=== PATIENT | male | born 1955 | race Caucasian/White ===

== ENCOUNTER 2019-01-13 09:22 | Inpatient (IN) | payer OTHER ==
[2019-01-13] MEDS ORDERED: NS 0.9% 1000 ML** 1,000 ML IV ONE (09:30)
--- OUTSIDE RECORDS SUMMARY | 2019-01-13 09:32 | XMS REPORT | Continuity of Care Document ---
:1955 External Reference #:[id number] Author Name Armida Bro Care Team Providers Name Role Phone Dejan Chaidez III, MD Primary Care Physician Unavailable Payers Date Identification Numbers Payment Provider Subscriber Policy Number: [id number] Saurabh Gregory PayID: [id number] [address] [place] [address] Effective: 2013 Policy Number: [id number] Saurabh Gregory Expires: 2014 Group Name: [id number] [address] PayID: [id number] [place] [address] Problems Active Problems Provider Date Ex-smoker Shelly Casey M.D. Onset: 12/01/2012 Substance abuse counseling Shelly Casey M.D. Onset: 12/01/2012 FH: Cardiovascular disease Shelly Casey M.D. Onset: 12/01/2012 Social History Type Date Description Comments Sex Unknown Marital Status Single Lives With Alone Occupation computer networking instructor adjunct, [place], [place] Tobacco Use Start: Unknown Current Cigarette Smoker 1 1/2 Packs Daily Cigarette Use Pack Years - 15 Smoking Status Reviewed: 01/11/19 Current Cigarette Smoker 1 1/2 Packs Daily ETOH Use consumes 7 beers per week ETOH Use prior excessive use, 10 yr ago 15/ wk Tobacco Use Start: Unknown Patient is a current smoker, smokes every day Exercise Type/Frequency Exercises regularly Exercise Type/Frequency walk Allergies, Adverse Reactions, Alerts Description No Known Drug Allergies Medications Active Medications SIG Qnty Indications Ordering Provider Date No Active Medications Unknown 08/09/2016 History Medications Omeprazole 1 by mouth every 90caps 530.81 Shelly Casey, 06/09/2014 - 40mg day M.D. 08/09/[address] No Active Unknown 04/07/2014 - Medications 06/09/2014 No Active Unknown 12/01/2012 - Medications 12/01/2012 Chantix starter pack as 1tabs V15.82 Shelly Casey, 12/01/2012 - 0.5mg Tablets directed M.D. 04/07/2013 Immunizations CPT Code Status Date Vaccine Lot # [id number] Given 08/09/2016 Zoster (Zostavax) [id number] Given 08/09/2016 Zoster (Zostavax) [id number] 13743 Given 08/09/2016 Influ Virus Vaccine, Quadrivalent, Split Virus, [place] [id number] [address] Given 08/09/2016 Pneumococcal Conjugate Vaccine 13 Valent For [id number] Intramuscular Use 12769 Given 04/07/2014 Influenza Virus Vaccine, Quadrivalent, Split, [id number] Preservative Free Vital Signs Date Vital Result Comment 01/11/2019 2:12pm Height 64 inches 5'4" Weight 135.00 lb Heart Rate 105 /min BP Systolic Sitting 125 mmHg BP Diastolic Sitting 76 mmHg Body Temperature 98.1 F O2 % BldC Oximetry 99 % BMI (Body Mass Index) 23.2 kg/m2 08/09/2016 8:29am Height 64 inches 5'4" Weight 135.00 lb Heart Rate 78 /min BP Systolic Sitting 124 mmHg BP Diastolic Sitting 76 mmHg Respiratory Rate 15 /min O2 % BldC Oximetry 98 % BMI (Body Mass Index) 23.2 kg/m2 06/09/2014 10:34am Weight 127.00 lb Heart Rate 92 /min BP Systolic Sitting 128 mmHg BP Diastolic Sitting 82 mmHg 04/07/2014 10:23am Height 64 inches 5'4" Weight 125.75 lb Heart Rate 62 /min BP Systolic Sitting 130 mmHg BP Diastolic Sitting 88 mmHg Body Temperature 96.9 F BMI (Body Mass Index) 21.6 kg/m2 01/01/2013 9:27am Weight 127.25 lb Heart Rate 75 /min BP Systolic Sitting 124 mmHg BP Diastolic Sitting 80 mmHg O2 % BldC Oximetry 98 % 12/01/2012 8:52am Height 64 inches 5'4" Weight 126.00 lb Heart Rate 78 /min BP Systolic Sitting 130 mmHg BP Diastolic Sitting 91 mmHg BMI (Body Mass Index) 21.6 kg/m2 Results Test Date Facility Test Result H/L Range Note Laboratory test 04/12/2014 [facility] Glucose 82 mg/dL N 70- 100 1, [address] [place] [address] [phone] Lipid Profile 04/12/2014 [facility] Triglycerides 206 mg/dL N 3 (Trig/Chol/HDL) [address] [place] [address] [phone] Cholesterol 181 mg/dL N 4 HDL Cholesterol 50.0 mg/dL N 5 LDL Cholesterol 90 mg/dL N 6 Inr/Protime 12/04/2012 [facility] Inr 0.83 Low 0.87-0.[address] [place] [address] [phone] Laboratory test 12/04/2012 [facility] Activated 36.1 22.18- 37.[address] [place] [address] Thrombo Time [phone] CBC Auto Diff 12/04/2012 [facility] White Blood 6.7 4.8-10.[address] Count 10^3/[place] [address] [phone] Red Blood Count 4.54 10^6/uL 4.0-5.4 Hemoglobin 13.9 g/dL Low 14.0-18.0 Hematocrit 43 % 42-52 Mean Corpuscular Volume 94 fL 80-94 Mean Corpuscular Hemoglobin 31 pg 27-31 Mean Corpuscular HGB Conc 33 g/dL 31-36 Red Cell Distribution Width 17 % High 10.5-15 Platelet Count 248 10^3/uL 150-450 Mean Platelet Volume 9 um3 7.4-10.4 Abs Neutrophils 3.2 10^3/uL 1.5-7.7 Abs Lymphocytes 2.6 10^3/uL 1.0-4.8 Abs Monocytes 0.6 10^3/uL 0-0.8 Abs Eosinophils 0.2 10^3/uL 0-0.6 Abs Basophils 0 10^3/uL 0-0.2 Abs Nucleated RBC 0.01 10^3/uL Granulocyte % 48.1 % 38-83 Lymphocyte % 38.7 % 25-47 Monocyte % 9.1 % High 1-9 Eosinophil % 3.6 % 0-6 Basophil % 0.5 % 0-2 Nucleated Red Blood Cells % 0.1 Liver Function Panel 12/04/2012 [facility] Alt 15 U/L 14-[address] [place] [address] [phone] Ast 16 U/L 12-42 Alkaline Phosphatase 51 U/L 30-110 Direct Bilirubin 0 mg/dL Low 0.1-0.5 Total Bilirubin 0.4 mg/dL 0.4-1.5 Albumin 3.9 g/dL 3.6-5.4 1 FASTING 12 HOUR 2 FASTING 12 HOUR 3 Desirable <150 Borderline high 150-199 High 200-499 Very High >500 4 Desirable <200 Borderline high 200-239 High >239 5 Low <40 Desirable: 40-60 High: >60 6 Desirable <100 Near Optimal 100-129 Borderline high 130-159 High 160-189 Very High >189 Procedures Date Code Description Status 09/03/2016 77201 ECHO Stress Test Incl Perf Contiuous ekg Monitoring W/Phys Completed Superv Encounters Type Date Location Provider Dx Diagnosis Office Visit 08/09/2016 Elio [facility] Familia Ernandez, Z13.220 Encounter for 8:40a Internal M.Elaine screening for Medicine-[facility] lipoid disorders d Z23 Encounter for immunization R07.89 Other chest pain Z72.0 Tobacco use Z00.00 Encntr for general adult medical exam w/o abnormal findings R32 Unspecified urinary incontinence Office Visit 06/09/2014 10:20a [facility] Elif Casey, 300.09 Anxiety States Medicine - Mark Streeter Other 530.81 Esophageal Reflux 786.50 Pain Chest Unspec Office Visit 04/07/2014 10:20a [facility] Elif Casey, V70.0 Examination Medicine - Mark Streeter General Medical Routine AT Health Care Facility V65.42 Counseling On Substance Use & Abuse V15.82 History Personal Tobacco Use V74.5 Screening Examination Venereal Disease V76.51 Special Screening For Malignant Neoplasms Colon V04.81 Need For Prophylactic Vaccination & Inoculation/Influenza Office Visit 01/01/2013 9:40a [facility] Elif Casey, V65.42 Counseling On Medicine - Mark Streeter Substance Use & Abuse V15.82 History Personal Tobacco Use Office Visit 12/01/2012 9:00a [facility] Elif Casey, V15.82 History Personal Medicine - Mark Streeter Tobacco Use V65.42 Counseling On Substance Use & Abuse V72.81 Examination Preoperative Cardiovascular V17.49 Family HX Of Other Cardiovascular Diseases Plan of Treatment 01/11/2019 - Dejan Chaidez M.D.L29.9 Pruritus, unspecifiedComments:3+ month hx generalized pruritis sx with no focal skin rashes/lesions. (+) generalized dry, scalingskin all over, hima hands; ? cause of itching. Advised only gentle skin soap use and liberal use of a water based skin moisturizer multiple times odzmrP89.29 Other chronic painComments:Diffuse, daily, brief sharp pain sx over arms, legs. Etiology unclear. Multiple other ongoing c/o and additional lab lsnmjbmA22.83 Other fatigueComments:Chronic fatigue/dyspnea on exertion; no sx at rest. No chest pains/pressure and lungs clear on exam, O2 sat 99%. Labs including BNP imxiisbD35.9 Unspecified abdominal painComments:Chronic, episodic lower abd pains in addition to other pains as above. (+) chronic post large meal nausea noted hours later with some vomiting. No other postprandial sx, bowel changes, past GI dz. No colon kmuctR46.32 Mood disorder due to known physiological condition with majoComments:Mood score abnormal due to ongoing medical sx per pt; no other psych hx and pt denies any mood issues pfzpdizlvL55.44 Nocturnal enuresisNew Labs:Urinalysis Profile, Ordered: Comments:Chronic decreased stream and newer nocturnal enuresis. Check UA and PSA. No other voiding sxR60.0 Localized edemaComments:2 week c/o lower leg swelling. (+) 1-2+ pitting edema bilat to upper calf areas bilat. No varicosities, calf tenderness/masses. No other CHF sx, but (+) exertional dyspnea. No heart murmur noted. Check labs as above.
--- NOTE | 2019-01-13 10:02 | ED ---
Lower Extremity - HPI Summary HPI Summary: The patient is a 63 y/o M presenting to [facility] with a chief complaint of gradual onset BLE edema and pruritic skin starting months ago. He reports that over the past few months he has developed an intense pruritic sensation all over his body accompanied by dry, flaky skin, as well as BLE edema extending from the hip to foot and bilateral hands, fatigue, chills, and incontinence of urine at night. For his skin complaint, he states he has tried lotion to relieve the symptoms, but then he began to have swelling, so he halted the lotion use. He has more recently developed the fatigue, chills, and incontinence, so he has seen his PCP Dr. Chaidez two days ago, who suggested he come to the ED for further workup with cardiac and renal concerns subsequent to abnormal blood work results. He denies any dietary changes. Currently, his pain is rated 8/10 in severity. He is able to bear weight on both legs. No past medical Hx. Surgical hx of left shoulder dislocation and right ear cholesteatoma. Current every day cigarette smoker, occasional EtOH, no substance use. - History of Current Complaint Chief Complaint: EDWeakness Stated Complaint: LOW BACK PAIN PER PT Time Seen by Provider: 01/13/19 09:30 Hx Obtained From: Patient Mechanism Of Injury: Unknown Onset of Pain: Days Onset/Duration: Still Present Severity Initially: Mild Severity Currently: Severe Pain Intensity: 8 Pain Scale Used: 0-10 Numeric Timing: Lasting Days Location: Other - edema in the BLE from hip to foot and also bilateral hands Character Of Pain: Aching Aggravating Factor(s): Other - used lotion for dry skin that may have caused edema Alleviating Factor(s): Nothing Able to Bear Weight: Yes - Allergies/Home Medications Allergies/Adverse Reactions: Allergies Allergy/AdvReac Type Severity Reaction Status Date / Time No Known Allergies Allergy Verified 01/13/19 09:28 Home Medications: Home Medications NK [No Home Medications Reported] 01/13/19 [History Confirmed 01/13/19] PMH/Surg Hx/FS Hx/Imm Hx Endocrine/Hematology History: Denies: Hx Diabetes Cardiovascular History: Denies: Hx Hypercholesterolemia, Hx Hypertension History: Denies: Hx Renal Disease - Surgical History Surgery Procedure, Year, and Place: left shoulder dislocation with pin placement , right ear cholesteatoma removal Infectious Disease History: No Infectious Disease History: Denies: Traveled Outside the [place] in Last 30 Days - Family History Known Family History: Positive: Hypertension Negative: Diabetes - Social History Alcohol Use: Occasionally Hx Substance Use: No Hx Tobacco Use: Yes Smoking Status (MU): Current Every Day Smoker Type: Cigarettes Review of Systems Positive: Chills, Fatigue Negative: Other - NEGATIVE: change in diet Positive: incontinence - of urine Positive: Edema - in BLE extending from hip down including feet, bilateral hands Positive: Other - pruritic sensation all over body with dry, flaky skin All Other Systems Reviewed And Are Negative: Yes Physical Exam - Summary Physical Exam Summary: VITAL SIGNS: Reviewed. GENERAL: Patient is a well-developed and nourished male who is lying comfortable in the stretcher. Patient is not in any acute respiratory distress. HEAD AND FACE: No signs of trauma. No ecchymosis, hematomas or skull depressions. No sinus tenderness. EYES: PERRLA, EOMI x 2. Pale conjunctiva. No injected conjunctiva, no nystagmus. EARS: Hearing grossly intact. Ear canals and tympanic membranes are within normal limits. MOUTH: Oropharynx within normal limits. NECK: Supple, trachea is midline, no adenopathy, no JVD, no carotid bruit, no c- spine tenderness, neck with full ROM. CHEST: Symmetric, no tenderness at palpation. LUNGS: Decreased breath sounds. No wheezing or crackles. CVS: Regular rate and rhythm, S1 and S2 present, no murmurs or gallops appreciated. ABDOMEN: Soft, non-tender. No signs of distention. No rebound, no guarding, and no masses palpated. Bowel sounds are normal. EXTREMITIES: 2+ BLE edema from the hip down. FROM in all major joints, no cyanosis or clubbing. NEURO: Alert and oriented x 3. No acute neurological deficits. Speech is normal and follows commands. SKIN: Dry, pale, and warm. RECTAL EXAM: No gross blood or melena present. Triage Information Reviewed: Yes Vital Signs On Initial Exam: Initial Vitals Temp Pulse Resp BP Pulse Ox 98.1 F 100 16 162/79 97 01/13/19 09:25 01/13/19 09:25 01/13/19 09:25 01/13/19 09:25 01/13/19 09:25 Vital Signs Reviewed: Yes Diagnostics - Vital Signs Vital Signs Temp Pulse Resp BP Pulse Ox 01/13/19 09:25 98.1 F 100 16 162/79 97 - Laboratory Result Diagrams: 01/14/19 04:08 01/14/19 04:08 Lab Statement: Any lab studies that have been ordered have been reviewed, and results considered in the medical decision making process. - Radiology CXR Radiology Interpretation Completed By: Radiologist Summary of Radiographic Findings: No acute cardiopulmonary disease. ED physician has reviewed this radiology report. - EKG 0943 Cardiac Rate: Tachycardia - 103 BPM EKG Rhythm: Sinus Tachycardia Summary of EKG Findings: No ST elevations. Re-Evaluation - Re-Evaluation First Eval Re-Evaluation Time: 09:40 Comment: I discussed results and admission with the patient. Lower Extremity Course/Dx - Course Assessment/Plan: The patient is a 63 y/o M presenting to [facility] with a chief complaint of gradual onset BLE edema and pruritic skin starting months ago. He reports that over the past few months he has developed an intense pruritic sensation all over his body accompanied by dry, flaky skin, as well as BLE edema extending from the hip to foot and bilateral hands, fatigue, chills, and incontinence of urine at night. For his skin complaint, he states he has tried lotion to relieve the symptoms, but then he began to have swelling, so he halted the lotion use. He has more recently developed the fatigue, chills, and incontinence, so he has seen his PCP Dr. Chaidez two days ago, who suggested he come to the ED for further workup with cardiac and renal concerns subsequent to abnormal blood work results. He denies any dietary changes. Currently, his pain is rated 8/10 in severity. He is able to bear weight on both legs. No past medical Hx. Surgical hx of left shoulder dislocation and right ear cholesteatoma. Current every day cigarette smoker, occasional EtOH, no substance use. In the ED course, the patient was placed on a cardiac catheterization technician, IV access was obtained, and IV fluids were started. Blood work without any significant abnormality except for RBCs of 1.93, hemoglobin of 5.8, hematocrit of 18, potassium of 5.3, carbon dioxide of 12, anion gap of 20, BUN of 128, creatinine of 11.9, glucose of 114, calcium of 7.4, magnesium of 1.6 for which the patient was given magnesium IV, CRP of 68.7, and BNP of 237. EKG shows a normal sinus rhythm without ST elevations. Chest x-ray impression: No acute cardiopulmonary disease. In the ED course the patient was given medication IV, we did a bladder scan, which showed that the patient has over 600 cc of retention of urine; therefore, after the renal bladder scan, we will place a Cadet catheter. I discussed the case with Dr. Pearson from nephrology who will consult for this patient. I discussed my physical exam and test results with Dr. Bui from the hospitalist services, and she agrees to admit patient to her services. US Abd/Bladder ordered by Dr. Bui, and she will follow up with the results. Patient is hemodynamically stable alert and oriented x 3. - Diagnoses Provider Diagnoses: Acute renal failure, Urinary retention, Symptomatic anemia, Hypomagnesemia - Physician Notifications Discussed Care Of Patient With: Shankar Pearson - nephrology Time Discussed With Above Provider: 10:30 Instructed by Provider To: Other - I spoke with Dr. Pearson concerning the patient's case. He suggested admission, and he will see the patient. At 1035, I spoke with Dr. Bui, hospitalist, and she accepts the patient for admission. - Critical Care Time Critical Care Time: 75-104 min Discharge - Sign-Out/Discharge Documenting (check all that apply): Patient Departure - Patient will be admitted to [facility] for further care by Dr. Bui. Patient Received Moderate/Deep Sedation with Procedure: No - Discharge Plan Condition: Stable Disposition: ADMITTED TO [facility] - Billing Disposition and Condition Condition: STABLE Disposition: Admitted to [facility] - Attestation Statements Document Initiated by Liz: Yes Documenting Scribe: Yeimi Núñez Provider For Whom Liz is Documenting (Include Credential): Dr. Dejan Byers MD Scribe Attestation: IYeimi, scribed for Dr. Dejan Byers MD on 01/14/19 at 0736. Scribe Documentation Reviewed: Yes Provider Attestation: The documentation as recorded by the Yeimi rock accurately reflects the service I personally performed and the decisions made by me, Dr. Dejan Byers MD Status of Scribe Document: Viewed
[2019-01-13 10:03] LABS: ABS Eosinophils 1.3 10^3/ul (0-0.6); ABS Lymphocytes 1.2 10^3/ul (1.0-4.8); ABS Monocytes 0.8 10^3/ul (0-0.8); ABS Neutrophils 6.9 10^3/ul (1.5-7.7); Eosinophil % 12.7 %; Hematocrit 18 % (42-52); Hemoglobin 5.8 g/dL (14.0-18.0); Lymphocyte % 12.1 %; Mean Corpuscular HGB Conc 33 g/dL (31-36); Mean Corpuscular Hemoglobin 30 pg (27-31); Mean Corpuscular Volume 92 fL (80-94); Mean Platelet Volume 8.2 fL (7.4-10.4); Platelet Count 394 10^3/uL (150-450); Red Blood Count 1.93 10^6 /uL (4.18-5.48); Red Cell Distribution Width 15 % (10-15); White Blood Count 10.3 10^3/uL (3.5-10.8)
[2019-01-13 10:14] LABS: Troponin I 0.03 ng/mL (<0.04)
[2019-01-13 10:16] LABS: ALT 11 U/L (7-52); AST 11 U/L (13-39); Albumin 3.7 g/dL (3.2-5.2); Albumin/Globulin Ratio 1.3 (1-3); Alkaline Phosphatase 55 U/L (34-104); BUN/Creatinine Ratio 10.8 (8-20); Blood Urea Nitrogen 128 mg/dL (6-24); C Reactive Protein 68.77 mg/L (<8.01); Calcium 7.4 mg/dL (8.6-10.3); Chloride 109 mmol/L (101-111); EGFR African American 5.3 (>60); EGFR Non-African American 4.3 (>60); Globulin 2.8 g/dL (2-4); Glucose 114 mg/dL (70-100); Magnesium 1.6 mg/dL (1.9-2.7); Sodium 141 mmol/L (135-145); Total Protein 6.5 g/dL (6.4-8.9)
[2019-01-13 10:19] LABS: Anion Gap 20 mmol/L (2-11); CO2 Carbon Dioxide 12 mmol/L (22-32); Potassium 5.3 mmol/L (3.5-5.0)
[2019-01-13] MEDS ORDERED: Magnesium Sulfate 1 GM IV* 1 GM/100 ML BAG IV ONE (10:47)
[2019-01-13 11:02] LABS: TSH (Thyroid Stimulating Horm) 3.84 mcIU/mL (0.34-5.60)
[2019-01-13] MEDS ORDERED: Nicotine PATCH 21 MG/24 HR* PATCH TRANSDERM ONE (12:53)
[2019-01-13] MEDS ORDERED: Furosemide IV* 10 MG/ML VIAL (40 MG) IV ONE (12:54)
[2019-01-13] MEDS ORDERED: Iron Sucrose* 200 MG in NS 0.9% 100 ML* 100 ML IVPB ONE (13:10)
--- NOTE | 2019-01-13 13:19 | CONS ---
CC: Dr. Chaidez * NEPHROLOGY CONSULTATION REPORT: DATE OF CONSULT: 01/13/19 HISTORY OF PRESENT ILLNESS: Mr. Gregory is a 63-year-old gentleman who said that his symptoms started like hitting him with a freight train about 2-1/2 years ago. He began to have a significant decrease in his urinary stream and noted that he was becoming incontinent of urine during the evenings. He did have some urinary hesitancy. He did not have double voiding. He did not have any gross hematuria. He has been noticing that he is cold all the time. He notices that he has had significant pruritus, and over the past 2 weeks, he has developed some significant bilateral lower extremity edema. He has noticed easy fatigability, some anorexia, and dyspnea on exertion. PAST MEDICAL HISTORY: His previous medical history is fairly unremarkable. PAST SURGICAL HISTORY: He has a history of left shoulder surgery and history of a cholesteatoma removal from his right ear. MEDICATIONS: He does not have any routine medications. ALLERGIES: He has no medical allergies. FAMILY HISTORY: Unremarkable. SOCIAL HISTORY: He smokes a pack and a half of cigarettes per day. He uses about 3 drinks per day. REVIEW OF SYSTEMS: No visual disturbances. No headaches. He has been having a significant sleep disorder. No swallowing difficulties. No chest pain. He has had nausea, particularly in the mornings. He has had no change in his bowel habits. He has had no easy bruisability. There have been no neurologic deficits. PHYSICAL EXAM: General: He is a well-developed, well-nourished white gentleman. Vital Signs: He is afebrile, his blood pressure is 162/79 with a pulse of 104, respirations are 29. HEENT: He is normocephalic without evidence of trauma. He is anicteric. His extraocular muscles are intact. His mucous membranes are a little dry. There is no jugular venous distention. Chest: Is clear. Heart: Revealed a regular rhythm. I did not hear any murmurs. Abdomen: Soft and nontender. I think his bladder is up to just about 5 cm below the umbilicus. He is not very tender over his bladder. Lower Extremities: Reveal 2+ edema to his ankles and his feet. There are some trophic changes. He has markedly dry skin, which flakes off. He has Lukasz nails. Neurologic: He is alert and oriented. He moves all 4 extremities. DIAGNOSTIC STUDIES/LAB DATA: A review of his laboratory values reveals a white count of 10.3, hemoglobin of 5.8, hematocrit of 18, platelet count of 394. A pH of 7.26, pCO2 of 23, pO2 of 118. Sodium 141, potassium 5.3, chloride 109, total CO2 of 12, BUN of 128, creatinine of 11.9, glucose of 114. His calcium is 7.4, magnesium 1.6, albumin of 3.7. Urinalysis done on 01/11/19 reveals a specific gravity of 1.008, 1+ blood, 3+ leukocyte esterase, 3+ wbc's, 2+ rbc's, 1+ bacteria. He had an ultrasound of the bladder, which revealed 600 cc of urine in his bladder. His chest x-ray was unremarkable. IMPRESSION: 1. Renal failure. 2. Probable bladder outlet obstruction as the cause of his renal failure. 3. Type 4 renal tubular acidosis. 4. Severe anemia. DISCUSSION: It is likely that he has prostatic disease causing the bladder outlet obstruction. Hopefully, that is benign prostatic hypertrophy and not prostate cancer or bladder cancer. He will need to have catheter drainage. Obviously, we should be observing for postobstructive diuresis and fluid and electrolyte disorders. I would buffer his acidosis. Since he is taking oral food and fluids, I would go ahead and buffer him with Bicitra probably 30 cc t.i.d. at the present time. At some point, that may be able to be reduced. His magnesium of 1.6 I do not think needs to be addressed at the present time. He is tolerating his level of anemia, but I would not require much more in the way of symptoms to go ahead and transfuse him. An erythropoietin level and other parameters of the anemia evaluation should be obtained prior to any transfusion. [id number]/[facility] #: [id number] [facility] HOSPITALAnna
[2019-01-13 13:41] LABS: % Iron Saturation 20 % (15-55); Iron 54 ug/dL (50-212); Total Iron Binding Capacity 276 mcg/dL (250-450); Transferrin 197 mg/dL (203-362)
[2019-01-13] MEDS ORDERED: Sodium Citrate/Citric Acid* 15 ML UDC PO SCH (14:00)
[2019-01-13 14:02] LABS: Ferritin 14.1 ng/mL (24-336)
[2019-01-13] MEDS: Sodium Citrate/Citric Acid* 15 ML UDC PO SCH ×2 (14:56→21:13)
[2019-01-13] MEDS ORDERED: NS 0.9% 1000 ML** 1,000 ML IV SCH ×2 (15:00→17:15)
[2019-01-13 15:35] LABS: Urine Appearance Turbid; Urine Bacteria 1+ (Absent); Urine Bilirubin Negative (Negative); Urine Blood 2+ (Negative); Urine Color Amber; Urine Glucose 1+(50 mg/dL) (Negative); Urine Ketones Trace (Negative); Urine Nitrite Negative (Negative); Urine Protein 3+(>=500 mg/dL) (Negative); Urine Red Blood Cell 3+(>10/hpf) (Absent); Urine Specific Gravity 1.013 (1.010-1.030); Urine Urobilinogen Negative (Negative); Urine White Blood Cell 3+(>20/hpf) (Absent)
[2019-01-13 16:22] LABS: Hematocrit 36 % (42-52); Hemoglobin 11.1 g/dL (14.0-18.0)
[2019-01-13] MEDS: NS 0.9% 1000 ML** 1,000 ML IV SCH ×3 (17:10→23:00)
--- NOTE | 2019-01-13 17:30 | HP ---
ATTENDING ADDENDUM NOW INCLUDED ON THIS REPORT CC: Dejan Chaidez MD * HISTORY AND PHYSICAL: DATE OF ADMISSION: 01/13/19 PRIMARY CARE PROVIDER: Dejan Chaidez MD. ATTENDING PHYSICIAN: Dr. Heidi Key * (dictated by MARTHA Jones ). CHIEF COMPLAINT: "Intense itching." HISTORY OF PRESENT ILLNESS: Mr. Gregory is a 63-year-old male with no past medical history who presented to the ER with complaints of intense itching, flaking of skin, and swelling of the lower extremities and upper extremities for the last approximately 90 days. The patient states that itching and flaking has occurred for approximately 90 days, swelling in lower extremities started approximately 2 weeks ago with the right hand and which has subsided, now he has swelling in both lower extremities. He was noted to have a very elevated BUN and creatinine of 128 and 11.9 respectively in the ER. The patient denies any use of nephrotoxic medications including no recent use of antibiotics or NSAIDs. Last imaging scan with contrast was over 5 years ago. He states that he has had increased frequency with urinary retention for the last approximately 1 year. He states that this subsided. He currently wears Depends at night due to leaking. He now admits to urinating approximately 3 times a day with decreased flow and decreased urinary output. He denies pain with urination. He denies hematuria. He does not know how long this has been going on for. He denies abdominal pain, pain in the bladder region or flank pain. He does note a pressure sensation in the suprapubic area. He denies chest pain. He admits to shortness of breath, easy fatigability and diarrhea for the last approximately 2 weeks, 2 to 3 bouts per day. He complains of nausea with vomiting 1 to 2 times per day after eating or at night. He states he gets indigestion that leads to emesis. He denies past medical history of hypertension, hyperlipidemia. He denies fever, cough, or recent prostate exam. His primary care provider is Dr. Dejan Chaidez who he first saw on Friday. This was his first appointment with him. Prior to that it had been approximately 2 years since his last primary care provider visit. In the ER, the patient received a full workup which included blood work revealing RBC 1.93, H and H 5.8/18 respectively. PH 7.26, CO2 23, O2 118, HCO3 13.4, base excess negative 14.8, potassium 5.3, CO2 12, anion gap 20, BUN 128, creatinine 11.9, calcium 7.4, magnesium 1.6, CRP 68.77. His stool was negative for occult blood. Chest x-ray was negative. EKG revealed sinus tachycardia. The patient received 1 g magnesium IV in the ER. He also received 2 units of packed red blood cells. Ultrasound of the kidney and bladder revealed bilateral severe hydronephrosis. The hospitalist team was asked to evaluate the patient for admission. PAST MEDICAL HISTORY: None. PAST SURGICAL HISTORY: Left shoulder dislocation with pinning, right ear cholesteatoma removal. HOME MEDICATIONS: None. DRUG ALLERGIES: None. FAMILY HISTORY: Mother with cervical cancer, CHF, TIA, dementia. Father was healthy. Grandparents were healthy. The patient denies family history of diabetes mellitus. SOCIAL HISTORY: The patient is a current smoker. He states he smokes greater than 1 pack per day for the last approximately 30 years. He drinks 1 to 2 alcoholic beverages per week. He does not use any other drugs. He is a retired computer systems information director. He lives alone. In the event that he is unable to make his own medical decisions, he has appointed his sister, Karina Gregory to be his surrogate decision maker. REVIEW OF SYSTEMS: A 10-point review of systems was performed and all the pertinent positives and negatives are in the HPI. All other systems are negative. PHYSICAL EXAMINATION GENERAL: Mr. Gregory is a well-developed, well-nourished, normal weight white male who appears acutely ill. He is pale. He is cooperative and appropriate and in no acute distress. He is able to speak in full sentences. VITAL SIGNS: Temperature 98.1 temporal, heart rate 88, respiratory rate 15, oxygen saturation 99% on room air, blood pressure 134/84. HEENT: Normocephalic, atraumatic. PERRL. EOMI. Pale conjunctivae. Oral mucosa moist. There are no lesions. Poor dentition. RESPIRATORY: Symmetrical chest expansion without use of accessory muscles. Lungs are clear to auscultation bilaterally. There are no crackles. No wheezes or rhonchi. The patient has a anterior chest wall deformity appearing as pectus excavatum. CARDIOVASCULAR: Regular rate and rhythm with S1, S2 present without murmurs, rubs, clicks, gallops. There is no JVD. ABDOMEN: Flat. Bowel sounds noted in all quadrants. The abdomen is soft and nontender to palpation. There is some suprapubic tenderness. The bladder is palpable. EXTREMITIES: Skin is warm, dry, flaking throughout. There is no clubbing or cyanosis. There is trace edema to the right upper extremity. 2+ pitting edema to bilateral lower extremities. NEUROLOGIC: The patient is awake. He is alert and oriented x3. Cranial nerves are grossly intact. He is able to move all of his extremities. MUSCULOSKELETAL: Full range of motion without pain or deformities. SKIN: Dry, flaking throughout. DIAGNOSTIC STUDIES/LAB DATA: See above laboratory data. Chest x-ray, impression: No acute cardiopulmonary disease. EKG: Sinus tachycardia. Abdomen/bladder ultrasound, impression: Severe bilateral hydronephrosis. ASSESSMENT AND PLAN: Mr. Gregory is a 63-year-old male with no significant past medical history who has been lost a follow up for approximately 2 years, who presents to the ER today with pruritus and bilateral lower extremity edema. He was found to have acute renal failure likely due to postrenal obstruction and anemia requiring 2 units of packed red blood cells. He will be admitted inpatient for: 1. Acute renal failure: The patient came in with pruritus and bilateral lower extremity edema as well as shortness of breath, easy fatigability. He was found to have an elevated BUN and creatinine as well as bilateral hydronephrosis. In the ER, a urinary catheter was placed with an output of 1000 cc of fluid. The patient will be admitted. He will continue to self diurese with catheter in place. Dr. Pearson and Dr. Flores have both been consulted. They recommend q.2 hour urinary output volume measurement and replacement of two-thirds of the output over the next 2 hours. The patient will be placed on daily I's and O's. We will repeat electrolytes including phosphorous and magnesium in 8 hours after initial study. The patient will likely need cystoscopy and other studies as well as outpatient followup with Urology. Again, the patient will continue to have fluids replacement for his losses. He will be started on normal saline. Once potassium has normalized, we will switch to lactated Ringer's to avoid hypokalemia. 2. Anemia: The patient has decreased H and H. Fecal occult blood was negative. He has received 2 units of packed red blood cells in the ER. Anemia workup has been ordered. Erythropoietin has been ordered. 3. Tobacco abuse: The patient is a current tobacco user. He has been offered a nicotine patch which he has agreed to. This has been ordered. 4. DVT prophylaxis: According to the DVT risk assessment, the patient scores 2 placing him at moderate risk. We will hold off on chemoprophylaxis at the moment due to severe anemia. 7. Code status: Full code. TIME SPENT: Approximately 60 minutes was spent on this admission, greater than half of that time was spent [id number] with the patient and his girlfriend obtaining history, performing physical and reviewing the plan of care. The case has been reviewed with my attending, Dr. Key, who is in agreement with the plan of care. MARTHA JONES ADDENDUM: The case was reviewed to discuss with Edda Avina, physician retail sales assistant. Mr. Gregory is a 63-year-old male with no past medical history, but who has had limited contact with the healthcare system, who presents to the ED with complaints of itching and swelling of the lower extremities for 3 months. He was seen by his primary care provider and had a workup as outpatient that showed significant anemia with a hemoglobin of 5.9 and creatinine of 12.3. Dr. Chaidez had actually contacted me on 01/12/19 to have the patient admitted, but he did not show up. He presented to the emergency room today. In the emergency room the patient had an ultrasound that revealed bilateral severe hydronephrosis and he had a Cadet catheter placed with drainage of 200 mL of urine. Nephrology and Urology have been consulted. The patient has developed mild hematuria in the setting of decompression of his bladder and we will continue to monitor. We will also replete his urinary output with a two-thirds of the volume of normal saline. I am in agreement with the current management. HEIDI Key MD [id number] #: [id number]/CPS #: [id number] UNRULY
--- NOTE | 2019-01-13 20:08 | HP ---
CC: Dr. Dejan Chaidez. HISTORY AND PHYSICAL: ADDENDUM: The case was reviewed to discuss with Edda Avina, physician assistant federal public defender. Mr. Gregory is a 63-year-old male with no past medical history, but who has had limited contact with the healthcare system, who presents to the ED with complaints of itching and swelling of the lower extremities for 3 months. He was seen by his primary care provider and had a workup as outpatient that showed significant anemia with a hemoglobin of 5.9 and creatinine of 12.3. Dr. Chaidez had actually contacted me on 01/12/19 to have the patient admitted, but he did not show up. He presented to the emergency room today. In the emergency room the patient had an ultrasound that revealed bilateral severe hydronephrosis and he had a Cadet catheter placed with drainage of 200 mL of urine. Nephrology and Urology have been consulted. The patient has developed mild hematuria in the setting of decompression of his bladder and we will continue to monitor. We will also replete his urinary output with a two-thirds of the volume of normal saline. I am in agreement with the current management. [id number]/CPS #: [id number] MTDD
[2019-01-13 20:40] LABS: BUN/Creatinine Ratio 11.6 (8-20); Calcium 6.9 mg/dL (8.6-10.3); EGFR African American 5.7 (>60); EGFR Non-African American 4.7 (>60); Magnesium 1.8 mg/dL (1.9-2.7); Phosphorus 7.1 mg/dL (2.5-5.0); Potassium 4.7 mmol/L (3.5-5.0)
[2019-01-13 22:05] LABS: Hematocrit 20 % (42-52); Hemoglobin 6.9 g/dL (14.0-18.0)
[2019-01-14] MEDS: NS 0.9% 1000 ML** 1,000 ML IV SCH ×3 (01:00→05:00)
[2019-01-14 04:20] LABS: ABS Eosinophils 0.9 10^3/ul (0-0.6); ABS Lymphocytes 0.8 10^3/ul (1.0-4.8); ABS Monocytes 0.6 10^3/ul (0-0.8); ABS Neutrophils 4.9 10^3/ul (1.5-7.7); Eosinophil % 12.9 %; Hematocrit 21 % (42-52); Hemoglobin 7.1 g/dL (14.0-18.0); Lymphocyte % 11.4 %; Mean Corpuscular HGB Conc 33 g/dL (31-36); Mean Corpuscular Hemoglobin 31 pg (27-31); Mean Corpuscular Volume 92 fL (80-94); Mean Platelet Volume 7.4 fL (7.4-10.4); Platelet Count 315 10^3/uL (150-450); Red Cell Distribution Width 15 % (10-15); White Blood Count 7.3 10^3/uL (3.5-10.8)
[2019-01-14 04:35] LABS: Albumin 2.9 g/dL (3.2-5.2); Albumin/Globulin Ratio 1.3 (1-3); BUN/Creatinine Ratio 10.4 (8-20); Calcium 6.6 mg/dL (8.6-10.3); EGFR African American 5.2 (>60); EGFR Non-African American 4.3 (>60); Globulin 2.2 g/dL (2-4); Magnesium 1.7 mg/dL (1.9-2.7); Phosphorus 6.8 mg/dL (2.5-5.0); Potassium 4.4 mmol/L (3.5-5.0); Total Bilirubin 0.3 mg/dL (0.2-1.0); Total Protein 5.1 g/dL (6.4-8.9)
[2019-01-14] MEDS: Lactated Ringers 1000 ML Bag* 1,000 ML IV ONE ×6 (07:45→21:21)
[2019-01-14] MEDS: Nicotine PATCH 21 MG/24 HR* PATCH TRANSDERM SCH (08:59)
[2019-01-14] MEDS ORDERED: Furosemide IV* 10 MG/ML VIAL (40 MG) IV SCH (09:00)
[2019-01-14] MEDS: Sodium Citrate/Citric Acid* 15 ML UDC PO SCH ×3 (09:22→20:44)
--- NOTE | 2019-01-14 10:16 | ECHO ---
*[facility]* [place] [address] Fax #: [phone] Transthoracic Echocardiogram Patient: Byron Gregory : 1955 Study Date: 01/14/2019 Age: 63 Gender: M HR: 95 bpm Height: 64 in /162.6 cm BSA: 1.63 m^2 Weight: 129.7 lb /59 kg BMI: 22.3 kg/m^2 *Civil Defense Director: * Ellen Wray RDCS RN *Referring Physician: * Edda AvinaReading Physician: * Ganga Browne MD Indications: Edema History: Risk factors: Current tobacco use. Hypertension. Conclusions Summary: 1. Left ventricle: The cavity size is normal. Wall thickness is normal. Systolic function is normal. The estimated ejection fraction is 55-60%. Wall motion is normal; there are no regional wall motion abnormalities. 2. Normal cardiac chamber sizes. 3. Functionally benign heart valves. 4. There is no prior echocardiogram available to compare with at this time. Study data: Transthoracic echocardiogram. Procedure: Transthoracic echocardiography was performed. Image quality was fair. The study was technically limited due to Smoking history. Complete 2D, spectral Doppler, and color flow Doppler. Location: Bedside. Patient status: Inpatient. Patient room number: 410-02. Rhythm: Normal sinus rhythm. Findings Left ventricle: The cavity size is normal. Wall thickness is normal. Systolic function is normal. The estimated ejection fraction is 55-60%. Wall motion is normal; there are no regional wall motion abnormalities. There is no consistent Doppler evidence of clinically significant diastolic dysfunction. Right ventricle: The cavity size is normal. Systolic function is normal. Left atrium: The atrium is normal in size. Right atrium: The atrium is normal in size. Mitral valve: The leaflets are mildly thickened. There is trivial regurgitation. Aortic valve: Not well visualized. The leaflets are mildly thickened. There is no evidence of stenosis. There is no regurgitation. Tricuspid valve: The valve is structurally normal. There is trace regurgitation. Pulmonic valve: Not well visualized. There is no evidence of stenosis. There is no significant regurgitation. Aorta: Aortic root: The aortic root is not dilated. Ascending aorta: The ascending aorta is not dilated. Aortic arch: The aortic arch is not dilated. Pericardium: There is no pericardial effusion. Pulmonary arteries: Not well visualized. Systolic pressure can not be accurately estimated. Systemic veins: Inferior vena cava: The vessel is normal in size. The respirophasic diameter changes are in the normal range (>= 50%). Measurements Left ventricle Value Ref Right atrium continued Value Ref JEROD, LAX 4.6 cm 4.2 - 5.8 SI dim, ES, A4C 4.7 cm 3.4 - 5.3 ESD, LAX 3.3 cm 2.5 - 4.0 Estimated RAP 3 mm Hg --------- FS, LAX 27 % 25 - 43 PW, ED, LAX 1.0 cm 0.6 - 1.0 Aortic valve Value Ref PW, ED 1.0 cm 0.6 - 1.0 Alma diam, ED 1.8 cm --------- IVS/PW, ED 0.81 Peak v, S 1.75 m/sec --------- PW/ID, ED 0.21 VTI, S 30.3 cm --------- E', lat alma, TDI (L) 9.2 cm/sec >=10.0 Mean grad, S 7.0 mm Hg -- ------- E/e', lat alma, 9 Peak grad, S 12.0 mm Hg ----- ---- TDI LVOT/AV, VTI ratio 0.75 --------- E', med alma, TDI 8.4 cm/sec >=7.0 E/e', med alma, 10 Mitral valve Value Ref TDI Peak E 0.86 m/sec --------- E', avg, TDI 8.8 cm/sec Peak A 1.04 m/sec ----- ---- E/e', avg, TDI 10 <=14 Decel time 278 ms -- ------- Peak grad, D 3.0 mm Hg --------- LVOT Value Ref Peak E/A ratio 0.8 --------- Peak fito, S 1.39 m/sec VTI, S 22.6 cm Pulmonic valve Value Ref Peak grad, S 8 mm Hg Peak v, S 0.63 m/sec --------- Mean grad, S 4 mm Hg Peak grad, S 2.0 mm Hg --------- Ventricular septum Value Ref Aortic root Value Ref IVS, ED 0.8 cm 0.6 - 1.0 Root diam 2.6 cm <3.9 Right ventricle Value Ref Ascending aorta Value Ref JEROD, LAX 2.7 cm AAo AP diam, S 2.7 cm --------- JEROD minor ax, 2.5 cm 1.9 - 3.5 A4C mid Aortic arch Value Ref Arch diam 2.3 cm --------- Left atrium Value Ref AP dim, ES 3.30 cm 3.00 - Decending aorta Value Ref 4.00 Cr peak fito 0.95 m/sec --------- ML dim, A4C 4.3 cm SI dim, A4C 4.2 cm Inferior vena cava Value Ref Vol/bsa, ES, 1-p 26 ml/m^2 12 - 37 Diam 0.8 cm --------- A4C Vol/bsa, ES, A/L 20 ml/m^2 16 - 34 Right atrium Value Ref ML dim, ES, A4C 3.1 cm 2.6 - 4.4 Legend: (L) and (H) ofe values outside specified reference range. Prepared and electronically signed by Ganga Browne MD 01/14/2019 10:16
[2019-01-14] MEDS ORDERED: Lactated Ringers 1000 ML Bag* 1,000 ML IV ONE ×2 (11:00→13:00)
[2019-01-14 11:20] LABS: Hematocrit 21 % (42-52); Hemoglobin 6.9 g/dL (14.0-18.0)
[2019-01-14 11:37] LABS: Albumin 2.7 g/dL (3.2-5.2); Albumin/Globulin Ratio 1.2 (1-3); BUN/Creatinine Ratio 11.8 (8-20); Calcium 6.7 mg/dL (8.6-10.3); EGFR African American 6.1 (>60); Globulin 2.2 g/dL (2-4); Magnesium 1.6 mg/dL (1.9-2.7); Phosphorus 6.6 mg/dL (2.5-5.0); Potassium 4.6 mmol/L (3.5-5.0); Total Bilirubin 0.3 mg/dL (0.2-1.0); Total Protein 4.9 g/dL (6.4-8.9)
[2019-01-14 17:05] LABS: Hematocrit 23 % (42-52); Hemoglobin 7.8 g/dL (14.0-18.0)
--- NOTE | 2019-01-14 18:49 | PN ---
Subjective Date of Service: 01/14/19 Interval History: Received call from RN that patient did not receive 2 units of PRBC last evening as the 2nd unit was cancelled due to H&H of . Patient assessed at bedside. Reports itching has mildly improved. When asked about status of other symptoms that brought him to the emergency room he reports it is "too early to tell" in regards to changes in fatigue, sob, nausea , vomiting. Denies abd pain. Reports mild pressure in suprapubic region on palpation. Denies fever and chills. Objective Active Medications: Citric Acid/Sodium Citrate (Bicitra*) 30 ml PO TID [facility] Last Admin: 01/14/19 12:54 Dose: 30 ml Lactated Ringer's (Lactated Ringers 1000 Ml Bag*) 1,000 mls @ 92 mls/hr IV ONCE ONE Stop: 01/15/19 03:52 Last Admin: 01/14/19 17:15 Dose: 92 mls/hr Nicotine (Nicotine Patch 21 Mg/24 Hr*) 1 patch TRANSDERM DAILY@0800 [facility] Last Admin: 01/14/19 08:59 Dose: 1 patch Pharmacy Profile Note (Nicotine Patch Removal Note*) 1 note PATCH OFF 2100 [facility] Oxygen Devices in Use Now: None Appearance: Comfortable, NAD Eyes: No Scleral Icterus Ears/Nose/Mouth/Throat: Clear Oropharnyx, Mucous Membranes Moist Neck: NL Appearance and Movements; NL JVP Respiratory: Symmetrical Chest Expansion and Respiratory Effort, Clear to Auscultation Cardiovascular: NL Sounds; No Murmurs; No JVD, RRR, - - Bilateral LE pitting edema Abdominal: - - BS+. Soft. Nondistended. Reports mild tenderness in suprapubic region on palpation, but remainder nontender Lymphatic: No Cervical Adenopathy Extremities: No Clubbing, Cyanosis Skin: No Rash or Ulcers Neurological: Alert and Oriented x 3 Nutrition: Taking PO's Result Diagrams: 01/14/19 16:51 01/14/19 11:08 Additional Lab and Data: Laboratory Results - last 24 hr 01/13/19 01/13/19 01/13/19 09:00 09:53 20:15 WBC RBC Hgb Hct MCV MCH MCHC RDW Plt Count MPV Neut % (Auto) Lymph % (Auto) Dale % (Auto) Eos % (Auto) Baso % (Auto) Absolute Neuts (auto) Absolute Lymphs (auto) Absolute Monos (auto) Absolute Eos (auto) Absolute Basos (auto) Absolute Nucleated RBC Nucleated RBC % Sodium 139 Potassium 4.7 Chloride 109 Carbon Dioxide 14 L* Anion Gap 16 H BUN 128 H Creatinine 11.06 H Est GFR ( Amer) 5.7 Est GFR (Non-Af Amer) 4.7 BUN/Creatinine Ratio 11.6 Glucose 153 H Calcium 6.9 L Phosphorus 7.1 H Magnesium 1.8 L Erythropoietin 18.8 H Total Bilirubin AST ALT Alkaline Phosphatase Total Protein Albumin Globulin Albumin/Globulin Ratio Blood Type A Positive Antibody Screen Negative Crossmatch See Detail 01/13/19 01/14/19 01/14/19 21:59 04:08 04:08 WBC 7.3 RBC 2.30 L Hgb 6.9 L 7.1 L Hct 20 L 21 L MCV 92 MCH 31 MCHC 33 RDW 15 Plt Count 315 MPV 7.4 Neut % (Auto) 67.3 Lymph % (Auto) 11.4 Dale % (Auto) 8.0 Eos % (Auto) 12.9 Baso % (Auto) 0.4 Absolute Neuts (auto) 4.9 Absolute Lymphs (auto) 0.8 L Absolute Monos (auto) 0.6 Absolute Eos (auto) 0.9 H Absolute Basos (auto) 0.0 Absolute Nucleated RBC 0.0 Nucleated RBC % 0.0 Sodium 140 Potassium 4.4 Chloride 111 Carbon Dioxide 12 L* Anion Gap 17 H BUN 125 H Creatinine 12.02 H Est GFR ( Amer) 5.2 Est GFR (Non-Af Amer) 4.3 BUN/Creatinine Ratio 10.4 Glucose 93 Calcium 6.6 L Phosphorus 6.8 H Magnesium 1.7 L Erythropoietin Total Bilirubin 0.30 AST 8 L ALT 8 Alkaline Phosphatase 42 Total Protein 5.1 L Albumin 2.9 L Globulin 2.2 Albumin/Globulin Ratio 1.3 Blood Type Antibody Screen Crossmatch 01/14/19 01/14/19 01/14/19 11:08 11:08 16:51 WBC RBC Hgb 6.9 L 7.8 L Hct 21 L 23 L MCV MCH MCHC RDW Plt Count MPV Neut % (Auto) Lymph % (Auto) Dale % (Auto) Eos % (Auto) Baso % (Auto) Absolute Neuts (auto) Absolute Lymphs (auto) Absolute Monos (auto) Absolute Eos (auto) Absolute Basos (auto) Absolute Nucleated RBC Nucleated RBC % Sodium 139 Potassium 4.6 Chloride 111 Carbon Dioxide 14 L* Anion Gap 14 H BUN 124 H Creatinine 10.52 H Est GFR ( Amer) 6.1 Est GFR (Non-Af Amer) 5.0 BUN/Creatinine Ratio 11.8 Glucose 144 H Calcium 6.7 L Phosphorus 6.6 H Magnesium 1.6 L Erythropoietin Total Bilirubin 0.30 AST 8 L ALT 8 Alkaline Phosphatase 46 Total Protein 4.9 L Albumin 2.7 L Globulin 2.2 Albumin/Globulin Ratio 1.2 Blood Type Antibody Screen Crossmatch Microbiology and Other Data: Microbiology 01/13/19 09:48 Stool Stool Occult Blood (ROXANA) - Final Assess/Plan/Problems-Billing Assessment: 63 yr old male with no pmh who presented to ED with intense itching - Patient Problems (1) Acute renal failure Comment: - Severe hydronephorsis bilaterally - Cr 11.90 on admission. Improving as today 10.52 - Q2 hr output measurement and replacement of 2/3 over 2 hrs. Replacement changed from NS to LR. - Cont lentz given findings of retention of 1000 mls in ED. - Urology consulted by admitting provider. Patient will need outpatient follow up with Urology - Dr Weinberg consulting and recommends the followin dihydroxyvitamin d level, Calcitriol 0.25 mcg PO daily, Erythropoietin 5000 three times a week, Venofer 200 mg IV daily for 5 days (2) Anemia Comment: - Received 1 unit PRBC last evening and 1 unit today. - Cont to monitor H&H - Stool negative (3) Electrolyte abnormality Comment: - K wnl - Mag slightly low, but discussed replacement with Dr Weinberg who advises against at this time (4) DVT prophylaxis Comment: - SCDs only given anemia Status and Disposition: Inpatient. Discharge home when medically stable. Attending: Shayy Harris
[2019-01-14] MEDS ORDERED: EPOETIN ALFA-EPBX * 3,000 UNIT/ML VIAL SUBCUT ONE (20:00)
[2019-01-14] MEDS ORDERED: EPOETIN ALFA-EPBX * 2,000 UNIT/ML VIAL SUBCUT ONE (20:00)
[2019-01-14] MEDS: Nicotine Patch Removal NOTE PATCH OFF SCH (20:41)
--- NOTE | 2019-01-14 22:55 | PN ---
PROGRESS NOTE: DATE OF SERVICE: 01/14/2019 SUBJECTIVE: Mr. Gregory is feeling much better today. He has had significant diuresis after placing his catheter. There was a reasonably large postvoid residual bladder volume when the catheter was placed. He has been in negative fluid balance since admission. He is breathing well. He has no orthopnea. No anorexia. No nausea or vomiting. No neuromuscular irritability. Yesterday, he was in -1285 cc of fluid balance exclusive of insensible losses. His blood pressure is 141/81 with a pulse of 96, respirations are 16. There is no jugular venous distention. His chest is clear. The heart revealed regular rhythm without murmurs. There is a 1 to 2+ edema, which seems a little better today than yesterday. His laboratory values reveal a white count of 7.3, hemoglobin of 7.8, total CO2 of 14, sodium of 138, potassium of 4.6, chloride of 111, BUN 124, creatinine of 10.52. IMPRESSION: Obstructive uropathy with acute renal failure. The fact that his creatinine is falling at this point is highly encouraging. He continues to have a significant metabolic acidosis and I would increase his rate of buffering at the present time. His erythropoietin level is high range normal, which is inappropriate for his level of anemia and I would start him on erythropoietin replacement. He is iron deficient and I would start him on some intravenous iron replacement. I have discussed his case with Colette Altman NP. [id number]/[facility] #: [id number] [place]UL[place]
[2019-01-15 04:31] LABS: ABS Eosinophils 0.8 10^3/ul (0-0.6); ABS Monocytes 0.8 10^3/ul (0-0.8); ABS Neutrophils 6.3 10^3/ul (1.5-7.7); Eosinophil % 8.8 %; Hematocrit 26 % (42-52); Hemoglobin 8.9 g/dL (14.0-18.0); Lymphocyte % 11.3 %; Mean Corpuscular HGB Conc 34 g/dL (31-36); Mean Corpuscular Hemoglobin 31 pg (27-31); Mean Corpuscular Volume 91 fL (80-94); Mean Platelet Volume 7.8 fL (7.4-10.4); Nucleated Red Blood Cells % 0.1; Platelet Count 321 10^3/uL (150-450); Red Blood Count 2.86 10^6 /uL (4.18-5.48); Red Cell Distribution Width 14 % (10-15); White Blood Count 8.9 10^3/uL (3.5-10.8)
[2019-01-15 04:45] LABS: Albumin 2.8 g/dL (3.2-5.2); Albumin/Globulin Ratio 1.3 (1-3); BUN/Creatinine Ratio 11.2 (8-20); Calcium 6.7 mg/dL (8.6-10.3); EGFR African American 5.7 (>60); EGFR Non-African American 4.7 (>60); Globulin 2.1 g/dL (2-4); Magnesium 1.5 mg/dL (1.9-2.7); Phosphorus 6.2 mg/dL (2.5-5.0); Potassium 4.3 mmol/L (3.5-5.0); Total Bilirubin 0.3 mg/dL (0.2-1.0); Total Protein 4.9 g/dL (6.4-8.9)
[2019-01-15] MEDS: Lactated Ringers 1000 ML Bag* 1,000 ML IV SCH ×7 (07:00→19:00)
[2019-01-15] MEDS: Iron Sucrose* 200 MG in NS 0.9% 100 ML* 100 ML IVPB SCH (09:07)
[2019-01-15] MEDS: Calcitriol CAP* 0.25 MCG PO SCH (09:08)
[2019-01-15] MEDS: Sodium Citrate/Citric Acid* 15 ML UDC PO SCH ×3 (09:09→23:15)
[2019-01-15] MEDS: Nicotine PATCH 21 MG/24 HR* PATCH TRANSDERM SCH (09:10)
--- NOTE | 2019-01-15 09:40 | CONS ---
CONSULTATION NOTE: DATE OF CONSULT: 01/15/19 LOCATION: The patient is in room #410. HISTORY OF PRESENT ILLNESS: I was asked by the hospitalist service to see this 63-year-old white male with urinary retention and renal failure. Mr. Gregory presented to the emergency room 2 days ago with diffuse itching and feeling weak. On his evaluation in the emergency room, he was noted to have a serum creatinine of 11.5, to be severely anemic and acidotic. Renal ultra- sound showed bilateral hydroureteronephrosis and urinary retention. He had Cadet catheter placed and there was a post void residual of 1,400 cc. He was admitted for fluid replacement and management. He was given 2 units of blood to improve his anemia. A consultation is obtained for the retention and obstructive uropathy. Mr. Gregory reports for at least the last 2 years, he has noted significant voiding symptoms consisting of slow stream, hesitancy, intermittency, voiding in small amounts, and feeling of incomplete bladder emptying. He has been incontinent at night for at least the last 2 years and has had episodes of urinary incontinence during the day. The incontinence seems to be of the overflow type. He denies flank pain, or any episodes of gross hematuria or urinary tract infections. He denies any history of renal calculi. There is no history of any urethral instrumentation or urological surgeries. His history is otherwise negative. PHYSICAL EXAM: On physical exam, he is a pleasant white male who is lying comfortably in bed. Exam of the abdomen is normal. He has no CVA tenderness. External genitalia are normal and he has a Cadet catheter draining pinkish urine. Rectal exam shows an enlarged prostate that is smooth without any induration or suspicious nodules. Since his admission, the patient has been putting about 3,000 mL of urine per 24 hours. Unfortunately, his serum creatinine continues to be elevated at about 11. IMPRESSION: Bladder outlet obstruction, most likely secondary to prostate enlargement resulting in chronic urinary retention, overflow urinary incontinence, with resultant bilateral hydroureteronephrosis and renal failure due to obstructive uropathy. This must have been present for at least the last 2 years considering the history of urinary incontinence. It does explain the minimal improvement in his renal function with a catheter drainage. The fact that he has not responded with brisk post obstructive diuresis, and has no improvement of his serum creatinine on Cadet catheter drainage, is not a good prognostic sign for the recovery of his renal function. The plan at this time is to continue with the medical management of his uremia, correcting his acidosis, and maintaining him on catheter drainage. He will need to be on catheter drainage for the foreseeable future. The options will be chronic catheter drainage versus teaching the patient intermittent self catheterization, which I discussed with him and he did not seem to be too interested in doing it at this time. From the urological aspect, I would wait until his renal function improves and later on he is going to need cystoscopy and urodynamic studies. If there is evidence of recovery of his bladder function, he would be a candidate for transurethral resection of the prostate, but that is going to be down the road. In the interim, I do recommend obtaining blood for PSA. I also do recommend starting him on finasteride 5 mg daily to reduce the prostate volume. I will see him back with you as needed in the hospital and then after his discharge as an outpatient. [id number]/CPS #: [id number] UNRULY
[2019-01-15] MEDS: Ampicillin ADVAN(*) 1 GM in NS 0.9% 50 ML* 50 ML IVPB SCH (16:27)
--- NOTE | 2019-01-15 20:53 | PN ---
Subjective Date of Service: 01/15/19 Interval History: Resting in bed on assessment. Reports occasional "intense pressure" in suprapubic region and reports it feels like he has to urinate. Reports he continues to occasionally have chills. Reports he continues to feel fatigued and weak. Reports generalized itchy has improves slightly. Denies cp, sob, flank pain, nausea, vomiting, diarrhea Objective Active Medications: Calcitriol (Rocaltrol Cap*) 0.25 mcg PO DAILY REPLACED BY [facility] Last Admin: 01/15/19 09:08 Dose: 0.25 mcg Citric Acid/Sodium Citrate (Bicitra*) 30 ml PO TID REPLACED BY [facility] Last Admin: 01/15/19 13:13 Dose: 30 ml Iron Sucrose 200 mg/ Sodium (Chloride) 110 mls @ 110 mls/hr IVPB DAILY REPLACED BY [facility] Stop: 01/18/19 09:59 Last Admin: 01/15/19 09:07 Dose: 110 mls/hr Lactated Ringer's (Lactated Ringers 1000 Ml Bag*) 1,000 mls @ 107 mls/hr IV .PER RATE REPLACED BY [facility] Last Admin: 01/15/19 17:15 Dose: 117 mls/hr Ampicillin Sodium 1 gm/ Sodium (Chloride) 50 mls @ 200 mls/hr IVPB DAILY@1600 REPLACED BY [facility] Last Admin: 01/15/19 16:27 Dose: 200 mls/hr Nicotine (Nicotine Patch 21 Mg/24 Hr*) 1 patch TRANSDERM DAILY@0800 REPLACED BY [facility] Last Admin: 01/15/19 09:10 Dose: 1 patch Nicotine Polacrilex (Nicotine Gum*) 4 mg PO Q2H PRN PRN Reason: CRAVING Pharmacy Profile Note (Nicotine Patch Removal Note*) 1 note PATCH OFF 2100 REPLACED BY [facility] Last Admin: 01/14/19 20:41 Dose: 1 note Vital Signs - 8 hr 01/15/19 01/15/19 16:00 18:00 Temperature 98.2 F Pulse Rate 98 106 Respiratory 16 16 Rate Blood Pressure 146/84 148/68 (mmHg) O2 Sat by Pulse 100 Oximetry Oxygen Devices in Use Now: None Appearance: Comfortable, NAD Eyes: No Scleral Icterus, PERRLA Ears/Nose/Mouth/Throat: Clear Oropharnyx, Mucous Membranes Moist Neck: NL Appearance and Movements; NL JVP Respiratory: Symmetrical Chest Expansion and Respiratory Effort, Clear to Auscultation Cardiovascular: NL Sounds; No Murmurs; No JVD, RRR, - - Bilateral +1 to +2 pitting edema Abdominal: - - Soft. BS+. Tender to suprapubic region. Lymphatic: No Cervical Adenopathy Extremities: No Clubbing, Cyanosis Skin: - - Dry and flaking. Excoriation to bilateral legs from itching Neurological: Alert and Oriented x 3 Nutrition: Taking PO's Result Diagrams: 01/15/19 04:19 01/15/19 04:19 Additional Lab and Data: Laboratory Results - last 24 hr 01/15/19 01/15/19 04:19 04:19 WBC 8.9 RBC 2.86 L Hgb 8.9 L Hct 26 L MCV 91 MCH 31 MCHC 34 RDW 14 Plt Count 321 MPV 7.8 Neut % (Auto) 70.8 Lymph % (Auto) 11.3 [place] % (Auto) 8.6 Eos % (Auto) 8.8 Baso % (Auto) 0.5 Absolute Neuts (auto) 6.3 Absolute Lymphs (auto) 1.0 Absolute Monos (auto) 0.8 Absolute Eos (auto) 0.8 H Absolute Basos (auto) 0.0 Absolute Nucleated RBC 0.0 Nucleated RBC % 0.1 Sodium 139 Potassium 4.3 Chloride 108 Carbon Dioxide 14 L* Anion Gap 17 H BUN 124 H Creatinine 11.09 H Est GFR ( Amer) 5.7 Est GFR (Non-Af Amer) 4.7 BUN/Creatinine Ratio 11.2 Glucose 107 H Calcium 6.7 L Phosphorus 6.2 H Magnesium 1.5 L Total Bilirubin 0.30 AST 9 L ALT 9 Alkaline Phosphatase 44 Total Protein 4.9 L Albumin 2.8 L Globulin 2.1 Albumin/Globulin Ratio 1.3 25-OH Vitamin D Total 9.5 L Microbiology and Other Data: Microbiology 01/13/19 15:18 Urine Urine Culture - Final Enterococcus Faecalis 01/13/19 09:48 Stool Stool Occult Blood (ROXANA) - Final Assess/Plan/Problems-Billing Assessment: 63 yr old male with no pmh who presented to ED with intense itching - Patient Problems (1) Acute renal failure Comment: - Creatinine 10.5 yesterday and 11.09 today - Severe hydronephorsis bilaterally - Q2 hr output measurement and replacement of 2/3 over 2 hrs with LR. - Cont lentz given findings of retention of 1000 mls in ED. - Urology consulting and suspected bladder outlet obstruction secondary to enlarged prostate resulting in chronic urinary retention and renal failure. Recommending PSA (ordered) and Finastride 5 mg daily - Dr Weinberg consulting and recommends the followin dihydroxyvitamin d level, Calcitriol 0.25 mcg PO daily, Erythropoietin 5000 three times a week, Venofer 200 mg IV daily for 5 days (2) Anemia Comment: - Stabilizing - Received 2 unit PRBC since admission - Cont to monitor H&H - Stool negative (3) Electrolyte abnormality Comment: - K wnl - Mag slightly low, but discussed replacement with Dr Weinberg who advises against at this time unless it continues to drop - Tele ordered (4) DVT prophylaxis Comment: - SCDs only given anemia Status and Disposition: Inpatient. Discharge home when medically stable. Attending: Shayy Harris
[2019-01-15] MEDS: Nicotine Patch Removal NOTE PATCH OFF SCH (23:22)
[2019-01-16] MEDS: Lactated Ringers 1000 ML Bag* 1,000 ML IV SCH ×8 (04:01→21:17)
[2019-01-16 08:21] LABS: ABS Eosinophils 0.8 10^3/ul (0-0.6); ABS Lymphocytes 0.9 10^3/ul (1.0-4.8); ABS Monocytes 0.7 10^3/ul (0-0.8); ABS Neutrophils 5.5 10^3/ul (1.5-7.7); Eosinophil % 9.6 %; Hematocrit 25 % (42-52); Hemoglobin 8.3 g/dL (14.0-18.0); Lymphocyte % 11.9 %; Mean Corpuscular HGB Conc 33 g/dL (31-36); Mean Corpuscular Hemoglobin 31 pg (27-31); Mean Corpuscular Volume 95 fL (80-94); Mean Platelet Volume 7.7 fL (7.4-10.4); Platelet Count 273 10^3/uL (150-450); Red Blood Count 2.68 10^6 /uL (4.18-5.48); Red Cell Distribution Width 15 % (10-15)
[2019-01-16 08:39] LABS: Potassium 4.1 mmol/L (3.5-5.0)
[2019-01-16 08:45] LABS: BUN/Creatinine Ratio 11.4 (8-20); EGFR African American 6.6 (>60); EGFR Non-African American 5.5 (>60)
[2019-01-16] MEDS: Nicotine PATCH 21 MG/24 HR* PATCH TRANSDERM SCH (09:10)
[2019-01-16] MEDS: Calcitriol CAP* 0.25 MCG PO SCH (09:12)
[2019-01-16] MEDS: Sodium Citrate/Citric Acid* 15 ML UDC PO SCH ×3 (09:12→21:21)
[2019-01-16] MEDS: Iron Sucrose* 200 MG in NS 0.9% 100 ML* 100 ML IVPB SCH (09:12)
[2019-01-16] MEDS: Finasteride TAB* 5 MG PO SCH (11:54)
[2019-01-16 13:08] LABS: Magnesium 1.3 mg/dL (1.9-2.7)
[2019-01-16] MEDS ORDERED: Magnesium Sulfate IV* 3 GM in NS 0.9% 100 ML* 100 ML IVPB ONE (13:12)
--- NOTE | 2019-01-16 13:12 | PN ---
Subjective Date of Service: 01/16/19 Interval History: Mr. Gregory is feeling a bit better today. He continues to have short (30 sec) episodes of sharp midline abdominal pain that resolve with flatus. These are not occurring as often as when he was admitted. He is still quite itchy, but this is also improved. Denies CP, SOB, N/V. No concerns from nursing. Family History: Unchanged from Admission Social History: Unchanged from Admission Past Medical History: Unchanged from Admission Objective Active Medications: Calcitriol (Rocaltrol Cap*) 0.25 mcg PO DAILY [facility] Citric Acid/Sodium Citrate (Bicitra*) 30 ml PO TID [facility] Finasteride (Proscar Tab*) 5 mg PO DAILY [facility] Iron Sucrose 200 mg/ Sodium (Chloride) 110 mls @ 110 mls/hr IVPB DAILY [facility] Ampicillin Sodium 1 gm/ Sodium (Chloride) 50 mls @ 200 mls/hr IVPB DAILY@1600 [facility] Lactated Ringer's (Lactated Ringers 1000 Ml Bag*) 1,000 mls @ 117 mls/hr IV PER RATE [facility] Nicotine (Nicotine Patch 21 Mg/24 Hr*) 1 patch TRANSDERM DAILY@0800 [facility] Nicotine Polacrilex (Nicotine Gum*) 4 mg PO Q2H PRN CRAVING Vital Signs - 8 hr 01/16/19 01/16/19 01/16/19 05:15 07:00 07:11 Temperature 98.3 F 98.8 F Pulse Rate 102 97 Respiratory 18 18 16 Rate Blood Pressure 168/76 133/68 (mmHg) O2 Sat by Pulse 100 98 Oximetry 01/16/19 01/16/19 09:00 11:00 Temperature 98.7 F 99.1 F Pulse Rate 101 91 Respiratory 20 20 Rate Blood Pressure 152/78 135/71 (mmHg) O2 Sat by Pulse 98 Oximetry Oxygen Devices in Use Now: None Appearance: Middle-aged male laying in bed in NAD Eyes: No Scleral Icterus Ears/Nose/Mouth/Throat: Mucous Membranes Moist Neck: NL Appearance and Movements; NL JVP, Trachea Midline Respiratory: Symmetrical Chest Expansion and Respiratory Effort, Clear to Auscultation Cardiovascular: NL Sounds; No Murmurs; No JVD, RRR Abdominal: NL Sounds; No Tenderness; No Distention Extremities: - - +2 pitting BLE Skin: - - Dry, flaking skin Neurological: Alert and Oriented x 3 Lines/Tubes/Other Access: Clean, Dry and Intact Peripheral IV Nutrition: Taking PO's Result Diagrams: 01/16/19 07:46 01/16/19 07:46 Assess/Plan/Problems-Billing Assessment: Mr. Gregory is a 63 yo M with no significant PMH who presented to ED with c/o intense itching and was found to be in renal failure. - Patient Problems (1) Acute renal failure Comment: - Creatinine peaked at 12.02, now down to 9.71 - Severe bilateral hydronephrosis - Appreciate Nephrology consult; recommended calcitriol, erythropoietin, iron sucrose - Appreciate Urology consult; suspected bladder outlet obstruction secondary to BPH and recommended finasteride - Continue Cadet; per Sandra, he will need this for the foreseeable future - Continue IVF; q2h output monitoring and replacement of 2/3 over 2 hours (2) Hypomagnesemia Code(s): E83.42 - HYPOMAGNESEMIA Comment: - Was 1.8 on day of admission, now down to 1.3 - Dr. Pearson advised against repleting unless it continued to drop and it has dropped since yesterday - Mag sulfate x1 today and recheck in AM (3) Anemia Code(s): D64.9 - ANEMIA, UNSPECIFIED Comment: - Stable - Suspect iron deficiency (low ferritin) and anemia of chronic disease - Received 2 unit PRBC since admission - Stool occult negative - Continue iron sucrose (4) DVT prophylaxis Current Visit: Yes Status: Acute Code(s): Z29.9 - ENCOUNTER FOR PROPHYLACTIC MEASURES, UNSPECIFIED SNOMED Code(s): 167134273 Comment: - SCDs only in the setting of anemia (5) Full code status Code(s): Z78.9 - OTHER SPECIFIED HEALTH STATUS Comment: Status and Disposition: Inpatient. Anticipate d/c home when medically stable. Attending: Shayy Harris
[2019-01-16] MEDS: Ampicillin ADVAN(*) 1 GM in NS 0.9% 50 ML* 50 ML IVPB SCH (16:17)
[2019-01-16] MEDS: Nicotine Patch Removal NOTE PATCH OFF SCH (21:17)
[2019-01-17] MEDS: Lactated Ringers 1000 ML Bag* 1,000 ML IV SCH ×9 (00:01→16:00)
[2019-01-17 06:19] LABS: ABS Monocytes 0.7 10^3/ul (0-0.8); ABS Neutrophils 6.7 10^3/ul (1.5-7.7); Eosinophil % 10.5 %; Hematocrit 24 % (42-52); Hemoglobin 8.1 g/dL (14.0-18.0); Mean Corpuscular HGB Conc 33 g/dL (31-36); Mean Corpuscular Hemoglobin 31 pg (27-31); Mean Corpuscular Volume 92 fL (80-94); Mean Platelet Volume 7.8 fL (7.4-10.4); Platelet Count 267 10^3/uL (150-450); Red Blood Count 2.65 10^6 /uL (4.18-5.48); Red Cell Distribution Width 15 % (10-15); White Blood Count 9.5 10^3/uL (3.5-10.8)
[2019-01-17 07:00] LABS: BUN/Creatinine Ratio 12.2 (8-20); Calcium 6.6 mg/dL (8.6-10.3); EGFR African American 7.3 (>60); EGFR Non-African American 6.1 (>60); Magnesium 1.9 mg/dL (1.9-2.7); Potassium 4.1 mmol/L (3.5-5.0)
[2019-01-17] MEDS: Nicotine PATCH 21 MG/24 HR* PATCH TRANSDERM SCH (08:21)
[2019-01-17] MEDS: Finasteride TAB* 5 MG PO SCH (08:22)
[2019-01-17] MEDS: Cholecalciferol TAB* 1000 UNITS PO SCH (08:22)
[2019-01-17] MEDS: Calcitriol CAP* 0.25 MCG PO SCH (10:06)
[2019-01-17] MEDS: Sodium Citrate/Citric Acid* 15 ML UDC PO SCH ×3 (10:20→20:52)
--- NOTE | 2019-01-17 12:33 | PN ---
Subjective Date of Service: 01/17/19 Interval History: Mr. Gregory is feeling well today. Pain has improved in frequency, duration, and intensity. He does occasionally feel an urge to urinate, though has a Cadet in place. Denies CP, SOB, N/V. No concerns from nursing. Family History: Unchanged from Admission Social History: Unchanged from Admission Past Medical History: Unchanged from Admission Objective Active Medications: Calcitriol (Rocaltrol Cap*) 0.25 mcg PO DAILY [facility] Cholecalciferol (Vitamin D Tab*) 1,000 units PO DAILY [facility] Citric Acid/Sodium Citrate (Bicitra*) 30 ml PO TID [facility] Finasteride (Proscar Tab*) 5 mg PO DAILY [facility] Iron Sucrose 200 mg/ Sodium (Chloride) 110 mls @ 110 mls/hr IVPB DAILY [facility] Ampicillin Sodium 1 gm/ Sodium (Chloride) 50 mls @ 200 mls/hr IVPB DAILY@1600 [facility] Lactated Ringer's (Lactated Ringers 1000 Ml Bag*) 1,000 mls @ 117 mls/hr IV PER RATE [facility] Nicotine (Nicotine Patch 21 Mg/24 Hr*) 1 patch TRANSDERM DAILY@0800 [facility] Nicotine Polacrilex (Nicotine Gum*) 4 mg PO Q2H PRN CRAVING Vital Signs - 8 hr 01/17/19 01/17/19 07:15 11:15 Temperature 97.9 F 97.1 F Pulse Rate 91 88 Respiratory 20 18 Rate Blood Pressure 142/57 164/82 (mmHg) O2 Sat by Pulse 98 100 Oximetry Oxygen Devices in Use Now: None Appearance: Middle-aged male laying in bed in NAD Eyes: No Scleral Icterus Ears/Nose/Mouth/Throat: Mucous Membranes Moist Neck: NL Appearance and Movements; NL JVP, Trachea Midline Respiratory: Symmetrical Chest Expansion and Respiratory Effort, Clear to Auscultation Cardiovascular: NL Sounds; No Murmurs; No JVD, RRR Abdominal: NL Sounds; No Tenderness; No Distention Extremities: - - +2 pitting BLE, BUE Skin: - - Dry, flaking skin Neurological: Alert and Oriented x 3 Lines/Tubes/Other Access: Clean, Dry and Intact Peripheral IV Nutrition: Taking PO's Result Diagrams: 01/17/19 06:12 01/17/19 06:11 Assess/Plan/Problems-Billing Assessment: Mr. Gregory is a 63 yo M with no significant PMH who presented to ED with c/o intense itching and was found to be in renal failure. - Patient Problems (1) Acute renal failure Comment: - Creatinine peaked at 12.02, continues to trend down - Severe bilateral hydronephrosis - Appreciate Nephrology consult; recommended calcitriol, erythropoietin, iron sucrose - Appreciate Urology consult; suspected bladder outlet obstruction secondary to BPH and recommended finasteride - Continue Cadet; per Sandra, he will need this for the foreseeable future - Continue IVF; q2h output monitoring and replacement of 2/3 over 2 hours (2) Anemia Code(s): D64.9 - ANEMIA, UNSPECIFIED Comment: - Stable - Suspect iron deficiency (low ferritin) and anemia of chronic disease - Received 2 unit PRBC since admission - Stool occult negative - Continue iron sucrose (3) Hypomagnesemia Code(s): E83.42 - HYPOMAGNESEMIA Comment: - Resolved with repletion (4) BPH (benign prostatic hyperplasia) Code(s): N40.0 - BENIGN PROSTATIC HYPERPLASIA WITHOUT LOWER URINRY TRACT SYMP Comment: - Continue finasteride (5) DVT prophylaxis Current Visit: Yes Status: Acute Code(s): Z29.9 - ENCOUNTER FOR PROPHYLACTIC MEASURES, UNSPECIFIED SNOMED Code(s): 387775861 Comment: - SCDs only in the setting of anemia (6) Full code status Code(s): Z78.9 - OTHER SPECIFIED HEALTH STATUS Comment: Status and Disposition: Inpatient. Anticipate d/c home when medically stable. Attending: Daniel Valentine
[2019-01-17] MEDS: Iron Sucrose* 200 MG in NS 0.9% 100 ML* 100 ML IVPB SCH (13:23)
[2019-01-17] MEDS: Ampicillin ADVAN(*) 1 GM in NS 0.9% 50 ML* 50 ML IVPB SCH (16:44)
[2019-01-17] MEDS: HYDROmorphone INJ1* 1 MG/ML SYRINGE IV SLOW PU PRN ×2 (18:39→23:08)
[2019-01-17] MEDS: Nicotine Patch Removal NOTE PATCH OFF SCH (20:52)
[2019-01-18] MEDS ORDERED: LR IV ONE (04:00)
[2019-01-18 07:09] LABS: ABS Lymphocytes 1.1 10^3/ul (1.0-4.8); ABS Monocytes 0.8 10^3/ul (0-0.8); ABS Neutrophils 5.7 10^3/ul (1.5-7.7); Eosinophil % 11.7 %; Hematocrit 23 % (42-52); Lymphocyte % 12.3 %; Mean Corpuscular HGB Conc 34 g/dL (31-36); Mean Corpuscular Hemoglobin 31 pg (27-31); Mean Corpuscular Volume 91 fL (80-94); Mean Platelet Volume 7.4 fL (7.4-10.4); Nucleated Red Blood Cells % 0.1; Platelet Count 251 10^3/uL (150-450); Red Blood Count 2.57 10^6 /uL (4.18-5.48); Red Cell Distribution Width 14 % (10-15); White Blood Count 8.6 10^3/uL (3.5-10.8)
[2019-01-18 07:43] LABS: BUN/Creatinine Ratio 11.8 (8-20); Calcium 7.1 mg/dL (8.6-10.3); EGFR African American 7.3 (>60); EGFR Non-African American 6.1 (>60); Potassium 4.3 mmol/L (3.5-5.0)
[2019-01-18] MEDS: HYDROmorphone INJ1* 1 MG/ML SYRINGE IV SLOW PU PRN ×3 (08:47→21:39)
[2019-01-18] MEDS: Lactated Ringers 1000 ML Bag* 1,000 ML IV SCH (08:51)
[2019-01-18] MEDS: Sodium Citrate/Citric Acid* 15 ML UDC PO SCH ×3 (08:52→21:41)
[2019-01-18] MEDS: Cholecalciferol TAB* 1000 UNITS PO SCH (08:53)
[2019-01-18] MEDS: Finasteride TAB* 5 MG PO SCH (08:53)
[2019-01-18] MEDS: Calcitriol CAP* 0.25 MCG PO SCH (08:53)
[2019-01-18] MEDS: Nicotine PATCH 21 MG/24 HR* PATCH TRANSDERM SCH (08:53)
[2019-01-18] MEDS ORDERED: Lactated Ringers 1000 ML Bag* 1,000 ML IV SCH ×6 (09:00→16:46)
[2019-01-18] MEDS ORDERED: Ondansetron INJ* 2 MG/ML VIAL IV PRN (09:25)
[2019-01-18] MEDS ORDERED: Ondansetron INJ* 2 MG/ML VIAL ONE (09:28)
[2019-01-18] MEDS: Iron Sucrose* 200 MG in NS 0.9% 100 ML* 100 ML IVPB SCH (12:17)
[2019-01-18] MEDS ORDERED: Magnesium Sulfate 2 GM IV* 2 GM/50 ML BAG IVPB ONE (14:30)
--- NOTE | 2019-01-18 16:05 | PN ---
Subjective Date of Service: 01/18/19 Interval History: Patient seen and examined. States he is having spasm type bladder pain. Pain medication allowed him to sleep adequately which was a relief for him. Did have one episode of emesis today. Denies fevers or chills. No SOB, no chest pain. Family History: Unchanged from Admission Social History: Unchanged from Admission Past Medical History: Unchanged from Admission Objective Active Medications: Calcitriol (Rocaltrol Cap*) 0.25 mcg PO DAILY [facility] Last Admin: 01/18/19 08:53 Dose: 0.25 mcg Cholecalciferol (Vitamin D Tab*) 1,000 units PO DAILY [facility] Last Admin: 01/18/19 08:53 Dose: 1,000 units Citric Acid/Sodium Citrate (Bicitra*) 30 ml PO TID [facility] Last Admin: 01/18/19 14:50 Dose: 30 ml Finasteride (Proscar Tab*) 5 mg PO DAILY [facility] Last Admin: 01/18/19 08:53 Dose: 5 mg Hydromorphone HCl (Dilaudid Inj1s*) 0.5 mg IV SLOW PU Q4H PRN PRN Reason: Pain 5-10 Last Admin: 01/18/19 08:47 Dose: 0.5 mg Ampicillin Sodium 1 gm/ Sodium (Chloride) 50 mls @ 200 mls/hr IVPB DAILY@1600 [facility] Last Admin: 01/17/19 16:44 Dose: 200 mls/hr Lactated Ringer's (Lactated Ringers 1000 Ml Bag*) 1,000 mls @ 83 mls/hr IV PER RATE [facility] Nicotine (Nicotine Patch 21 Mg/24 Hr*) 1 patch TRANSDERM DAILY@0800 [facility] Last Admin: 01/18/19 08:53 Dose: 1 patch Nicotine Polacrilex (Nicotine Gum*) 4 mg PO Q2H PRN PRN Reason: CRAVING Ondansetron HCl (Zofran Inj*) 4 mg IV Q4H PRN PRN Reason: nausea or vomiting Last Admin: 01/18/19 09:31 Dose: 4 mg Pharmacy Profile Note (Nicotine Patch Removal Note*) 1 note PATCH OFF 2100 [facility] Last Admin: 01/17/19 20:52 Dose: 1 note Vital Signs - 8 hr 01/18/19 01/18/19 01/18/19 08:47 11:43 15:15 Temperature 97.6 F 99.3 F Pulse Rate 86 90 Respiratory 18 17 16 Rate Blood Pressure 126/68 157/79 (mmHg) O2 Sat by Pulse 98 100 Oximetry Oxygen Devices in Use Now: None Appearance: alert, NAD Eyes: No Scleral Icterus, PERRLA Ears/Nose/Mouth/Throat: Mucous Membranes Moist Neck: NL Appearance and Movements; NL JVP Respiratory: Symmetrical Chest Expansion and Respiratory Effort, Clear to Auscultation Cardiovascular: NL Sounds; No Murmurs; No JVD, RRR, No Edema Abdominal: NL Sounds; No Tenderness; No Distention Extremities: No Edema, No Clubbing, Cyanosis Skin: - - extremely dry skin, some flaking/scaling noted Neurological: Alert and Oriented x 3, NL Sensation Nutrition: Taking PO's Result Diagrams: 01/18/19 06:53 01/18/19 06:53 Additional Lab and Data: Laboratory Results - last 24 hr 01/15/19 01/15/19 04:19 04:19 WBC 8.9 RBC 2.86 L Hgb 8.9 L Hct 26 L MCV 91 MCH 31 MCHC 34 RDW 14 Plt Count 321 MPV 7.8 Neut % (Auto) 70.8 Lymph % (Auto) 11.3 [place] % (Auto) 8.6 Eos % (Auto) 8.8 Baso % (Auto) 0.5 Absolute Neuts (auto) 6.3 Absolute Lymphs (auto) 1.0 Absolute Monos (auto) 0.8 Absolute Eos (auto) 0.8 H Absolute Basos (auto) 0.0 Absolute Nucleated RBC 0.0 Nucleated RBC % 0.1 Sodium 139 Potassium 4.3 Chloride 108 Carbon Dioxide 14 L* Anion Gap 17 H BUN 124 H Creatinine 11.09 H Est GFR ( Amer) 5.7 Est GFR (Non-Af Amer) 4.7 BUN/Creatinine Ratio 11.2 Glucose 107 H Calcium 6.7 L Phosphorus 6.2 H Magnesium 1.5 L Total Bilirubin 0.30 AST 9 L ALT 9 Alkaline Phosphatase 44 Total Protein 4.9 L Albumin 2.8 L Globulin 2.1 Albumin/Globulin Ratio 1.3 25-OH Vitamin D Total 9.5 L Microbiology and Other Data: Microbiology 01/13/19 15:18 Urine Urine Culture - Final Enterococcus Faecalis 01/13/19 09:48 Stool Stool Occult Blood (ROXANA) - Final Diagnostic Imaging: *[facility]* [place] [address] Fax #: [phone] Transthoracic Echocardiogram Patient: Byron Gregory : 1955 Study Date: 01/14/2019 Age: 63 Gender: M HR: 95 bpm Height: 64 in /162.6 cm BSA: 1.63 m^2 Weight: 129.7 lb /59 kg BMI: 22.3 kg/m^2 *Service Center Specialist: * Ellen Wray RDCS RN *Referring Physician: * Edda AvinaReading Physician: * Ganga Browne MD Indications: Edema History: Risk factors: Current tobacco use. Hypertension. Conclusions Summary: 1. Left ventricle: The cavity size is normal. Wall thickness is normal. Systolic function is normal. The estimated ejection fraction is 55-60%. Wall motion is normal; there are no regional wall motion abnormalities. 2. Normal cardiac chamber sizes. 3. Functionally benign heart valves. 4. There is no prior echocardiogram available to compare with at this time. Study data: Transthoracic echocardiogram. Procedure: Transthoracic echocardiography was performed. Image quality was fair. The study was technically limited due to Smoking history. Complete 2D, spectral Doppler, and color flow Doppler. Location: Bedside. Patient status: Inpatient. Patient room number: 410-02. This report is only to be considered final once signed by the Provider(s) as displayed in the "<Electronically Signed by >" field (s). Absence of a signature indicates the report is in a draft status and still needs to be finalized. In the event this document was created by someone other than the signing Provider, the individual initiating the document will be listed in the "Entered by:" or "Dictated by:" lowe. Assess/Plan/Problems-Billing Assessment: Mr. Gregory is a 63 yo M with no significant PMH who presented to ED with c/o intense itching and was found to be in renal failure. - Patient Problems (1) Acute renal failure Comment: - 2/2 Bladder outlet obstruction/BPH with severe bilateral hydronephroses - Urology following - Creatinine andrew 12.02, continues to trend down to 8.92 today - Appreciate Nephrology consult; recommended calcitriol, erythropoietin, iron sucrose - Continue finasteride, lentz - Continue IVF; q2h output monitoring and replacement 2:3 with LR (2) Anemia Code(s): D64.9 - ANEMIA, UNSPECIFIED SNOMED Code(s): 190846840 Comment: - 2/2 iron deficiency and renal insult - s/p 2 units PRBCs, H&H stable - Continue erythropoetin and iron sucrose (3) BPH (benign prostatic hyperplasia) Code(s): N40.0 - BENIGN PROSTATIC HYPERPLASIA WITHOUT LOWER URINRY TRACT SYMP SNOMED Code(s): 741819858 Comment: - Continue finasteride and lentz (4) V-tach Code(s): I47.2 - VENTRICULAR TACHYCARDIA SNOMED Code(s): 54617936 Comment: - In presence of metabolic derangement and renal failure, asymptomatic - ECHO with no acute pathology, LV function intact, no wall motion abnormalities - Will replete magnesium and continue tele (5) Hypomagnesemia Code(s): E83.42 - HYPOMAGNESEMIA SNOMED Code(s): 693102866 Comment: - Initially nephrology recommended against repleting magnesium, however, patient had 14 beat run of VTach today, asymptomatic - Will replete mag and continue to monitor on tele - Check AM labs (6) DVT prophylaxis Code(s): Z29.9 - ENCOUNTER FOR PROPHYLACTIC MEASURES, UNSPECIFIED SNOMED Code( s): 126732619 Comment: - SCDs and ambulate in the setting of anemia (7) Full code status Code(s): Z78.9 - OTHER SPECIFIED HEALTH STATUS SNOMED Code(s): 818873234 Comment: Status and Disposition: Inpatient. Anticipate d/c home when medically stable.
[2019-01-18] MEDS: Ampicillin ADVAN(*) 1 GM in NS 0.9% 50 ML* 50 ML IVPB SCH (16:49)
[2019-01-18] MEDS: Nicotine Patch Removal NOTE PATCH OFF SCH (21:53)
[2019-01-19 06:57] LABS: ABS Eosinophils 0.8 10^3/ul (0-0.6); ABS Lymphocytes 1.2 10^3/ul (1.0-4.8); ABS Monocytes 0.7 10^3/ul (0-0.8); ABS Neutrophils 5.5 10^3/ul (1.5-7.7); Hematocrit 24 % (42-52); Hemoglobin 8.1 g/dL (14.0-18.0); Lymphocyte % 14.4 %; Mean Corpuscular HGB Conc 34 g/dL (31-36); Mean Corpuscular Hemoglobin 31 pg (27-31); Mean Corpuscular Volume 92 fL (80-94); Mean Platelet Volume 7.7 fL (7.4-10.4); Platelet Count 247 10^3/uL (150-450); Red Blood Count 2.59 10^6 /uL (4.18-5.48); Red Cell Distribution Width 15 % (10-15); White Blood Count 8.2 10^3/uL (3.5-10.8)
[2019-01-19 06:58] LABS: BUN/Creatinine Ratio 12.4 (8-20); Calcium 7.4 mg/dL (8.6-10.3); EGFR African American 7.8 (>60); EGFR Non-African American 6.4 (>60); Potassium 4.5 mmol/L (3.5-5.0)
[2019-01-19] MEDS: Cholecalciferol TAB* 1000 UNITS PO SCH (08:30)
[2019-01-19] MEDS: Nicotine PATCH 21 MG/24 HR* PATCH TRANSDERM SCH (08:30)
[2019-01-19] MEDS: Calcitriol CAP* 0.25 MCG PO SCH (08:30)
[2019-01-19] MEDS: Finasteride TAB* 5 MG PO SCH (08:30)
[2019-01-19] MEDS: Sodium Citrate/Citric Acid* 15 ML UDC PO SCH ×3 (08:31→21:47)
[2019-01-19] MEDS: Lactated Ringers 1000 ML Bag* 1,000 ML IV SCH ×2 (10:45→21:54)
[2019-01-19] MEDS: HYDROmorphone INJ1* 1 MG/ML SYRINGE IV SLOW PU PRN ×2 (13:26→21:54)
--- NOTE | 2019-01-19 14:44 | PN ---
Subjective Date of Service: 01/19/19 Interval History: Patient seen and examined. Feeling well, no acute overnight events. Pain is under better control, no fevers or chills. Family History: Unchanged from Admission Social History: Unchanged from Admission Past Medical History: Unchanged from Admission Objective Active Medications: Calcitriol (Rocaltrol Cap*) 0.25 mcg PO DAILY [facility] Last Admin: 01/19/19 08:30 Dose: 0.25 mcg Cholecalciferol (Vitamin D Tab*) 1,000 units PO DAILY [facility] Last Admin: 01/19/19 08:30 Dose: 1,000 units Citric Acid/Sodium Citrate (Bicitra*) 30 ml PO TID [facility] Last Admin: 01/19/19 13:14 Dose: 30 ml Finasteride (Proscar Tab*) 5 mg PO DAILY [facility] Last Admin: 01/19/19 08:30 Dose: 5 mg Hydromorphone HCl (Dilaudid Inj1s*) 0.5 mg IV SLOW PU Q4H PRN PRN Reason: Pain 5-10 Last Admin: 01/19/19 13:26 Dose: 0.5 mg Ampicillin Sodium 1 gm/ Sodium (Chloride) 50 mls @ 200 mls/hr IVPB DAILY@1600 [facility] Last Admin: 01/18/19 16:49 Dose: 200 mls/hr Lactated Ringer's (Lactated Ringers 1000 Ml Bag*) 1,000 mls @ 75 mls/hr IV PER RATE [facility] Last Admin: 01/19/19 10:45 Dose: 75 mls/hr Nicotine (Nicotine Patch 21 Mg/24 Hr*) 1 patch TRANSDERM DAILY@0800 [facility] Last Admin: 01/19/19 08:30 Dose: 1 patch Nicotine Polacrilex (Nicotine Gum*) 4 mg PO Q2H PRN PRN Reason: CRAVING Ondansetron HCl (Zofran Inj*) 4 mg IV Q4H PRN PRN Reason: nausea or vomiting Last Admin: 01/18/19 09:31 Dose: 4 mg Pharmacy Profile Note (Nicotine Patch Removal Note*) 1 note PATCH OFF 2100 [facility] Last Admin: 01/18/19 21:53 Dose: Not Given Vital Signs - 8 hr 01/19/19 01/19/19 01/19/19 07:00 07:26 07:41 Temperature 98.6 F 98.6 F Pulse Rate 97 97 Respiratory 18 16 16 Rate Blood Pressure 130/70 130/70 (mmHg) O2 Sat by Pulse 96 96 Oximetry 01/19/19 01/19/19 01/19/19 08:00 12:22 13:26 Temperature 98.3 F Pulse Rate 88 Respiratory 16 16 16 Rate Blood Pressure 141/77 (mmHg) O2 Sat by Pulse 100 Oximetry Oxygen Devices in Use Now: None Appearance: alert, NAD Eyes: No Scleral Icterus, PERRLA Ears/Nose/Mouth/Throat: NL Teeth, Lips, Gums, Mucous Membranes Moist Neck: NL Appearance and Movements; NL JVP, Trachea Midline Respiratory: Symmetrical Chest Expansion and Respiratory Effort, Clear to Auscultation Cardiovascular: NL Sounds; No Murmurs; No JVD, RRR, No Edema Abdominal: NL Sounds; No Tenderness; No Distention Extremities: No Edema, No Clubbing, Cyanosis Skin: - - dry flaky skin, some improvement noted Neurological: Alert and Oriented x 3, NL Gait Nutrition: Taking PO's Result Diagrams: 01/19/19 06:17 01/19/19 06:17 Additional Lab and Data: Laboratory Results - last 24 hr 01/15/19 01/15/19 04:19 04:19 WBC 8.9 RBC 2.86 L Hgb 8.9 L Hct 26 L MCV 91 MCH 31 MCHC 34 RDW 14 Plt Count 321 MPV 7.8 Neut % (Auto) 70.8 Lymph % (Auto) 11.3 Swift % (Auto) 8.6 Eos % (Auto) 8.8 Baso % (Auto) 0.5 Absolute Neuts (auto) 6.3 Absolute Lymphs (auto) 1.0 Absolute Monos (auto) 0.8 Absolute Eos (auto) 0.8 H Absolute Basos (auto) 0.0 Absolute Nucleated RBC 0.0 Nucleated RBC % 0.1 Sodium 139 Potassium 4.3 Chloride 108 Carbon Dioxide 14 L* Anion Gap 17 H BUN 124 H Creatinine 11.09 H Est GFR ( Amer) 5.7 Est GFR (Non-Af Amer) 4.7 BUN/Creatinine Ratio 11.2 Glucose 107 H Calcium 6.7 L Phosphorus 6.2 H Magnesium 1.5 L Total Bilirubin 0.30 AST 9 L ALT 9 Alkaline Phosphatase 44 Total Protein 4.9 L Albumin 2.8 L Globulin 2.1 Albumin/Globulin Ratio 1.3 25-OH Vitamin D Total 9.5 L Microbiology and Other Data: Microbiology 01/13/19 15:18 Urine Urine Culture - Final Enterococcus Faecalis 01/13/19 09:48 Stool Stool Occult Blood (ROXANA) - Final Diagnostic Imaging: *[facility]* [place] [address] Fax #: [phone] Transthoracic Echocardiogram Patient: Byron Gregory : 1955 Study Date: 01/14/2019 Age: 63 Gender: M HR: 95 bpm Height: 64 in /162.6 cm BSA: 1.63 m^2 Weight: 129.7 lb /59 kg BMI: 22.3 kg/m^2 *Full Time: * Ellen Wray RDCS RN *Referring Physician: * Edda Avina *Reading Physician: * Ganga Browne MD Indications: Edema History: Risk factors: Current tobacco use. Hypertension. Conclusions Summary: 1. Left ventricle: The cavity size is normal. Wall thickness is normal. Systolic function is normal. The estimated ejection fraction is 55-60%. Wall motion is normal; there are no regional wall motion abnormalities. 2. Normal cardiac chamber sizes. 3. Functionally benign heart valves. 4. There is no prior echocardiogram available to compare with at this time. Study data: Transthoracic echocardiogram. Procedure: Transthoracic echocardiography was performed. Image quality was fair. The study was technically limited due to Smoking history. Complete 2D, spectral Doppler, and color flow Doppler. Location: Bedside. Patient status: Inpatient. Patient room number: 410-02. This report is only to be considered final once signed by the Provider(s) as displayed in the "<Electronically Signed by >" field (s). Absence of a signature indicates the report is in a draft status and still needs to be finalized. In the event this document was created by someone other than the signing Provider, the individual initiating the document will be listed in the "Entered by:" or "Dictated by:" lowe. Assess/Plan/Problems-Billing Assessment: Mr. Gregory is a 63 yo M with no significant PMH who presented to ED with c/o intense itching and was found to be in renal failure. - Patient Problems (1) Acute renal failure Comment: - 2/2 Bladder outlet obstruction/BPH with severe bilateral hydronephroses - Urology following - Creatinine andrew 12.02, continues to trend down. 8.48 today - Appreciate Nephrology consult; recommended calcitriol, erythropoietin, iron sucrose - Continue finasteride, lentz - Discussed fluid management with nephrology, changed to LR 100ml/hr last night and to 75ml/hr today. Will continue through tomorrow and follow output which has been adequate. Electrolytes are WNL. (2) Anemia Code(s): D64.9 - ANEMIA, UNSPECIFIED SNOMED Code(s): 708364641 Comment: - 2/2 iron deficiency and renal insult - s/p 2 units PRBCs, H&H stable - Continue erythropoetin and iron sucrose (3) BPH (benign prostatic hyperplasia) Code(s): N40.0 - BENIGN PROSTATIC HYPERPLASIA WITHOUT LOWER URINRY TRACT SYMP SNOMED Code(s): 557316850 Comment: - Continue finasteride and lentz, change to leg bag for DC (4) V-tach Code(s): I47.2 - VENTRICULAR TACHYCARDIA SNOMED Code(s): 72230780 Comment: - In presence of metabolic derangement and renal failure, asymptomatic - ECHO with no acute pathology, LV function intact, no wall motion abnormalities - Magnesium repleted, tele with no changes last 24 hours (5) Hypomagnesemia Code(s): E83.42 - HYPOMAGNESEMIA SNOMED Code(s): 920075491 Comment: - Initially nephrology recommended against repleting magnesium, however, patient had 14 beat run of VTach today, asymptomatic - Mag repleted, no further changes on tele (6) DVT prophylaxis Code(s): Z29.9 - ENCOUNTER FOR PROPHYLACTIC MEASURES, UNSPECIFIED SNOMED Code( s): 422350231 Comment: - SCDs and ambulate in the setting of anemia (7) Full code status Code(s): Z78.9 - OTHER SPECIFIED HEALTH STATUS SNOMED Code(s): 066115243 Comment: Status and Disposition: Inpatient. Anticipate d/c home tomorrow with outpatient nephro and urology follow ups.
[2019-01-19 15:02] LABS: Calcitriol <8.0 pg/mL (18-64)
[2019-01-19] MEDS: Ampicillin ADVAN(*) 1 GM in NS 0.9% 50 ML* 50 ML IVPB SCH (16:04)
[2019-01-19] MEDS: Nicotine Patch Removal NOTE PATCH OFF SCH (21:59)
[2019-01-20] MEDS: HYDROmorphone INJ1* 1 MG/ML SYRINGE IV SLOW PU PRN (05:39)
[2019-01-20] MEDS: Lactated Ringers 1000 ML Bag* 1,000 ML IV SCH (05:40)
[2019-01-20 06:06] LABS: ABS Basophils 0.1 10^3/ul (0-0.2); ABS Lymphocytes 1.5 10^3/ul (1.0-4.8); ABS Monocytes 0.8 10^3/ul (0-0.8); ABS Neutrophils 6.5 10^3/ul (1.5-7.7); Eosinophil % 9.9 %; Hematocrit 24 % (42-52); Hemoglobin 7.9 g/dL (14.0-18.0); Lymphocyte % 15.5 %; Mean Corpuscular HGB Conc 33 g/dL (31-36); Mean Corpuscular Hemoglobin 31 pg (27-31); Mean Corpuscular Volume 93 fL (80-94); Mean Platelet Volume 7.7 fL (7.4-10.4); Nucleated Red Blood Cells % 0.1; Platelet Count 240 10^3/uL (150-450); Red Blood Count 2.56 10^6 /uL (4.18-5.48); Red Cell Distribution Width 15 % (10-15); White Blood Count 9.9 10^3/uL (3.5-10.8)
[2019-01-20 06:25] LABS: BUN/Creatinine Ratio 12.9 (8-20); Calcium 7.4 mg/dL (8.6-10.3); EGFR Non-African American 6.6 (>60)
[2019-01-20 06:45] LABS: Potassium 5.1 mmol/L (3.5-5.0)
[2019-01-20] MEDS: Calcitriol CAP* 0.25 MCG PO SCH (07:27)
[2019-01-20] MEDS: Cholecalciferol TAB* 1000 UNITS PO SCH (07:27)
[2019-01-20] MEDS: Finasteride TAB* 5 MG PO SCH (07:27)
[2019-01-20] MEDS: Sodium Citrate/Citric Acid* 15 ML UDC PO SCH ×3 (07:27→22:57)
[2019-01-20] MEDS: Nicotine PATCH 21 MG/24 HR* PATCH TRANSDERM SCH ×2 (07:27→16:14)
[2019-01-20] MEDS ORDERED: Patiromer POWDER* 8.4 GM PAK PO ONE (10:52)
[2019-01-20 15:36] LABS: Vitamin D Total 25(OH) 13.6 ng/mL (20-50)
[2019-01-20] MEDS ORDERED: oxyCODONE TAB* 5 MG TAB PO PRN (15:57)
[2019-01-20] MEDS ORDERED: Piperacillin/Tazobac ADVAN(*) 3.375 GM in NS 0.9% 100 ML* 100 ML IVPB ONE (16:00)
[2019-01-20] MEDS ORDERED: Zosyn per Pharmacy* NOTE FOLLOW UP SCH (16:00)
[2019-01-20] MEDS: Acetaminophen TAB* 325 MG PO PRN ×2 (16:14→22:58)
[2019-01-20 16:27] LABS: Hematocrit 22 % (42-52); Hemoglobin 7.3 g/dL (14.0-18.0)
--- NOTE | 2019-01-20 17:03 | PN ---
Subjective Date of Service: 01/20/19 Interval History: Patient seen and examined. Tachycardic today with fevers around 100 with chills and edema of the lower extremities. BP also slightly lower. Mentating well. Denies SOB, no palpitations, no acute SOB. Significant other and family at bedside. Family History: Unchanged from Admission Social History: Unchanged from Admission Past Medical History: Unchanged from Admission Objective Active Medications: Acetaminophen (Tylenol Tab*) 650 mg PO Q4H PRN PRN Reason: FEVER Last Admin: 01/20/19 16:14 Dose: 650 mg Calcitriol (Rocaltrol Cap*) 0.25 mcg PO DAILY [facility] Last Admin: 01/20/19 07:27 Dose: 0.25 mcg Cholecalciferol (Vitamin D Tab*) 1,000 units PO DAILY [facility] Last Admin: 01/20/19 07:27 Dose: 1,000 units Citric Acid/Sodium Citrate (Bicitra*) 30 ml PO TID [facility] Last Admin: 01/20/19 14:01 Dose: 30 ml Finasteride (Proscar Tab*) 5 mg PO DAILY [facility] Last Admin: 01/20/19 07:27 Dose: 5 mg Piperacillin Sod/Tazobactam (Sod 3.375 gm/ Sodium Chloride) 100 mls @ 25 mls/ hr IVPB Q12H [facility] Nicotine (Nicotine Patch 21 Mg/24 Hr*) 1 patch TRANSDERM DAILY@0800 [facility] Last Admin: 01/20/19 16:14 Dose: 1 patch Nicotine Polacrilex (Nicotine Gum*) 4 mg PO Q2H PRN PRN Reason: CRAVING Ondansetron HCl (Zofran Inj*) 4 mg IV Q4H PRN PRN Reason: nausea or vomiting Last Admin: 01/18/19 09:31 Dose: 4 mg Oxycodone HCl (Roxycodone Tab*) 5 mg PO Q6H PRN PRN Reason: pain moderate Pharmacy Consult (Zosyn Per Pharmacy*) 1 note FOLLOW UP .ZOSYN PER PHARMACY [facility] Pharmacy Profile Note (Nicotine Patch Removal Note*) 1 note PATCH OFF 2100 [facility] Last Admin: 01/19/19 21:59 Dose: 1 note Vital Signs - 8 hr 01/20/19 01/20/19 01/20/19 11:08 12:13 13:00 Temperature 100.6 F 100.9 F 98.9 F Pulse Rate 119 Respiratory 26 Rate Blood Pressure 160/67 (mmHg) O2 Sat by Pulse 100 Oximetry 01/20/19 16:51 Temperature Pulse Rate Respiratory Rate Blood Pressure 104/58 (mmHg) O2 Sat by Pulse Oximetry Oxygen Devices in Use Now: None Appearance: alert, NAD Eyes: No Scleral Icterus, PERRLA Ears/Nose/Mouth/Throat: NL Teeth, Lips, Gums, Mucous Membranes Moist Neck: NL Appearance and Movements; NL JVP, Trachea Midline Respiratory: Symmetrical Chest Expansion and Respiratory Effort, Clear to Auscultation Cardiovascular: NL Sounds; No Murmurs; No JVD, - - tachycardia, 120's with bilateral LE eema Abdominal: NL Sounds; No Tenderness; No Distention, No Hepatosplenomegaly Lines/Tubes/Other Access: Clean, Dry and Intact Lentz Result Diagrams: 01/20/19 16:21 01/20/19 05:53 Additional Lab and Data: Laboratory Results - last 24 hr 01/15/19 01/15/19 04:19 04:19 WBC 8.9 RBC 2.86 L Hgb 8.9 L Hct 26 L MCV 91 MCH 31 MCHC 34 RDW 14 Plt Count 321 MPV 7.8 Neut % (Auto) 70.8 Lymph % (Auto) 11.3 [place] % (Auto) 8.6 Eos % (Auto) 8.8 Baso % (Auto) 0.5 Absolute Neuts (auto) 6.3 Absolute Lymphs (auto) 1.0 Absolute Monos (auto) 0.8 Absolute Eos (auto) 0.8 H Absolute Basos (auto) 0.0 Absolute Nucleated RBC 0.0 Nucleated RBC % 0.1 Sodium 139 Potassium 4.3 Chloride 108 Carbon Dioxide 14 L* Anion Gap 17 H BUN 124 H Creatinine 11.09 H Est GFR ( Amer) 5.7 Est GFR (Non-Af Amer) 4.7 BUN/Creatinine Ratio 11.2 Glucose 107 H Calcium 6.7 L Phosphorus 6.2 H Magnesium 1.5 L Total Bilirubin 0.30 AST 9 L ALT 9 Alkaline Phosphatase 44 Total Protein 4.9 L Albumin 2.8 L Globulin 2.1 Albumin/Globulin Ratio 1.3 25-OH Vitamin D Total 9.5 L Microbiology and Other Data: Microbiology 01/13/19 15:18 Urine Urine Culture - Final Enterococcus Faecalis 01/13/19 09:48 Stool Stool Occult Blood (ROXANA) - Final Diagnostic Imaging: *[facility]* [place] [address] Fax #: [phone] Transthoracic Echocardiogram Patient: Byron Gregory : 1955 Study Date: 01/14/2019 Age: 63 Gender: M HR: 95 bpm Height: 64 in /162.6 cm BSA: 1.63 m^2 Weight: 129.7 lb /59 kg BMI: 22.3 kg/m^2 *Subassembler: * Ellen Wray RDCS RN *Referring Physician: * Edda AvinaReading Physician: * Ganga Browne MD Indications: Edema History: Risk factors: Current tobacco use. Hypertension. Conclusions Summary: 1. Left ventricle: The cavity size is normal. Wall thickness is normal. Systolic function is normal. The estimated ejection fraction is 55-60%. Wall motion is normal; there are no regional wall motion abnormalities. 2. Normal cardiac chamber sizes. 3. Functionally benign heart valves. 4. There is no prior echocardiogram available to compare with at this time. Study data: Transthoracic echocardiogram. Procedure: Transthoracic echocardiography was performed. Image quality was fair. The study was technically limited due to Smoking history. Complete 2D, spectral Doppler, and color flow Doppler. Location: Bedside. Patient status: Inpatient. Patient room number: 410-02. This report is only to be considered final once signed by the Provider(s) as displayed in the "<Electronically Signed by >" field (s). Absence of a signature indicates the report is in a draft status and still needs to be finalized. In the event this document was created by someone other than the signing Provider, the individual initiating the document will be listed in the "Entered by:" or "Dictated by:" lowe. Assess/Plan/Problems-Billing Assessment: Mr. Gregory is a 63 yo M with no significant PMH who presented to ED with c/o intense itching and was found to be in renal failure. - Patient Problems (1) SIRS (systemic inflammatory response syndrome) Code(s): R65.10 - SIRS OF NON-INFECTIOUS ORIGIN W/O ACUTE ORGAN DYSFUNCTION SNOMED Code(s): 848648169 Comment: - Meeting SIRS criteria with tachycardia and fever - does have UTI that was treated with ampicillin since admission - Concern for possibility of sepsis given critical illness; EKG, LA, blood cultures ordered - Changed to zosyn to broaden coverage and will still cover enterococcus based on previous urine culture - Will bolus 1L with NS now - SBP is 104 and patient mentating well and urine output is adequate, will hold off on 30ml/kg bolus in light of edema and the fact that patient will also get 1 unit of PRBCs and continue to monitor urine output (2) Acute renal failure Comment: - 2/2 Bladder outlet obstruction/BPH with severe bilateral hydronephroses - Urology following - Creatinine andrew 12.02, continues to trend down. 8.27 today - Appreciate Nephrology consult; recommended calcitriol, erythropoietin, iron sucrose - Continue finasteride, lentz - Continuous LR DCd - Slight bump in K, patiromir given - Will DC continuous IVF and switch to boluses of NS if BP continues to drop. (3) Anemia Code(s): D64.9 - ANEMIA, UNSPECIFIED SNOMED Code(s): 998079541 Comment: - 2/2 iron deficiency and renal insult - Received erythropoetin and completed 4 doses of iron sucrose - s/p 2 units PRBCs at admission, however H&H dropped again today to 7.3/22 with tachycardia and decreasing BP. Will transfuse 1 unit PRBCs now and follow H &H (4) BPH (benign prostatic hyperplasia) Code(s): N40.0 - BENIGN PROSTATIC HYPERPLASIA WITHOUT LOWER URINRY TRACT SYMP SNOMED Code(s): 847528822 Comment: - Continue finasteride and lentz, change to leg bag for DC (5) V-tach Code(s): I47.2 - VENTRICULAR TACHYCARDIA SNOMED Code(s): 59641722 Comment: - In presence of metabolic derangement and renal failure, asymptomatic - ECHO with no acute pathology, LV function intact, no wall motion abnormalities - Magnesium repleted, tele with no changes last 24 hours - Sinus tachycardia today, EKG ordered and evaluated, no ventricular ectopy. Sinus tach likely more 2/2 anemia and possible sepsis. (6) Hypomagnesemia Code(s): E83.42 - HYPOMAGNESEMIA SNOMED Code(s): 663249275 Comment: - Initially nephrology recommended against repleting magnesium, however, patient had 14 beat run of VTach today, asymptomatic - Mag repleted, no further changes on tele (7) DVT prophylaxis Code(s): Z29.9 - ENCOUNTER FOR PROPHYLACTIC MEASURES, UNSPECIFIED SNOMED Code( s): 501163468 Comment: - SCDs and ambulate in the setting of anemia (8) Full code status Code(s): Z78.9 - OTHER SPECIFIED HEALTH STATUS SNOMED Code(s): 701780922 Comment: Status and Disposition: Inpatient, pending blood culture and transfusion. Nephrology will re-evaluate in AM.
[2019-01-20] MEDS ORDERED: NS 0.9% 1000 ML** 1,000 ML IV ONE ×2 (17:18→17:19)
[2019-01-20] MEDS: ZOSYN 3.375 GM Q12H per EXTENDED INFUSION IVPB SCH ×2 (21:46)
[2019-01-20] MEDS ORDERED: diPHENhydraMINE PO* 50 MG PO ONE (22:20)
[2019-01-20] MEDS: Nicotine Patch Removal NOTE PATCH OFF SCH (23:04)
[2019-01-21 01:39] LABS: Hematocrit 23 % (42-52); Hemoglobin 7.8 g/dL (14.0-18.0)
[2019-01-21 07:59] LABS: ABS Eosinophils 0.4 10^3/ul (0-0.6); ABS Neutrophils 10.3 10^3/ul (1.5-7.7); Eosinophil % 3.3 %; Hematocrit 26 % (42-52); Hemoglobin 8.6 g/dL (14.0-18.0); Lymphocyte % 7.5 %; Mean Corpuscular HGB Conc 33 g/dL (31-36); Mean Corpuscular Hemoglobin 31 pg (27-31); Mean Corpuscular Volume 93 fL (80-94); Mean Platelet Volume 7.9 fL (7.4-10.4); Platelet Count 167 10^3/uL (150-450); Red Blood Count 2.79 10^6 /uL (4.18-5.48); Red Cell Distribution Width 15 % (10-15); White Blood Count 12.7 10^3/uL (3.5-10.8)
[2019-01-21] MEDS ORDERED: NS 0.9% 100 ML* 100 ML ONE (08:19)
[2019-01-21] MEDS: ZOSYN 3.375 GM Q12H per EXTENDED INFUSION IVPB SCH ×4 (08:29→20:13)
[2019-01-21] MEDS: Nicotine PATCH 21 MG/24 HR* PATCH TRANSDERM SCH (08:29)
[2019-01-21] MEDS: Cholecalciferol TAB* 1000 UNITS PO SCH (08:30)
[2019-01-21] MEDS: Finasteride TAB* 5 MG PO SCH (08:30)
[2019-01-21] MEDS: Sodium Citrate/Citric Acid* 15 ML UDC PO SCH ×3 (08:30→20:13)
[2019-01-21] MEDS: Calcitriol CAP* 0.25 MCG PO SCH (08:30)
[2019-01-21 08:38] LABS: BUN/Creatinine Ratio 13.9 (8-20); Calcium 7.4 mg/dL (8.6-10.3); EGFR African American 8.4 (>60)
--- NOTE | 2019-01-21 12:15 | CONS ---
CONSULTATION REPORT: DATE OF CONSULT: 01/21/19 REQUESTING PROVIDER: Sil Shoemaker NP CONSULTING SERVICE: Infectious Diseases. REASON FOR CONSULT: Bacteremia. IMPRESSION: 1. Fever, leukocytosis, found to have gram-negative bacilli in the blood that in the setting of a Cadet catheter for bilateral hydronephrosis due to obstructive uropathy and prostatic hyperplasia, has been on ampicillin for enterococcus that was identified in the initial urine culture, now gram- negative bacilli in 1 of 2 blood culture bottles. Further speciation is pending. He has no focal symptoms today. He did have the Cadet catheter come out, that has been replaced. 2. Acute kidney injury, glomerular filtration rate less than 10 due to obstructive uropathy. 3. Erythroderma with superficial desquamation, which he notes has been going on since he has been here, but has had a skin peeling and itching for a few weeks, he feels. 4. Iron deficiency anemia. RECOMMENDATIONS: 1. We will continue Zosyn, follow his blood culture results here and adjust accordingly, further workup pending the organism. 2. For his skin, it could be allergic reaction to a medication he received here. Apparently, it is resolving slowly. If no improvement, he should have a skin biopsy at some point. HISTORY OF PRESENT ILLNESS: This is a 63-year-old man admitted with skin itching that has been going on for quite a few weeks along with malaise and swelling of the extremities, decreased urinary output. Here he was found to have bilateral hydronephrosis, had a Cadet catheter placed. His creatinine was initially 11, is down to the 7 range. He has had a metabolic acidosis. He was found to have iron deficiency anemia. His initial urine culture grew enterococcus. He was started on ampicillin. He has had, he thinks, redness on all of the skin ever since about the day he got here, but that the swelling and itchiness preceded it. CT abdomen and pelvis did not show show abscess. He has had no fever until yesterday. He had a temperature of 38.4, this morning white count of 12,000. He was started on Zosyn. Yesterday blood culture obtained by Sil Shoemaker NP, species pending. There was a concern that he had a transfusion reaction last night, that workup is pending. Today, he denies pain , still has itching and redness everywhere. His Cadet came out this morning, it has been replaced. He has no other complaints. No pain at IV sites. Does not have central catheter. PAST MEDICAL HISTORY: 1. Left shoulder dislocation, treated with pinning. 2. Debridement of the right ear for cholesteatoma. MEDICATIONS: 1. Tylenol. 2. Calcitriol. 3. Cholecalciferol. 4. Finasteride. 5. Nicotine gum. 6. Nicotine patch. 7. Zofran. 8. Oxycodone. 9. Zosyn 3.375 g every 12 hours. ALLERGIES: No known drug allergies. FAMILY HISTORY: Mother had cervical cancer and dementia. Father is healthy. SOCIAL HISTORY: He lives in [place]. He is a smoker. Does drink alcohol a couple of times per week. He is retired. Lives by himself. Does have a pet cat. REVIEW OF SYSTEMS: All negative except as noted above to a 12-point review. PHYSICAL EXAM: Vital Signs: Temperature 37, heart rate 100, respiratory rate 16 , blood pressure 120/50, oxygen saturation 100% on room air. In general, he is awake, not in distress. Neurologic: He is oriented x3. Follows all commands. Moves all extremities. HEENT: There is no conjunctival hemorrhage. Oropharynx without lesions. He has poor dentition. Neck: Neck is supple without mass. Heart is regular rate and rhythm without murmurs, rubs, or gallops. Lungs: Clear to auscultation bilaterally. Abdomen: Soft, nontender, nondistended. There are bowel sounds present. There is no flank tenderness to palpation. Skin: There is diffuse blanching erythema with superficial desquamation, flaking, and there is diffuse edema. DIAGNOSTIC STUDIES/LAB DATA: White blood cell count 12, hemoglobin 8, platelets 167, creatinine is 8, BUN 110. Please see impressions and recommendations outlined above that I discussed with Karen Shoemaker NP. Thanks for asking me to see Mr. Gregory in consultation. [id number]/[facility] #: [id number] [place]
--- NOTE | 2019-01-21 16:00 | PN ---
Subjective Date of Service: 01/21/19 Interval History: Patient seen and examined. Overnight events noted, no blood tx rx per micro. Lentz reinserted this AM by primary RN, patient was retaining >900ml after lentz was dislodged. Patient H&H stable. No further episodes of hypotension or tachycardia. Patient states he is feeling better overall, but remains weak and having itchy skin. Family History: Unchanged from Admission Social History: Unchanged from Admission Past Medical History: Unchanged from Admission Objective Active Medications: Acetaminophen (Tylenol Tab*) 650 mg PO Q4H PRN PRN Reason: FEVER Last Admin: 01/20/19 22:58 Dose: 650 mg Calcitriol (Rocaltrol Cap*) 0.25 mcg PO DAILY [facility] Last Admin: 01/21/19 08:30 Dose: 0.25 mcg Cholecalciferol (Vitamin D Tab*) 1,000 units PO DAILY [facility] Last Admin: 01/21/19 08:30 Dose: 1,000 units Citric Acid/Sodium Citrate (Bicitra*) 30 ml PO TID [facility] Last Admin: 01/21/19 13:40 Dose: 30 ml Finasteride (Proscar Tab*) 5 mg PO DAILY [facility] Last Admin: 01/21/19 08:30 Dose: 5 mg Piperacillin Sod/Tazobactam (Sod 3.375 gm/ Sodium Chloride) 100 mls @ 25 mls/ hr IVPB Q12H [facility] Last Admin: 01/21/19 08:29 Dose: 25 mls/hr Nicotine (Nicotine Patch 21 Mg/24 Hr*) 1 patch TRANSDERM DAILY@0800 [facility] Last Admin: 01/21/19 08:29 Dose: 1 patch Nicotine Polacrilex (Nicotine Gum*) 4 mg PO Q2H PRN PRN Reason: CRAVING Ondansetron HCl (Zofran Inj*) 4 mg IV Q4H PRN PRN Reason: nausea or vomiting Last Admin: 01/18/19 09:31 Dose: 4 mg Oxycodone HCl (Roxycodone Tab*) 5 mg PO Q6H PRN PRN Reason: pain moderate Last Admin: 01/20/19 22:58 Dose: 5 mg Pharmacy Consult (Zosyn Per Pharmacy*) 1 note FOLLOW UP .ZOSYN PER PHARMACY [facility] Pharmacy Profile Note (Nicotine Patch Removal Note*) 1 note PATCH OFF 2100 [facility] Last Admin: 01/20/19 23:04 Dose: 1 note Vital Signs - 8 hr 01/21/19 01/21/19 08:00 08:04 Pulse Rate 48 Respiratory 18 Rate Blood Pressure 142/60 (mmHg) Oxygen Devices in Use Now: None Appearance: alert, NAD Eyes: No Scleral Icterus, PERRLA Ears/Nose/Mouth/Throat: NL Teeth, Lips, Gums, Mucous Membranes Moist Neck: NL Appearance and Movements; NL JVP, Trachea Midline Respiratory: Symmetrical Chest Expansion and Respiratory Effort, Clear to Auscultation Cardiovascular: NL Sounds; No Murmurs; No JVD, RRR, - - bipedal edema to the shins, also of the hands and forearms Extremities: No Clubbing, Cyanosis Skin: - - dry flaking skin with some improvement, erythema to upper extremities Neurological: Alert and Oriented x 3, NL Sensation Lines/Tubes/Other Access: Clean, Dry and Intact Lentz Nutrition: Taking PO's Result Diagrams: 01/21/19 06:41 01/21/19 06:41 Additional Lab and Data: Laboratory Results - last 24 hr 01/15/19 01/15/19 04:19 04:19 WBC 8.9 RBC 2.86 L Hgb 8.9 L Hct 26 L MCV 91 MCH 31 MCHC 34 RDW 14 Plt Count 321 MPV 7.8 Neut % (Auto) 70.8 Lymph % (Auto) 11.3 [place] % (Auto) 8.6 Eos % (Auto) 8.8 Baso % (Auto) 0.5 Absolute Neuts (auto) 6.3 Absolute Lymphs (auto) 1.0 Absolute Monos (auto) 0.8 Absolute Eos (auto) 0.8 H Absolute Basos (auto) 0.0 Absolute Nucleated RBC 0.0 Nucleated RBC % 0.1 Sodium 139 Potassium 4.3 Chloride 108 Carbon Dioxide 14 L* Anion Gap 17 H BUN 124 H Creatinine 11.09 H Est GFR ( Amer) 5.7 Est GFR (Non-Af Amer) 4.7 BUN/Creatinine Ratio 11.2 Glucose 107 H Calcium 6.7 L Phosphorus 6.2 H Magnesium 1.5 L Total Bilirubin 0.30 AST 9 L ALT 9 Alkaline Phosphatase 44 Total Protein 4.9 L Albumin 2.8 L Globulin 2.1 Albumin/Globulin Ratio 1.3 25-OH Vitamin D Total 9.5 L Microbiology and Other Data: Microbiology 01/13/19 15:18 Urine Urine Culture - Final Enterococcus Faecalis 01/13/19 09:48 Stool Stool Occult Blood (ROXANA) - Final Diagnostic Imaging: *[facility]* [place] [address] Fax #: [phone] Transthoracic Echocardiogram Patient: Byron Gregory : 1955 Study Date: 01/14/2019 Age: 63 Gender: M HR: 95 bpm Height: 64 in /162.6 cm BSA: 1.63 m^2 Weight: 129.7 lb /59 kg BMI: 22.3 kg/m^2 *Cleaning Attendant: * Ellen Wray RDCS RN *Referring Physician: * Edda Avina *Reading Physician: * Ganga Browne MD Indications: Edema History: Risk factors: Current tobacco use. Hypertension. Conclusions Summary: 1. Left ventricle: The cavity size is normal. Wall thickness is normal. Systolic function is normal. The estimated ejection fraction is 55-60%. Wall motion is normal; there are no regional wall motion abnormalities. 2. Normal cardiac chamber sizes. 3. Functionally benign heart valves. 4. There is no prior echocardiogram available to compare with at this time. Study data: Transthoracic echocardiogram. Procedure: Transthoracic echocardiography was performed. Image quality was fair. The study was technically limited due to Smoking history. Complete 2D, spectral Doppler, and color flow Doppler. Location: Bedside. Patient status: Inpatient. Patient room number: 410-02. This report is only to be considered final once signed by the Provider(s) as displayed in the "<Electronically Signed by >" field (s). Absence of a signature indicates the report is in a draft status and still needs to be finalized. In the event this document was created by someone other than the signing Provider, the individual initiating the document will be listed in the "Entered by:" or "Dictated by:" lowe. Assess/Plan/Problems-Billing Assessment: Mr. Gregory is a 63 yo M with no significant PMH who presented to ED with c/o intense itching and was found to be in renal failure. - Patient Problems (1) SIRS (systemic inflammatory response syndrome) Code(s): R65.10 - SIRS OF NON-INFECTIOUS ORIGIN W/O ACUTE ORGAN DYSFUNCTION SNOMED Code(s): 820329211 Comment: - Meeting SIRS criteria with tachycardia and fever on 01/20 - Ampicillin discontinued 01/20, zosyn started to broaden coverage - Concern for possibility of sepsis on 01/20 given critical illness; EKG, LA, blood cultures, NS bolus ordered; responded well - Blood cx on 01/21 growing gram negative cocci, continue zosyn, re-culture urine, as this does not represent original enterococcus - ID consulted and following, will continue current management (2) Acute renal failure Comment: - 2/2 Bladder outlet obstruction/BPH with severe bilateral hydronephroses - Lentz dislodged and replaced on 01/21/19, still retaining urine when dislodged - Creatinine andrew 12.02, continues to trend down. 7.92 today - Nephrology following; recommended calcitriol, erythropoietin, iron sucrose - Continue finasteride - Continuous LR DCd, urine output is adequate - Slight bump in K, patiromir given (3) Anemia Code(s): D64.9 - ANEMIA, UNSPECIFIED SNOMED Code(s): 109431643 Comment: - 2/2 iron deficiency and renal insult - Received erythropoetin and completed 4 doses of iron sucrose - s/p 2 units PRBCs at admission, however H&H dropped on 01/20 to 7.3/ with tachycardia and decreasing BP; 1 unit PRBCs given with improvement in H&H and symptoms (tachycardia resolved, hypotension improved) (4) BPH (benign prostatic hyperplasia) Code(s): N40.0 - BENIGN PROSTATIC HYPERPLASIA WITHOUT LOWER URINRY TRACT SYMP SNOMED Code(s): 170329607 Comment: - Continue finasteride - 16fr. lentz coudet inserted 01/21/19 after dislodgement - Will need lentz to leg bag for discharge and outpatient follow up with urology for definitive tx for prostate at a later date (5) V-tach Code(s): I47.2 - VENTRICULAR TACHYCARDIA SNOMED Code(s): 07146731 Comment: - In presence of metabolic derangement and renal failure, asymptomatic - ECHO with no acute pathology, LV function intact, no wall motion abnormalities - Magnesium repleted, tele with no further changes - Sinus tachycardia on 01/20 improved after NS bolus and PRBCs (6) Hypomagnesemia Code(s): E83.42 - HYPOMAGNESEMIA SNOMED Code(s): 210099526 Comment: - Initially nephrology recommended against repleting magnesium, however, patient had 14 beat run of VTach today, asymptomatic - Mag repleted, no further changes on tele (7) DVT prophylaxis Code(s): Z29.9 - ENCOUNTER FOR PROPHYLACTIC MEASURES, UNSPECIFIED SNOMED Code( s): 681234134 Comment: - SCDs and ambulate in the setting of anemia (8) Full code status Code(s): Z78.9 - OTHER SPECIFIED HEALTH STATUS SNOMED Code(s): 007868309 Comment: Status and Disposition: Inpatient, guarded. Nephrology and ID following.
[2019-01-21 19:02] LABS: Urine Appearance Clear; Urine Bacteria Absent (Absent); Urine Bilirubin Negative (Negative); Urine Blood 2+ (Negative); Urine Color Straw; Urine Glucose 1+(50 mg/dL) (Negative); Urine Ketones Negative (Negative); Urine Nitrite Negative (Negative); Urine Protein 1+(30 mg/dL) (Negative); Urine Red Blood Cell 3+(>10/hpf) (Absent); Urine Specific Gravity 1.008 (1.010-1.030); Urine Urobilinogen Negative (Negative); Urine White Blood Cell 1+(6-10/hpf) (Absent)
[2019-01-21 19:22] LABS: HIV 4th Generation Negative (Negative)
[2019-01-21] MEDS: Nicotine Patch Removal NOTE PATCH OFF SCH (20:21)
--- NOTE | 2019-01-21 20:54 | PN ---
PROGRESS NOTE: DATE OF SERVICE: 01/21/19 - ROOM #415 SERVICE: [facility] Nephrology. SUBJECTIVE: The patient was seen and examined at bedside. He denies any shortness of breath. Noted to have some lower extremity edema, but not short of breath. Denies any other symptoms. The patient's Cadet was dislodged yesterday, placed back and had about 900 cc drained. Vitals and labs have been reviewed. PHYSICAL EXAMINATION: HEENT: NC/AT. Heart: S1, S2 present. Regular at the time of exam. Lungs: Decreased breath sounds bilaterally. Abdomen: Soft. Extremities: Noted to have some skin scaling and edema bilaterally. Neuro: Alert and oriented. ASSESSMENT AND PLAN: 1. Acute kidney injury secondary to bladder outlet obstruction, BPH with severe bilateral hydronephrosis. Cadet was dislodged and replaced on 01/21/19, and the patient's creatinine is gradually trending down; his peak was 12 and continues to trend down and currently at 9.2 today. We will continue the finasteride. At this time, the patient was initially getting replacement with LR as the patient has had tendency for hypernatremia in the post obstructive diuresis phase; however, the patient is beyond this and does not need further IV fluids. We would recommend IV fluids that he needs to support his blood pressure and his sepsis. With respect to his kidney, the patient's creatinine noted to be gradually trending down and we will continue current management. 2. The patient was initially seen by Dr. Pearson last week. We will make an appointment for the patient to follow up with Dr. Pearson in the office next week. Our office will be making an appointment and contacting the patient for the patient to have labs done including a BMP prior to his visit to evaluate his trend. 3. Sepsis with blood cultures being positive and urinary tract infection cultures being repeated. Antibiotics per Infectious Disease and the primary team. 4. Hypomagnesemia, was replaced. 5. Anemia, noted to be iron deficient, receiving iron sucrose/Venofer and received EPO. 6. The patient also needs outpatient followup with Urology for definitive treatment and when the patient is eventually discharged, to be discharged with a Cadet with further plans per Urology. [id number]/[facility] #: [id number] [facility]
[2019-01-22] MEDS ORDERED: NS 0.9% 100 ML* 100 ML ONE (07:30)
[2019-01-22] MEDS: Nicotine PATCH 21 MG/24 HR* PATCH TRANSDERM SCH (07:38)
[2019-01-22] MEDS: ZOSYN 3.375 GM Q12H per EXTENDED INFUSION IVPB SCH ×6 (07:38→21:09)
[2019-01-22] MEDS: Cholecalciferol TAB* 1000 UNITS PO SCH (08:54)
[2019-01-22] MEDS: Calcitriol CAP* 0.25 MCG PO SCH (08:54)
[2019-01-22] MEDS: Sodium Citrate/Citric Acid* 15 ML UDC PO SCH ×3 (08:54→20:09)
[2019-01-22] MEDS: Finasteride TAB* 5 MG PO SCH (08:55)
--- NOTE | 2019-01-22 10:07 | PN ---
Progress Note - Progress Note Date of Service: 01/22/19 SOAP: Subjective: CC: Gram negative bacteremia HPI: Mr. Gregory is a 63 yo male who was admitted to the hospital and found to have bilateral hydronephrosis, ORTIZ, and metabolic acidosis. He had a urinary catheter placed and was found to have enterococcus in his initial urine culture. Reports chills about 1 hour ago this morning and feeling fatigued. Reports 3 episodes of loose stools overnight. Denies fevers, abdominal pain, nausea, vomiting, back pain. Feels like the skin itching is improving, but now with dry and flaky skin to arms. Objective: Vital Signs - 8 hr 01/22/19 01/22/19 01/22/19 03:13 07:15 08:00 Temperature 99.3 F 98.2 F Pulse Rate 116 95 Respiratory 20 18 18 Rate Blood Pressure 148/80 120/59 (mmHg) O2 Sat by Pulse 99 98 Oximetry Physical Exam: General: NAD, laying in bed Neurological: Alert and Oriented HEENT: Moist MM, no thrush Cardiovascular: Heart rate regular Respiratory: Lung sound clear Abdominal: Bowel sounds present; Generalized tenderness, non distended and non tender MSK: No tenderness with palpation of the neck, spine or back Skin: Dry and peeling skin to bilateral arms Laboratory Last Values WBC 12.7 10^3/uL (3.5-10.8) H 01/21/19 06:41 RBC 2.79 10^6 /uL (4.18-5.48) L 01/21/19 06:41 Hgb 8.6 g/dL (14.0-18.0) L 01/21/19 06:41 Hct 26 % (42-52) L 01/21/19 06:41 MCV 93 fL (80-94) 01/21/19 06:41 MCH 31 pg (27-31) 01/21/19 06:41 MCHC 33 g/dL (31-36) 01/21/19 06:41 RDW 15 % (10-15) 01/21/19 06:41 Plt Count 167 10^3/uL (150-450) 01/21/19 06:41 MPV 7.9 fL (7.4-10.4) 01/21/19 06:41 Neut % (Auto) 80.6 % 01/21/19 06:41 Lymph % (Auto) 7.5 % 01/21/19 06:41 [place] % (Auto) 8.2 % 01/21/19 06:41 Eos % (Auto) 3.3 % 01/21/19 06:41 Baso % (Auto) 0.4 % 01/21/19 06:41 Absolute Neuts (auto) 10.3 10^3/ul (1.5-7.7) H 01/21/19 06:41 Absolute Lymphs (auto) 1.0 10^3/ul (1.0-4.8) 01/21/19 06:41 Absolute Monos (auto) 1.0 10^3/ul (0-0.8) H 01/21/19 06:41 Absolute Eos (auto) 0.4 10^3/ul (0-0.6) 01/21/19 06:41 Absolute Basos (auto) 0.0 10^3/ul (0-0.2) 01/21/19 06:41 Absolute Nucleated RBC 0.0 10^3/ul 01/21/19 06:41 Nucleated RBC % 0.0 01/21/19 06:41 ABG pH 7.26 (7.35-7.45) L 01/13/19 10:52 ABG pCO2 23 mmHg (35-45) L 01/13/19 10:52 ABG pO2 118 mmHg (80-100) H 01/13/19 10:52 ABG HCO3 13.4 mmol/L (19-31) L 01/13/19 10:52 ABG O2 Saturation 98.9 % (94.0-98.0) H 01/13/19 10:52 ABG Base Excess -14.8 mmol/L (-2.0-2.0) L 01/13/19 10:52 Sodium 140 mmol/L (135-145) 01/21/19 06:41 Potassium 5.0 mmol/L (3.5-5.0) 01/21/19 06:41 Chloride 105 mmol/L (101-111) 01/21/19 06:41 Carbon Dioxide 21 mmol/L (22-32) L 01/21/19 06:41 Anion Gap 14 mmol/L (2-11) H 01/21/19 06:41 BUN 110 mg/dL (6-24) H 01/21/19 06:41 Creatinine 7.92 mg/dL (0.67-1.17) H 01/21/19 06:41 Est GFR ( Amer) 8.4 (>60) 01/21/19 06:41 Est GFR (Non-Af Amer) 7.0 (>60) 01/21/19 06:41 BUN/Creatinine Ratio 13.9 (8-20) 01/21/19 06:41 Glucose 94 mg/dL (70-100) 01/21/19 06:41 Lactic Acid 1.4 mmol/L (0.5-2.0) 01/20/19 16:22 Calcium 7.4 mg/dL (8.6-10.3) L 01/21/19 06:41 Phosphorus 6.2 mg/dL (2.5-5.0) H 01/15/19 04:19 Magnesium 1.9 mg/dL (1.9-2.7) 01/17/19 06:11 Iron 54 ug/dL (50-212) 01/13/19 09:47 TIBC 276 mcg/dL (250-450) 01/13/19 09:47 % Saturation 20 % (15-55) 01/13/19 09:47 Unsat Iron Binding < 261 ug/dL 01/13/19 09:47 Transferrin 197 mg/dL (203-362) L 01/13/19 09:47 Erythropoietin 18.8 mIU/mL (2.6 - 18.5) H 01/13/19 09:00 Ferritin 14.1 ng/mL (24-336) L 01/13/19 09:47 Total Bilirubin 0.30 mg/dL (0.2-1.0) 01/15/19 04:19 AST 9 U/L (13-39) L 01/15/19 04:19 ALT 9 U/L (7-52) 01/15/19 04:19 Alkaline Phosphatase 44 U/L (34-104) 01/15/19 04:19 Troponin I 0.03 ng/mL (<0.04) 01/13/19 09:47 C-Reactive Protein 68.77 mg/L (<8.01) H 01/13/19 09:47 B-Natriuretic Peptide 237 pg/mL (<=100) H 01/13/19 09:47 Total Protein 4.9 g/dL (6.4-8.9) L 01/15/19 04:19 Albumin 2.8 g/dL (3.2-5.2) L 01/15/19 04:19 Globulin 2.1 g/dL (2-4) 01/15/19 04:19 Albumin/Globulin Ratio 1.3 (1-3) 01/15/19 04:19 Prostate Specific Ag 2.025 ng/mL (0-4.000) 01/16/19 07:46 25-OH Vitamin D Total 13.6 ng/mL (20-50) L 01/15/19 04:19 Vit D 1,25-Dihydroxy <8.0 pg/mL (18-64) L 01/15/19 04:19 TSH 3.84 mcIU/mL (0.34-5.60) 01/13/19 09:47 Urine Color Straw 01/21/19 10:55 Urine Appearance Clear 01/21/19 10:55 Urine pH 8.0 (5-9) 01/21/19 10:55 Ur Specific [place] 1.008 (1.010-1.030) L 01/21/19 10:55 Urine Protein 1+(30 mg/dl) (Negative) A 01/21/19 10:55 Urine Ketones Negative (Negative) 01/21/19 10:55 Urine Blood 2+ (Negative) A 01/21/19 10:55 Urine Nitrate Negative (Negative) 01/21/19 10:55 Urine Bilirubin Negative (Negative) 01/21/19 10:55 Urine Urobilinogen Negative (Negative) 01/21/19 10:55 Ur Leukocyte Esterase 2+ (Negative) A 01/21/19 10:55 Urine WBC (Auto) 1+(6-10/hpf) (Absent) A 01/21/19 10:55 Urine RBC (Auto) 3+(>10/hpf) (Absent) A 01/21/19 10:55 Urine Bacteria Absent (Absent) 01/21/19 10:55 Urine Yeast Present (Absent) A 01/13/19 15:18 Urine Glucose 1+(50 mg/dl) (Negative) A 01/21/19 10:55 HIV 1&2 Ab/P24 Ag 4thGn Negative (Negative) 01/21/19 17:55 Blood Type A Positive 01/20/19 16:15 Antibody Screen Negative 01/20/19 16:15 Crossmatch See Detail 01/20/19 16:15 Transfusion React Rpt 01/21/19 00:01 Donor Unit # [id number] 01/21/19 00:01 Post-Trans Blood Type A Positive 01/21/19 00:01 Post-Trans RADHA Negative 01/21/19 00:01 Reaction Interpretation 01/21/19 00:01 Microbiology 01/20/19 16:21 Aerobic Blood Culture - Preliminary Blood Venous No Growth Day 1 Anaerobic Blood Culture - Preliminary 01/20/19 22:45 Transfusion Reaction Culture - Preliminary Blood Bag Culture Under Incubation Transfusion Reaction Gram Stain - Final 01/13/19 15:18 Urine Culture - Final Urine Enterococcus Faecalis 01/13/19 09:48 Stool Occult Blood (ROXANA) - Final Stool Assessment: 1. Enterococcus Faecalis UTI in the setting of an indwelling catheter. Continues to have mild leukocytosis. Afebrile for almost 48 hours. 2. Gram negative bacilli bacteremia. 1/2 bottles positive, identification of the pathogen is pending. ABD CT scan at time of admission showing hydronephrosis and hydroureter, no ABD abscess or gallbladder concerns. 3. Superficial skin peeling. This started prior to admission, slowing improving. 4. NGA secondary to obstructive uropathy. Creatinine is trending down, urinary catheter dislodged and replaced yesterday. Plan: Continue Zosyn while we await blood culture results. Further recommendations will be based on culture results.
--- NOTE | 2019-01-22 20:34 | PN ---
Subjective Date of Service: 01/22/19 Interval History: Patient reports chills today. denies fever. Denies chest pain or shortness of breath. denies abd pain n/v/d. lentz patient with light yellow urine 1600- called by nursing for shaking chills- rectal temp check 97.5- patient without tachycardia or fever, no tachypnea. vital signs are stable. Family History: Unchanged from Admission Social History: Unchanged from Admission Past Medical History: Unchanged from Admission Objective Active Medications: Acetaminophen (Tylenol Tab*) 650 mg PO Q4H PRN PRN Reason: FEVER Last Admin: 01/20/19 22:58 Dose: 650 mg Calcitriol (Rocaltrol Cap*) 0.25 mcg PO DAILY [facility] Last Admin: 01/22/19 08:54 Dose: 0.25 mcg Cholecalciferol (Vitamin D Tab*) 1,000 units PO DAILY [facility] Last Admin: 01/22/19 08:54 Dose: 1,000 units Citric Acid/Sodium Citrate (Bicitra*) 30 ml PO TID [facility] Last Admin: 01/22/19 20:09 Dose: 30 ml Finasteride (Proscar Tab*) 5 mg PO DAILY [facility] Last Admin: 01/22/19 08:55 Dose: 5 mg Piperacillin Sod/Tazobactam (Sod 3.375 gm/ Sodium Chloride) 100 mls @ 25 mls/ hr IVPB Q12H [facility] Last Admin: 01/22/19 07:38 Dose: 25 mls/hr Nicotine (Nicotine Patch 21 Mg/24 Hr*) 1 patch TRANSDERM DAILY@0800 [facility] Last Admin: 01/22/19 07:38 Dose: 1 patch Nicotine Polacrilex (Nicotine Gum*) 4 mg PO Q2H PRN PRN Reason: CRAVING Ondansetron HCl (Zofran Inj*) 4 mg IV Q4H PRN PRN Reason: nausea or vomiting Last Admin: 01/18/19 09:31 Dose: 4 mg Oxycodone HCl (Roxycodone Tab*) 5 mg PO Q6H PRN PRN Reason: pain moderate Last Admin: 01/20/19 22:58 Dose: 5 mg Pharmacy Consult (Zosyn Per Pharmacy*) 1 note FOLLOW UP .ZOSYN PER PHARMACY [facility] Pharmacy Profile Note (Nicotine Patch Removal Note*) 1 note PATCH OFF 2100 [facility] Last Admin: 01/21/19 20:21 Dose: 1 note Vital Signs - 8 hr 01/22/19 15:15 Temperature 97.5 F Pulse Rate 92 Respiratory 20 Rate Blood Pressure 127/68 (mmHg) O2 Sat by Pulse 100 Oximetry Oxygen Devices in Use Now: None Appearance: alert and oriented x 3 - no acute distress Eyes: No Scleral Icterus Ears/Nose/Mouth/Throat: Clear Oropharnyx, Mucous Membranes Moist Neck: NL Appearance and Movements; NL JVP, Trachea Midline Respiratory: Symmetrical Chest Expansion and Respiratory Effort, Clear to Auscultation Cardiovascular: NL Sounds; No Murmurs; No JVD, - - mild lower ext edema Abdominal: NL Sounds; No Tenderness; No Distention Extremities: No Clubbing, Cyanosis Skin: No Rash or Ulcers, - - dry and flakey Neurological: Alert and Oriented x 3 Nutrition: Taking PO's Result Diagrams: 01/21/19 06:41 01/21/19 06:41 Additional Lab and Data: Laboratory Results - last 24 hr 01/15/19 01/15/19 04:19 04:19 WBC 8.9 RBC 2.86 L Hgb 8.9 L Hct 26 L MCV 91 MCH 31 MCHC 34 RDW 14 Plt Count 321 MPV 7.8 Neut % (Auto) 70.8 Lymph % (Auto) 11.3 [place] % (Auto) 8.6 Eos % (Auto) 8.8 Baso % (Auto) 0.5 Absolute Neuts (auto) 6.3 Absolute Lymphs (auto) 1.0 Absolute Monos (auto) 0.8 Absolute Eos (auto) 0.8 H Absolute Basos (auto) 0.0 Absolute Nucleated RBC 0.0 Nucleated RBC % 0.1 Sodium 139 Potassium 4.3 Chloride 108 Carbon Dioxide 14 L* Anion Gap 17 H BUN 124 H Creatinine 11.09 H Est GFR ( Amer) 5.7 Est GFR (Non-Af Amer) 4.7 BUN/Creatinine Ratio 11.2 Glucose 107 H Calcium 6.7 L Phosphorus 6.2 H Magnesium 1.5 L Total Bilirubin 0.30 AST 9 L ALT 9 Alkaline Phosphatase 44 Total Protein 4.9 L Albumin 2.8 L Globulin 2.1 Albumin/Globulin Ratio 1.3 25-OH Vitamin D Total 9.5 L Microbiology and Other Data: Microbiology 01/13/19 15:18 Urine Urine Culture - Final Enterococcus Faecalis 01/13/19 09:48 Stool Stool Occult Blood (ROXANA) - Final Diagnostic Imaging: *[facility]* [place] [address] Fax #: [phone] Transthoracic Echocardiogram Patient: Byron Gregory : 1955 Study Date: 01/14/2019 Age: 63 Gender: M HR: 95 bpm Height: 64 in /162.6 cm BSA: 1.63 m^2 Weight: 129.7 lb /59 kg BMI: 22.3 kg/m^2 *Service Order Taker: * Ellen Wray RDCS RN *Referring Physician: * Edda AvinaReading Physician: * Ganga Browne MD Indications: Edema History: Risk factors: Current tobacco use. Hypertension. Conclusions Summary: 1. Left ventricle: The cavity size is normal. Wall thickness is normal. Systolic function is normal. The estimated ejection fraction is 55-60%. Wall motion is normal; there are no regional wall motion abnormalities. 2. Normal cardiac chamber sizes. 3. Functionally benign heart valves. 4. There is no prior echocardiogram available to compare with at this time. Study data: Transthoracic echocardiogram. Procedure: Transthoracic echocardiography was performed. Image quality was fair. The study was technically limited due to Smoking history. Complete 2D, spectral Doppler, and color flow Doppler. Location: Bedside. Patient status: Inpatient. Patient room number: 410-02. This report is only to be considered final once signed by the Provider(s) as displayed in the "<Electronically Signed by >" field (s). Absence of a signature indicates the report is in a draft status and still needs to be finalized. In the event this document was created by someone other than the signing Provider, the individual initiating the document will be listed in the "Entered by:" or "Dictated by:" lowe. Assess/Plan/Problems-Billing Assessment: Mr. Gregory is a 63 yo M with no significant PMH who presented to ED with c/o intense itching and was found to be in renal failure. - Patient Problems (1) SIRS (systemic inflammatory response syndrome) Current Visit: Yes Status: Acute Code(s): R65.10 - SIRS OF NON-INFECTIOUS ORIGIN W/O ACUTE ORGAN DYSFUNCTION SNOMED Code(s): 759931002 Comment: - Meeting SIRS criteria with tachycardia and fever on 01/20 - Ampicillin discontinued 01/20, zosyn started to broaden coverage - Concern for possibility of sepsis on 01/20 given critical illness; EKG, LA, blood cultures, NS bolus ordered; responded well - Blood cx on 01/21 growing gram negative cocci, continue zosyn, re-culture urine, as this does not represent original enterococcus - ID consulted and following, will continue current management (2) Acute renal failure Current Visit: Yes Status: Acute Comment: - 2/2 Bladder outlet obstruction/BPH with severe bilateral hydronephroses - Lentz dislodged and replaced on 01/21/19, still retaining urine when dislodged - Creatinine andrew 12.02, continues to trend down. 7.92 today - Nephrology following; recommended calcitriol, erythropoietin, iron sucrose - Continue finasteride - Continuous LR DCd, urine output is adequate - Slight bump in K, patiromir given (3) Anemia Current Visit: Yes Status: Acute Code(s): D64.9 - ANEMIA, UNSPECIFIED SNOMED Code(s): 112454374 Comment: - 2/2 iron deficiency and renal insult - Received erythropoetin and completed 4 doses of iron sucrose - s/p 2 units PRBCs at admission, however H&H dropped on 01/20 to 7.3/ with tachycardia and decreasing BP; 1 unit PRBCs given with improvement in H&H and symptoms (tachycardia resolved, hypotension improved) - will repeat CBC in the AM - continue to monitor for acute blood loss (4) BPH (benign prostatic hyperplasia) Current Visit: Yes Status: Acute Code(s): N40.0 - BENIGN PROSTATIC HYPERPLASIA WITHOUT LOWER URINRY TRACT SYMP SNOMED Code(s): 286823321 Comment: - urinary retention yesterday after lentz was dislodged-16fr. lentz coudet inserted 01/21/19 after dislodgement - Continue finasteride - Will need lentz to leg bag for discharge and outpatient follow up with urology for definitive tx for prostate at a later date (5) Electrolyte abnormality Current Visit: Yes Status: Acute Code(s): E87.8 - OTH DISORDERS OF ELECTROLYTE AND FLUID BALANCE, NEC SNOMED Code(s): 960149535 Comment: - K wnl - Mag slightly low, but discussed replacement with Dr Weinberg who advises against at this time unless it continues to drop - Tele ordered (6) V-tach Current Visit: Yes Status: Acute Code(s): I47.2 - VENTRICULAR TACHYCARDIA SNOMED Code(s): 34471464 Comment: - no events overnight - In presence of metabolic derangement and renal failure, asymptomatic - ECHO with no acute pathology, LV function intact, no wall motion abnormalities - Magnesium repleted, tele with no further changes - Sinus tachycardia on 01/20 improved after NS bolus and PRBCs - HR remains in the 90's (7) Hypomagnesemia Current Visit: Yes Status: Acute Code(s): E83.42 - HYPOMAGNESEMIA SNOMED Code(s): 969470978 Comment: - Initially nephrology recommended against repleting magnesium, however, patient had 14 beat run of VTach asymptomatic - Mag repleted, - will repeat magnesium level in the AM - will continue to monitor on telemetry (8) DVT prophylaxis Current Visit: Yes Status: Acute Code(s): Z29.9 - ENCOUNTER FOR PROPHYLACTIC MEASURES, UNSPECIFIED SNOMED Code(s): 034562649 Comment: - SCDs and ambulate in the setting of anemia (9) Full code status Current Visit: Yes Status: Acute Code(s): Z78.9 - OTHER SPECIFIED HEALTH STATUS SNOMED Code(s): 152119317 Comment: Status and Disposition: Inpatient, guarded. Nephrology and ID following.
[2019-01-22] MEDS: Nicotine Patch Removal NOTE PATCH OFF SCH (21:09)
[2019-01-22] MEDS: hydrOXYzine HCL TAB* 25 MG PO PRN (21:51)
[2019-01-23] MEDS ORDERED: NS 0.9% 100 ML* 100 ML ONE (07:33)
[2019-01-23] MEDS: Nicotine PATCH 21 MG/24 HR* PATCH TRANSDERM SCH (07:47)
[2019-01-23] MEDS: ZOSYN 3.375 GM Q12H per EXTENDED INFUSION IVPB SCH ×4 (07:47→20:43)
[2019-01-23 08:32] LABS: Hematocrit 24 % (42-52); Hemoglobin 8.2 g/dL (14.0-18.0); INR 1.07 (0.82-1.09); Mean Corpuscular HGB Conc 34 g/dL (31-36); Mean Corpuscular Hemoglobin 32 pg (27-31); Mean Corpuscular Volume 93 fL (80-94); Mean Platelet Volume 8.9 fL (7.4-10.4); Platelet Count 138 10^3/uL (150-450); Red Blood Count 2.59 10^6 /uL (4.18-5.48); Red Cell Distribution Width 16 % (10-15); White Blood Count 8.1 10^3/uL (3.5-10.8)
[2019-01-23 08:40] LABS: BUN/Creatinine Ratio 12.4 (8-20); Calcium 7.7 mg/dL (8.6-10.3); EGFR African American 7.6 (>60); EGFR Non-African American 6.3 (>60)
[2019-01-23 08:41] LABS: Potassium 5.1 mmol/L (3.5-5.0)
[2019-01-23] MEDS: Finasteride TAB* 5 MG PO SCH (09:10)
[2019-01-23] MEDS: Calcitriol CAP* 0.25 MCG PO SCH (09:10)
[2019-01-23] MEDS: Sodium Citrate/Citric Acid* 15 ML UDC PO SCH ×3 (09:10→20:42)
[2019-01-23] MEDS: Cholecalciferol TAB* 1000 UNITS PO SCH (09:10)
[2019-01-23 09:31] LABS: Burr Cells 1+
[2019-01-23 09:32] LABS: ABS Eosinophils 0.9 10^3/ul (0-0.6); ABS Lymphocytes 1.4 10^3/ul (1.0-4.8); ABS Monocytes 1.1 10^3/ul (0-0.8); ABS Neutrophils 4.7 10^3/ul (1.5-7.7); Eosinophil % 10.6 %
[2019-01-23] MEDS ORDERED: EPOETIN ALFA-EPBX * 3,000 UNIT/ML VIAL SUBCUT ONE (15:02)
--- NOTE | 2019-01-23 15:49 | PN ---
Subjective Date of Service: 01/23/19 Interval History: no reports of chills or rigors this AM, reports that he has had shaking chills for the past several years and at home usually goes to sleep and they resolve. Denies fever or chills. Denies n/v/d. denies chest pain or shortness of breath. Lab work reviewed - will order renal ultrasound as BUN/Creatinine are rising- patient continues to have good urinary output. Family History: Unchanged from Admission Social History: Unchanged from Admission Past Medical History: Unchanged from Admission Objective Active Medications: Acetaminophen (Tylenol Tab*) 650 mg PO Q4H PRN PRN Reason: FEVER Last Admin: 01/20/19 22:58 Dose: 650 mg Calcitriol (Rocaltrol Cap*) 0.25 mcg PO DAILY [facility] Last Admin: 01/23/19 09:10 Dose: 0.25 mcg Cholecalciferol (Vitamin D Tab*) 1,000 units PO DAILY [facility] Last Admin: 01/23/19 09:10 Dose: 1,000 units Citric Acid/Sodium Citrate (Bicitra*) 30 ml PO TID [facility] Last Admin: 01/23/19 15:12 Dose: 30 ml Finasteride (Proscar Tab*) 5 mg PO DAILY [facility] Last Admin: 01/23/19 09:10 Dose: 5 mg Hydroxyzine HCl (Atarax Tab*) 25 mg PO Q6H PRN PRN Reason: anxiety/itch Last Admin: 01/22/19 21:51 Dose: 25 mg Piperacillin Sod/Tazobactam (Sod 3.375 gm/ Sodium Chloride) 100 mls @ 25 mls/ hr IVPB Q12H [facility] Last Admin: 01/23/19 07:47 Dose: 25 mls/hr Nicotine (Nicotine Patch 21 Mg/24 Hr*) 1 patch TRANSDERM DAILY@0800 [facility] Last Admin: 01/23/19 07:47 Dose: 1 patch Nicotine Polacrilex (Nicotine Gum*) 4 mg PO Q2H PRN PRN Reason: CRAVING Ondansetron HCl (Zofran Inj*) 4 mg IV Q4H PRN PRN Reason: nausea or vomiting Last Admin: 01/18/19 09:31 Dose: 4 mg Oxycodone HCl (Roxycodone Tab*) 5 mg PO Q6H PRN PRN Reason: pain moderate Last Admin: 01/20/19 22:58 Dose: 5 mg Pharmacy Consult (Zosyn Per Pharmacy*) 1 note FOLLOW UP .ZOSYN PER PHARMACY [facility] Pharmacy Profile Note (Nicotine Patch Removal Note*) 1 note PATCH OFF 2100 [facility] Last Admin: 01/22/19 21:09 Dose: 1 note Vital Signs - 8 hr 01/23/19 01/23/19 08:00 11:15 Temperature 98.1 F Pulse Rate 88 Respiratory 18 18 Rate Blood Pressure 139/81 (mmHg) O2 Sat by Pulse 98 Oximetry Oxygen Devices in Use Now: None Appearance: alert, pleasent, no acute distress Eyes: No Scleral Icterus Ears/Nose/Mouth/Throat: Clear Oropharnyx, Mucous Membranes Moist Neck: NL Appearance and Movements; NL JVP, Trachea Midline Respiratory: Symmetrical Chest Expansion and Respiratory Effort, Clear to Auscultation Cardiovascular: NL Sounds; No Murmurs; No JVD, No Edema Abdominal: NL Sounds; No Tenderness; No Distention Skin: No Rash or Ulcers, - - dry and flakey skin Neurological: Alert and Oriented x 3 Nutrition: Taking PO's Result Diagrams: 01/23/19 07:49 01/23/19 07:49 Additional Lab and Data: Laboratory Results - last 24 hr 01/15/19 01/15/19 04:19 04:19 WBC 8.9 RBC 2.86 L Hgb 8.9 L Hct 26 L MCV 91 MCH 31 MCHC 34 RDW 14 Plt Count 321 MPV 7.8 Neut % (Auto) 70.8 Lymph % (Auto) 11.3 [place] % (Auto) 8.6 Eos % (Auto) 8.8 Baso % (Auto) 0.5 Absolute Neuts (auto) 6.3 Absolute Lymphs (auto) 1.0 Absolute Monos (auto) 0.8 Absolute Eos (auto) 0.8 H Absolute Basos (auto) 0.0 Absolute Nucleated RBC 0.0 Nucleated RBC % 0.1 Sodium 139 Potassium 4.3 Chloride 108 Carbon Dioxide 14 L* Anion Gap 17 H BUN 124 H Creatinine 11.09 H Est GFR ( Amer) 5.7 Est GFR (Non-Af Amer) 4.7 BUN/Creatinine Ratio 11.2 Glucose 107 H Calcium 6.7 L Phosphorus 6.2 H Magnesium 1.5 L Total Bilirubin 0.30 AST 9 L ALT 9 Alkaline Phosphatase 44 Total Protein 4.9 L Albumin 2.8 L Globulin 2.1 Albumin/Globulin Ratio 1.3 25-OH Vitamin D Total 9.5 L Microbiology and Other Data: Microbiology 01/13/19 15:18 Urine Urine Culture - Final Enterococcus Faecalis 01/13/19 09:48 Stool Stool Occult Blood (ROXANA) - Final Diagnostic Imaging: *[facility]* [place] [address] Fax #: [phone] Transthoracic Echocardiogram Patient: Byron Gregory : 1955 Study Date: 01/14/2019 Age: 63 Gender: M HR: 95 bpm Height: 64 in /162.6 cm BSA: 1.63 m^2 Weight: 129.7 lb /59 kg BMI: 22.3 kg/m^2 *Mold Technician: * Ellen Wray RDCS RN *Referring Physician: * Edda Avina *Reading Physician: * Ganga Browne MD Indications: Edema History: Risk factors: Current tobacco use. Hypertension. Conclusions Summary: 1. Left ventricle: The cavity size is normal. Wall thickness is normal. Systolic function is normal. The estimated ejection fraction is 55-60%. Wall motion is normal; there are no regional wall motion abnormalities. 2. Normal cardiac chamber sizes. 3. Functionally benign heart valves. 4. There is no prior echocardiogram available to compare with at this time. Study data: Transthoracic echocardiogram. Procedure: Transthoracic echocardiography was performed. Image quality was fair. The study was technically limited due to Smoking history. Complete 2D, spectral Doppler, and color flow Doppler. Location: Bedside. Patient status: Inpatient. Patient room number: 410-02. This report is only to be considered final once signed by the Provider(s) as displayed in the "<Electronically Signed by >" field (s). Absence of a signature indicates the report is in a draft status and still needs to be finalized. In the event this document was created by someone other than the signing Provider, the individual initiating the document will be listed in the "Entered by:" or "Dictated by:" lowe. Assess/Plan/Problems-Billing Assessment: Mr. Gregory is a 63 yo M with no significant PMH who presented to ED with c/o intense itching and was found to be in renal failure. - Patient Problems (1) SIRS (systemic inflammatory response syndrome) Current Visit: Yes Status: Acute Code(s): R65.10 - SIRS OF NON-INFECTIOUS ORIGIN W/O ACUTE ORGAN DYSFUNCTION SNOMED Code(s): 949735819 Comment: - Meeting SIRS criteria with tachycardia and fever on 01/20 - Ampicillin discontinued 01/20, zosyn started to broaden coverage - Concern for possibility of sepsis on 01/20 given critical illness; EKG, LA, blood cultures, NS bolus ordered; responded well - Blood cx on 01/21 growing gram negative cocci, continue zosyn, re-culture urine, as this does not represent original enterococcus - Recultured urine- no growth - Blood culture with Klebsiella Pneumoniae from 01/20- continue zosyn - ID consulted and following, will continue current management (2) Acute renal failure Current Visit: Yes Status: Acute Comment: - 2/2 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 7.92 , now trending up 8.60 today - Nephrology following; recommended calcitriol, erythropoietin, iron sucrose- which was given 01/14-, spoke to nephrology again - no need for further iron and will need weekly epoetin 3000 units subcut weekly - Continue finasteride (3) Anemia Current Visit: Yes Status: Acute Code(s): D64.9 - ANEMIA, UNSPECIFIED SNOMED Code(s): 979833916 Comment: - 2/2 iron deficiency and renal insult ( anemia of chronic disease) - Received erythropoetin and completed 4 doses of iron sucrose 01/14 - s/p total of 3 units of PRBC's - h/h with slight trend downward- side consult to nephrology - will continue epo 3000 units weekly - will repeat CBC in the AM - continue to monitor for acute blood loss (4) BPH (benign prostatic hyperplasia) Current Visit: Yes Status: Acute Code(s): N40.0 - BENIGN PROSTATIC HYPERPLASIA WITHOUT LOWER URINRY TRACT SYMP SNOMED Code(s): 228020524 Comment: - urinary retention yesterday after lentz was dislodged-16fr. lentz coudet inserted 01/21/19 after dislodgement - Continue finasteride - Will need lentz to leg bag for discharge and outpatient follow up with urology for definitive tx for prostate at a later date (5) Electrolyte abnormality Current Visit: Yes Status: Acute Code(s): E87.8 - OTH DISORDERS OF ELECTROLYTE AND FLUID BALANCE, NEC SNOMED Code(s): 766093872 Comment: - K 5.1 today - will continue to monitor - repeat BMP tomorrow (6) V-tach Current Visit: Yes Status: Acute Code(s): I47.2 - VENTRICULAR TACHYCARDIA SNOMED Code(s): 13314336 Comment: - no events overnight - In presence of metabolic derangement and renal failure, asymptomatic - ECHO with no acute pathology, LV function intact, no wall motion abnormalities - Magnesium repleted, tele with no further changes - Sinus tachycardia on 01/20 improved after NS bolus and PRBCs - HR remains in the 90's (7) Hypomagnesemia Current Visit: Yes Status: Acute Code(s): E83.42 - HYPOMAGNESEMIA SNOMED Code(s): 392784342 Comment: - Initially nephrology recommended against repleting magnesium, however, patient had 14 beat run of VTach asymptomatic - Mag repleted, - will repeat magnesium level in the AM - will continue to monitor on telemetry (8) DVT prophylaxis Current Visit: Yes Status: Acute Code(s): Z29.9 - ENCOUNTER FOR PROPHYLACTIC MEASURES, UNSPECIFIED SNOMED Code(s): 853283668 Comment: - SCDs and ambulate in the setting of anemia (9) Full code status Current Visit: Yes Status: Acute Code(s): Z78.9 - OTHER SPECIFIED HEALTH STATUS SNOMED Code(s): 003917240 Comment: Status and Disposition: Inpatient, guarded. Nephrology and ID following.
[2019-01-23 16:20] LABS: Magnesium 1.7 mg/dL (1.9-2.7)
[2019-01-23 17:05] LABS: Folate 8.53 ng/mL (>3.99)
[2019-01-23] MEDS: hydrOXYzine HCL TAB* 25 MG PO PRN (20:42)
[2019-01-23] MEDS: Nicotine Patch Removal NOTE PATCH OFF SCH (20:44)
[2019-01-24 06:24] LABS: Hematocrit 24 % (42-52); Hemoglobin 8.2 g/dL (14.0-18.0); Mean Corpuscular HGB Conc 34 g/dL (31-36); Mean Corpuscular Hemoglobin 32 pg (27-31); Mean Corpuscular Volume 93 fL (80-94); Mean Platelet Volume 8.8 fL (7.4-10.4); Platelet Count 136 10^3/uL (150-450); Red Blood Count 2.59 10^6 /uL (4.18-5.48); Red Cell Distribution Width 15 % (10-15); White Blood Count 7.5 10^3/uL (3.5-10.8)
[2019-01-24 06:34] LABS: BUN/Creatinine Ratio 11.9 (8-20); Calcium 7.9 mg/dL (8.6-10.3); EGFR African American 7.6 (>60); EGFR Non-African American 6.3 (>60); Magnesium 1.6 mg/dL (1.9-2.7)
[2019-01-24 06:35] LABS: Potassium 5.1 mmol/L (3.5-5.0)
[2019-01-24] MEDS ORDERED: Magnesium Sulfate 2 GM IV* 2 GM/50 ML BAG IVPB ONE (08:37)
[2019-01-24] MEDS: Finasteride TAB* 5 MG PO SCH (09:25)
[2019-01-24] MEDS: Calcitriol CAP* 0.25 MCG PO SCH (09:25)
[2019-01-24] MEDS: Cholecalciferol TAB* 1000 UNITS PO SCH (09:25)
[2019-01-24] MEDS: Sodium Citrate/Citric Acid* 15 ML UDC PO SCH ×3 (09:25→21:42)
[2019-01-24] MEDS: Nicotine PATCH 21 MG/24 HR* PATCH TRANSDERM SCH (09:25)
[2019-01-24] MEDS: ZOSYN 3.375 GM Q12H per EXTENDED INFUSION IVPB SCH ×4 (11:47→21:42)
--- NOTE | 2019-01-24 12:45 | PN ---
Subjective Date of Service: 01/24/19 Interval History: reports no further episodes of shaking. Patient reports that he is feeling well. No complaints. Denies chest pain or shortness of breath. Denies abd pain n/v/d. Lab work reviewed creatinine continue Family History: Unchanged from Admission Social History: Unchanged from Admission Past Medical History: Unchanged from Admission Objective Active Medications: Acetaminophen (Tylenol Tab*) 650 mg PO Q4H PRN PRN Reason: FEVER Last Admin: 01/20/19 22:58 Dose: 650 mg Calcitriol (Rocaltrol Cap*) 0.25 mcg PO DAILY [facility] Last Admin: 01/24/19 09:25 Dose: 0.25 mcg Cholecalciferol (Vitamin D Tab*) 1,000 units PO DAILY [facility] Last Admin: 01/24/19 09:25 Dose: 1,000 units Citric Acid/Sodium Citrate (Bicitra*) 30 ml PO TID [facility] Last Admin: 01/24/19 09:25 Dose: 30 ml Finasteride (Proscar Tab*) 5 mg PO DAILY [facility] Last Admin: 01/24/19 09:25 Dose: 5 mg Hydroxyzine HCl (Atarax Tab*) 25 mg PO Q6H PRN PRN Reason: anxiety/itch Last Admin: 01/23/19 20:42 Dose: 25 mg Piperacillin Sod/Tazobactam (Sod 3.375 gm/ Sodium Chloride) 100 mls @ 25 mls/ hr IVPB Q12H [facility] Last Admin: 01/24/19 11:47 Dose: 25 mls/hr Nicotine (Nicotine Patch 21 Mg/24 Hr*) 1 patch TRANSDERM DAILY@0800 [facility] Last Admin: 01/24/19 09:25 Dose: 1 patch Nicotine Polacrilex (Nicotine Gum*) 4 mg PO Q2H PRN PRN Reason: CRAVING Ondansetron HCl (Zofran Inj*) 4 mg IV Q4H PRN PRN Reason: nausea or vomiting Last Admin: 01/18/19 09:31 Dose: 4 mg Oxycodone HCl (Roxycodone Tab*) 5 mg PO Q6H PRN PRN Reason: pain moderate Last Admin: 01/20/19 22:58 Dose: 5 mg Pharmacy Consult (Zosyn Per Pharmacy*) 1 note FOLLOW UP .ZOSYN PER PHARMACY [facility] Pharmacy Profile Note (Nicotine Patch Removal Note*) 1 note PATCH OFF 2100 [facility] Last Admin: 01/23/19 20:44 Dose: 1 note Vital Signs - 8 hr 01/24/19 07:22 Temperature 97.9 F Pulse Rate 94 Respiratory 18 Rate Blood Pressure 128/62 (mmHg) O2 Sat by Pulse 100 Oximetry Oxygen Devices in Use Now: None Appearance: alert and orinted x 3, no acute distress Eyes: No Scleral Icterus Ears/Nose/Mouth/Throat: Clear Oropharnyx, Mucous Membranes Moist Neck: NL Appearance and Movements; NL JVP, Trachea Midline Respiratory: Symmetrical Chest Expansion and Respiratory Effort, Clear to Auscultation Cardiovascular: NL Sounds; No Murmurs; No JVD, No Edema Abdominal: NL Sounds; No Tenderness; No Distention Extremities: No Edema, No Clubbing, Cyanosis Skin: No Rash or Ulcers, - - dry and flakey Neurological: Alert and Oriented x 3 Nutrition: Taking PO's Result Diagrams: 01/24/19 05:41 01/24/19 05:41 Additional Lab and Data: Laboratory Results - last 24 hr 01/15/19 01/15/19 04:19 04:19 WBC 8.9 RBC 2.86 L Hgb 8.9 L Hct 26 L MCV 91 MCH 31 MCHC 34 RDW 14 Plt Count 321 MPV 7.8 Neut % (Auto) 70.8 Lymph % (Auto) 11.3 [place] % (Auto) 8.6 Eos % (Auto) 8.8 Baso % (Auto) 0.5 Absolute Neuts (auto) 6.3 Absolute Lymphs (auto) 1.0 Absolute Monos (auto) 0.8 Absolute Eos (auto) 0.8 H Absolute Basos (auto) 0.0 Absolute Nucleated RBC 0.0 Nucleated RBC % 0.1 Sodium 139 Potassium 4.3 Chloride 108 Carbon Dioxide 14 L* Anion Gap 17 H BUN 124 H Creatinine 11.09 H Est GFR ( Amer) 5.7 Est GFR (Non-Af Amer) 4.7 BUN/Creatinine Ratio 11.2 Glucose 107 H Calcium 6.7 L Phosphorus 6.2 H Magnesium 1.5 L Total Bilirubin 0.30 AST 9 L ALT 9 Alkaline Phosphatase 44 Total Protein 4.9 L Albumin 2.8 L Globulin 2.1 Albumin/Globulin Ratio 1.3 25-OH Vitamin D Total 9.5 L Microbiology and Other Data: Microbiology 01/13/19 15:18 Urine Urine Culture - Final Enterococcus Faecalis 01/13/19 09:48 Stool Stool Occult Blood (ROXANA) - Final Diagnostic Imaging: *[facility]* [place] [address] Fax #: [phone] Transthoracic Echocardiogram Patient: Byron Gregory : 1955 Study Date: 01/14/2019 Age: 63 Gender: M HR: 95 bpm Height: 64 in /162.6 cm BSA: 1.63 m^2 Weight: 129.7 lb /59 kg BMI: 22.3 kg/m^2 *Copyman: * Ellen Wray RDCS RN *Referring Physician: * Edda Avina *Reading Physician: * Ganga Browne MD Indications: Edema History: Risk factors: Current tobacco use. Hypertension. Conclusions Summary: 1. Left ventricle: The cavity size is normal. Wall thickness is normal. Systolic function is normal. The estimated ejection fraction is 55-60%. Wall motion is normal; there are no regional wall motion abnormalities. 2. Normal cardiac chamber sizes. 3. Functionally benign heart valves. 4. There is no prior echocardiogram available to compare with at this time. Study data: Transthoracic echocardiogram. Procedure: Transthoracic echocardiography was performed. Image quality was fair. The study was technically limited due to Smoking history. Complete 2D, spectral Doppler, and color flow Doppler. Location: Bedside. Patient status: Inpatient. Patient room number: 410-02. This report is only to be considered final once signed by the Provider(s) as displayed in the "<Electronically Signed by >" field (s). Absence of a signature indicates the report is in a draft status and still needs to be finalized. In the event this document was created by someone other than the signing Provider, the individual initiating the document will be listed in the "Entered by:" or "Dictated by:" lowe. Assess/Plan/Problems-Billing Assessment: Mr. Gregory is a 63 yo M with no significant PMH who presented to ED with c/o intense itching and was found to be in renal failure. - Patient Problems (1) SIRS (systemic inflammatory response syndrome) Current Visit: Yes Status: Acute Code(s): R65.10 - SIRS OF NON-INFECTIOUS ORIGIN W/O ACUTE ORGAN DYSFUNCTION SNOMED Code(s): 093694031 Comment: resolved - Meeting SIRS criteria with tachycardia and fever on 01/20 - Ampicillin discontinued 01/20, zosyn started to broaden coverage - Concern for possibility of sepsis on 01/20 given critical illness; EKG, LA, blood cultures, NS bolus ordered; responded well - Blood cx on 01/21 growing gram negative cocci, continue zosyn, re-culture urine, as this does not represent original enterococcus - Recultured urine- no growth - Blood culture with Klebsiella Pneumoniae from 01/20- continue zosyn - ID consulted and following, will continue current management (2) Acute renal failure Current Visit: Yes Status: Acute Comment: - 2/2 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 7.92 , now trending up 8.64 today - Nephrology following; recommended calcitriol, erythropoietin, iron sucrose- which was given 01/14-, spoke to nephrology again - no need for further iron and will need weekly epoetin 3000 units subcut weekly - Continue finasteride - repeat ultrasound shows hydronephrosis - will contact urology as creatinine is trending up and furhter recommenations (3) Anemia Current Visit: Yes Status: Acute Code(s): D64.9 - ANEMIA, UNSPECIFIED SNOMED Code(s): 506333273 Comment: - 2/2 iron deficiency and renal insult ( anemia of chronic disease) - Received erythropoetin and completed 4 doses of iron sucrose 01/14 - s/p total of 3 units of PRBC's - H/H sytable - consult to nephrology - will continue epo 3000 units weekly - continue to monitor for acute blood loss (4) BPH (benign prostatic hyperplasia) Current Visit: Yes Status: Acute Code(s): N40.0 - BENIGN PROSTATIC HYPERPLASIA WITHOUT LOWER URINRY TRACT SYMP SNOMED Code(s): 309971987 Comment: - urinary retention yesterday after lentz was dislodged-16fr. lentz coudet inserted 01/21/19 after dislodgement - Continue finasteride - Will need lentz to leg bag for discharge and outpatient follow up with urology for definitive tx for prostate at a later date (5) Electrolyte abnormality Current Visit: Yes Status: Acute Code(s): E87.8 - OTH DISORDERS OF ELECTROLYTE AND FLUID BALANCE, NEC SNOMED Code(s): 594438899 Comment: - K 5.1 today - will continue to monitor - repeat BMP tomorrow (6) V-tach Current Visit: Yes Status: Acute Code(s): I47.2 - VENTRICULAR TACHYCARDIA SNOMED Code(s): 36917915 Comment: - no events overnight - In presence of metabolic derangement and renal failure, asymptomatic - ECHO with no acute pathology, LV function intact, no wall motion abnormalities - Magnesium repleted, tele with no further changes - Sinus tachycardia on 01/20 improved after NS bolus and PRBCs - HR remains in the 90's (7) Hypomagnesemia Current Visit: Yes Status: Acute Code(s): E83.42 - HYPOMAGNESEMIA SNOMED Code(s): 854346973 Comment: - Initially nephrology recommended against repleting magnesium, however, patient had 14 beat run of VTach asymptomatic- mag was replaced and no further episodes - magnesium 1.6 today given recent hx of v-tach- will give 2 gm of magnesium and repeat in the AM - will continue to monitor on telemetry (8) DVT prophylaxis Current Visit: Yes Status: Acute Code(s): Z29.9 - ENCOUNTER FOR PROPHYLACTIC MEASURES, UNSPECIFIED SNOMED Code(s): 819466307 Comment: - SCDs and ambulate in the setting of anemia (9) Full code status Current Visit: Yes Status: Acute Code(s): Z78.9 - OTHER SPECIFIED HEALTH STATUS SNOMED Code(s): 500135412 Comment: (10) Thrombocytopenia Current Visit: Yes Status: Acute Code(s): D69.6 - THROMBOCYTOPENIA, UNSPECIFIED SNOMED Code(s): 765416110 Comment: likely related to chronic renal failure - will continue to monitor Status and Disposition: Inpatient, guarded. Nephrology and ID following.
[2019-01-24] MEDS: Nicotine Patch Removal NOTE PATCH OFF SCH (21:42)
[2019-01-24] MEDS: Nicotine* 4MG (FRUIT FLAVOR) GUM PO PRN (21:42)
[2019-01-24] MEDS: hydrOXYzine HCL TAB* 25 MG PO PRN (21:42)
[2019-01-25 09:12] LABS: Hematocrit 28 % (42-52); Hemoglobin 9.2 g/dL (14.0-18.0); Mean Corpuscular HGB Conc 33 g/dL (31-36); Mean Corpuscular Hemoglobin 31 pg (27-31); Mean Corpuscular Volume 94 fL (80-94); Mean Platelet Volume 8.9 fL (7.4-10.4); Platelet Count 148 10^3/uL (150-450); Red Blood Count 3.01 10^6 /uL (4.18-5.48); Red Cell Distribution Width 15 % (10-15); White Blood Count 8.9 10^3/uL (3.5-10.8)
[2019-01-25 09:25] LABS: BUN/Creatinine Ratio 10.8 (8-20); Calcium 8.1 mg/dL (8.6-10.3); EGFR African American 7.4 (>60); EGFR Non-African American 6.2 (>60); Magnesium 2.2 mg/dL (1.9-2.7)
[2019-01-25 09:27] LABS: Potassium 5.9 mmol/L (3.5-5.0)
[2019-01-25] MEDS: ZOSYN 3.375 GM Q12H per EXTENDED INFUSION IVPB SCH ×4 (10:18→21:58)
[2019-01-25] MEDS: Cholecalciferol TAB* 1000 UNITS PO SCH (10:22)
[2019-01-25] MEDS: Calcitriol CAP* 0.25 MCG PO SCH (10:23)
[2019-01-25] MEDS: Finasteride TAB* 5 MG PO SCH (10:23)
[2019-01-25] MEDS: Sodium Citrate/Citric Acid* 15 ML UDC PO SCH ×3 (10:33→21:58)
[2019-01-25] MEDS: Nicotine PATCH 21 MG/24 HR* PATCH TRANSDERM SCH (10:34)
[2019-01-25] MEDS: Patiromer POWDER* 8.4 GM PAK PO SCH (11:58)
--- NOTE | 2019-01-25 15:16 | PN ---
PROGRESS NOTE: DATE: 01/25/19 Mr. Gregory unfortunately has stopped getting better with regard to his renal insufficiency. Initially, when his catheter went in, his creatinine was falling at a greater reasonable rate. He had very little problems with massive postobstructive diuresis. He then sustained a urinary tract infection and his serum creatinine seem to level out in the middle of the 8 range. He has a number symptoms at the present time. He has weakness, easy fatigability, anorexia, dysgeusia, sleep disturbance. His skin is quite dry and he has diffuse itch. He is afebrile. His blood pressure is 136/76 with a pulse of 105. He has no jugular venous distention. His chest is clear. The heart revealed a regular rhythm without murmurs. There was no edema. Review of his laboratory studies reveals a white count of 8.9, hemiglobin 9.2, hematocrit of 28, platelet count of 148,000. Sodium 144, potassium 5.1, and is going to be receiving a dose of Veltassa today. Chloride 111, total CO2 21, BUN 95, creatinine 8.8. IMPRESSION: 1. Obstructive uropathy. 2. Chronic renal insufficiency, probably stage 5. We had a long discussion to day about the issue of dialysis. He is leveling off to the point where ordinarily we would initiate dialysis. I described the 2 different forms of dialysis to him including hemodialysis and peritoneal dialysis. I discussed with him that ordinarily peritoneal dialysis would be contraindicated because his obstructive uropathy; however, since he has drained that is less of a problem. In the meantime, he would need to start hemodialysis via a central venous catheter. He understands that there may be continued improvement at some point and then his infection may have interfered with that continued improvement. He would prefer to pursue the issue of his bladder outlet obstruction and potential benefit of intervention in his prostate. I did describe with the fact that there was a chance that would happen, but there were also counter balancing probabilities of significant food and electrolyte disturbances. I pointed out that he did have her problem with potassium today that there were issues of a mere suppression that will be ongoing and I pointed out to him that he was already significantly symptomatic. He understands those issues and he still wants to proceed along with evaluation of his bladder outlet obstruction before making any decision about dialysis. Since he is well aware of the risks and once he sustains those risks, I think it is reasonable to go ahead and discharge from the hospital. At this point, I will be following him up closely as an outpatient to continue his evaluation. I discussed the case at length with Darya Mendez NP. [id number]/[facility] #: [id number] UNRUL[place]
[2019-01-25] MEDS: Nicotine* 4MG (FRUIT FLAVOR) GUM PO PRN (21:57)
[2019-01-25] MEDS: Nicotine Patch Removal NOTE PATCH OFF SCH (21:58)
--- NOTE | 2019-01-25 23:14 | PN ---
Subjective Date of Service: 01/25/19 Interval History: Patient reports that he is feeling better today. Discussed with the patient that his kidney function is no longer improving and is becoming worse. Discussed with the patient to possible need for dialysis . Patient reports that at this time he does not want to proceed with dialysis and would like to proceed conservatively without patient follow up for his enlarged prostate. Dr. Pearson into see patient in consultation as well, options for treatment were discussed and currently wishes to pursue conservative treatment without dialysis at this time Patient denies fever or chills overnight. Denies chest pain or shortness of breath denies abd pain n/v/d. Spoke to Dr. Kenney from urology as well inregards to rising creatinine and outlet obstruction, given that the patient is producing over 3 liters of urine daily, Dr. Kenney felt that patient was not still currently obstructed. Repeat ultrasound imaging was review by Dr. Kenney and reported to have improved since previous ultrasound with less hydronephrosis Family History: Unchanged from Admission Social History: Unchanged from Admission - t Past Medical History: Unchanged from Admission Objective Active Medications: Acetaminophen (Tylenol Tab*) 650 mg PO Q4H PRN PRN Reason: FEVER Last Admin: 01/20/19 22:58 Dose: 650 mg Calcitriol (Rocaltrol Cap*) 0.25 mcg PO DAILY [facility] Last Admin: 01/25/19 10:23 Dose: 0.25 mcg Cholecalciferol (Vitamin D Tab*) 1,000 units PO DAILY [facility] Last Admin: 01/25/19 10:22 Dose: 1,000 units Citric Acid/Sodium Citrate (Bicitra*) 30 ml PO TID [facility] Last Admin: 01/25/19 21:58 Dose: 30 ml Finasteride (Proscar Tab*) 5 mg PO DAILY [facility] Last Admin: 01/25/19 10:23 Dose: 5 mg Hydroxyzine HCl (Atarax Tab*) 25 mg PO Q6H PRN PRN Reason: anxiety/itch Last Admin: 01/24/19 21:42 Dose: 25 mg Piperacillin Sod/Tazobactam (Sod 3.375 gm/ Sodium Chloride) 100 mls @ 25 mls/ hr IVPB Q12H [facility] Stop: 01/25/19 23:59 Last Admin: 01/25/19 21:58 Dose: 25 mls/hr Nicotine (Nicotine Patch 21 Mg/24 Hr*) 1 patch TRANSDERM DAILY@0800 [facility] Last Admin: 01/25/19 10:34 Dose: 1 patch Nicotine Polacrilex (Nicotine Gum*) 4 mg PO Q2H PRN PRN Reason: CRAVING Last Admin: 01/25/19 21:57 Dose: 4 mg Ondansetron HCl (Zofran Inj*) 4 mg IV Q4H PRN PRN Reason: nausea or vomiting Last Admin: 01/18/19 09:31 Dose: 4 mg Oxycodone HCl (Roxycodone Tab*) 5 mg PO Q6H PRN PRN Reason: pain moderate Last Admin: 01/20/19 22:58 Dose: 5 mg Patiromer (Veltassa Powder*) 8.4 gm PO DAILY [facility] Last Admin: 01/25/19 11:58 Dose: 8.4 gm Pharmacy Consult (Zosyn Per Pharmacy*) 1 note FOLLOW UP .ZOSYN PER PHARMACY [facility] Pharmacy Profile Note (Nicotine Patch Removal Note*) 1 note PATCH OFF 2100 [facility] Last Admin: 01/25/19 21:58 Dose: 1 note Vital Signs - 8 hr 01/25/19 01/25/19 15:15 22:11 Temperature 97.8 F Pulse Rate 91 Respiratory 18 18 Rate Blood Pressure 150/84 (mmHg) O2 Sat by Pulse 100 Oximetry Oxygen Devices in Use Now: None Appearance: alert, no acute distress Eyes: No Scleral Icterus Ears/Nose/Mouth/Throat: Clear Oropharnyx, Mucous Membranes Moist Neck: NL Appearance and Movements; NL JVP, Trachea Midline Respiratory: Symmetrical Chest Expansion and Respiratory Effort, Clear to Auscultation Cardiovascular: NL Sounds; No Murmurs; No JVD, No Edema Extremities: No Edema, No Clubbing, Cyanosis Skin: No Rash or Ulcers, - - dry and flakey Neurological: Alert and Oriented x 3 Nutrition: Taking PO's Result Diagrams: 01/25/19 08:33 01/25/19 17:25 Additional Lab and Data: Laboratory Results - last 24 hr 01/15/19 01/15/19 04:19 04:19 WBC 8.9 RBC 2.86 L Hgb 8.9 L Hct 26 L MCV 91 MCH 31 MCHC 34 RDW 14 Plt Count 321 MPV 7.8 Neut % (Auto) 70.8 Lymph % (Auto) 11.3 [place] % (Auto) 8.6 Eos % (Auto) 8.8 Baso % (Auto) 0.5 Absolute Neuts (auto) 6.3 Absolute Lymphs (auto) 1.0 Absolute Monos (auto) 0.8 Absolute Eos (auto) 0.8 H Absolute Basos (auto) 0.0 Absolute Nucleated RBC 0.0 Nucleated RBC % 0.1 Sodium 139 Potassium 4.3 Chloride 108 Carbon Dioxide 14 L* Anion Gap 17 H BUN 124 H Creatinine 11.09 H Est GFR ( Amer) 5.7 Est GFR (Non-Af Amer) 4.7 BUN/Creatinine Ratio 11.2 Glucose 107 H Calcium 6.7 L Phosphorus 6.2 H Magnesium 1.5 L Total Bilirubin 0.30 AST 9 L ALT 9 Alkaline Phosphatase 44 Total Protein 4.9 L Albumin 2.8 L Globulin 2.1 Albumin/Globulin Ratio 1.3 25-OH Vitamin D Total 9.5 L Microbiology and Other Data: Microbiology 01/13/19 15:18 Urine Urine Culture - Final Enterococcus Faecalis 01/13/19 09:48 Stool Stool Occult Blood (ROXANA) - Final Diagnostic Imaging: *[facility]* [place] [address] Fax #: [phone] Transthoracic Echocardiogram Patient: Byron Gregory : 1955 Study Date: 01/14/2019 Age: 63 Gender: M HR: 95 bpm Height: 64 in /162.6 cm BSA: 1.63 m^2 Weight: 129.7 lb /59 kg BMI: 22.3 kg/m^2 *Regulatory Affairs Manager: * Ellen Wray RDCS RN *Referring Physician: * Edda Avina *Reading Physician: * Ganga Browne MD Indications: Edema History: Risk factors: Current tobacco use. Hypertension. Conclusions Summary: 1. Left ventricle: The cavity size is normal. Wall thickness is normal. Systolic function is normal. The estimated ejection fraction is 55-60%. Wall motion is normal; there are no regional wall motion abnormalities. 2. Normal cardiac chamber sizes. 3. Functionally benign heart valves. 4. There is no prior echocardiogram available to compare with at this time. Study data: Transthoracic echocardiogram. Procedure: Transthoracic echocardiography was performed. Image quality was fair. The study was technically limited due to Smoking history. Complete 2D, spectral Doppler, and color flow Doppler. Location: Bedside. Patient status: Inpatient. Patient room number: 410-02. This report is only to be considered final once signed by the Provider(s) as displayed in the "<Electronically Signed by >" field (s). Absence of a signature indicates the report is in a draft status and still needs to be finalized. In the event this document was created by someone other than the signing Provider, the individual initiating the document will be listed in the "Entered by:" or "Dictated by:" lowe. Assess/Plan/Problems-Billing Assessment: Mr. Gregory is a 63 yo M with no significant PMH who presented to ED with c/o intense itching and was found to be in renal failure. - Patient Problems (1) SIRS (systemic inflammatory response syndrome) Current Visit: Yes Status: Acute Code(s): R65.10 - SIRS OF NON-INFECTIOUS ORIGIN W/O ACUTE ORGAN DYSFUNCTION SNOMED Code(s): 332072523 Comment: resolved - Meeting SIRS criteria with tachycardia and fever on 01/20 - Ampicillin discontinued 01/20, zosyn started to broaden coverage - Concern for possibility of sepsis on 01/20 given critical illness; EKG, LA, blood cultures, NS bolus ordered; responded well - Blood cx on 01/21 growing gram negative cocci, continue zosyn, re-culture urine, as this does not represent original enterococcus - Recultured urine- no growth - Blood culture with Klebsiella Pneumoniae from 01/20- continue zosyn - ID consulted and following, will continue current management (2) Acute renal failure Current Visit: Yes Status: Acute Comment: - 2/2 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 7.92 , now trending up 8.80 today - Nephrology following; recommended calcitriol, erythropoietin, iron sucrose- which was given 01/14-, spoke to nephrology again - no need for further iron and will need weekly epoetin 3000 units subcut weekly - seen by nephrology today- recommended dialysis - patient wishing not tohave dialysis at this time - Continue finasteride - repeat ultrasound shows hydronephrosis - spoke urology as creatinine is trending up- reports improvement in imaging from previous - patient to follow up as outpatient (3) Anemia Current Visit: Yes Status: Acute Code(s): D64.9 - ANEMIA, UNSPECIFIED SNOMED Code(s): 157743670 Comment: - 2/2 iron deficiency and renal insult ( anemia of chronic disease) - Received erythropoetin and completed 4 doses of iron sucrose 01/14 - s/p total of 3 units of PRBC's - H/H stable - consult to nephrology - will continue epo 3000 units weekly - continue to monitor for acute blood loss (4) BPH (benign prostatic hyperplasia) Current Visit: Yes Status: Acute Code(s): N40.0 - BENIGN PROSTATIC HYPERPLASIA WITHOUT LOWER URINRY TRACT SYMP SNOMED Code(s): 661082235 Comment: - urinary retention yesterday after lentz was dislodged-16fr. lentz coudet inserted 01/21/19 after dislodgement - Continue finasteride - Will need lentz to leg bag for discharge and outpatient follow up with urology for definitive tx for prostate at a later date (5) Electrolyte abnormality Current Visit: Yes Status: Acute Code(s): E87.8 - OTH DISORDERS OF ELECTROLYTE AND FLUID BALANCE, NEC SNOMED Code(s): 027581734 Comment: - K 5.9 today- given patiromir 8.4 will repeat daily - will continue to monitor - repeat BMP tomorrow (6) V-tach Current Visit: Yes Status: Acute Code(s): I47.2 - VENTRICULAR TACHYCARDIA SNOMED Code(s): 33542466 Comment: - no events overnight - In presence of metabolic derangement and renal failure, asymptomatic - ECHO with no acute pathology, LV function intact, no wall motion abnormalities - Magnesium repleted, tele with no further changes - Sinus tachycardia on 01/20 improved after NS bolus and PRBCs - HR remains in the 90's (7) Hypomagnesemia Current Visit: Yes Status: Acute Code(s): E83.42 - HYPOMAGNESEMIA SNOMED Code(s): 086370898 Comment: - Initially nephrology recommended against repleting magnesium, however, patient had 14 beat run of VTach asymptomatic- mag was replaced and no further episodes - magnesium 2.2 today - will continue to monitor on telemetry (8) Thrombocytopenia Current Visit: Yes Status: Acute Code(s): D69.6 - THROMBOCYTOPENIA, UNSPECIFIED SNOMED Code(s): 906358403 Comment: likely related to chronic renal failure - will continue to monitor (9) DVT prophylaxis Current Visit: Yes Status: Acute Code(s): Z29.9 - ENCOUNTER FOR PROPHYLACTIC MEASURES, UNSPECIFIED SNOMED Code(s): 320588724 Comment: - SCDs and ambulate in the setting of anemia (10) Full code status Current Visit: Yes Status: Acute Code(s): Z78.9 - OTHER SPECIFIED HEALTH STATUS SNOMED Code(s): 017941009 Comment: Status and Disposition: Inpatient, guarded. Nephrology and ID following.
[2019-01-26 07:07] LABS: BUN/Creatinine Ratio 10.9 (8-20); Calcium 8.3 mg/dL (8.6-10.3); EGFR African American 7.5 (>60); EGFR Non-African American 6.2 (>60)
[2019-01-26 07:10] LABS: Potassium 5.6 mmol/L (3.5-5.0)
[2019-01-26] MEDS: Nicotine PATCH 21 MG/24 HR* PATCH TRANSDERM SCH (10:17)
[2019-01-26] MEDS: Sodium Citrate/Citric Acid* 15 ML UDC PO SCH (10:17)
[2019-01-26] MEDS: Finasteride TAB* 5 MG PO SCH (10:18)
[2019-01-26] MEDS: Patiromer POWDER* 8.4 GM PAK PO SCH (10:18)
[2019-01-26] MEDS: Calcitriol CAP* 0.25 MCG PO SCH (10:18)
[2019-01-26] MEDS: Cholecalciferol TAB* 1000 UNITS PO SCH (10:18)
[2019-01-26] MEDS ORDERED: Sodium Citrate/Citric Acid* 15 ML UDC PO SCH (14:00)
[2019-01-26 16:13] VITALS: BP 157/84
--- NOTE | 2019-01-27 05:00 | DS ---
DISCHARGE SUMMARY: DATE OF ADMISSION: 01/13/19 DATE OF DISCHARGE: 01/26/19 PROVIDER: Darya Mendez NP PRIMARY CARE PROVIDER: Dr. Dejan Chaidez. ATTENDING PHYSICIAN WHILE IN THE HOSPITAL: Dr. Hugo Almanzar * (dictated by Darya Mendez NP) PRIMARY DIAGNOSES: 1. Acute renal failure. 2. Bacteremia secondary to urinary tract infection, meeting sepsis. 3. Outlet obstruction, status post Cadet placement. 4. Hyperkalemia. 5. Hydronephrosis. SECONDARY DIAGNOSIS: None. STUDIES COMPLETED WHILE IN THE HOSPITAL: He had a transverse echocardiogram on 01/13/19. Conclusion: Left ventricle size cavity is normal. Wall thickness is normal. Systolic function is normal. Estimated ejection fraction is 55% to 60%. Wall motion is normal. There are no regional wall motion abnormalities. Normal cardiac chamber sizes. Functionally benign heart valve. There are no prior echocardiograms to compare to. The patient had a CT of the abdomen and pelvis on 01/13/19 which showed bilateral hydronephrosis and hydroureter. Urinary bladder was collapsed with Cadet catheter in place. There was diffuse wall thickening of the urinary bladder and underlying infection should be considered. He had an electrocardiogram on 01/20/19, was last, which showed sinus tachycardia at a rate of 121. No ST or T-wave changes. He had a renal ultrasound, which showed prominent calices bilaterally consistent with bilateral hydronephrosis. These images were reviewed by Dr. Batres, who reports that his hydronephrosis has improved since the placement of the Cadet. The patient did have routine lab work during this hospitalization. Initially, he was found to have a creatinine, which peaked at 12.02. On the day of discharge , his creatinine was 8.72. He initially had a BUN of 128. On the day of discharge, BUN was 95. The patient was also found to be hyperkalemic. He did have a peak potassium level of 5.9. He did receive patiromer during this hospitalization and was discharged on patiromer for outpatient. The patient was also found to have metabolic acidosis with carbon dioxide low at 19, anion gap was 15. He was also shown to have some anemia. Hemoglobin on admission was 5.8. Hemoglobin on discharge was 9.2. The patient did receive a total of 3 units blood during this hospitalization. During the hospitalization, the patient did become bacteremic and septic from a urinary tract infection. His blood cultures did grow Klebsiella pneumoniae and urine grew Enterococcus faecalis. He was seen in consultation by Infectious Disease who recommended Zosyn for treatment of his underlying infection. He had repeat blood cultures on 01/23/19, which showed no growth. He did receive full course of treatment during this hospitalization for his bacteremia and UTI with Zosyn, which was recommended by Infectious Disease. The patient was also seen in consultation by Nephrology, Dr. Pearson, who ultimately recommended dialysis. The patient does not wish to proceed with dialysis at this time. The patient was advised of the risks of not proceeding with dialysis due to his electrolyte abnormalities and increasing potassium. The patient does understand those risks and understands that his condition could continue to deteriorate, but continues to wish to proceed conservatively with management through Urology. The patient was also seen by Urology in consultation during this hospitalization who recommended Cadet catheter placement and the patient be discharged with the Cadet catheter and follow up in the office within 1 week to further discuss management of his outlet obstruction. The patient wishes to proceed with followup with Urology and will also be closely followed by Nephrology as an outpatient. At this time, the patient can be discharged home. REVIEW OF SYSTEMS: The patient denies any fever or chills. Denies any nausea, vomiting or diarrhea. Denies any shaking episodes. Denies any abdominal pain. Denies any chest pain or shortness of breath. Denies any pain with urination. Cadet catheter is in place and is draining approximately 3 L of urine daily. PHYSICAL EXAMINATION: General: At this time, Mr. Gregory is alert and oriented , resting in his bed and he is in no acute distress. Vital Signs: Blood pressure 157/84, heart rate is 88, respirations were 20, O2 saturation was 100% , temperature was 97.9. HEENT: Head is atraumatic, normocephalic. Eyes: EOMs are intact. Sclerae anicteric and not pale. Oral mucosa appeared to be moist. Neck is supple. Lungs are clear to auscultation bilaterally. No wheezes , rales, or rhonchi. Cardiac: S1, S2, regular rate and rhythm. No murmurs, rubs or gallops. Abdomen: Soft and nontender. Bowel sounds are present x4. Extremities: He is able to move all 4 extremities. There is no clubbing or cyanosis. He does have some mild peripheral edema noted. He does have dry and scaly flaking skin with mild redness noted to the generalized skin. Neurologic : He is awake, alert, and oriented x3. Speech is clear. Thought process is intact. There is no gross focal deficit. DISCHARGE PLAN: The patient will be discharged home. Activity as tolerated. 1. Acute renal failure. The patient should follow up with Nephrology, Dr. Pearson, on as scheduled at 11 a.m. Prior to his appointment, he needs to report to lab to have blood work drawn. He should continue on his patiromer 8.4 g p.o. daily. He should continue on Bicitra 45 mL 3 times a day until further recommendations by Dr. Pearson. He should also call with Dr. Flores from Urology for followup in 1 week. The Cadet catheter should remain in place until further directions by Dr. Flores as an outpatient. The patient will continue on calcitriol 0.25 mcg p.o. daily until further recommendations by Nephrology. 2. Outlet obstruction. This will be managed by Dr. Flores from Urology. He will be discharged with Cadet catheter. He will have leg bag teaching prior to discharge and catheter home care will be reviewed with the patient prior to discharge. The catheter is to remain in place until followup with Dr. Flores from Urology. The patient does verbalize understanding. The patient should continue on finasteride 5 mg p.o. daily. 3. Electrolyte abnormalities. The patient should continue on patiromer 8.4 g p.o. daily for his hyperkalemia. He should continue on Bicitra for his acidosis at 45 mL 3 times a day as recommended by Dr. Pearson from Nephrology. Nephrology also recommended Epogen 3000 units weekly. His last dose of Epogen was on 01/23/19. FOLLOWUP: The patient should follow up with Dr. Pearson on at 11 a.m. He should have blood work prior to his follow up appointment. He should call Dr. Flores for followup within 1 week for further management of his outlet obstruction. He should follow up with his primary care provider in 4 to 7 days. The patient was instructed to return to the emergency room for any increased weakness, dizziness, worsening symptoms, lethargy, chest pain, shortness of breath, or any other concerning symptoms. The patient verbalized understanding. DISPOSITION AT DISCHARGE: Home. CONDITION: Fair. TIME SPENT: Time spent on this discharge was 60 minutes, greater than half that time was spent reviewing discharge instructions and plans. The patient did verbalize understanding of his discharge instructions. I have discussed with my attending Dr. Hugo Almanzar; he is in agreement with my plan. DARYA MENDEZ NP [id number]/CPS #: [id number] [place]
== END 2019-01-26 16:30 | disposition home or self-care (01) | DRG 469 ==
LOC: ED 09:22 → MED 12:46
PROVIDERS: ADMIT Internal Medicine; ATTEND Internal Medicine
PROC: 0T9B70Z Drainage of Bladder with Drainage Device, Via Natural or Artificial Opening (ICD-10-PCS; principal; 2019-01-13)
PROC: 30233N1 Transfusion of Nonautologous Red Blood Cells into Peripheral Vein, Percutaneous Approach (ICD-10-PCS; 2019-01-13)
DX: N17.9 Acute kidney failure, unspecified (principal); A41.59 Other Gram-negative sepsis; N39.0 Urinary tract infection, site not specified; T83.511A Infection and inflammatory reaction due to indwelling urethral catheter, initial encounter; E87.2 Acidosis; I47.2 Ventricular tachycardia; N13.9 Obstructive and reflux uropathy, unspecified; E87.5 Hyperkalemia; D64.9 Anemia, unspecified; B95.2 Enterococcus as the cause of diseases classified elsewhere; N32.0 Bladder-neck obstruction; F17.210 Nicotine dependence, cigarettes, uncomplicated; R33.9 Retention of urine, unspecified; E83.42 Hypomagnesemia; N13.6 Pyonephrosis; N40.1 Benign prostatic hyperplasia with lower urinary tract symptoms; D50.9 Iron deficiency anemia, unspecified; Y73.1 Therapeutic (nonsurgical) and rehabilitative gastroenterology and urology devices associated with adverse incidents; Y92.239 Unspecified place in hospital as the place of occurrence of the external cause; D69.6 Thrombocytopenia, unspecified; L21.1 Seborrheic infantile dermatitis; N39.490 Overflow incontinence; Z80.49 Family history of malignant neoplasm of other genital organs; Z82.3 Family history of stroke; Z82.0 Family history of epilepsy and other diseases of the nervous system; Z72.89 Other problems related to lifestyle; Z82.49 Family history of ischemic heart disease and other diseases of the circulatory system; N18.9 Chronic kidney disease, unspecified
CPT/HCPCS: 36415; 71045; 71046; 74176; 76770; 76775; 80048; 80053; 81003; 81015; 82270; 82306; 82607; 82652; 82668; 82728; 82746; 82803; 83540; 83550; 83605; 83735; 83880; 84100; 84132; 84153; 84443; 84484; 85014; 85018; 85025; 85027; 85060; 85610; 86078; 86140; 86850; 86900; 86901; 86922; 87040; 87077; 87086; 87186; 87205; 87389; 93005; 93306; 99283; A9270-GY; G0103; J1170; J1756; J2405; J2543; J3475; P9040; Q5106

== ENCOUNTER 2019-03-29 11:04 | Emergency (ER) | payer OTHER ==
--- OUTSIDE RECORDS SUMMARY | 2019-03-29 11:17 | XMS REPORT | Continuity of Care Document ---
:1955 External Reference #:[id number] Author Name Da Rhoades MD, FACS (transmitted by agent of provider Jennifer Howard) Address [address] [place] [address] [place] [address] Care Team Providers Name Role Phone Dejan Chaidez III, MD - Internal Care Team Information Senior Mainframe Developer Medicine Problems Active Problems Provider Date Ex-smoker Shelly Casey M.D. Onset: 12/01/2012 Substance abuse counseling Shelly Casey M.D. Onset: 12/01/2012 FH: Cardiovascular disease Shelly Casey M.D. Onset: 12/01/2012 Social History Type Date Description Comments Sex Unknown Tobacco Use Start: Unknown Current Cigarette Smoker 1 1/2 Packs Daily Cigarette Use Pack Years - 15 Smoking Status Reviewed: 02/22/19 Current Cigarette Smoker 1 1/2 Packs Daily ETOH Use Has consumed alcohol in the past Tobacco Use Start: Unknown Patient is a current smoker, smokes every day Recreational Drug Use Denies Drug Use Exercise Type/Frequency Does not exercise Allergies, Adverse Reactions, Alerts Description No Known Drug Allergies Medications Active Medications SIG Qnty Indications Ordering Date Provider Sod Citrate-Citric 45 milliliters 15ml Dejan Murillo 02/19/2019 Acid three times a day Syl Chaidez 500-334mg/5ML for 14 days Solution Veltassa 1 packet daily 12units Dejan Murillo 02/11/2019 8.4gm Syl Chaidez Packet Furosemide 1 by mouth every 30tabs N17.9 Dejan Murillo 2019 40mg day Syl Chaidez Tablets Finasteride 1 by mouth every Unknown 5mg day Tablets Vitamin D 1 by mouth every Unknown (Cholecalciferol) day 1000Unit Tablets Calcitriol 1 by mouth every Unknown 0.25mcg day Capsules Immunizations CPT Code Status Date Vaccine Lot # [id number] Given 08/09/2016 Zoster (Zostavax) [id number] Given 08/09/2016 Zoster (Zostavax) [id number] Given 08/09/2016 Influ Virus Vaccine, Quadrivalent, Split Virus, [place] [id number] [address] Given 08/09/2016 Pneumococcal Conjugate Vaccine 13 Valent For [id number] Intramuscular Use 06803 Given 04/07/2014 Influenza Virus Vaccine, Quadrivalent, Split, [id number] Preservative Free Vital Signs Date Vital Result Comment 02/22/2019 2:09pm Height 64 inches 5'4" Weight 153.00 lb Heart Rate 72 /min BP Systolic 148 mmHg BP Diastolic 84 mmHg Respiratory Rate 16 /min Body Temperature 97.7 F BMI (Body Mass Index) 26.3 kg/m2 2019 4:06pm Height 64 inches 5'4" Weight 153.00 lb Heart Rate 101 /min BP Systolic Sitting 163 mmHg BP Diastolic Sitting 92 mmHg BMI (Body Mass Index) 26.3 kg/m2 Results Test Date Facility Test Result H/L Range Note Basic Metabolic 02/12/2019 [facility] Sodium 141 mmol/L Normal 135-145 Panel [address] [place] [address] [phone] Chloride 105 mmol/L Normal 101-111 Co2 Carbon Dioxide 26 mmol/L Normal 22-32 Glucose 109 mg/dL High 70-100 Blood Urea Nitrogen 70 mg/dL High 6-24 Creatinine 7.21 mg/dL High 0.67-1.17 BUN/Creatinine Ratio 9.7 Normal 8-20 Calcium 7.6 mg/dL Low 8.6-10.3 Egfr Non- 7.7 >60 Egfr 9.3 >60 1 Potassium 6.0 mmol/L High 3.5-5.0 Anion Gap 10 mmol/L Normal 2-11 Comp Metabolic 02/11/2019 [facility] Sodium 141 mmol/L Normal 135-[address] [place] [address] [phone] Chloride 102 mmol/L Normal 101-111 Co2 Carbon Dioxide 29 mmol/L Normal 22-32 Glucose 90 mg/dL Normal 70-100 Blood Urea Nitrogen 65 mg/dL High 6-24 Creatinine 7.21 mg/dL High 0.67-1.17 BUN/Creatinine Ratio 9.0 Normal 8-20 Calcium 7.2 mg/dL Low 8.6-10.3 Total Protein 5.0 g/dL Low 6.4-8.9 Albumin 3.0 g/dL Low 3.2-5.2 Globulin 2.0 g/dL Normal 2-4 Albumin/Globulin Ratio 1.5 Normal 1-3 Total Bilirubin 0.30 mg/dL Normal 0.2-1.0 Alkaline Phosphatase 78 U/L Normal 34-104 Alt 27 U/L Normal 7-52 Ast 19 U/L Normal 13-39 Egfr Non- 7.7 >60 Egfr 9.3 >60 3 Potassium 6.1 mmol/L Critical high 3.5-5.0 Anion Gap 10 mmol/L Normal 2-11 CBC No Diff 02/11/2019 [facility] White Blood 10.5 10^3/uL Normal 3.5-10.[address] [place] [address] [phone] Red Blood Count 2.47 10^6/uL Low 4.18-5.48 Hemoglobin 7.7 g/dL Low 14.0-18.0 Hematocrit 23 % Low 42-52 Mean Corpuscular Volume 95 fL High 80-94 Mean Corpuscular Hemoglobin 31 pg Normal 27-31 Mean Corpuscular HGB Conc 33 g/dL Normal 31-36 Red Cell Distribution Width 16 % High 10-15 Platelet Count 311 10^3/uL Normal 150-450 Mean Platelet Volume 7.3 fL Low 7.4-10.4 Laboratory test 02/11/2019 [facility] Magnesium 1.8 mg/dL Low 1.9-2.[address] [place] [address] [phone] Phosphorus 5.7 mg/dL High 2.5-5.0 Urine Culture And 01/13/2019 [facility] Urine Culture SEE [address] [place] [address] BELOW [phone] Laboratory test 01/13/2019 [facility] Erythropoietin 18.8 Abnormal 2.6 [address] mIU/[place] [address] 18. [phone] Urinalysis 01/13/2019 [facility] Urine Appearance Turbid Profile [address] [place] [address] [phone] Urine Specific [place] 1.013 Normal 1.010-1.030 Urine pH 7.0 Normal 5-9 Urine Urobilinogen Negative Negative Urine Ketones Trace Abnormal Negative Urine Protein 3+(>=500 mg/dL) Abnormal Negative Urine Leukocytes 3+ Abnormal Negative Urine Blood 2+ Abnormal Negative Urine Nitrite Negative Negative Urine Bilirubin Negative Negative Urine Glucose 1+(50 mg/dL) Abnormal Negative Urine White Blood Cell 3+(>20/hpf) Abnormal Absent Urine Red Blood Cell 3+(>10/hpf) Abnormal Absent Urine Bacteria 1+ Abnormal Absent Urine Yeast Present Abnormal Absent Urine Color Kimber Laboratory test 01/13/2019 [facility] Ferritin 14.1 ng/mL Low 24-[address] [place] [address] [phone] Iron & Iron 01/13/2019 [facility] Iron 54 g/dL Normal 50- 212 Binding Capacity [address] [place] [address] [phone] Unsaturated Iron Binding < 261 g/dL Total Iron Binding Capacity 276 g/dL Normal 250-450 Transferrin 197 mg/dL Low 203-362 % Iron Saturation 20 % Normal 15-55 Laboratory test 01/13/2019 [facility] Magnesium 1.6 mg/dL Low 1.9-2.[address] [place] [address] [phone] C Reactive Protein 68.77 mg/L High <8.01 TSH (Thyroid Stim Horm) 3.84 mcIU/mL Normal 0.34-5.60 Comp Metabolic 01/13/2019 [facility] Sodium 141 mmol/L Normal 135-[address] [place] [address] [phone] Chloride 109 mmol/L Normal 101-111 Glucose 114 mg/dL High 70-100 Blood Urea Nitrogen 128 mg/dL High 6-24 Creatinine 11.90 mg/dL High 0.67-1.17 BUN/Creatinine Ratio 10.8 Normal 8-20 Calcium 7.4 mg/dL Low 8.6-10.3 Total Protein 6.5 g/dL Normal 6.4-8.9 Albumin 3.7 g/dL Normal 3.2-5.2 Globulin 2.8 g/dL Normal 2-4 Albumin/Globulin Ratio 1.3 Normal 1-3 Total Bilirubin 0.30 mg/dL Normal 0.2-1.0 Alkaline Phosphatase 55 U/L Normal 34-104 Alt 11 U/L Normal 7-52 Ast 11 U/L Low 13-39 Egfr Non- 4.3 >60 Egfr 5.3 >60 6 Potassium 5.3 mmol/L High 3.5-5.0 Co2 Carbon Dioxide 12 mmol/L Critical low 22-32 7 Anion Gap 20 mmol/L High 2-11 Laboratory test 01/13/2019 [facility] Lactic Acid 1.6 mmol/L Normal 0.5-2.0 [address] [place] [address] [phone] Troponin-I (TnI) 0.03 ng/mL <0.04 9 CBC Auto 01/13/2019 [facility] White Blood 10.3 10^3/uL Normal 3.5-10.[address] [place] [address] [phone] Red Blood Count 1.93 10^6/uL Low 4.18-5.48 Hemoglobin 5.8 g/dL Critical low 14.0-18.0 10 Hematocrit 18 % Low 42-52 Mean Corpuscular Volume 92 fL Normal 80-94 Mean Corpuscular Hemoglobin 30 pg Normal 27-31 Mean Corpuscular HGB Conc 33 g/dL Normal 31-36 Red Cell Distribution Width 15 % Normal 10-15 Platelet Count 394 10^3/uL Normal 150-450 Mean Platelet Volume 8.2 fL Normal 7.4-10.4 Abs Neutrophils 6.9 10^3/uL Normal 1.5-7.7 Abs Lymphocytes 1.2 10^3/uL Normal 1.0-4.8 Abs Monocytes 0.8 10^3/uL Normal 0-0.8 Abs Eosinophils 1.3 10^3/uL High 0-0.6 Abs Basophils 0.0 10^3/uL Normal 0-0.2 Abs Nucleated RBC 0.0 10^3/uL Granulocyte % 66.7 % Lymphocyte % 12.1 % Monocyte % 8.1 % Eosinophil % 12.7 % Basophil % 0.4 % Nucleated Red Blood Cells % 0.0 Laboratory 01/13/2019 [facility] B-Type 237 pg/mL High <=100 test finding [address] [place] [address] Peptide BNP [phone] Stool Occult 01/13/2019 [facility] Stool Occult SEE RESULT 11 Blood, Screen [address] Blood, [place] [address] [phone] Laboratory 01/13/2019 [facility] Packed Cells SEE RESULTS 12, test finding [address] BELO <SEE [address] [place] [address] NOTE> [phone] Type & Screen 01/13/2019 [facility] Patient Blood A Positive [address] [place] [address] [phone] Antibody Screen NEGATIVE Arterial Blood Gas 01/13/2019 [facility] PH Arterial 7.26 Low 7.35-7.[address] [place], [place] [address] [phone] Pco2 Arterial 23 mmHg Low 35-45 Po2 Arterial 118 mmHg High 80-100 O2 Saturation Arterial 98.9 % High 94.0-98.0 Base Excess Arterial -14.8 mmol/L Low -2.0-2.0 14 Hco3 Arterial 13.4 mmol/L Low 19-31 CBC Auto 01/11/2019 [facility] White Blood 8.6 10^3/uL Normal 3.5-10.[address] [place] [address] [phone] Red Blood Count 1.93 10^6/uL Low 4.18-5.48 Hemoglobin 5.9 g/dL Critical low 14.0-18.0 15 Hematocrit 18 % Low 42-52 Mean Corpuscular Volume 92 fL Normal 80-94 Mean Corpuscular Hemoglobin 31 pg Normal 27-31 Mean Corpuscular HGB Conc 33 g/dL Normal 31-36 Red Cell Distribution Width 15 % Normal 10-15 Platelet Count 364 10^3/uL Normal 150-450 Mean Platelet Volume 8.4 fL Normal 7.4-10.4 Abs Neutrophils 5.8 10^3/uL Normal 1.5-7.7 Abs Lymphocytes 1.1 10^3/uL Normal 1.0-4.8 Abs Monocytes 0.7 10^3/uL Normal 0-0.8 Abs Eosinophils 1.0 10^3/uL High 0-0.6 Abs Basophils 0.1 10^3/uL Normal 0-0.2 Abs Nucleated RBC 0.0 10^3/uL Granulocyte % 67.6 % Lymphocyte % 12.6 % Monocyte % 7.7 % Eosinophil % 11.4 % Basophil % 0.7 % Nucleated Red Blood Cells % 0.0 Laboratory test 01/11/2019 [facility] Creatine 71 U/L Normal 10-223 [address] Kinase(CK) [place] [address] [phone] Aldolase 7.1 U/L <7.7 17 TSH (Thyroid Stim Horm) 2.96 mcIU/mL Normal 0.34-5.60 18 Comp Metabolic 01/11/2019 [facility] Sodium 140 mmol/L Normal 135-[address] [place] [address] [phone] Chloride 109 mmol/L Normal 101-111 Glucose 110 mg/dL High 70-100 Blood Urea Nitrogen 120 mg/dL High 6-24 Creatinine 12.31 mg/dL High 0.67-1.17 BUN/Creatinine Ratio 9.7 Normal 8-20 Calcium 7.3 mg/dL Low 8.6-10.3 Total Protein 6.2 g/dL Low 6.4-8.9 Albumin 3.7 g/dL Normal 3.2-5.2 Globulin 2.5 g/dL Normal 2-4 Albumin/Globulin Ratio 1.5 Normal 1-3 Total Bilirubin 0.30 mg/dL Normal 0.2-1.0 Alkaline Phosphatase 50 U/L Normal 34-104 Alt 11 U/L Normal 7-52 Ast 12 U/L Low 13-39 Egfr Non- 4.2 >60 Egfr 5.1 >60 19 Potassium 5.3 mmol/L High 3.5-5.0 Co2 Carbon Dioxide 13 mmol/L Critical low 22-32 20 Anion Gap 18 mmol/L High 2-11 Laboratory test 01/11/2019 [facility] B-Type 210 pg/mL High <= [address] [place] [address] Peptide BNP [phone] PSA Screening 2.218 ng/mL Normal 0-4.000 21 Erythrocyte Sed Rate 95 mm/Hr High 0-19 C Reactive Protein 55.88 mg/L High <8.01 22 Urinalysis Profile 01/11/2019 [facility] Urine Color Yellow [address] [place] [address] [phone] Urine Appearance Cloudy Urine Specific [place] 1.008 Low 1.010-1.030 Urine pH 5.0 Normal 5-9 Urine Urobilinogen Negative Negative Urine Ketones Negative Negative Urine Protein Negative Negative Urine Leukocytes 3+ Abnormal Negative Urine Blood 1+ Abnormal Negative Urine Nitrite Negative Negative Urine Bilirubin Negative Negative Urine Glucose Negative Negative Urine White Blood Cell 3+(>20/hpf) Abnormal Absent Urine Red Blood Cell 2+(6-10/hpf) Abnormal Absent Urine Bacteria 1+ Abnormal Absent Urine Culture And 01/11/2019 [facility] Urine Culture SEE RESULT [address] [place] [address] [phone] 1 Because ethnic data is not always readily available, this report includes an eGFR for both -Americans and non- Americans. The National Kidney Disease Education Program (NKDEP) does not endorse the use of the MDRD equation for patients that are not between the ages of 18 and 70, are , have extremes of body size, muscle mass, or nutritional status, or are non- or non-. According to the National Kidney Foundation, irrespective of diagnosis, the stage of the disease is based on the level of kidney function: Stage Description GFR(mL/min/1.73 m(2)) 1 Kidney damage with normal or decreased GFR 90 2 Kidney damage with mild decrease in GFR 60-89 3 Moderate decrease in GFR 30-59 4 Severe decrease in GFR 15-29 5 Kidney failure <15 (or dialysis) 2 CALL RESULTS TO ONC NIDIA X4101 3 Because ethnic data is not always readily available, this report includes an eGFR for both -Americans and non- Americans. The National Kidney Disease Education Program (NKDEP) does not endorse the use of the MDRD equation for patients that are not between the ages of 18 and 70, are , have extremes of body size, muscle mass, or nutritional status, or are non- or non-. According to the National Kidney Foundation, irrespective of diagnosis, the stage of the disease is based on the level of kidney function: Stage Description GFR(mL/min/1.73 m(2)) 1 Kidney damage with normal or decreased GFR 90 2 Kidney damage with mild decrease in GFR 60-89 3 Moderate decrease in GFR 30-59 4 Severe decrease in GFR 15-29 5 Kidney failure <15 (or dialysis) 4 SEE RESULT BELOW Name: JAMMILDREDBYRON : [address]: Shayy Harris MD Acct: [id number] Unit: [id number] AGE: 63 Location: [place] [address]- Re01/13/19 SEX: M Status: ADM IN SPEC: [id number] ALYSE: 01/13/[address]: Marisela THOMAS REQ: [id number] RECD: 01/13/19 STATUS: DL VALDIVIA DR: Dejan Chaidez III, MD _ SOURCE: URINE SPDESC: ORDERED: Urine Culture Procedure Result Reported Site Urine Culture Final 01/15/19- 0959 ML Organism 1 ENTEROCOCCUS FAECALIS Bagley Count >100,000 (Many) CFU/ML 1. ENTEROCOCCUS FAECALIS M.I.C. RX --------- ------ Ampicillin <=2 S Penicillin 4 S Ciprofloxacin <=0.5 S Gentamicin High Level S Levofloxacin 1 S Linezolid 2 S Nitrofurantoin <=16 S * Quinupristin/Dalfopristin 4 R * Streptomycin High Level S Tetracycline >=16 R Tigecycline <=0.12 S Vancomycin 1 S Imipenem-Deduced S * Ampicillin/Sulbactam-Deduced S * These antibiotics are not available in the [facility] Formulary Contact the Microbiology Department for any additional antibiotic reporting. * ML - Main Lab . END OF REPORT DEPARTMENT OF PATHOLOGY, [address] [place] [address] Torsten Holman M.D. Director [facility] # [id number] 5 Test Performed by: [address] [id number] 6 Because ethnic data is not always readily available, this report includes an eGFR for both -Americans and non- Americans. The National Kidney Disease Education Program (NKDEP) does not endorse the use of the MDRD equation for patients that are not between the ages of 18 and 70, are , have extremes of body size, muscle mass, or nutritional status, or are non- or non-. According to the National Kidney Foundation, irrespective of diagnosis, the stage of the disease is based on the level of kidney function: Stage Description GFR(mL/min/1.73 m(2)) 1 Kidney damage with normal or decreased GFR 90 2 Kidney damage with mild decrease in GFR 60-89 3 Moderate decrease in GFR 30-59 4 Severe decrease in GFR 15-29 5 Kidney failure <15 (or dialysis) 7 Critical Result CO2:12 Called to [email or web address] at: 10:18:24 by:[email or web address] Read back by:[id number] 8 [place] Severe Sepsis and Septic Shock Management Bundle Measure requires all lactic acids initially measuring >2.0 mmol/L be repeated. 9 Troponin-I testing on Plasma Separator Tubes (PST) has a known false positive rate of 0.20-0.40%. All positive troponins reflex immediately to secondary confirmatory testing. Using the [employer] D[employer] 800 Access Immunoassay systems, the 99th percentile upper reference limit was demonstrated to be < 0.03 ng/mL. 10 Critical Result HGB:5.8 Called to and read back by: [id number] at: 01/13/2019 10:02:06 by:[id number] 11 SEE RESULT BELOW Name: BYRON CABRALES : [address]: Dejan yBers MD Acct: [id number] Unit: [id number] AGE: 63 Location: ED Re01/13/19 SEX: M Status: REG ER SPEC: [id number] ALYSE: 01/13/19 [facility] DR: Dejan Byers MD REQ: [id number] RECD: 01/13/19 STATUS: DL VALDIVIA DR: Dejan Chaidez III, MD _ SOURCE: STOOL SPDESC: ORDERED: Occult Bl, Scn Procedure Result Reported Site Stool Occult Blood (1) Final 01/13/19- 1120 ML Stool Occult Blood Negative Collection Date (1) 01/13/19 * ML - Main Lab . END OF REPORT DEPARTMENT OF PATHOLOGY, [address] [place] [address] Torsten Holman M.D. Director [facility] # [id number] 12 LOW BACK PAIN PER PT 13 SEE RESULTS BELOW [id number] AP TRANSFUSED 01/13/19 1152 [id number] AP PC [facility] 01/14/19 1450 14 Reference ranges based on room air. 15 Verbal to by [email or web address] at 1919 on 01-11-19.Results read back accurately [address] Raygoza by [email or web address] at 1920 on 01/11/19. Results read back accurately. 17 Test Performed by: [address] [address] [address] Raygoza by [email or web address] at 1920 on 01/11/19. Results read back accurately. 19 Because ethnic data is not always readily available, this report includes an eGFR for both -Americans and non- Americans. The National Kidney Disease Education Program (NKDEP) does not endorse the use of the MDRD equation for patients that are not between the ages of 18 and 70, are , have extremes of body size, muscle mass, or nutritional status, or are non- or non-. According to the National Kidney Foundation, irrespective of diagnosis, the stage of the disease is based on the level of kidney function: Stage Description GFR(mL/min/1.73 m(2)) 1 Kidney damage with normal or decreased GFR 90 2 Kidney damage with mild decrease in GFR 60-89 3 Moderate decrease in GFR 30-59 4 Severe decrease in GFR 15-29 5 Kidney failure <15 (or dialysis) 20 Critical Result CO2:[address] RAYGOZA at: 19:39:41 by:[id number] Read back by:DR RAYGOZA 21 Serum levels of PSA measured using the [employer] DXI Hybritech immunoassay should not be interpreted as absolute evidence of the presence or absence of disease. The PSA value should be used in conjunction with other pertinent clinical diagnostic procedures. The values obtained with different assay methods or kits cannot be used interchangeably. [address] Raygoza by [id number] at 1920 on 01/11/19. Results read back accurately. 23 [id number] 24 SEE RESULT BELOW Name: BYRON CABRALES : [address]: Dejan Chaidez III, MD Acct: [id number] Unit: [id number] AGE: 63 Location: [facility] Re01/11/19 SEX: M Status: REG REF SPEC: [id number] ALYSE: 01/11/19-1513 [facility] DR: Dejan Chaidez III, MD REQ: [id number] RECD: 01/12/19 STATUS: COMP _ SOURCE: URINE SPDESC: ORDERED: Urine Culture Procedure Result Reported Site Urine Culture Final 01/14/19- 911 ML Organism 1 ENTEROCOCCUS FAECALIS [place]ley Count >100,000 (Many) CFU/ML 1. ENTEROCOCCUS FAECALIS M.I.C. RX --------- ------ Ampicillin <=2 S Penicillin 2 S Ciprofloxacin <=0.5 S Gentamicin High Level S Levofloxacin 1 S Linezolid 2 S Nitrofurantoin <=16 S * Quinupristin/Dalfopristin 8 R * Streptomycin High Level S Tetracycline >=16 R Tigecycline <=0.12 S Vancomycin 1 S Imipenem-Deduced S * Ampicillin/Sulbactam-Deduced S * These antibiotics are not available in the [facility] Formulary Contact the Microbiology Department for any additional antibiotic reporting. * ML - Main Lab . END OF REPORT DEPARTMENT OF PATHOLOGY, [address] [place] [address] Torsten Holman M.D. Director [facility] # [id number] Procedures Date Code Description Status 01/14/2019 [address]5260 ECHO Transthorasic Realtime 2D W Doppler & Color Flow Hosp Completed Medical Devices Description No Information Available Encounters Type Date Location Provider Dx Diagnosis Office Visit 01/26/2019 [facility] N17.9 Acute kidney 10:13a makayla Fonseca NP failure, Hospitalists unspecified N39.0 Urinary tract infection, site not specified R78.81 Bacteremia N32.0 Bladder-neck obstruction Z46.6 Encounter for fitting and adjustment of urinary device E87.5 Hyperkalemia N13.30 Unspecified hydronephrosis Office Visit 01/25/2019 [facility] R65.10 Sirs of 10:13a makayla Fonseca NP non-infectious Hospitalists origin w/o acute organ dysfunction N17.9 Acute kidney failure, unspecified D64.9 Anemia, unspecified N40.0 Benign prostatic hyperplasia without lower urinry tract symp E87.8 Oth disorders of electrolyte and fluid balance, NEC I47.2 Ventricular tachycardia E83.42 Hypomagnesemia D69.6 Thrombocytopenia, unspecified Office Visit 01/24/2019 [facility] R65.10 Sirs of 10:12a Assoc,pc Andrea, 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 TEACHER non-infectious Hospitalists origin w/o acute organ dysfunction N17.9 Acute kidney failure, unspecified D64.9 Anemia, unspecified N40.0 Benign prostatic hyperplasia without lower urinry tract symp E87.8 Oth disorders of electrolyte and fluid balance, NEC I47.2 Ventricular tachycardia E83.42 Hypomagnesemia D69.6 Thrombocytopenia, unspecified Office Visit 01/23/2019 [facility] R65.10 Sirs of 10:12a Assoc,pc Andrea, 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 TEACHER non-infectious Hospitalists origin w/o acute organ dysfunction N17.9 Acute kidney failure, unspecified D64.9 Anemia, unspecified N40.0 Benign prostatic hyperplasia without lower urinry tract symp E87.8 Oth disorders of electrolyte and fluid balance, NEC I47.2 Ventricular tachycardia E83.42 Hypomagnesemia Office Visit 01/22/2019 [facility] Evelyn Luis N17.9 Acute kidney 9:02a For Infectious Shepherd, ART STUDIO TEACHER failure, Diseases unspecified N39.0 Urinary tract infection, site not specified B95.2 Enterococcus as the cause of diseases classified elsewhere D72.829 Elevated white blood cell count, unspecified R78.81 Bacteremia Office Visit 01/22/2019 [facility] R65.10 Sirs of 10:12a Assoc,pc Andrea, 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 TEACHER non-infectious Hospitalists origin w/o acute organ dysfunction N17.9 Acute kidney failure, unspecified D64.9 Anemia, unspecified N40.0 Benign prostatic hyperplasia without lower urinry tract symp E87.8 Oth disorders of electrolyte and fluid balance, NEC I47.2 Ventricular tachycardia E83.42 Hypomagnesemia Office Visit 01/21/2019 [facility] Sil R65.10 Sirs of 10:11a Assoc,[facility] non-infectious Hospitalists Doto, ART STUDIO TEACHER origin w/o acute organ dysfunction N17.9 Acute kidney failure, unspecified D64.9 Anemia, unspecified N40.0 Benign prostatic hyperplasia without lower urinry tract symp I47.2 Ventricular tachycardia E83.42 Hypomagnesemia Office Visit 01/21/2019 9:41a [facility] Zully Henry R50.9 Fever, Infectious Syl Sarabia unspecified Diseases D72.829 Elevated white blood cell count, unspecified R78.81 Bacteremia N17.9 Acute kidney failure, unspecified Z96.0 Presence of urogenital implants R23.4 Changes in skin texture Office Visit 01/20/2019 [facility] R65.10 Sirs of 10:11a Assoc,[facility] non-infectious Hospitalists Doto, ART STUDIO TEACHER origin w/o acute organ dysfunction N17.9 Acute kidney failure, unspecified D64.9 Anemia, unspecified N40.0 Benign prostatic hyperplasia without lower urinry tract symp I47.2 Ventricular tachycardia E83.42 Hypomagnesemia Office Visit 01/19/2019 10:10a [facility] Jeimy Alejandra, N17.9 Acute kidney Assoc,pc ART STUDIO TEACHER failure, Hospitalists unspecified D64.9 Anemia, unspecified N40.0 Benign prostatic hyperplasia without lower urinry tract symp I47.2 Ventricular tachycardia E83.42 Hypomagnesemia Office Visit 01/18/2019 10:10a [facility] N17.9 Acute kidney Assoc,pc [facility] [place], failure, Hospitalists ART STUDIO TEACHER unspecified D64.9 Anemia, unspecified N40.0 Benign prostatic hyperplasia without lower urinry tract symp I47.2 Ventricular tachycardia E83.42 Hypomagnesemia Office Visit 01/17/2019 10:10a [facility] Jeimy Alejandra, N17.9 Acute kidney Assoc,pc [employer] TE[employer]ER failure, Hospitalists unspecified D64.9 Anemia, unspecified E83.42 Hypomagnesemia N40.0 Benign prostatic hyperplasia without lower urinry tract symp Office Visit 01/16/2019 10:09a [facility] Jeimy Alejandra, N17.9 Acute kidney Assoc,pc [employer]UDIO TEACHER failure, Hospitalists unspecified E83.42 Hypomagnesemia D64.9 Anemia, unspecified Office Visit 01/15/2019 10:09a [facility] N17.9 Acute kidney Assoc,pc [place]le, ART STUDIO TEACHER failure, Hospitalists unspecified D64.9 Anemia, unspecified E87.8 Oth disorders of electrolyte and fluid balance, NEC Office Visit 01/14/2019 10:08a [facility] N17.9 Acute kidney Assoc,makayla Altman, SO failure, Hospitalists unspecified D64.9 Anemia, unspecified E87.8 Oth disorders of electrolyte and fluid balance, [facility] Office Visit 01/13/2019 [facility] Edda N17.9 Acute kidney 10:08a Assoc,pc MARTHA Avina failure, Hospitalists unspecified D64.9 Anemia, unspecified F17.200 Nicotine dependence, unspecified, uncomplicated Assessments Date Code Description Provider 02/22/2019 N18.6 End stage renal disease Da Rhoades MD, FACS 2019 N17.9 Acute kidney failure, unspecified Dejan Chaidez M.D. 01/26/2019 N17.9 Acute kidney failure, unspecified Darya Mendez, ART STUDIO TEACHER 01/26/2019 N39.0 Urinary tract infection, site not Darya Andrea, ART STUDIO TEACHER specified 01/26/2019 R78.81 Bacteremia Darya Andrea, ART STUDIO TEACHER 01/26/2019 N32.0 Bladder-neck obstruction Darya Mendez, ART STUDIO TEACHER 01/26/2019 Z46.6 Encounter for fitting and Darya Mendez, SO adjustment of urinary device 01/26/2019 E87.5 Hyperkalemia Darya Mendez, ART STUDIO TEACHER 01/26/2019 N13.30 Unspecified hydronephrosis Darya Mendez, ART STUDIO TEACHER 01/25/2019 R65.10 Systemic inflammatory response Darya Mendez ART STUDIO TEACHER syndrome (Sirs) of non-infectious origin without acute organ dysfunction 01/25/2019 N17.9 Acute kidney failure, unspecified Darya Andrea, ART STUDIO TEACHER 01/25/2019 D64.9 Anemia, unspecified Darya Washington, ART STUDIO TEACHER 01/25/2019 N40.0 Benign prostatic hyperplasia Darya Mendez, ART STUDIO TEACHER without lower urinary tract symptoms 01/25/2019 E87.8 Other disorders of electrolyte and Darya Andrea ART STUDIO TEACHER fluid balance, not elsewhere classified 01/25/2019 I47.2 Ventricular tachycardia Darya Andrea, ART STUDIO TEACHER 01/25/2019 E83.42 Hypomagnesemia Darya Andrea, ART STUDIO TEACHER 01/25/2019 D69.6 Thrombocytopenia, unspecified Darya Andrea, ART STUDIO TEACHER 01/24/2019 R65.10 Sirs of non-infectious origin w/o Darya Andrea, ART STUDIO TEACHER acute organ dysfunction 01/24/2019 N17.9 Acute kidney failure, unspecified Darya Andrea, ART STUDIO TEACHER 01/24/2019 D64.9 Anemia, unspecified Darya Andrea, ART STUDIO TEACHER 01/24/2019 N40.0 Benign prostatic hyperplasia Darya Andrea, ART STUDIO TEACHER without lower urinry tract symp 01/24/2019 E87.8 Oth disorders of electrolyte and Darya Andrea, ART STUDIO TEACHER fluid balance, NEC 01/24/2019 I47.2 Ventricular tachycardia Darya Andrea, ART STUDIO TEACHER 01/24/2019 E83.42 Hypomagnesemia Darya Washington, ART STUDIO TEACHER 01/24/2019 D69.6 Thrombocytopenia, unspecified Darya Andrea, ART STUDIO TEACHER 01/23/2019 R65.10 Sirs of non-infectious origin w/o Darya Washington, ART STUDIO TEACHER acute organ dysfunction 01/23/2019 N17.9 Acute kidney failure, unspecified Darya Andrea, ART STUDIO TEACHER 01/23/2019 D64.9 Anemia, unspecified Darya Andrea, ART STUDIO TEACHER 01/23/2019 N40.0 Benign prostatic hyperplasia Darya Washington, ART STUDIO TEACHER without lower urinry tract symp 01/23/2019 E87.8 Oth disorders of electrolyte and Darya Washington, ART STUDIO TEACHER fluid balance, NEC 01/23/2019 I47.2 Ventricular tachycardia Darya Washington, ART STUDIO TEACHER 01/23/2019 E83.42 Hypomagnesemia Darya Andrea, ART STUDIO TEACHER 01/22/2019 N17.9 Acute kidney failure, unspecified Evelyn Shepherd , ART STUDIO TEACHER 01/22/2019 R65.10 Sirs of non-infectious origin w/o Darya Andrea, ART STUDIO TEACHER acute organ dysfunction 01/22/2019 N39.0 Urinary tract infection, site not Evelyn Shepherd , ART STUDIO TEACHER specified 01/22/2019 N17.9 Acute kidney failure, unspecified Darya Washington, ART STUDIO TEACHER 01/22/2019 B95.2 Enterococcus as the cause of Evelyn Shepherd NP diseases classified elsewhere 01/22/2019 D64.9 Anemia, unspecified Darya Washington, ART STUDIO TEACHER 01/22/2019 D72.829 Elevated white blood cell count, Evelyn Shepherd , ART STUDIO TEACHER unspecified 01/22/2019 N40.0 Benign prostatic hyperplasia Darya Mendez, ART STUDIO TEACHER without lower urinry tract symp 01/22/2019 R78.81 Bacteremia Evelyn Shepherd, ART STUDIO TEACHER 01/22/2019 E87.8 Oth disorders of electrolyte and Darya Mendez, ART STUDIO TEACHER fluid balance, NEC 01/22/2019 I47.2 Ventricular tachycardia Darya Mendez, ART STUDIO TEACHER 01/22/2019 E83.42 Hypomagnesemia Darya Mendez, ART STUDIO TEACHER 01/21/2019 R65.10 Sirs of non-infectious origin w/o Sil Shoemaker, ART STUDIO TEACHER acute organ dysfunction 01/21/2019 R50.9 Fever, unspecified Aurelio Sarabia M.D. 01/21/2019 N17.9 Acute kidney failure, unspecified Sil Muñozdisha, ART STUDIO TEACHER 01/21/2019 D72.829 Elevated white blood cell count, Aurelio Sarabia M.D. unspecified 01/21/2019 D64.9 Anemia, unspecified Sil Muñozdisha, ART STUDIO TEACHER 01/21/2019 R78.81 Bacteremia Aurelio Sarabia M.D. 01/21/2019 N40.0 Benign prostatic hyperplasia Sil Muñozdisha, ART STUDIO TEACHER without lower urinry tract symp 01/21/2019 N17.9 Acute kidney failure, unspecified Aurelio Sarabia M.D. 01/21/2019 I47.2 Ventricular tachycardia Sil Singleton Sahara, ART STUDIO TEACHER 01/21/2019 Z96.0 Presence of urogenital implants Aurelio Sarabia M.D. 01/21/2019 E83.42 Hypomagnesemia Sil Singleton Sahara, ART STUDIO TEACHER 01/21/2019 R23.4 Changes in skin texture Aurelio Sarabia M.D. 01/20/2019 R65.10 Sirs of non-infectious origin w/o Sil Muñozo, ART STUDIO TEACHER acute organ dysfunction 01/20/2019 N17.9 Acute kidney failure, unspecified Sil Singleton Doto, ART STUDIO TEACHER 01/20/2019 D64.9 Anemia, unspecified Sil Singleton Doto, ART STUDIO TEACHER 01/20/2019 N40.0 Benign prostatic hyperplasia Sil Shoemaker, ART STUDIO TEACHER without lower urinry tract symp 01/20/2019 I47.2 Ventricular tachycardia Sil Muñozo, ART STUDIO TEACHER 01/20/2019 E83.42 Hypomagnesemia Sil Muñozo, ART STUDIO TEACHER 01/19/2019 N17.9 Acute kidney failure, unspecified Jeimy Alejandra, ART STUDIO TEACHER 01/19/2019 D64.9 Anemia, unspecified Jeimy Alejandra, ART STUDIO TEACHER 01/19/2019 N40.0 Benign prostatic hyperplasia Jeimy Alejandra, ART STUDIO TEACHER without lower urinry tract symp 01/19/2019 I47.2 Ventricular tachycardia Jeimy Alejandra, ART STUDIO TEACHER 01/19/2019 E83.42 Hypomagnesemia Jeimy Alejandra, ART STUDIO TEACHER 01/18/2019 N17.9 Acute kidney failure, unspecified Sil Shoemaker, ART STUDIO TEACHER 01/18/2019 D64.9 Anemia, unspecified Sil Shoemaker, ART STUDIO TEACHER 01/18/2019 N40.0 Benign prostatic hyperplasia Sil Shoemaker, ART STUDIO TEACHER without lower urinry tract symp 01/18/2019 I47.2 Ventricular tachycardia Sil Shoemaker, ART STUDIO TEACHER 01/18/2019 E83.42 Hypomagnesemia Sil Shoemaker, ART STUDIO TEACHER 01/17/2019 N17.9 Acute kidney failure, unspecified Jeimy Alejandra, ART STUDIO TEACHER 01/17/2019 D64.9 Anemia, unspecified Jeimy Alejandra, ART STUDIO TEACHER 01/17/2019 E83.42 Hypomagnesemia Jeimy Alejandra, ART STUDIO TEACHER 01/17/2019 N40.0 Benign prostatic hyperplasia Jeimy Alejandra, ART STUDIO TEACHER without lower urinry tract symp 01/16/2019 N17.9 Acute kidney failure, unspecified Jeimy Alejandra, ART STUDIO TEACHER 01/16/2019 E83.42 Hypomagnesemia Jeimy Alejandra, ART STUDIO TEACHER 01/16/2019 D64.9 Anemia, unspecified Jeimy Alejandra, ART STUDIO TEACHER 01/15/2019 N17.9 Acute kidney failure, unspecified Colette Shortle, ART STUDIO TEACHER 01/15/2019 D64.9 Anemia, unspecified Colette Shortle, ART STUDIO TEACHER 01/15/2019 E87.8 Ot disorders of electrolyte and Colette Shortle, ART STUDIO TEACHER fluid balance, NEC 01/14/2019 N17.9 Acute kidney failure, unspecified Colette Shortle, ART STUDIO TEACHER 01/14/2019 R60.9 Edema, unspecified Ganga Browne M.D., [facility] 01/14/2019 D64.9 Anemia, unspecified Colette Shortle, ART STUDIO TEACHER 01/14/2019 E87.8 Oth disorders of electrolyte and Colette Shortle, ART STUDIO TEACHER fluid balance, NEC 01/13/2019 N17.9 Acute kidney failure, unspecified Edda Avina, PA 01/13/2019 D64.9 Anemia, unspecified MARTHA Celestin 01/13/2019 F17.200 Nicotine dependence, unspecified, MARTHA Celestin uncomplicated 01/11/2019 L29.9 Pruritus, unspecified Dejan Chaidez M.D. 01/11/2019 G89.29 Other chronic pain Dejan Chaidez M.D. 01/11/2019 R53.83 Other fatigue Dejan Chaidez M.D. 01/11/2019 R10.9 Unspecified abdominal pain Dejan Chaidez M.D. 01/11/2019 F06.32 Mood disorder due to known Dejan Chaidez M.D. physiological condition with balbina 01/11/2019 N39.44 Nocturnal enuresis Dejan Chaidez M.D. 01/11/2019 R60.0 Localized edema Dejan Chaidez M.D. Plan of Treatment Future Appointment(s):03/26/2019 3:15 pm - Da Rhoades MD, FACS at [facility]03/17/2019 4:00 pm - MARTHA Witt at [facility]03/17/2019 4:00 pm - Da Rhoades MD, FACS at [facility]02/22/2019 - Da Rhoades MD, FACSN18.6 End stage renal diseaseFollow up:operating room Goals 02/22/2019 - Da Rhoades MD, FACSN18.6 End stage renal diseaseNothing to eat or drink midnight the day of surgery Functional Status Description No Information Available Mental Status Description No Information Available Referrals Description No Information Available
--- OUTSIDE RECORDS SUMMARY | 2019-03-29 11:17 | XMS REPORT | Continuity of Care Document ---
:1955 External Reference #:[id number] Author Name Keke Jones Care Team Providers Name Role Phone Dejan Chaidez III, MD Primary Care Physician Unavailable Payers Date Identification Numbers Payment Provider Subscriber Policy Number: [id number] Saurabh Cabrales Group Number: [id number] [address] Group Name: Medicaid [place] [address] PayID: [id number] Effective: 2013 Policy Number: [id number] Saurabh Cabrales Expires: 2014 Group Name: [id number] [address] PayID: [id number] [place] [address] Problems Active Problems Provider Date Ex-smoker Shelly Casey M.D. Onset: 12/01/2012 Substance abuse counseling Shelly Casey M.D. Onset: 12/01/2012 FH: Cardiovascular disease Shelly Casey M.D. Onset: 12/01/2012 Social History Type Date Description Comments Sex Unknown Marital Status Single Lives With Alone Occupation computer animator, [place], [place] Tobacco Use Start: Unknown Current Cigarette Smoker 1 1/2 Packs Daily Cigarette Use Pack Years - 15 Smoking Status Reviewed: 02/10/19 Current Cigarette Smoker 1 1/2 Packs Daily ETOH Use consumes 7 beers per week ETOH Use prior excessive use, 10 yr ago 15/ wk Tobacco Use Start: Unknown Patient is a current smoker, smokes every day Exercise Type/Frequency Exercises regularly Exercise Type/Frequency walk Allergies, Adverse Reactions, Alerts Description No Known Drug Allergies Medications Active Medications SIG Qnty Indications Ordering Date Provider Furosemide 1 by mouth every 30tabs N17.9 Dejan E. 2019 40mg day Syl Chaidez Tablets Sod Citrate-Citric 45 milliliters Unknown Acid three times a day 500-334mg/5ML for 14 days Solution Finasteride 1 by mouth every Unknown 5mg day Tablets Vitamin D 1 by mouth every Unknown (Cholecalciferol) day 1000Unit Tablets Calcitriol 1 by mouth every Unknown 0.25mcg day Capsules History Medications No Active Unknown 08/09/2016 - Medications 2019 Omeprazole 1 by mouth every 90caps 530.81 Shelly Casey, 06/09/2014 - 40mg day M.D. 08/09/[address] No Active Unknown 04/07/2014 - Medications 06/09/2014 No Active Unknown 12/01/2012 - Medications 12/01/2012 Chantix starter pack as 1tabs V15.82 Sehlly Casey, 12/01/2012 - 0.5mg Tablets directed M.D. 04/07/2013 Immunizations CPT Code Status Date Vaccine Lot # [id number] Given 08/09/2016 Zoster (Zostavax) [id number] Given 08/09/2016 Zoster (Zostavax) [id number] 35663 Given 08/09/2016 Influ Virus Vaccine, Quadrivalent, Split Virus, [place] [id number] [address] Given 08/09/2016 Pneumococcal Conjugate Vaccine 13 Valent For [id number] Intramuscular Use 63705 Given 04/07/2014 Influenza Virus Vaccine, Quadrivalent, Split, [id number] Preservative Free Vital Signs Date Vital Result Comment 2019 4:06pm Height 64 inches 5'4" Weight 153.00 lb Heart Rate 101 /min BP Systolic Sitting 163 mmHg BP Diastolic Sitting 92 mmHg BMI (Body Mass Index) 26.3 kg/m2 01/11/2019 2:12pm Height 64 inches 5'4" Weight [...] Date Facility Test Result H/L Range Note Urine Culture And 01/14/20 [facility] Urine Culture SEE 1 Sensitivities [address] [place] [address] BELOW [phone] Laboratory test 01/14/20 [facility] Erythropoietin 18.8 Abnormal 2.6 - 2 finding [address] mIU/mL 18.5 [place], [place] [id number] [phone] Urinalysis 01/14/20 [facility] Urine Appearance Turbid Profile [address] [place], [place] [id number] [phone] Urine Specific [place] 1.013 Normal 1.010-1.030 Urine pH 7.0 Normal [...] Absent Urine Color Kimber Laboratory test 01/13/2019 [facility] Ferritin 14.1 ng/mL Low 24-[address] [place], [place] [address] [phone] Iron & Iron 01/13/2019 [facility] Iron 54 g/dL Normal 50- 212 Binding Capacity [address] [place] [address] [phone] Unsaturated Iron Binding < 261 g/dL Total Iron Binding Capacity 276 g/dL Normal 250-450 Transferrin 197 mg/dL Low 203-362 % Iron Saturation 20 % Normal 15-55 Laboratory test 01/13/2019 [facility] Magnesium 1.6 mg/dL Low 1.9-2.7 finding [address] [place] [address] [phone] C Reactive Protein 68.77 mg/L High <8.01 TSH (Thyroid Stim Horm) 3.84 mcIU/mL Normal 0.34-5.60 Comp Metabolic 01/13/2019 [facility] Sodium 141 mmol/L Normal 135-145 Panel [address] [place] [address] [phone] Chloride 109 mmol/L Normal 101-111 Glucose 114 [...] Egfr Non- 4.3 >60 Egfr 5.3 >60 3 Potassium 5.3 mmol/L High 3.5-5.0 Co2 Carbon Dioxide 12 mmol/L Critical low 22-32 4 Anion Gap 20 mmol/L High 2-11 Laboratory test 01/13/2019 [facility] Lactic Acid 1.6 mmol/L Normal 0.5-2.0 5 finding [address] [place] [address] [phone] Troponin-I (TnI) 0.03 ng/mL <0.04 6 CBC Auto 01/13/2019 [facility] White Blood 10.3 10^3/uL Normal 3.5-10.[address] [place] [address] [phone] Red Blood Count 1.93 10^6/uL Low 4.18-5.48 Hemoglobin 5.8 g/dL Critical low 14.0-18.0 7 Hematocrit 18 % Low 42-52 Mean Corpuscular [...] Red Blood Cells % 0.0 Laboratory 01/13/2019 [facility] B-Type 237 pg/mL High <=100 test finding [address] [place] [address] Peptide BNP [phone] Stool Occult 01/13/2019 [facility] Stool Occult SEE RESULT 8 Blood, Screen [address] DR[address] Blood, Screen BELOW [place], [place] [id number] [phone] Laboratory 01/13/2019 [facility] Packed Cells SEE RESULTS 9 , 10 test finding [address] BELO <[place] [address] NOTE> [phone] Type & Screen 01/13/2019 [facility] Patient Blood A Positive [address] Type [place], [place] [address] [phone] Antibody Screen NEGATIVE Arterial Blood Gas 01/13/2019 [facility] PH Arterial 7.26 Low 7.35-7.[address] [place], [place] [address] [phone] Pco2 Arterial 23 mmHg Low 35-45 Po2 Arterial 118 mmHg High 80-100 O2 Saturation Arterial 98.9 % High 94.0-98.0 Base Excess Arterial -14.8 mmol/L Low -2.0-2.0 11 Hco3 Arterial 13.4 mmol/L Low 19-31 Urine Culture And 01/11/2019 [facility] Urine Culture SEE RESULT 12, [address] [place] [address] [phone] Urinalysis Profile 01/11/2019 [facility] Urine Color Yellow [address] [place] [address] [phone] Urine Appearance Cloudy Urine Specific [place] 1.008 Low 1.010-1.030 Urine pH 5.0 Normal 5-9 Urine Urobilinogen Negative Negative Urine Ketones Negative Negative Urine Protein Negative Negative Urine Leukocytes 3+ Abnormal Negative Urine Blood 1+ Abnormal Negative Urine Nitrite Negative Negative Urine Bilirubin Negative Negative Urine Glucose Negative Negative Urine White Blood Cell 3+(>20/hpf) Abnormal Absent Urine Red Blood Cell 2+(6-10/hpf) Abnormal Absent Urine Bacteria 1+ Abnormal Absent Laboratory test 01/11/2019 [facility] B-Type 210 pg/mL High <= [address] [place] [address] Peptide BNP [phone] PSA Screening 2.218 ng/mL Normal 0-4.000 14 Erythrocyte Sed Rate 95 mm/Hr High 0-19 C Reactive Protein 55.88 mg/L High <8.01 15 Comp Metabolic 01/11/2019 [facility] Sodium 140 mmol/L Normal 135-[address] [place] [address] [phone] Chloride 109 mmol/L Normal 101-111 Glucose 110 [...] Egfr Non- 4.2 >60 Egfr 5.1 >60 16 Potassium 5.3 mmol/L High 3.5-5.0 Co2 Carbon Dioxide 13 mmol/L Critical low 22-32 17 Anion Gap 18 mmol/L High 2-11 CBC Auto 01/11/2019 [facility] White Blood 8.6 10^3/uL Normal 3.5-10.[address] [place] [address] [phone] Red Blood Count 1.93 10^6/uL Low 4.18-5.48 Hemoglobin 5.9 g/dL Critical low 14.0-18.0 18 Hematocrit 18 % Low 42-52 Mean Corpuscular [...] Blood Cells % 0.0 Laboratory test 01/11/2019 [facility] Creatine 71 U/L Normal 10-223 [address] Kinase(CK) [place] [address] [phone] Aldolase 7.1 U/L <7.7 20 TSH (Thyroid Stim Horm) 2.96 mcIU/mL Normal 0.34-5.60 21 Laboratory 04/12/2014 [facility] Glucose 82 mg/dL Normal 70- 100 22, 23 test finding [address] [place] [address] [phone] Lipid Profile 04/12/2014 [facility] Triglycerides 206 Normal 24 (Trig/Chol/HDL [address] mg/dL ) [place] [address] [phone] Cholesterol 181 mg/dL Normal 25 HDL Cholesterol 50.0 mg/dL Normal 26 LDL Cholesterol 90 mg/dL Normal 27 Inr/Protime 12/04/2012 [facility] Inr 0.83 Low 0.87-0.[address] [place] [address] [phone] Laboratory test 12/04/2012 [facility] Activated 36.1 22.18- 37.[address] [place] [address] Thrombo Time [phone] CBC Auto Diff 12/04/2012 [facility] White Blood 6.7 4.8-10.[address] Count 10^3/[place] [address] [phone] Red Blood Count 4.54 10^6/uL 4.0-5.4 Hemoglobin [...] Cells % 0.1 Liver Function Panel 12/04/2012 [facility] Alt 15 U/L 14-[address] [place] [address] [phone] Ast 16 U/L 12-42 Alkaline Phosphatase 51 U/L 30-110 Direct Bilirubin 0 mg/dL Low 0.1-0.5 Total Bilirubin 0.4 mg/dL 0.4-1.5 Albumin 3.9 g/dL 3.6-5.4 1 SEE RESULT BELOW Name: BYRON CABRALES : [address]: Shayy Harris MD Acct: [id number] Unit: [id number] AGE: 63 Location: [place] [address]- Re01/13/19 SEX: M Status: ADM IN SPEC: [id number] ALYSE: 01/13/[address]: Marisela THOMAS REQ: [id number] RECD: 01/13/19 STATUS: DL VALDIVIA DR: Dejan Chaidez III, MD _ SOURCE: URINE SPDESC: ORDERED: Urine Culture Procedure Result Reported Site Urine Culture Final 01/15/19- 0959 ML Organism 1 ENTEROCOCCUS FAECALIS [place] Count >100,000 (Many) CFU/ML 1. ENTEROCOCCUS FAECALIS [...] These antibiotics are not available in the [facility] Formulary Contact the Microbiology Department for any additional antibiotic reporting. * ML - Main Lab . END OF REPORT DEPARTMENT OF PATHOLOGY, [address] [place] [address] Torsten Holman M.D. Director [facility] # [id number] 2 Test Performed by: [address] [address] 3 Because ethnic data is not always [...] 5 Kidney failure <15 (or dialysis) 4 Critical Result CO2:12 Called to [id number] at: 10:18:24 by:[id number] Read back by:[id number] 5 DCS Severe Sepsis and Septic Shock Management Bundle Measure requires all lactic acids initially measuring >2.0 mmol/L be repeated. 6 Troponin-I testing on Plasma Separator Tubes (PST) has a known false positive rate of 0.20-0.40%. All positive troponins reflex immediately to secondary confirmatory testing. Using the Joome DxI 800 Access Immunoassay systems, the 99th percentile upper reference limit was demonstrated to be < 0.03 ng/mL. 7 Critical Result HGB:5.8 Called to and read back by: [id number] at: 01/13/2019 10:02:06 by:[id number] 8 SEE RESULT BELOW Name: BYRON CABRALES : [address]: Dejan Byers MD Acct: [id number] Unit: [id number] AGE: 63 Location: ED Re01/13/19 SEX: M Status: REG ER SPEC: [id number] ALYSE: 01/13/19 [facility] DR: Dejan Byers MD REQ: [id number] RECD: 01/13/19 STATUS: DL VALDIVIA DR: Dejan Chaidez III, MD _ SOURCE: STOOL SPDESC: ORDERED: Occult Bl, Scn Procedure Result Reported Site Stool Occult Blood (1) Final 01/13/19- 1120 ML Stool Occult Blood Negative Collection Date (1) 01/13/19 * ML - Main Lab . END OF REPORT DEPARTMENT OF PATHOLOGY, [address] [place] [address] Torsten Holman M.D. Director [facility] # [id number] 9 LOW BACK PAIN PER PT 10 SEE RESULTS BELOW [id number] [facility] 01/13/19 1152 [id number] [facility] 01/14/19 1450 11 Reference ranges based on room air. 12 [id number] 13 SEE RESULT BELOW Name: BYRON CABRALES : [address]: Dejan Chaidez III, MD Acct: [id number] Unit: [id number] AGE: 63 Location: [facility] Re01/11/19 SEX: M Status: REG REF SPEC: [id number] ALYSE: 01/11/19-1514 [facility] DR: Dejan Chaidez III, MD REQ: [id number] RECD: 01/12/19-1246 STATUS: COMP _ SOURCE: URINE SPDESC: ORDERED: Urine Culture Procedure Result Reported Site Urine Culture Final 01/14/19- 0912 ML Organism 1 ENTEROCOCCUS FAECALIS [place] Count >100,000 (Many) CFU/ML 1. ENTEROCOCCUS FAECALIS [...] These antibiotics are not available in the [facility] Formulary Contact the Microbiology Department for any additional antibiotic reporting. * ML - Main Lab . END OF REPORT DEPARTMENT OF PATHOLOGY, [address] [place] [address] Torsten Holman M.D. Director [facility] # [id number] 14 Serum levels of PSA measured using the Earle Wong DXI Hybritech immunoassay should not be interpreted as absolute evidence of the presence or absence of disease. The PSA value should be used in conjunction with other pertinent clinical diagnostic procedures. The values obtained with different assay methods or kits cannot be used interchangeably. [address] Raygoza by [id number] at 1921 on 01/11/19. Results read back accurately. 16 Because ethnic data is not always readily [...] 15-29 5 Kidney failure <15 (or dialysis) 17 Critical Result CO2:[address] RAYGOZA at: 19:39:41 by:[id number] Read back by:DR [email or web address] 18 Verbal to by [id number] at 1919 on 01-11-19.Results read back accurately [address] Raygoza by [id number] at 1920 on 01/11/19. Results read back accurately. 20 Test Performed by: [place] [address] Raygoza by [id number] at 1920 on 01/11/19. Results read back accurately. 22 FASTING 12 HOUR 23 FASTING 12 HOUR 24 Desirable <150 Borderline high 150-199 High 200-499 Very High >500 25 Desirable <200 Borderline high 200-239 High >239 26 Low <40 Desirable: 40-60 High: >60 27 Desirable <100 Near Optimal 100-129 Borderline high 130-159 High 160-189 Very High >189 Procedures Date Code Description Status 01/14/2019 35409 ECHO Transthorasic Realtime 2D W Doppler & Color Flow Hosp Completed 09/03/2016 77995 ECHO Stress Test Incl Perf Contiuous ekg Monitoring W/Phys Completed Superv Encounters Type Date Location Provider Dx Diagnosis Office Visit 01/25/2019 [facility] Darya R65.10 Sirs of 10:13a Assoc,makayla Mendez, SO non-infectious Hospitalists origin w/o acute organ dysfunction N17.9 Acute kidney failure, unspecified D64.9 Anemia, unspecified N40.0 Benign prostatic hyperplasia without lower urinry tract symp E87.8 Oth disorders of electrolyte and fluid balance, NEC I47.2 Ventricular tachycardia E83.42 Hypomagnesemia D69.6 Thrombocytopenia, unspecified Office Visit 01/24/2019 [facility] R65.10 Sirs of 10:12a Assoc,makayla Mendez, CLINICAL RESEARCH COORDINATOR non-infectious Hospitalists origin w/o acute organ dysfunction N17.9 Acute kidney failure, unspecified D64.9 Anemia, unspecified N40.0 Benign prostatic hyperplasia without lower urinry tract symp E87.8 Oth disorders of electrolyte and fluid balance, NEC I47.2 Ventricular tachycardia E83.42 Hypomagnesemia D69.6 Thrombocytopenia, unspecified Office Visit 01/23/2019 [facility] R65.10 Sirs of 10:12a Assoc,makayla Mendez, CLINICAL RESEARCH COORDINATOR non-infectious Hospitalists origin w/o acute organ dysfunction N17.9 Acute kidney failure, unspecified D64.9 Anemia, unspecified N40.0 Benign prostatic hyperplasia without lower urinry tract symp E87.8 Oth disorders of electrolyte and fluid balance, NEC I47.2 Ventricular tachycardia E83.42 Hypomagnesemia Office Visit 01/22/2019 [facility] R65.10 Sirs of 10:12a Assoc,makayla Mendez, CLINICAL RESEARCH COORDINATOR non-infectious Hospitalists origin w/o acute organ dysfunction N17.9 Acute kidney failure, unspecified D64.9 Anemia, unspecified N40.0 Benign prostatic hyperplasia without lower urinry tract symp E87.8 Oth disorders of electrolyte and fluid balance, NEC I47.2 Ventricular tachycardia E83.42 Hypomagnesemia Office Visit 01/21/2019 [facility] R65.10 Sirs of 10:11a Assoc,makayla [facility] non-infectious Hospitalists SO [place] origin w/o acute organ dysfunction N17.9 Acute kidney failure, unspecified D64.9 Anemia, unspecified N40.0 Benign prostatic hyperplasia without lower urinry tract symp I47.2 Ventricular tachycardia E83.42 Hypomagnesemia Office Visit 01/21/2019 9:41a [facility] Zully Henry R50.9 Fever, Infectious Nydia Sarabia. unspecified Diseases D72.829 Elevated white blood cell count, unspecified R78.81 Bacteremia N17.9 Acute kidney failure, unspecified Z96.0 Presence of urogenital implants R23.4 Changes in skin texture Office Visit 01/20/2019 [facility] R65.10 Sirs of 10:11a Assoc,pc [facility] non-infectious Hospitalists Doto, CLINICAL RESEARCH COORDINATOR origin w/o acute organ dysfunction N17.9 Acute kidney failure, unspecified D64.9 Anemia, unspecified N40.0 Benign prostatic hyperplasia without lower urinry tract symp I47.2 Ventricular tachycardia E83.42 Hypomagnesemia Office Visit 01/19/2019 10:10a [facility] Jeimy Alejandra, N17.9 Acute kidney Assoc,pc CLINICAL RESEARCH COORDINATOR failure, Hospitalists unspecified D64.9 Anemia, unspecified N40.0 Benign prostatic hyperplasia without lower urinry tract symp I47.2 Ventricular tachycardia E83.42 Hypomagnesemia Office Visit 01/18/2019 10:10a [facility] Sil N17.9 Acute kidney Assoc,pc [facility] Doto, failure, Hospitalists CLINICAL RESEARCH COORDINATOR unspecified D64.9 Anemia, unspecified N40.0 Benign prostatic hyperplasia without lower urinry tract symp I47.2 Ventricular tachycardia E83.42 Hypomagnesemia Office Visit 01/17/2019 10:10a [facility] Jeimy Alejandra, N17.9 Acute kidney Assoc,pc CLINICAL RESEARCH COORDINATOR failure, Hospitalists unspecified D64.9 Anemia, unspecified E83.42 Hypomagnesemia N40.0 Benign prostatic hyperplasia without lower urinry tract symp Office Visit 01/16/2019 10:09a [facility] Jeimy Alejandra, N17.9 Acute kidney Assoc,pc CLINICAL RESEARCH COORDINATOR failure, Hospitalists unspecified E83.42 Hypomagnesemia D64.9 Anemia, unspecified Office Visit 01/15/2019 10:09a [facility] N17.9 Acute kidney Assoc,pc [place], CLINICAL RESEARCH COORDINATOR failure, Hospitalists unspecified D64.9 Anemia, unspecified E87.8 Oth disorders of electrolyte and fluid balance, NEC Office Visit 01/14/2019 10:08a [facility] N17.9 Acute kidney Assoc,pc [place], CLINICAL RESEARCH COORDINATOR failure, Hospitalists unspecified D64.9 Anemia, unspecified E87.8 Oth disorders of electrolyte and fluid balance, NEC Office Visit 01/13/2019 [facility] Edda N17.9 Acute kidney 10:08a Assoc,pc [place], [place] failure, Hospitalists unspecified D64.9 Anemia, unspecified F17.200 Nicotine dependence, unspecified, uncomplicated Office Visit 08/09/2016 DoNotUse [facility] Internal Familia Z13.220 Encounter for 8:40a Cisco Ernandez M.D. screening for lipoid disorders Z23 Encounter for immunization R07.89 Other chest pain Z72.0 Tobacco use Z00.00 Encntr for general adult medical exam w/o abnormal findings R32 Unspecified urinary incontinence Office Visit 06/09/2014 10:20a [facility] Internal Shelly Casey, 300.09 Anxiety States Medicine Brown Flores M.D. Other 530.81 Esophageal Reflux 786.50 Pain Chest Unspec Office Visit 04/07/2014 10:20a [facility] Internal Shelly Casey, V70.0 Examination Medicine Brown Flores M.D. General Medical Routine AT Health Care Facility V65.42 Counseling On Substance Use & Abuse V15.82 History Personal Tobacco Use V74.5 Screening Examination Venereal Disease V76.51 Special Screening For Malignant Neoplasms Colon V04.81 Need For Prophylactic Vaccination & Inoculation/Influenza Office Visit 01/01/2013 9:40a [facility] Internal Shelly Casey V65.42 Counseling On Medicine Brown Flores M.D. Substance Use & Abuse V15.82 History Personal Tobacco Use Office Visit 12/01/2012 9:00a [facility] Internal Shelly Casey V15.82 History Personal Medicine Brown Flores M.D. Tobacco Use V65.42 Counseling On Substance Use & Abuse V72.81 Examination Preoperative Cardiovascular V17.49 Family HX Of Other Cardiovascular Diseases Plan of Treatment 2019 - Dejan Chaidez M.D.N17.9 Acute kidney failure, unspecifiedNew Medication:Furosemide 40 mg - 1 by mouth every day
[2019-03-29] MEDS ORDERED: Cephalexin CAP* 500 MG PO ONE (12:09)
[2019-03-29] MEDS ORDERED: Polymyx/Trimethoprim OPTH* 10 ML BTL BOTH EYES SCH (12:30)
[2019-03-29 12:46] VITALS: BP 180/98
--- NOTE | 2019-03-29 13:06 | ED ---
Throat Pain/Nasal Congestion - HPI Summary HPI Summary: Patient is a 64-year-old male presenting to the ED with bilateral conjunctival injection and crusting to the upper and lower lids with greenish discharge 5 days. Sxs began in the L eye and over the course of 5 days, the sxs have been worsening. He is also endorsing some inflammation to the conjunctiva of the eye and some erythema around the bilateral eyes without swelling. Denies fevers , sweats or chills. Denies any other symptoms at this time. Denies sick contacts. - History of Current Complaint Chief Complaint: EDEyeProblem Time Seen by Provider: 03/29/19 11:45 Hx Obtained From: Patient Onset/Duration: Gradual Onset Severity: Moderate - Epiglottits Risk Factors Epiglottis Risk Factors: Negative - Allergies/Home Medications Allergies/Adverse Reactions: Allergies Allergy/AdvReac Type Severity Reaction Status Date / Time No Known Allergies Allergy Verified 03/29/19 11:10 PMH/Surg Hx/FS Hx/Imm Hx Previously Healthy: Yes Endocrine/Hematology History: Denies: Hx Diabetes Cardiovascular History: Denies: Hx Hypercholesterolemia, Hx Hypertension History: Denies: Hx Renal Disease Sensory History: Reports: Hx Contacts or Glasses Denies: Hx Hearing Aid Opthamlomology History: Reports: Hx Contacts or Glasses - Surgical History Surgery Procedure, Year, and Place: left shoulder dislocation with pin placement , right ear cholesteatoma removal - Immunization History Hx Pertussis Vaccination: No Immunizations Up to Date: Yes Infectious Disease History: No Infectious Disease History: Denies: Traveled Outside the [place] in Last 30 Days - Family History Known Family History: Positive: Hypertension Negative: Diabetes - Social History Occupation: Unemployed Lives: With Family Alcohol Use: None Alcohol Amount: 3 beers/day Hx Substance Use: No Substance Use Type: Reports: None Hx Tobacco Use: Yes Smoking Status (MU): Current Every Day Smoker Type: Cigarettes Amount Used/How Often: 1.5 PPD Have You Smoked in the Last Year: Yes Review of Systems Constitutional: Negative Negative: Fever, Chills, Fatigue, Skin Diaphoresis Positive: Drainage, Erythema Negative: Palpitations, Chest Pain Negative: Shortness Of Breath, Cough Genitourinary: Negative Positive: no symptoms reported, see HPI Negative: Arthralgia, Myalgia Neurological: Negative Psychological: Normal All Other Systems Reviewed And Are Negative: Yes Physical Exam Triage Information Reviewed: Yes Vital Signs On Initial Exam: Initial Vitals Temp Pulse Resp BP Pulse Ox 98.3 F 84 16 189/109 99 03/29/19 11:07 03/29/19 11:07 03/29/19 11:07 03/29/19 11:07 03/29/19 11:07 Vital Signs Reviewed: Yes Appearance: Positive: Well-Appearing, Well-Nourished Skin: Positive: Skin Color Reflects Adequate Perfusion Head/Face: Positive: Normal Head/Face Inspection Eyes: Positive: Conjunctiva Clear, Conjunctiva Inflammed, Discharge - green Neck: Positive: Supple, No Lymphadenopathy Respiratory/Lung Sounds: Positive: Clear to Auscultation, Breath Sounds Present Cardiovascular: Positive: Pulses are Symmetrical in both Upper and Lower Extremities Musculoskeletal: Positive: Strength/ROM Intact Neurological: Positive: Speech Normal Psychiatric: Positive: Normal, Affect/Mood Appropriate Diagnostics - Vital Signs Vital Signs Temp Pulse Resp BP Pulse Ox 03/29/19 12:44 97.6 F 84 16 180/98 97 03/29/19 11:07 98.3 F 84 16 189/109 99 - Laboratory Lab Statement: Any lab studies that have been ordered have been reviewed, and results considered in the medical decision making process. EENT Course/Dx - Course Course Of Treatment: During this was treatment, the patient's evaluated for bilateral conjunctival injection with tearing as well asswelling to the conjucntiva and green crustingo to the eyelids in the AM. Denies any fevers, sweats, chills. Patient states he has been feeling otherwise well. Denies any visual changes or disturbances including double vision. Denies any headaches. He is endorsing some erythema around the bilateral orbits without swelling to suggest orbital cellulitis. No entrapment noted. Chemosis bilaterally without signs of trauma. Patient is encouraged close follow-up with ophthalmology and he is given polymyxin drops to use in the bilateral eyes every 3 hours. He is also given Keflex due to the erythema surrounding both eyes. - Differential Diagnoses Differential Diagnoses: Other - chemosis, bilateral conjunctival injection, conjunctivitis - Diagnoses Provider Diagnoses: Conjunctivitis Discharge ED - Sign-Out/Discharge Documenting (check all that apply): Patient Departure Patient Received Moderate/Deep Sedation with Procedure: No - Discharge Plan Condition: Stable Disposition: HOME Prescriptions: Cephalexin CAP* [Keflex CAP*] 250 mg PO TID #15 cap Patient Education Materials: Conjunctivitis (ED) Referrals: Yared Cruz MD [Medical Doctor] - Dejan Chaidez MD [Primary Care Provider] - Additional Instructions: Polymyxin drops: Instill 1 drop in affected eye(s) every 3 hours (maximum: 6 doses per day) for 7-10 days Keflex three times daily x 5 days Please follow up with diesel locomotive crane operator - call today to make an appt If any symptoms worsen, you are unable to open your eyes or have any difficulty with vision - return to the ED immediately Warm cloths over the eyes every morning upon wakening will help with the crusting - Billing Disposition and Condition Condition: STABLE Disposition: Home
== END 2019-03-29 12:44 | disposition home or self-care (01) ==
LOC: ED 11:04
DX: H10.9 Unspecified conjunctivitis (principal); F17.210 Nicotine dependence, cigarettes, uncomplicated
CPT/HCPCS: 99282; A9270-GY

== ENCOUNTER → 2019-05-14 09:04 | Day surgery (SDC) | payer OTHER ==
--- NOTE | 2019-05-13 16:13 | HP ---
HISTORY AND PHYSICAL: DATE OF ADMISSION: 05/14/19 CHIEF COMPLAINT: End-stage renal disease. HISTORY OF PRESENT ILLNESS: The patient is a 64-year-old male referred for creation of arteriovenous fistula for hemodialysis. The patient is in stage 5 renal failure and about to start hemodialysis for end-stage renal disease. The cause of it being postobstruction, the patient has an indwelling catheter in the bladder and has obstruction at the end of the ureters. PAST MEDICAL HISTORY: Remarkable for end-stage renal disease. He denies hypertension or diabetes. PAST SURGICAL HISTORY: Includes shoulder surgery and middle ear surgery. CURRENT MEDICATIONS: Include doxycycline and sodium bicarb. ALLERGIES: The patient has no known allergies. FAMILY HISTORY: Both parents are . His mother of cervical cancer. REVIEW OF SYSTEMS: Contributory for head and neck. The patient has a left forehead skin lesion measuring 2 cm that he has had for several years that appears to be malignant. Ear, nose, and throat: The patient had middle ear surgery several years ago. Musculoskeletal: The patient had a shoulder surgery several years ago. Skin: The patient complains of itching eczema. PHYSICAL EXAMINATION GENERAL: The patient is alert and oriented, pleasant and cooperative to the exam. VITAL SIGNS: His height is 64 inches, weight 130 pounds, blood pressure 155/95 , BMI of 22.3, pulse is 87, respirations 18. HEAD AND NECK: Reveals a 2 cm skin lesion of the left forehead suspicious for skin cancer which the patient has known for several years. It was recommended to him by an ENT surgeon to have it removed, but it has not been removed or biopsied. The neck reveals no neck nodes or masses. LUNGS: Clear to auscultation bilaterally. HEART: Regular without murmurs. ABDOMEN: Soft, nontender. No organomegaly. No previous surgeries are noted. UROLOGICAL: The patient has an indwelling catheter in the bladder for BPH. EXTREMITIES: The patient has bilateral lower extremity edema. He has palpable pulses. The upper extremities, the patient has excellent palpable pulses at the axillary, brachial, radial and ulnars bilaterally. The status of the veins in the upper extremity, the patient appears to have the right cephalic vein less than 3 mm from the skin to the vein and the vein diameter on the right side is 0.32 with continuity, which appears to be the best vein to start a fistula. No other abnormalities were noted on physical examination. In the evaluation of the patient, we discussed hemodialysis and also alternative to hemodialysis, specifically peritoneal dialysis. The patient has chosen to proceed with hemodialysis. I did explain to the patient that the best approach is to start with a upper sioux fistula that typically has a longer patency rate, however, it carries a 30% chance of never maturing in which case the patient would require another surgery. The patient also understands potential complications including but not exclusive of other such as bleeding, infection, thrombosis, failure to mature. DIAGNOSTIC IMPRESSION: End-stage renal disease. PLAN: Admission for placement of right arteriovenous fistula. [id number]/CPS #: [id number] MTDD
[~2019-05-14 09:04] MED LIST: Buffered Lidocaine 1% SYRIN* 1 ML/SYRINGE INTRADERM ONE; Bupivacaine 0.25% SDV PF* 10 ML VIAL INJ ONE; Dexamethasone IV* 4 MG/ML 1 ML (4 MG) ONE; Famotidine IV* 10 MG/ML 2 ML (20 mg) IV ONE; Famotidine IV* 10 MG/ML 2 ML (20 mg) ONE; Heparin 2 UNITS/ML IVPREMIX* 1,000 ML IV ONE; Heparin VIAL(*) 5000 UNITS/ML VIAL (FIVE THOUSAND) ONE; KETAMINE HCL* 50 MG/ML 10 ML VIAL ONE; Lidocaine 1% INJ* 10 MG/ML 30 ML SDV ONE; Lidocaine 2% PF * 5 ML VIAL ONE; Midazolam* 1 MG/ML 10 ML VIAL (10 MG) ONE; NS 0.45% 1000 ML BAG* 1,000 ML IV SCH; Naloxone* 0.4 MG/ML 1 ML VIAL IV PRN; Ondansetron INJ* 2 MG/ML VIAL IV PRN; Ondansetron INJ* 2 MG/ML VIAL ONE; Propofol* 10 MG/ML 20 ML BTL ONE; ceFAZolin 2 GM in NS PREMIX(*) 2 GM/100 ML BAG IVPB ONE; fentaNYL* 50 MCG/ML 2 ML VIAL (100 MCG VIAL) IV PRN; fentaNYL* 50 MCG/ML 2 ML VIAL (100 MCG VIAL) ONE
[2019-05-14 15:02] VITALS: BP 176/97
--- NOTE | 2019-05-14 16:37 | OP ---
DATE OF OPERATION: 05/14/19 - [facility] DATE OF : 57 SURGEON: Sathish Berger MD ROUSTABOUT HAND: Carol Ann Aviles NP ANESTHESIOLOGIST: Dr. Baez. ANESTHESIA: Local plus MAC. PRE-OP DIAGNOSIS: End-stage renal disease. POST-OP DIAGNOSIS: End-stage renal disease. OPERATIVE PROCEDURE: Right radiocephalic arteriovenous fistula. ESTIMATED BLOOD LOSS: None. DESCRIPTION OF PROCEDURE: The patient was taken to the procedure room. Prior to this, the patient underwent proper identification of patient and site of surgery. He was placed in the supine position. Under sedation, he was prepped and draped in the usual sterile fashion exposing the right arm. After this was done and after proper time-out, we then proceeded to infiltrate lidocaine 1% on the lateral aspect of the right arm by the wrist. An up and down incision was performed in this area. The incision was carried down through the skin and subcutaneous tissue. Bleeders were controlled by electrocoagulation and clamping and tying. Exposure of the cephalic vein was done and after this was completed, it was then encircled in vessel loops. The radial artery was then exposed as well and encircled in vessel loops. The radial branch of the radial nerve was identified and preserved. After this was completed, we then proceeded to divide the cephalic vein distally, tying off the distal end with 4- 0 silk sutures and after this, the end of the cephalic vein was then dilated with coronary dilators going up to a size of 3 easily. The vein was then irrigated with heparinized saline. Yasargil supervisor grower was applied to the more proximal end of the vein. After this was done, we then proceeded to cross- clamp the radial artery proximally and distally. An arteriotomy was performed with an 11-blade and extended with Whitfield scissors. After this was done, we then proceeded to spatulate the end of the vein and an end-to-side anastomosis was performed between the cephalic vein and the radial artery using 7-0 Prolene in a parachute technique. After this was done, the Yasargil supervisor grower was then removed and the clamp of the radial artery was removed and flow established into the fistula. Excellent thrill was noted in the area of the anastomosis and one could hear higher up with a Doppler. After this was done, the area was then checked for hemostasis. The incision was then closed in layers, first the subcutaneous tissue with interrupted 4-0 Vicryl suture and the skin with a subcuticular 5-0 Monocryl and Steri-Strips. The patient tolerated the procedure well and he was taken in good condition to the recovery room. [id number]/[facility] #: [id number] MTDAnna
== END | disposition home or self-care (01) ==
LOC: OR 09:04
PROVIDERS: ATTEND Surgery
DX: N18.6 End stage renal disease (principal); F17.200 Nicotine dependence, unspecified, uncomplicated; E21.3 Hyperparathyroidism, unspecified
CPT/HCPCS: J0690; J1100; J1644; J2250; J2405; J2704; J3010; J3490

== ENCOUNTER → 2019-06-18 08:41 | Day surgery (SDC) | payer OTHER ==
--- NOTE | 2019-06-16 18:12 | HP ---
HISTORY AND PHYSICAL: DATE OF ADMISSION: 06/18/19 CHIEF COMPLAINT: End-stage renal disease. HISTORY OF PRESENT ILLNESS: The patient is a 64-year-old male being admitted for creation of first stage left arm brachiobasilic fistula for a future basilic vein transposition. The patient 2 months ago underwent a right wrist arteriovenous fistula that did not mature and became diminutive, not useful for dialysis. For this reason, the patient is undergoing creation of 2 stage basilic vein transposition starting with the first stage, a brachiobasilic arteriovenous fistula on the left arm. The patient is a heavy smoker and a graft for dialysis would not last very long. For this reason, a fistula was deemed the best option for this patient. PAST MEDICAL HISTORY: The patient's past medical history is remarkable for stage 5 end-stage renal disease. The patient has a history of hypertension and diabetes. PAST SURGICAL HISTORY: Includes ear surgery and shoulder surgery. CURRENT MEDICATIONS: Include doxycycline and sodium bicarb. ALLERGIES: The patient has no known allergies. FAMILY HISTORY: Remarkable for both parents where his mother of cervical cancer. REVIEW OF SYSTEMS: Contributory in the head and neck area for a malignancy of the forehead based on clinical examination that the patient is known to have and has been advised to have it removed but has not done so. PHYSICAL EXAMINATION HEAD AND NECK: Reveal no neck nodes or masses. LUNGS: Clear to auscultation bilaterally. HEART: Regular without murmurs. EXTREMITY: The patient has excellent palpable pulses in the upper and lower extremities. Based on vein mapping, the left basilic vein appears to be the most suitable for a basilic vein transposition with a diameter of 4.1 mm and the patient has excellent strong left brachial pulse. DIAGNOSTIC IMPRESSION: End-stage renal disease. PLAN: Plan is for a 2-stage basilic vein transposition starting now with a left brachiobasilic fistula as the first stage, to then subsequently return the patient to the operating room for a transposition. The patient understands their potential complications including but not exclusive of others such as thrombosis, bleeding, recurrence, infection, etc. The patient understands, agrees, and wishes to proceed. [id number]/CPS #: [id number] MTDD
[~2019-06-18 08:41] MED LIST changes: +Acetaminophen TAB* 325 MG ONE; +Acetaminophen TAB* 325 MG PO ONE; -Bupivacaine 0.25% SDV PF* 10 ML VIAL INJ ONE; +Bupivacaine 0.25% SDV* 30 ML ONE; -Dexamethasone IV* 4 MG/ML 1 ML (4 MG) ONE; -KETAMINE HCL* 50 MG/ML 10 ML VIAL ONE; +Lactated Ringers 1000 ML Bag* 1,000 ML IV SCH; -Midazolam* 1 MG/ML 10 ML VIAL (10 MG) ONE; +Midazolam* 1 MG/ML 2 ML VIAL (2 MG) ONE; -Ondansetron INJ* 2 MG/ML VIAL ONE; +Phenylephrine 40 MCG/ML SYRINGE ONE; +diPHENhydraMINE IV* 50 MG/ML 1 ml VIAL (BENADRYL) IV PRN; -fentaNYL* 50 MCG/ML 2 ML VIAL (100 MCG VIAL) IV PRN; +oxyCODONE TAB* 5 MG TAB PO PRN
[2019-06-18 12:15] LABS: Potassium 5.1 mmol/L (3.5-5.0)
[2019-06-18 15:39] VITALS: BP 141/95
--- NOTE | 2019-06-18 21:44 | OP ---
DATE OF OPERATION: 06/18/19 [facility] DATE OF : 57 SURGEON: Sathish Berger MD DUCT MAKER: Carol Ann Aviles NP ANESTHESIA: Local plus MAC. PRE-OP DIAGNOSIS: End-stage renal disease. POST-OP DIAGNOSIS: End-stage renal disease. OPERATIVE PROCEDURE: Left brachiobasilic AV fistula. ESTIMATED BLOOD LOSS: Less than 10 cc. INDICATIONS: The patient is a 64-year-old male with end-stage renal disease that will require hemodialysis. He is undergoing first stage of basilic vein transposition by performing a brachiobasilic brachial artery arteriovenous fistula. DESCRIPTION OF PROCEDURE: The patient was taken to the procedure room. He underwent proper identification of patient and site of surgery. He was then prepped and draped in the usual sterile fashion. Proper time-out was performed and after this was completed, we then proceeded to infiltrate lidocaine 1% on the medial aspect of the left arm. An oblique incision was performed in this area. The incision was carried down through the skin and subcutaneous tissue. Exposure of the basilic vein was done and this was dissected off proximally and distally all the way medially. After this was done, the vein was then encircled in vessel loops and after this was completed, we then proceeded to identify the brachial artery which was then dissected off the neurovascular bundle of the arm and the artery was then encircled in vessel loops. After this was completed, the patient received 4000 units of heparin. Five minutes later, we then proceeded to transect the basilic vein double clipping distally and after this, the end was then spatulated and prepared for anastomosis. The vein itself was then dilated with coronary dilators and we were able to easily advance up to a 3.5 mm dilator. It was then irrigated and yasergil was applied. After this was completed, the brachial artery was then cross clamped proximally and distally and arteriotomy was performed with an 11 blade and extended with Whitfield scissors. We then proceeded to perform an end- to-side anastomosis using 7-0 Prolene in a parachute technique between the end of the basilic vein and the side of the brachial artery. This was done uneventfully and after this was completed, flow was established into the vein by removing the yasergil denial management representative and then releasing the arterial clamps. No bleeding was noted from the anastomosis. Thrill was noted into the vein and the patient had palpable radial pulses and excellent capillary refill. No bleeding was noted at the incision and after this was completed, the incision was closed by layers, subcutaneous tissue with interrupted 4-0 Vicryl suture and the skin with a subcuticular 5-0 Biosyn. The patient tolerated the procedure well and he was taken in good condition to the recovery room. [id number]/CPS #: [id number] UNRULY
== END | disposition home or self-care (01) ==
LOC: OR 08:41
PROVIDERS: ATTEND Surgery
DX: N18.6 End stage renal disease (principal); F17.210 Nicotine dependence, cigarettes, uncomplicated; I12.9 Hypertensive chronic kidney disease with stage 1 through stage 4 chronic kidney disease, or unspecified chronic kidney disease; E11.21 Type 2 diabetes mellitus with diabetic nephropathy; C44.309 Unspecified malignant neoplasm of skin of other parts of face; E83.39 Other disorders of phosphorus metabolism
CPT/HCPCS: 36415; 80051; A9270-GY; J0690; J1644; J2250; J2704; J3010; J3490

== ENCOUNTER 2019-08-28 12:42 | Inpatient (IN) | payer OTHER ==
--- OUTSIDE RECORDS SUMMARY | 2019-08-28 13:31 | XMS REPORT | Continuity of Care Document ---
:1955 External Reference #:[id number] Author Name Brielle Dawson MD (transmitted by agent of provider Darya Otero) Address [address] , [address] [place] [address] Care Team Providers Name Role Phone Dejan Chaidez III, MD - Internal Care Team Information Chrome Tanner [phone] Medicine Dejan Chaidez III, MD - Internal Care Team Information Chrome Tanner [phone] Medicine Problems Active Problems Provider Date Ex-smoker Shelly Casey M.D. Onset: 12/01/2012 Substance abuse counseling Shelly Casey M.D. Onset: 12/01/2012 FH: Cardiovascular disease Shelly Casey M.D. Onset: 12/01/2012 End-stage renal disease Brielle Dawson MD Onset: 05/07/2019 Vitamin D deficiency Brielle Dawson MD Onset: 05/07/2019 Disorder of phosphorus metabolism Brielle Dawson MD Onset: 05/07/2019 Essential hypertension Brielle Dawson MD Onset: 05/07/2019 Acidosis Brielle Dawson MD Onset: 05/07/2019 Anemia of chronic renal failure Brielle Dawson MD Onset: 05/07/2019 Hyperkalemia Brielle Dawson MD Onset: 05/07/2019 Hyperparathyroidism due to renal insufficiency Brielle Dawson MD Onset: 2018 Social History Type Date Description Comments Sex Unknown Cigarette Use Pack Years - 15 Tobacco Use Start: Unknown Current Cigarette Smoker 1 Pack Daily Smoking Status Reviewed: 08/16/19 Current Cigarette Smoker 1 Pack Daily ETOH Use Has consumed alcohol in the past Tobacco Use Start: Unknown Patient is a current smoker, smokes every day Recreational Drug Use Denies Drug Use Exercise Type/Frequency Does not exercise Allergies, Adverse Reactions, Alerts Description No Known Drug Allergies Medications Active Medications SIG Qnty Indications Ordering Provider Date Veltassa 1 packet by 30units E87.5 Brielle Dawson MD 08/16/2019 8.4gm Packet mouth twice a week Calcium Acetate (Phos take 2 caps with 240caps Brielle Dawson MD 2018 Binder) meals three 667mg Capsules times a day and one with snacks twice a day Vitamin D 1 by mouth once 90tabs E55.9 Brielle Dawson MD 06/08/2019 2000Unit a day Tablets Amlodipine Besylate 1 by mouth twice 180tabs I12.9 Brielle Dawson MD 2018 a day 2.5mg Tablets Sodium Bicarbonate 2 by mouth 180tabs E87.2 Brielle Dawson MD 06/08/2019 twice a day 325mg Tablets Calcitriol 2 caps by mouth 30caps N25.81 Brilele Dawson MD 05/07/2019 0.25mcg twice a week Capsules History Medications Vitamin D 1 by mouth once a 30tabs E55.9 Brielle Dawson, 05/07/2019 - 2000Unit day 06/08/2019 Tablets Renvela 1 by mouth with 90tabs E83.39 Brielle Dawson, 05/07/2019 - 800mg meals three times a 06/08/2019 Tablets day Amlodipine Besylate 1 by mouth daily 30tabs I10 Brielle Dawson, 05/07/2019 - 06/08/2019 2.5mg Tablets Sodium Bicarbonate 3 by mouth twice a 180tabs E87.2 Brielle Dawson, 2018 - day 06/08/2019 325mg Tablets Calcitriol 1 caps by mouth 30caps N25.81 Brielle Dawson, 05/07/2019 - 0.25mcg twice a week 05/07/2019 Capsules Sod Citrate-Citric 45 milliliters 15ml Dejan Murillo 02/19/2019 - Acid three times a day Syl Chaidez 05/07/2019 500-334mg/5ML for 14 days Solution Immunizations CPT Code Status Date Vaccine Reaction Lot # [id number] Given 05/11/2019 Influenza Virus Vaccine, No immediate reaction [id number] Quadrivalent ([id number]), Derived From Cell 89637 Given 08/09/2016 Zoster (Zostavax) [id number] Given 08/09/2016 Zoster (Zostavax) [id number] 14758 Given 08/09/2016 Influ Virus Vaccine, [id number] Quadrivalent, Split Virus, [place] [address] Given 08/09/2016 Pneumococcal Conjugate [id number] Vaccine 13 Valent For Intramuscular Use 22283 Given 04/07/2014 Influenza Virus Vaccine, [id number] Quadrivalent, Split, Preservative Free Vital Signs Date Vital Result Comment 08/16/2019 1:24pm Height 64 inches 5'4" Heart Rate 97 /min BP Systolic Sitting 138 mmHg L arm BP Diastolic Sitting 68 mmHg L arm O2 % BldC Oximetry 100 % 06/08/2019 4:44pm Height 64 inches 5'4" Weight 153.00 lb Heart Rate 84 /min BP Systolic 146 mmHg BP Systolic Sitting 89 mmHg BMI (Body Mass Index) 26.3 kg/m2 Results Test Acquired Date Facility Test Result H/L Range Note Hemoglobin/Hem 08/11/2019 [facility] Hemoglobin 10.6 g/dL Low 14.0-18.[address] [place] [address] [phone] Hematocrit 31 % Low 42-52 Hemoglobin/Hematocrit 07/14/2019 [facility] Hemoglobin 9.3 Low 14.0-18.[address] g/dL [place], [place] [id number] [phone] Hematocrit 28 % Low 42-52 Pthi 07/14/2019 [facility] Calcium (PTH 8.8 mg/dL Normal 8.6- 10.[address] Intact) [place], [place] [id number] [phone] PTH Intact 232.0 pg/mL High 12-88 Basic Metabolic 07/14/2019 [facility] Sodium 140 mmol/L Normal 135-[address] [place] [address] [phone] Chloride 111 mmol/L Normal 101-111 Co2 Carbon Dioxide 20 mmol/L Low 22-32 Glucose 87 mg/dL Normal 70-100 Blood Urea Nitrogen 80 mg/dL High 6-24 Creatinine 6.18 mg/dL High 0.67-1.17 BUN/Creatinine Ratio 12.9 Normal 8-20 Calcium 9.0 mg/dL Normal 8.6-10.3 Egfr Non- 9.2 >60 Egfr 11.2 >60 1 Potassium 5.6 mmol/L High 3.5-5.0 Anion Gap 9 mmol/L Normal 2-11 Laboratory test 07/14/2019 [facility] Phosphorus 5.0 mg/dL Normal 2.5-5.0 2 finding [address] [place], [place] [id number] [phone] Iron 48 g/dL Low 50-212 Iron & Iron 07/14/2019 [facility] Unsaturated Iron < 248 g/dL Binding Capacity [address] [facility] [place] [address] [phone] Total Iron Binding Capacity 263 g/dL Normal 250-450 % Iron Saturation 18 % Normal 15-55 Laboratory test 07/14/2019 [facility] Transferrin 188 mg/dL Low 203-362 finding [address] [place] [address] [phone] Ferritin 119.1 ng/mL Normal 24-336 3 Electrolytes 06/18/2019 [facility] Sodium 139 mmol/L Normal 135-145 [address] [place] [address] [phone] Chloride 110 mmol/L Normal 101-111 Co2 Carbon Dioxide 20 mmol/L Low 22-32 Potassium 5.1 mmol/L High 3.5-5.0 Anion Gap 9 mmol/L Normal 2-11 Laboratory 06/18/2019 [facility] Point of Care 91 mg/dL Normal 70-100 4 test finding [address] [facility] [place] [address] [phone] Hemoglobin/Hem 06/09/2019 [facility] Hemoglobin 9.9 g/dL Low 14.0-18.0 atocrit [address] [place] [address] [phone] Hematocrit 29 % Low 42-52 Order 05/11/2019 [employer] In-House EKG <pending> Creatinine 05/07/2019 [facility] Creatinine 7.20 mg/dL High 0.67-1.17 [address] [place] [address] [phone] Egfr Non- 7.7 >60 Egfr 9.4 >60 5 Laboratory test 05/07/2019 [facility] Vitamin D 29.7 ng/mL Normal 20-50 [address] Total 25(Oh) [place] [address] [phone] Pthi 05/07/2019 [facility] Calcium (PTH 8.7 mg/dL Normal 8.6- 10.[address] Intact) [place], [place] [id number] [phone] PTH Intact 483.6 pg/mL High 12-88 Hemoglobin/Hematocrit 05/07/2019 [facility] Hemoglobin 10.6 Low 14.0-18.[address] g/dL [place], [place] [address] [phone] Hematocrit 31 % Low 42-52 Iron & Iron Binding 05/07/2019 [facility] Iron 102 g/dL Normal 50-[address] [place], [place] [id number] [phone] Unsaturated Iron Binding < 227 g/dL Total Iron Binding Capacity 242 g/dL Low 250-450 Transferrin 173 mg/dL Low 203-362 % Iron Saturation 42 % Normal 15-55 Laboratory test 05/07/2019 [facility] Ferritin 170.0 ng/mL Normal 24-[address] [place] [address] [phone] Renal Function 05/07/2019 [facility] Albumin 4.3 g/dL Normal 3.2-5.[address] [place], [place] [address] [phone] Calcium 8.7 mg/dL Normal 8.6-10.3 Co2 Carbon Dioxide 18 mmol/L Low 22-32 Chloride 110 mmol/L Normal 101-111 Glucose 85 mg/dL Normal 70-100 Phosphorus 6.9 mg/dL High 2.5-5.0 Potassium 5.1 mmol/L High 3.5-5.0 Sodium 140 mmol/L Normal 135-145 Blood Urea Nitrogen BUN 114 mg/dL High 6-24 Hemoglobin/Hematocrit 04/12/2019 [facility] Hemoglobin 8.4 Low 14.0-18.[address] g/dL [place], [place] [address] [phone] Hematocrit 25 % Low 42-52 CBC Auto 02/22/2019 [facility] White Blood 9.0 10^3/uL Normal 3.5-10.[address] [place] [address] [phone] Red Blood Count 2.66 10^6/uL Low 4.18-5.48 Hemoglobin 8.3 g/dL Low 14.0-18.0 Hematocrit 26 % Low 42-52 Mean Corpuscular Volume 97 fL High 80-94 Mean Corpuscular Hemoglobin 31 pg Normal 27-31 Mean Corpuscular HGB Conc 32 g/dL Normal 31-36 Red Cell Distribution Width 18 % High 10-15 Platelet Count 337 10^3/uL Normal 150-450 Mean Platelet Volume 7.6 fL Normal 7.4-10.4 Abs Neutrophils 5.5 10^3/uL Normal 1.5-7.7 Abs Lymphocytes 1.4 10^3/uL Normal 1.0-4.8 Abs Monocytes 0.8 10^3/uL Normal 0-0.8 Abs Eosinophils 1.4 10^3/uL High 0-0.6 Abs Basophils 0.0 10^3/uL Normal 0-0.2 Abs Nucleated RBC 0.0 10^3/uL Granulocyte % 60.8 % Lymphocyte % 15.0 % Monocyte % 8.6 % Eosinophil % 15.2 % Basophil % 0.4 % Nucleated Red Blood Cells % 0.0 Comp Metabolic 02/22/2019 [facility] Sodium 140 mmol/L Normal 135-[address] [place] [address] [phone] Chloride 109 mmol/L Normal 101-111 Co2 Carbon Dioxide 16 mmol/L Low 22-32 Glucose 88 mg/dL Normal 70-100 Blood Urea Nitrogen 80 mg/dL High 6-24 Creatinine 8.49 mg/dL High 0.67-1.17 One Over Creatinine 0.11 BUN/Creatinine Ratio 9.4 Normal 8-20 Calcium 8.9 mg/dL Normal 8.6-10.3 Total Protein 5.5 g/dL Low 6.4-8.9 Albumin 3.5 g/dL Normal 3.2-5.2 Globulin 2.0 g/dL Normal 2-4 Albumin/Globulin Ratio 1.8 Normal 1-3 Total Bilirubin 0.30 mg/dL Normal 0.2-1.0 Alkaline Phosphatase 57 U/L Normal 34-104 Alt 14 U/L Normal 7-52 Ast 12 U/L Low 13-39 Egfr Non- 6.4 >60 Egfr 7.7 >60 7 Potassium 6.0 mmol/L High 3.5-5.0 Anion Gap 15 mmol/L High 2-11 Laboratory test 02/22/2019 [facility] Phosphorus 7.8 mg/dL High 2.5-5.[address] [place] [address] [phone] Magnesium 1.8 mg/dL Low 1.9-2.7 Hepatitis B Surface Ag Negative Negative Hepatitis B Kary AB Titer Not Immune Abnormal Immune Hepatitis C Antibody 02/22/2019 [facility] HCV Index 0.01 s/c [address] [place] [address] [phone] Hepatitis C Antibody Negative Negative Quantiferon-TB 02/22/2019 [facility] QuantiferonTb Negative Negative 8 Gold Plus [address] [facility] [place] [address] [phone] TB1 Ag minus Nil Result 0.00 IU/mL TB2 Ag minus Nil Result -0.01 IU/mL Mitogen minus Nil Result 7.31 IU/mL Nil Result 0.04 IU/mL CBC Auto Diff 02/15/2019 N2N/CCD Import Nucleated Red Blood Cells % 0.0 Basophil % 0.3 Eosinophil % 5.8 Monocyte % 7.2 Lymphocyte % 11.3 Granulocyte % 75.4 Abs Nucleated RBC 0.0 Abs Basophils 0.0 0-0.2 Abs Eosinophils 0.7 High 0-0.6 Abs Monocytes 0.9 High 0-0.8 Abs Lymphocytes 1.4 1.0-4.8 Abs Neutrophils 9.5 High 1.5-7.7 Mean Platelet Volume 6.9 Low 7.4-10.4 Platelet Count 340 150-450 Red Cell Distribution Width 15 10-15 Mean Corpuscular HGB Conc 33 31-36 Mean Corpuscular Hemoglobin 31 27-31 Mean Corpuscular Volume 95 High 80-94 Hematocrit 25 Low 42-52 Hemoglobin 8.1 Low 14.0-18.0 Red Blood Count 2.59 Low 4.18-5.48 White Blood Count 12.5 High 3.5-10.8 1 Because ethnic data is not always [...] 5 Kidney failure <15 (or dialysis) 2 TOMORROW 3 TOMORROW 4 Broke Worker: [id number] 5 Because ethnic data is not always readily [...] 15-29 5 Kidney failure <15 (or dialysis) 6 Total 25-Hydroxyvitamin D2 and D3 (25-OH-VitD) <10 ng/mL (severe deficiency) 10-19 ng/mL (mild to moderate deficiency) 20-50 ng/mL (optimum levels) 51-80 ng/mL (increased risk of hypercalciuria) >80 ng/mL (toxicity possible) 7 Because ethnic data is not always readily [...] 15-29 5 Kidney failure <15 (or dialysis) 8 M. tuberculosis infection NOT likely Procedures Date Code Description Status 05/11/2019 83524 EKG Tracing & Interpretation Completed Medical Devices Description No Information Available Encounters Type Date Location Provider Dx Diagnosis Office Visit 06/08/2019 [facility] Nephrology Brielle Dawson MD I12.0 Hyp chr kidney 2:30p 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 Esrd N18.5 Chronic kidney disease, stage 5 N25.81 Secondary hyperparathyroidism of renal origin E83.39 Other disorders of phosphorus metabolism I12.9 Hypertensive chronic kidney disease w stg 1-4/unsp chr kdny E87.2 Acidosis Office Visit 05/11/2019 9:40a [facility] Internal Marshal Jimena, Z01.818 Encounter for other Medicine - WALNUT DEHYDRATOR OPERATOR preprocedural Ccmob examination N18.6 End stage renal disease I10 Essential (primary) hypertension D63.1 Anemia in chronic kidney disease E87.5 Hyperkalemia F17.210 Nicotine dependence, cigarettes, uncomplicated Z23 Encounter for immunization Office Visit 05/07/2019 11:00a [facility] Nephrology Brielle Dawson MD 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 N18.6 End stage renal disease D63.1 Anemia in chronic kidney disease E83.39 Other disorders of phosphorus metabolism N25.81 Secondary hyperparathyroidism of renal origin E87.2 Acidosis E87.5 Hyperkalemia I10 Essential (primary) hypertension Office Visit 02/22/2019 2:[facility] Rizvi N18.6 End stage renal Of [facility] MD Jf, disease FACS Assessments Date Code Description Provider 08/16/2019 I12.0 Hypertensive chronic kidney disease with Brielle Dawson MD stage 5 chronic kidney disease or end stage renal disease 08/16/2019 N18.5 Chronic kidney disease, stage 5 Brielle Dawson MD 08/16/2019 N25.81 Secondary hyperparathyroidism of renal Brielle G Negoi, MD origin 08/16/2019 E87.5 Hyperkalemia Brielle Dawson MD 06/08/2019 I12.0 Hypertensive chronic kidney disease with Brielle Dawson MD stage 5 chronic kidney disease or end stage renal disease 06/08/2019 N18.5 Chronic kidney disease, stage 5 Brielle Dawson MD 06/08/2019 N25.81 Secondary hyperparathyroidism of renal Brielle Dawson MD origin 06/08/2019 E83.39 Other disorders of phosphorus metabolism Brielle Dawson MD 06/08/2019 I12.9 Hypertensive chronic kidney disease with Brielle Dawson MD stage 1 through stage 4 chronic kidney disease, or unspecified chronic kidney disease 06/08/2019 E87.2 Acidosis Brielle Dawson MD 05/11/2019 I10 Essential (primary) hypertension Carolina Da Silva MD 05/11/2019 Z01.818 Encounter for other preprocedural Marshal Jimena, WALNUT DEHYDRATOR OPERATOR examination 05/11/2019 N18.6 End stage renal disease Marshal Jimena, WALNUT DEHYDRATOR OPERATOR 05/11/2019 I10 Essential (primary) hypertension Marshal Jimena, WALNUT DEHYDRATOR OPERATOR 05/11/2019 D63.1 Anemia in chronic kidney disease Marshal Jimena, WALNUT DEHYDRATOR OPERATOR 05/11/2019 E87.5 Hyperkalemia Marshallena Hess, WALNUT DEHYDRATOR OPERATOR 05/11/2019 F17.210 Nicotine dependence, cigarettes, Marshallena Hess, WALNUT DEHYDRATOR OPERATOR uncomplicated 05/11/2019 Z23 Encounter for immunization Marshal Jimena, WALNUT DEHYDRATOR OPERATOR 05/07/2019 I12.0 Hypertensive chronic kidney disease with Brielle Dawson MD stage 5 chronic kidney disease or end stage renal disease 05/07/2019 N18.6 End stage renal disease Brielle Dawson MD 05/07/2019 D63.1 Anemia in chronic kidney disease Brielle Dawson MD 05/07/2019 E83.39 Other disorders of phosphorus metabolism Brielle Dawson MD 05/07/2019 N25.81 Secondary hyperparathyroidism of renal Brielle Dawson MD origin 05/07/2019 E87.2 Acidosis Brielle Dawson MD 05/07/2019 E87.5 Hyperkalemia Brielle Dawson MD 05/07/2019 I10 Essential (primary) hypertension Brielle Dawson MD 02/22/2019 N18.6 End stage renal disease Da Rhoades MD, FACS Plan of Treatment Future Appointment(s):09/14/2019 11:00 am - Brielle Dawson MD at [facility] [id number] /10/2020 - Brielle Dawson MDI12.0 Hypertensive chronic kidney disease with stage 5 chronic kidney disease or end stage renal uldkisjS50.5 Chronic kidney disease , stage 5N25.81 Secondary hyperparathyroidism of renal hfmqodJ39.5 HyperkalemiaNew Medication:Veltassa 8.4 gm - 1 packet by mouth twice a week Functional Status Description No Information Available Mental Status Description No Information Available Referrals Refer to Dr Reason for Referral Status Appt Date Sathish Berger MD For AVF. CKD 5. Sent [address] [place] [address] [place] [address] [phone]
--- OUTSIDE RECORDS SUMMARY | 2019-08-28 13:31 | XMS REPORT | Continuity of Care Document ---
:1955 External Reference #:[id number] Author Name Sathish Berger (transmitted by agent of provider Sil Roland) Address [address] [facility], [place] [address] Care Team Providers Name Role Phone Guillaume Morales MD - Nephrology Care Team Information Can Runner Dejan Chaidez III, M.D. - Internal Care Team Information Can Runner [phone] Medicine Problems Active Problems Provider Date Neoplasm of uncertain behavior of skin BergerSathish saucedo Onset: 05/06/2019 Body mass index 20-24 - normal Sathish Berger Onset: 05/06/2019 Chronic kidney disease stage 5 BergerCorky saucedoSathish Onset: 05/06/2019 Social History Type Date Description Comments Sex Unknown Tobacco Use Start: Unknown Heavy tobacco smoker (more than 10 cigarettes/day) Smoking Status Reviewed: 09/29/18 Heavy tobacco smoker (more than 10 cigarettes/day) Allergies, Adverse Reactions, Alerts Description No Known Drug Allergies Medications Active Medications SIG Qnty Indications Ordering Provider Date Sodium Bicarbonate Unknown 650mg Tablets Doxycycline Hyclate Unknown 100mg Tablets Calcitriol Brielle Dawson MD 0.25mcg Capsules D3 High Potency Unknown 50mcg (1999 Ut) Capsules Amlodipine Besylate Unknown 2.5mg Tablets Immunizations CPT Code Status Date Vaccine Lot # [id number] Given 07/08/2012 Pneumococcal Vaccine 11674 Refused 04/13/2019 Influenza Vaccine [id number] Vital Signs Date Vital Result Comment 07/29/2019 9:53am Height 64 inches 5'4" Weight 125.00 lb BP Systolic 141 mmHg BP Diastolic 75 mmHg BMI (Body Mass Index) 21.5 kg/m2 Heart Rate 77 /min Respiratory Rate 18 /min Pain Level 7 out of 10 05/20/2019 10:59am Height 64 inches 5'4" Weight 130.00 lb BP Systolic 160 mmHg 160/101 right 182/104 left arm BP Diastolic 101 mmHg 160/101 right 182/104 left arm BMI (Body Mass Index) 22.3 kg/m2 Heart Rate 76 /min Respiratory Rate 16 /min Results Test Acquired Date Facility Test Result H/L Range Note Electrolytes 06/18/2019 [facility]) Sodium 139 mmol/L Normal 135-[address] [place] [address] [phone] Chloride 110 mmol/L Normal 101-111 Co2 Carbon Dioxide 20 mmol/L Low 22-32 Potassium 5.1 mmol/L High 3.5-5.0 Anion Gap 9 mmol/L Normal 2-11 Laboratory test 06/18/2019 [facility] ([facility]) Point of Care 91 mg/ dL Normal 70-100 [address] [place] [address] [phone] 1 Mailing Section Clerk: [id number] Procedures Date Code Description Status 06/18/2019 52857 Anastomosis Arteriovenous Direct Any Site Completed 05/14/2019 50065 Anastomosis Arteriovenous Direct Any Site Completed Medical Devices Description No Information Available Encounters Type Date Location Provider Dx Diagnosis Office Visit 07/29/2019 10:00a [facility] Sathish Berger N18.5 Chronic kidney disease, stage 5 M54.2 Cervicalgia Z68.21 Body mass index (BMI) 21.0-21.9, adult Office Visit 04/13/2019 10:00a [facility] Sathish Berger D48.5 Neoplasm of uncertain behavior of skin N18.5 Chronic kidney disease, stage 5 Z68.22 Body mass index (BMI) 22.0-22.9, adult Assessments Date Code Description Provider 07/29/2019 N18.5 Chronic kidney disease, stage 5 Sathish Berger 07/29/2019 M54.2 Cervicalgia Sathish Berger 07/29/2019 Z68.21 Body mass index (BMI) 21.0-21.9, adult Sathish Berger 06/24/2019 T82.510A Breakdown (mechanical) of surgically created Sathish Berger arteriovenous fistula, initial encounter 06/24/2019 N18.5 Chronic kidney disease, stage 5 Berger, Sathish 06/18/2019 T82.510A Breakdown (mechanical) of surgically created Sathish Berger arteriovenous fistula, initial encounter 06/18/2019 N18.5 Chronic kidney disease, stage 5 Berger, Sathish 05/20/2019 N18.5 Chronic kidney disease, stage 5 Berger, Sathish 05/20/2019 T82.898A Other specified complication of vascular Sathish Berger prosthetic devices, implants and grafts, initial encounter 05/20/2019 Z68.22 Body mass index (BMI) 22.0-22.9, adult Berger, Sathish 05/14/2019 N18.5 Chronic kidney disease, stage 5 Berger, Sathish 05/06/2019 D48.5 Neoplasm of uncertain behavior of skin Berger, Sathish 05/06/2019 N18.5 Chronic kidney disease, stage 5 Berger, Sathish 05/06/2019 Z01.818 Encounter for other preprocedural examination Berger, Sathish 05/06/2019 Z68.22 Body mass index (BMI) 22.0-22.9, adult Berger, Sathish 04/13/2019 D48.5 Neoplasm of uncertain behavior of skin Berger, Sathish 04/13/2019 N18.5 Chronic kidney disease, stage 5 Berger, Sathish 04/13/2019 Z68.22 Body mass index (BMI) 22.0-22.9, adult Sathish Berger Plan of Treatment No Information Available Functional Status Description No Information Available Mental Status Description No Information Available Referrals Refer to Dr Reason for Referral Status Appt Date Sathish Berger M.D. Closed 05/06/2019 [address] [facility] [place] [address] [phone] Closed 04/13/2019
[2019-08-28 14:42] LABS: ABS Basophils 0.1 10^3/ul (0-0.2); ABS Eosinophils 0.3 10^3/ul (0-0.6); ABS Monocytes 0.6 10^3/ul (0-0.8); Eosinophil % 2.8 %; Hematocrit 26 % (42-52); Hemoglobin 8.7 g/dL (14.0-18.0); Lymphocyte % 10.6 %; Mean Corpuscular HGB Conc 34 g/dL (31-36); Mean Corpuscular Hemoglobin 32 pg (27-31); Mean Corpuscular Volume 95 fL (80-94); Platelet Count 324 10^3/uL (150-450); Red Blood Count 2.73 10^6 /uL (4.18-5.48); Red Cell Distribution Width 15 % (10-15); White Blood Count 9.9 10^3/uL (3.5-10.8)
[2019-08-28 15:03] LABS: ALT 7 U/L (7-52); AST 6 U/L (13-39); Albumin 3.4 g/dL (3.2-5.2); Albumin/Globulin Ratio 1.2 (1-3); Alkaline Phosphatase 61 U/L (34-104); BUN/Creatinine Ratio 13.1 (8-20); Blood Urea Nitrogen 107 mg/dL (6-24); C Reactive Protein 93.76 mg/L (<8.01); CO2 Carbon Dioxide 15 mmol/L (22-32); Calcium 8.8 mg/dL (8.6-10.3); Chloride 111 mmol/L (101-111); EGFR African American 8.1 (>60); EGFR Non-African American 6.7 (>60); Globulin 2.8 g/dL (2-4); Glucose 94 mg/dL (70-100); Sodium 139 mmol/L (135-145); Total Protein 6.2 g/dL (6.4-8.9)
[2019-08-28 15:07] LABS: Anion Gap 13 mmol/L (2-11); Potassium 5.1 mmol/L (3.5-5.0)
[2019-08-28] MEDS ORDERED: NS 0.9% 250 ML* 250 ML ONE (15:39)
[2019-08-28] MEDS ORDERED: NS 0.9% 1000 ML** 1,000 ML IV ONE (15:41)
[2019-08-28] MEDS ORDERED: fentaNYL* 50 MCG/ML 2 ML VIAL (100 MCG VIAL) IV SLOW PU ONE ×2 (15:45→17:15)
--- NOTE | 2019-08-28 15:46 | ED ---
Skin Complaint - HPI Summary HPI Summary: This patient is a 64-year-old male with a history of chronic kidney disease awaiting potential dialysis approval presenting to the ED with concern for buttocks and bilateral leg abscesses. He states since having the indwelling urinary catheter placed, he has been having more frequent infections of abscesses/blisters to the upper legs, however they tend to drain spontaneously or go away without intervention. Over the past week, he has noticed 3 growing abscesses to his legs and a large draining abscess to the R perianal area. He states the area has been draining so much purulent material over the past few days, he has needed to use a depends. One lower leg abscess just above the ankle has drained as well. Denies fevers, sweats or chills. - History of Current Complaint Chief Complaint: EDRashSkinAbscess Time Seen by Provider: 08/28/19 13:32 Stated Complaint: BLISTERS PER PT Hx Obtained From: Patient Onset/Duration: Started Hours Ago Timing: Constant Onset Severity: Moderate Current Severity: Moderate Pain Intensity: 9 Pain Scale Used: 0-10 Numeric Skin Location: Leg - bilateral, Other: - buttocks Character: Swelling, Pain, Redness, Raised, Painful Aggravating Symptom(s): Nothing Alleviating Symptom(s): Nothing Associated Signs & Symptoms: Tenderness, Red Streaks - Additional Pertinent History Primary Care Physician: MAYRA - Allergy/Home Medications Allergies/Adverse Reactions: Allergies Allergy/AdvReac Type Severity Reaction Status Date / Time No Known Allergies Allergy Verified 08/28/19 12:46 Home Medications: Home Medications Acetaminophen TAB* [Tylenol TAB*] 650 mg PO Q4H PRN tab 01/26/19 [Rx Confirmed 08/28/19] Sodium Bicarbonate 1.5 tab PO BID 03/10/19 [History Confirmed 08/28/19] Amlodipine Besylate [Amlodipine 2.5 mg tab] 2.5 mg PO BID 05/12/19 [History Confirmed 08/28/19] Calcitriol CAP* [Rocaltrol CAP*] 2 cap PO SEE INSTRUCTIONS 05/12/19 [History Confirmed 08/28/19] Calcium Acetate 2 cap PO TID 06/16/19 [History Confirmed 08/28/19] Cholecalciferol TAB* [Vitamin D TAB*] 400 unit PO DAILY 08/28/19 [History Confirmed 08/28/19] Furosemide TAB* [Lasix TAB*] 40 mg PO DAILY 08/28/19 [History Confirmed 08/28/19 ] PMH/Surg Hx/FS Hx/Imm Hx Previously Healthy: Yes Endocrine/Hematology History: Reports: Hx Anemia - SINCE 2017, TREATED WITH INFUSIONS AT [facility] [place] [place] Denies: Hx Diabetes Cardiovascular History: Reports: Other Cardiovascular Problems/Disorders - HISTORY OF V TACH PER EMR Denies: Hx Hypercholesterolemia, Hx Hypertension Respiratory History: Denies: Other Respiratory Problems/Disorders GI History: Denies: Other GI Disorders History: Reports: Other Problems/Disorders - Cadet catheter in place Denies: Hx Kidney Infection, Hx Kidney Stones, Hx Renal Disease Musculoskeletal History: Denies: Other Musculoskeletal History Sensory History: Reports: Hx Cataracts - BEGINNING, Hx Contacts or Glasses Denies: Hx Hearing Aid Opthamlomology History: Reports: Hx Cataracts - BEGINNING, Hx Contacts or Glasses Neurological History: Denies: Other Neuro Impairments/Disorders - Surgical History Surgery Procedure, Year, and Place: left shoulder dislocation with pin placement , right ear cholesteatoma removal Hx Anesthesia Reactions: No - Immunization History Hx Pertussis Vaccination: No Immunizations Up to Date: Yes Infectious Disease History: No Infectious Disease History: Denies: Traveled Outside the [place] in Last 30 Days - Family History Known Family History: Positive: Hypertension Negative: Diabetes - Social History Occupation: Unemployed Lives: Alone Alcohol Use: None Alcohol Amount: 3 beers/day Hx Substance Use: No Substance Use Type: Reports: None Hx Tobacco Use: Yes Smoking Status (MU): Heavy Every Day Tobacco Smoker Type: Cigarettes Amount Used/How Often: 1.5 PPD Have You Smoked in the Last Year: Yes Review of Systems Negative: Fever, Chills, Fatigue, Skin Diaphoresis Negative: Palpitations, Chest Pain Negative: Shortness Of Breath, Cough Genitourinary: Negative Positive: no symptoms reported, see HPI Negative: Arthralgia, Myalgia Positive: Other - 3 abscesses to legs; 1 abscess to the R perianal buttocks. Negative: Rash, Bruising Neurological/Mental Status: Negative All Other Systems Reviewed And Are Negative: Yes Physical Exam Triage Information Reviewed: Yes Vital Signs On Initial Exam: Initial Vitals Temp Pulse Resp BP Pulse Ox 98.4 F 126 18 133/84 98 08/28/19 12:43 08/28/19 12:43 08/28/19 12:43 08/28/19 12:43 08/28/19 12:43 Vital Signs Reviewed: Yes Appearance: Positive: Well-Appearing, Well-Nourished Skin: Positive: Other - 3 abscesses to the lower legs, 1 R sided perinanal abscess Head/Face: Positive: Normal Head/Face Inspection Eyes: Positive: EOMI, ROSIE, Conjunctiva Clear ENT: Positive: Normal ENT inspection Neck: Positive: Supple, No Lymphadenopathy Respiratory/Lung Sounds: Positive: Clear to Auscultation, Breath Sounds Present Cardiovascular: Positive: RRR, Pulses are Symmetrical in both Upper and Lower Extremities Musculoskeletal: Positive: Normal, Strength/ROM Intact Neurological: Positive: Facial Symmetry Psychiatric: Positive: Normal, Affect/Mood Appropriate AVPU Assessment: Verbal (Reponds To) Procedures - Sedation Patient Received Moderate/Deep Sedation with Procedure: No - Incision and Drainage Left Lower Anterior Leg Anesthesia: Topical, Local Instrument(s): Scalpel, Needle Packing: Other - not packed Right Lower Anterior Leg Anesthesia: Local Instrument(s): Scalpel, Needle Packing: Other - not packed Diagnostics - Vital Signs Vital Signs Temp Pulse Resp BP Pulse Ox 08/28/19 12:43 98.4 F 126 18 133/84 98 - Laboratory Lab Results: Lab Results 08/28/19 08/28/19 Range/Units 14:33 14:33 WBC 9.9 (3.5-10.8) 10^3/uL RBC 2.73 L (4.18-5.48) 10^6 /uL Hgb 8.7 L (14.0-18.0) g/dL Hct 26 L (42-52) % MCV 95 H (80-94) fL MCH 32 H (27-31) pg MCHC 34 (31-36) g/dL RDW 15 (10-15) % Plt Count 324 (150-450) 10^3/uL MPV 8.0 (7.4-10.4) fL Neut % (Auto) 80.3 % Lymph % (Auto) 10.6 % Franklin % (Auto) 5.6 % Eos % (Auto) 2.8 % Baso % (Auto) 0.7 % Absolute Neuts (auto) 8.0 H (1.5-7.7) 10^3/ul Absolute Lymphs (auto) 1.0 (1.0-4.8) 10^3/ul Absolute Monos (auto) 0.6 (0-0.8) 10^3/ul Absolute Eos (auto) 0.3 (0-0.6) 10^3/ul Absolute Basos (auto) 0.1 (0-0.2) 10^3/ul Absolute Nucleated RBC 0.0 10^3/ul Nucleated RBC % 0.0 ESR Pending Sodium 139 (135-145) mmol/L Potassium 5.1 H (3.5-5.0) mmol/L Chloride 111 (101-111) mmol/L Carbon Dioxide 15 L (22-32) mmol/L Anion Gap 13 H (2-11) mmol/L BUN 107 H (6-24) mg/dL Creatinine 8.18 H (0.67-1.17) mg/dL Est GFR ( Amer) 8.1 (>60) Est GFR (Non-Af Amer) 6.7 (>60) BUN/Creatinine Ratio 13.1 (8-20) Glucose 94 (70-100) mg/dL Calcium 8.8 (8.6-10.3) mg/dL Total Bilirubin 0.20 (0.2-1.0) mg/dL AST 6 L (13-39) U/L ALT 7 (7-52) U/L Alkaline Phosphatase 61 (34-104) U/L C-Reactive Protein 93.76 H (<8.01) mg/L Total Protein 6.2 L (6.4-8.9) g/dL Albumin 3.4 (3.2-5.2) g/dL Globulin 2.8 (2-4) g/dL Albumin/Globulin Ratio 1.2 (1-3) Result Diagrams: 08/29/19 05:34 08/29/19 05:34 Lab Statement: Any lab studies that have been ordered have been reviewed, and results considered in the medical decision making process. Course/Dx - Course Course Of Treatment: On physical exam, patient has 2 large abscesses. One to the R inner calf and other to the L inner calf. These are approx 2.5cm in width and 2cm in height with surrounding erythema. These had successful I and D with copious amounts of drainage and blood following local anesthetic. Bandages applied. No packing. Another abscess which appears to have already been draining to the L lower extremity, just above the L ankle which has an overylying scab. No evidence of cellulitis extending up the legs. There is a large indurated area with a .3cm opening draining white purulent material to the R upper perianal region. CT pelvis obtained showing cellulitis without obvious tunneling or perirectal abscess. This was bandaged. Wound culture from R leg sent for culture. Afebrile. WBC WNL. Elevated ESR at 120. Elevated CRP. Pt given vancomycin d/t amount of abscesses present and proximity to indwelling catheter which places pt at higher risk of systemic infection. Pt noted to be anemic, although this appears chronic. Discussed with hospitalist team who will admit to their service. He was given Fentanyl and fluids. - Differential Diagnoses - Skin Complaint Differential Diagnoses: Other - systemic infection, mrsa - Diagnoses Provider Diagnoses: Abscess Discharge ED - Sign-Out/Discharge Documenting (check all that apply): Patient Departure All imaging exams completed and their final reports reviewed: No - Discharge Plan Condition: Good Disposition: ADMITTED TO [facility] - Billing Disposition and Condition Condition: GOOD Disposition: Admitted to [facility] - Attestation Statements Provider Attestation: I was available for consult. This patient was seen by the LOS. The patient was not presented to, seen by, or examined by me. Prasanna Grimes MD
[2019-08-28] MEDS ORDERED: Vancomycin(*) 1,000 MG VIAL IVPB SCH (16:00)
[2019-08-28] MEDS ORDERED: Vancomycin(*) 1,250 MG IV x ONCE IVPB ONE ×2 (16:00)
[2019-08-28 16:07] LABS: Erythrocyte Sed Rate 120 mm/Hr (0-19)
[2019-08-28] MEDS ORDERED: Vancomycin per Pharmacy* NOTE FOLLOW UP SCH (19:00)
[2019-08-28 19:39] LABS: % Iron Saturation 37 % (15-55); Iron 57 ug/dL (50-212); Total Iron Binding Capacity 154 mcg/dL (250-450); Transferrin 110 mg/dL (203-362)
[2019-08-28 19:57] LABS: Ferritin 600.4 ng/mL (24-336)
[2019-08-28] MEDS ORDERED: Cefepime 1 GM in Dextrose(*) 1 GM/50 ML BAG IV SCH (20:00)
[2019-08-28] MEDS ORDERED: Cefepime ADVAN(*) 1 GM in NS 0.9% 50 ML* 50 ML IVPB SCH (20:00)
[2019-08-28 20:01] LABS: Folate 18.26 ng/mL (>3.99)
--- NOTE | 2019-08-28 20:03 | HP ---
CC: Dr. Dejan Chaidez * HISTORY AND PHYSICAL: DATE OF ADMISSION: 08/28/19 PRIMARY CARE PROVIDER: Dr. Dejan Chaidez. ATTENDING PHYSICIAN: Dr. Callie Segundo * (dictated by Griffin Monge NP). CHIEF COMPLAINT: Blisters. HISTORY OF PRESENT ILLNESS: Mr. Gregory is a 64-year-old male with a past medical history significant for CKD, hypertension, anemia, hyperkalemia, who presented to the emergency department today due to multiple blisters/abscesses. The patient reports he has had an indwelling Cadet since January 2019 and since that time, he has had occasional blisters/abscesses on his legs. He reports that a couple of weeks ago, these blisters and abscesses became much worse and he also developed a large blister/abscess on his buttocks. He reports around , he had a bout of what he believes was food poisoning as he was having nausea, vomiting, diarrhea and fever. He reports this episode lasted for about 1 week. He reports that he was in bed due to his illness and subsequently developed a large cyst/abscess on his buttocks. He reports that the abscess on his legs also became much larger than normal. Given these developments, the patient presents into the emergency department. While in the emergency department, the patient had routine labs, which revealed microcytic anemia, elevated ESR, hyperkalemia, acidosis, acute on chronic kidney injury, and elevated CRP. The patient also underwent incision and drainage of these abscesses. Prior to the incision and drainage in the ED, CT of the pelvis was obtained to further evaluate the severity of a perirectal abscess. CT revealed inflammatory change and subcutaneous fat of the right buttock extending to the ischioanal fossa consistent with cellulitis with no loculated fluid collection to suggest abscess. Given the patient's increase in severity of abscesses and lab findings, the hospitalists were asked to consult for admission. PAST MEDICAL HISTORY: 1. CKD. 2. Hypertension. 3. Anemia. 4. Hyperkalemia. PAST SURGICAL HISTORY: 1. Shoulder surgery. 2. Right ear surgery. HOME MEDICATIONS: 1. Vitamin D 400 units p.o. daily. 2. Sodium bicarbonate 1.5 tab p.o. b.i.d. 3. Furosemide 40 mg p.o. daily. 4. Calcium acetate 667 mg 2 capsules with meals. 5. Calcitriol 0.25 mcg cap 2 tabs twice a week. 6. Amlodipine 2.5 mg p.o. b.i.d. 7. Tylenol 650 mg p.o. q.4 hours p.r.n. ALLERGIES: No known drug allergies. FAMILY HISTORY: Mother had a history of TIA, dementia, cervical cancer. Father due to leukemia. No history of diabetes. SOCIAL HISTORY: The patient lives alone. The patient is independent in his ADLs. The patient smokes a pack a day and has for approximately 30 years. The patient denies alcohol use. The patient denies drug use. The patient does not work. The patient is a full code. The patient's healthcare proxy will be his sister, Karina Gregory, in the event he cannot make a decision for himself. REVIEW OF SYSTEMS: The patient denies fever, anorexia, chest pain, edema, cough , hemoptysis, shortness of breath, nausea, vomiting, diarrhea, abdominal pain, dysuria, focal weakness, visual complaints, dysphagia, arthralgias or myalgias. The patient reports lesions as mentioned in the HPI. The patient denies itching. PHYSICAL EXAMINATION GENERAL: Mr. Gregory is a 64-year-old male who is lying in bed. Appears to be in no acute distress. Appears stated age. VITAL SIGNS: Temp 98.4, HR 85, RR 16, O2 saturation is 99% on room air, BP 143/ 78. HEENT: EOMs intact. Sclerae without icterus. Oral mucosa is moist without lesions. Posterior pharynx is clear. NECK: No lymphadenopathy. RESPIRATORY: Symmetrical chest expansion. No accessory muscle use. Lungs are clear to auscultation. No wheezes, rhonchi, or rubs. CV: Regular rate and rhythm. S1, S2 present. No murmurs, rubs, or gallops. ABDOMEN: Soft, nontender. Bowel sounds are normoactive. EXTREMITIES: Skin is warm and smooth bilaterally. No edema. MUSCULOSKELETAL: No pain or deformities. NEURO: Awake, alert, and oriented x4. Motor strength is 5/5 in upper and lower extremities. SKIN: The patient has large reddened area to right campos that is draining purulent drainage. The patient has an additional reddened area to left inner calf, which is draining purulent drainage. The patient has reddened area with healed scab on left medial ankle. The patient has redness with small opening drain purulent drainage on right buttocks. DIAGNOSTIC STUDIES/LAB DATA: WBC 9.9, hemoglobin 8.7, hematocrit 26, platelets 324. Sodium 139, potassium 5.1, chloride 111, carbon dioxide 15, BUN 107, creatinine 8.18. CRP 93.76, ESR 120. Pelvis CT: There is inflammatory change and subcutaneous fat of the right buttocks extending to the ischioanal fascia consistent with cellulitis. There is no loculated fluid collection to suggest abscess. Differential does include perianal fistula. ASSESSMENT AND PLAN: Mr. Gregory is a 64-year-old male with a past medical history significant for chronic kidney disease, hypertension, anemia, hyperlipidemia, who presented to the emergency department today with complaints of blisters and was found to have multiple draining abscesses, acute on chronic kidney injury, hyperkalemia. The patient will be admitted inpatient. 1. Bilateral leg and buttock abscesses. Given the patient has been having abscesses since placement of his urinary catheter in January 2019 and they have become more frequent and more severe, we believe he would benefit from an inpatient stay of IV antibiotics and a consultation with Dr. Aurelio Abad. As mentioned above, his abscesses have been drained while in the emergency department. The patient was started on vancomycin in the emergency department. I will continue vancomycin and add cefepime. We are awaiting wound culture. I will order blood cultures. The patient received IV fluids while in the emergency department. We will place a Wound consult and a consult to Infectious Disease. 2. Microcytic anemia. The patient has a known history of iron deficiency anemia and is followed with Dr. Dawson, Nephrology. I will add on iron studies, B12 and folate to his labs. Also given Nephrology is familiar with him and he also has acute kidney injury, I would recommend calling Nephrology on Friday. We will monitor the patient's H and H routinely. The patient has no overt signs of bleeding. 3. Hyperkalemia. The patient has an elevated potassium of 5.1. This is around his baseline. This is likely secondary to his chronic kidney disease. We will continue his home medications. We will monitor his potassium. Once again, I would recommend contacting Nephrology on Friday. There is no coverage this weekend. 4. Metabolic acidosis. The patient has a low carbon dioxide at 15. This is slightly lower than his baseline, likely secondary to his kidney disease. Once again, recommend consult with Nephrology. 5. Acute on chronic kidney disease. The patient's creatinine is 8.18. This is above his baseline of approximately 7. The patient is a patient of Dr. Dawson. He reports that he is not currently receiving dialysis, but there are plans to initiate at some point. He is currently seeing Dr. Berger for an AV fistula placement in the left upper extremity. We will continue to monitor his creatinine. We will contact Nephrology. 6. Hypertension. The patient is currently normotensive. We will continue his blood pressure medications. 7. FEN: The patient will be placed on a renal diet. 8. Code status: The patient is a full code. 9. DVT prophylaxis: Based on DVT Risk Assessment, the patient is moderate risk. I will place him on subcu heparin. TIME SPENT: Approximately 65 minutes was spent on this admission, greater than half the time was spent with the patient obtaining my history, performing physical exam, and reviewing my plan of care. The case has been reviewed with my attending, Dr. Segundo; who is in agreement with my plan of care. GRIFFIN MONGE, [place] [id number]/[facility] #: [id number] [place]RUL[place]
[2019-08-28] MEDS: Calcium Acetate CAP* 667 MG PO SCH (20:24)
[2019-08-28] MEDS: Sodium Bicarbonate (ANTACID)* 650 MG TAB PO SCH (20:26)
[2019-08-28] MEDS: amLODIPine TAB* 5 MG PO SCH (20:27)
[2019-08-28] MEDS: Heparin VIAL(*) 5000 UNITS/ML VIAL (FIVE THOUSAND) SUBCUT SCH (20:28)
[2019-08-28] MEDS ORDERED: Acetaminophen TAB* 325 MG PO PRN (20:50)
[2019-08-28] MEDS ORDERED: oxyCODONE TAB* 5 MG TAB PO PRN (20:51)
[2019-08-29 06:15] LABS: ABS Basophils 0.1 10^3/ul (0-0.2); ABS Eosinophils 0.3 10^3/ul (0-0.6); ABS Monocytes 0.5 10^3/ul (0-0.8); ABS Neutrophils 5.3 10^3/ul (1.5-7.7); Eosinophil % 3.9 %; Hematocrit 24 % (42-52); Hemoglobin 7.8 g/dL (14.0-18.0); Lymphocyte % 14.1 %; Mean Corpuscular HGB Conc 33 g/dL (31-36); Mean Corpuscular Hemoglobin 32 pg (27-31); Mean Corpuscular Volume 95 fL (80-94); Mean Platelet Volume 7.9 fL (7.4-10.4); Platelet Count 315 10^3/uL (150-450); Red Blood Count 2.49 10^6 /uL (4.18-5.48); Red Cell Distribution Width 14 % (10-15); White Blood Count 7.2 10^3/uL (3.5-10.8)
[2019-08-29 06:37] LABS: Albumin 3.1 g/dL (3.2-5.2); Albumin/Globulin Ratio 1.3 (1-3); Calcium 8.2 mg/dL (8.6-10.3); EGFR African American 9.1 (>60); EGFR Non-African American 7.5 (>60); Globulin 2.4 g/dL (2-4); Potassium 4.7 mmol/L (3.5-5.0); Total Bilirubin 0.2 mg/dL (0.2-1.0); Total Protein 5.5 g/dL (6.4-8.9)
[2019-08-29] MEDS ORDERED: Calcitriol CAP* 0.25 MCG PO SCH (09:00)
[2019-08-29] MEDS: Sodium Bicarbonate (ANTACID)* 650 MG TAB PO SCH ×3 (10:21→20:08)
[2019-08-29] MEDS: Calcium Acetate CAP* 667 MG PO SCH ×3 (10:21→16:58)
[2019-08-29] MEDS: amLODIPine TAB* 5 MG PO SCH ×2 (10:22→20:08)
[2019-08-29] MEDS: Cholecalciferol TAB* 400 UNIT PO SCH (10:22)
[2019-08-29] MEDS: Furosemide TAB* 40 MG PO SCH (10:22)
[2019-08-29] MEDS: Heparin VIAL(*) 5000 UNITS/ML VIAL (FIVE THOUSAND) SUBCUT SCH ×2 (10:24→20:09)
[2019-08-29 12:20] LABS: HIV 4th Generation Nonreactive (Nonreactive)
--- NOTE | 2019-08-29 12:57 | PN ---
Subjective Date of Service: 08/29/19 Interval History: HD 2 on 08/29 64 M with PMH of ESRD, Hypertension and anemia presented with multiple wound in bilateral lower extremities and right perianal area. Found to have cellulitis with abscess s/p I&D in ED. No acute overnight events vitals: stable Patient seen and examined at bedside. Patient states that he has been having this lesion for 2 weeks with no fever, chills and rigor. Although he complains of pain 5/10 at present. Objective Active Medications: Acetaminophen (Tylenol Tab*) 650 mg PO Q4H PRN PRN Reason: PAIN - MILD Amlodipine Besylate (Norvasc Tab*) 2.5 mg PO BID [facility] Last Admin: 08/29/19 10:22 Dose: 2.5 mg Calcitriol (Rocaltrol Cap*) 0.5 mcg PO SuWe@0900 [facility] Last Admin: 08/29/19 10:23 Dose: 0.5 mcg Calcium Acetate (Phoslo Cap*) 1,334 mg PO TID WITH MEALS [facility] Last Admin: 08/29/19 10:21 Dose: 1,334 mg Cholecalciferol (Vitamin D Tab*) 400 unit PO DAILY [facility] Last Admin: 08/29/19 10:22 Dose: 400 unit Furosemide (Lasix Tab*) 40 mg PO DAILY [facility] Last Admin: 08/29/19 10:22 Dose: 40 mg Heparin Sodium (Porcine) (Heparin Vial(*)) 5,000 units SUBCUT Q12HR [facility] Last Admin: 08/29/19 10:24 Dose: 5,000 units Oxycodone HCl (Roxycodone Tab*) 5 mg PO Q4H PRN PRN Reason: PAIN - SEVERE Last Admin: 08/28/19 22:07 Dose: 5 mg Pharmacy Consult (Vancomycin Per Pharmacy*) 1 note FOLLOW UP .VANC PER PHARMACY [facility]; Protocol Pharmacy Consult (Vancomycin Random Level*) 1 note FOLLOW UP MoWeFr@0600 [facility] Stop: 09/10/19 06:01 Sodium Bicarbonate (Sodium Bicarbonate (Antacid)*) 650 mg PO TID [facility] Vital Signs - 8 hr 08/29/19 07:30 Temperature 98.7 F Pulse Rate 82 Respiratory 18 Rate Blood Pressure 125/67 (mmHg) O2 Sat by Pulse 100 Oximetry Oxygen Devices in Use Now: None Exam: Patient sitting on a bed with no acute distress HEENT: small scab on left forehead LUngs: clear with no added sounds Heart: S1/S2 heard with soft systolic murmur on left upper sternal border Abdomen: soft, nondistended and nontender. Extremities: Open wound on right anterior leg with bloody drainage. There is open wound on left medial leg. Both wound are red, tender and indurated. Erythematous area on right ford-anal area draining seropurulent material with wound. Neuro: Alert. oriented and coperative Result Diagrams: 08/29/19 05:34 08/29/19 05:34 Additional Lab and Data: Lab Results 08/28/19 08/28/19 Range/Units 14:33 14:33 WBC 9.9 (3.5-10.8) 10^3/uL RBC 2.73 L (4.18-5.48) 10^6 /uL Hgb 8.7 L (14.0-18.0) g/dL Hct 26 L (42-52) % MCV 95 H (80-94) fL MCH 32 H (27-31) pg MCHC 34 (31-36) g/dL RDW 15 (10-15) % Plt Count 324 (150-450) 10^3/uL MPV 8.0 (7.4-10.4) fL Neut % (Auto) 80.3 % Lymph % (Auto) 10.6 % [place] % (Auto) 5.6 % Eos % (Auto) 2.8 % Baso % (Auto) 0.7 % Absolute Neuts (auto) 8.0 H (1.5-7.7) 10^3/ul Absolute Lymphs (auto) 1.0 (1.0-4.8) 10^3/ul Absolute Monos (auto) 0.6 (0-0.8) 10^3/ul Absolute Eos (auto) 0.3 (0-0.6) 10^3/ul Absolute Basos (auto) 0.1 (0-0.2) 10^3/ul Absolute Nucleated RBC 0.0 10^3/ul Nucleated RBC % 0.0 ESR Pending Sodium 139 (135-145) mmol/L Potassium 5.1 H (3.5-5.0) mmol/L Chloride 111 (101-111) mmol/L Carbon Dioxide 15 L (22-32) mmol/L Anion Gap 13 H (2-11) mmol/L BUN 107 H (6-24) mg/dL Creatinine 8.18 H (0.67-1.17) mg/dL Est GFR ( Amer) 8.1 (>60) Est GFR (Non-Af Amer) 6.7 (>60) BUN/Creatinine Ratio 13.1 (8-20) Glucose 94 (70-100) mg/dL Calcium 8.8 (8.6-10.3) mg/dL Total Bilirubin 0.20 (0.2-1.0) mg/dL AST 6 L (13-39) U/L ALT 7 (7-52) U/L Alkaline Phosphatase 61 (34-104) U/L C-Reactive Protein 93.76 H (<8.01) mg/L Total Protein 6.2 L (6.4-8.9) g/dL Albumin 3.4 (3.2-5.2) g/dL Globulin 2.8 (2-4) g/dL Albumin/Globulin Ratio 1.2 (1-3) Assess/Plan/Problems-Billing Assessment: 64 M with PMH of ESRD, Hypertension and anemia presented with multiple wound in bilateral lower extremities and right perianal area. Found to have cellulitis with abscess s/p I&D in ED. ALso found to have NGA on CKD. - Patient Problems (1) Abscess Current Visit: Yes Status: Acute Code(s): L02.91 - CUTANEOUS ABSCESS, UNSPECIFIED SNOMED Code(s): 909523116 Comment: -Mulitple abscess on both leg and right buttock near perianal area -Denies trauma and diabetes history -States he has been this type of lesion since january 2019 when he was diagnosed with ESRD and he is also on chronic lentz catheter given his prostate issues likely BPH -Etiology: Immunocompromised state form ESRD or if there is other unknown etiology like autoimmune, IBD -will check ARIN, RA -hilary need ID consult -s/p I&D on 08/28 -wound culture growing MRSA --currently on vancomycin(started on 08/28) (2) NGA (acute kidney injury) Current Visit: Yes Status: Acute Code(s): N17.9 - ACUTE KIDNEY FAILURE, UNSPECIFIED SNOMED Code(s): 26881227 Comment: -Baseline creatinine 7; on admission it was 8. -most likely pre-renal as it imnproved with fluids -will monitor it (3) High anion gap metabolic acidosis Current Visit: Yes Status: Acute Code(s): E87.2 - ACIDOSIS SNOMED Code(s) : 70242190 Comment: -has high anion gap with high bicarb likey metabolic but unfortunately ABG has not been done to determine PH level; will send it -Etiology: NGA>lactic acid -will send lactic acid as well -aslo had hyperkalemia; resolved now (4) ESRD (end stage renal disease) Current Visit: Yes Status: Acute Code(s): N18.6 - END STAGE RENAL DISEASE SNOMED Code(s): 91504116 Comment: -diagnosed in january 2019 -According to patient it is 2/2 to prostate issues likely BPH-follow wt Dr. Flores -Follows with Dr. Dawson- and is planning for HD next month -can follow with Dr. Dawson- No coverage today for nephrology (5) Hypertension Current Visit: Yes Status: Acute Code(s): I10 - ESSENTIAL (PRIMARY) HYPERTENSION SNOMED Code(s): 15383173 Comment: -Bp well controlled -continue amlodipine (6) Anemia Current Visit: No Status: Acute Code(s): D64.9 - ANEMIA, UNSPECIFIED SNOMED Code(s): 297608000 Comment: -Macrocytic- folate noral, B12 slightly high; denies alcohol use -Nomral iron. low TIBC and high ferritin-liley form anemia of chronic disease; from CKD -has received Erythropoitein in past -Hb low but stable -continue to follow (7) DVT prophylaxis Current Visit: No Status: Acute Code(s): Z29.9 - ENCOUNTER FOR PROPHYLACTIC MEASURES, UNSPECIFIED SNOMED Code(s): 608621733 Comment: -Heparin (8) Full code status Current Visit: No Status: Acute Code(s): Z78.9 - OTHER SPECIFIED HEALTH STATUS SNOMED Code(s): 425244620 Comment: Status and Disposition: Inpatient Attending: Familia Ernandez Attestation Documenting Resident: Roland Kent Supervising Physician: Familia Ernandez Attending/Supervising Physician Comment: Agree with plan as outlined in todays note by Dr. Kent unless indicated here. 64 M pw skin lesions concerning for abscesses s/p ID Abscess - multiple including perirectal. Metastatic infection with MRSA or potentially other etiology. On abx will monitor for improvement ESRD - with associated compensated metabolic acidosis. Increase PO bicarb. Repeat tomorrow. May be trending towards HD sooner although no current emergent need. Attestation: This service has been performed in part by a resident under the direction of a teaching physician.I, Familia Ernandez, performed the service, or was physically present during the critical, or avila portions of the service, furnished by the resident. I participated in the management of the patient.
[2019-08-29] MEDS: Nicotine PATCH 14 MG/24 HR* PATCH TRANSDERM SCH (16:58)
[2019-08-30 05:43] LABS: ABS Eosinophils 0.3 10^3/ul (0-0.6); ABS Lymphocytes 1.2 10^3/ul (1.0-4.8); ABS Monocytes 0.5 10^3/ul (0-0.8); ABS Neutrophils 4.4 10^3/ul (1.5-7.7); Eosinophil % 5.3 %; Hematocrit 24 % (42-52); Lymphocyte % 19.1 %; Mean Corpuscular HGB Conc 34 g/dL (31-36); Mean Corpuscular Hemoglobin 32 pg (27-31); Mean Corpuscular Volume 94 fL (80-94); Mean Platelet Volume 7.5 fL (7.4-10.4); Platelet Count 307 10^3/uL (150-450); Red Blood Count 2.54 10^6 /uL (4.18-5.48); Red Cell Distribution Width 14 % (10-15); White Blood Count 6.5 10^3/uL (3.5-10.8)
[2019-08-30 05:59] LABS: BUN/Creatinine Ratio 14.2 (8-20); Calcium 8.6 mg/dL (8.6-10.3); EGFR African American 9.6 (>60); EGFR Non-African American 7.9 (>60); Potassium 4.6 mmol/L (3.5-5.0)
[2019-08-30] MEDS ORDERED: Vancomycin Random Level* NOTE FOLLOW UP SCH (06:00)
[2019-08-30 06:01] LABS: Vancomycin Random 11.3 mcg/mL
[2019-08-30] MEDS: Sodium Bicarbonate (ANTACID)* 650 MG TAB PO SCH ×3 (09:41→20:12)
[2019-08-30] MEDS: Furosemide TAB* 40 MG PO SCH (09:41)
[2019-08-30] MEDS: Cholecalciferol TAB* 400 UNIT PO SCH (09:41)
[2019-08-30] MEDS: Calcium Acetate CAP* 667 MG PO SCH ×3 (09:41→18:05)
[2019-08-30] MEDS: Nicotine PATCH 14 MG/24 HR* PATCH TRANSDERM SCH (09:42)
[2019-08-30] MEDS: Heparin VIAL(*) 5000 UNITS/ML VIAL (FIVE THOUSAND) SUBCUT SCH ×2 (09:42→20:10)
[2019-08-30] MEDS: amLODIPine TAB* 5 MG PO SCH ×2 (09:43→20:11)
[2019-08-30] MEDS ORDERED: Vancomycin(*) 1,000 MG in NS 0.9% 250 ML* 250 ML IV ONE (10:00)
--- NOTE | 2019-08-30 13:19 | CONS ---
CONSULTATION REPORT: DATE OF CONSULT: 08/30/19 REQUESTING PHYSICIAN: Colette Altman NP CONSULTING SERVICE: Infectious Disease. REASON FOR CONSULTATION: Cutaneous and perianal abscess. IMPRESSION: 1. Perianal abscess and cellulitis and cutaneous abscess on the left and right calves. The two on the legs have been drained that are growing methicillin- resistant Staphylococcus aureus. The perianal collection is draining spontaneously. There is no fluctuance. There is minimal tenderness. No deeper collection on the CT of the pelvis. 2. Chronic kidney disease, stage 5, awaiting hemodialysis. 3. Hypertension. 4. Urinary retention. 5. Chronic Cadet catheter. RECOMMENDATIONS: Continue vancomycin. We will monitor these collections as long as they are improving. He can change to doxycycline 100 mg by mouth twice a day to complete 2 weeks of therapy. HISTORY OF PRESENT ILLNESS: This 64-year-old man with chronic kidney disease awaiting the onset of hemodialysis in next few weeks. He has a chronic Cadet catheter and has had swelling and pain in the bilateral medial calves and right perianal area for a few days because of perianal pain and tenderness, particularly with bowel movement. He came to the hospital. HIV test was negative. White blood cell count was 9, sed rate was 120, CRP 93. He was started on vancomycin. Both of the calf collections were drained in the ER. The left-sided collection is growing MRSA. Blood cultures are negative. He has had no fevers, chills, or sweats. He otherwise feels his usual self. He has not had skin infections like this in the past. PAST MEDICAL HISTORY: 1. Chronic kidney disease, stage 5. 2. Hypertension. 3. Anemia. 4. Hyperkalemia. MEDICATIONS: 1. Tylenol. 2. Amlodipine. 3. Calcitriol. 4. Calcium acetate. 5. Cholecalciferol. 6. Furosemide. 7. Heparin subcutis injection. 8. Nicotine patch. 9. Oxycodone. 10. Sodium bicarbonate. 11. Vancomycin, last dose was given this morning. ALLERGIES: No known drug allergies. FAMILY HISTORY: Family mother had a dementia and cervical cancer. Father from leukemia. SOCIAL HISTORY: Lives by himself. He has a pet cat. He is a current smoker, a pack a day. No alcohol or injection drug use. REVIEW OF SYSTEMS: All negative except as noted above to 12 point review of systems. PHYSICAL EXAMINATION: Vital Signs: Temperature 36.4, heart rate 85, respiratory rate 20, blood pressure 129/71, oxygen saturation 99% on room air. In general, he is awake, not in distress. Neurologic: He is oriented x3. Follows all commands. HEENT: There is no conjunctival hemorrhage oropharynx or lesions. Neck is supple without mass. Heart is regular rate and rhythm without murmurs rubs or gallops. Lungs are clear to auscultation bilaterally. Abdomen: Soft, nontender, nondistended. Bowel sounds present. Skin: There is no rash, bilateral medial calves are 1 to 2 cm areas of induration without fluctuance and central incision with some serous drainage, mild erythema. Rectal Exam: There is a right perianal area of edema tenderness and erythema. DIAGNOSTIC STUDIES/LAB DATA: White blood cell count 6.5, hemoglobin 8, platelets 307. Creatinine is 7, potassium is 4.6 Please see impressions and recommendations outlined above that I discussed with Dr. Rodriguez. Thank you for asking me to see Mr. Gregory in consultation. [id number]/[facility] #: [id number] [facility]
--- NOTE | 2019-08-30 14:03 | PN ---
Subjective Date of Service: 08/30/19 Interval History: Patient had no complains, pain in perianal area greatly improved, not much drainage in the past 24 hours. leg abscess dressing changed this morning, was put on abdominal pad. Patient is keen for home, worried about his kitten at home. He is confident to take care of the wound, he has girlfriend who can help him. Objective Active Medications: Acetaminophen (Tylenol Tab*) 650 mg PO Q4H PRN PRN Reason: PAIN - MILD Amlodipine Besylate (Norvasc Tab*) 2.5 mg PO BID [facility] Last Admin: 08/30/19 09:43 Dose: 2.5 mg Calcitriol (Rocaltrol Cap*) 0.5 mcg PO SuWe@0900 [facility] Last Admin: 08/29/19 10:23 Dose: 0.5 mcg Calcium Acetate (Phoslo Cap*) 1,334 mg PO TID WITH MEALS [facility] Last Admin: 08/30/19 12:49 Dose: 1,334 mg Cholecalciferol (Vitamin D Tab*) 400 unit PO DAILY [facility] Last Admin: 08/30/19 09:41 Dose: 400 unit Furosemide (Lasix Tab*) 40 mg PO DAILY [facility] Last Admin: 08/30/19 09:41 Dose: 40 mg Heparin Sodium (Porcine) (Heparin Vial(*)) 5,000 units SUBCUT Q12HR [facility] Last Admin: 08/30/19 09:42 Dose: 5,000 units Nicotine (Nicotine Patch 14 Mg/24 Hr*) 1 patch TRANSDERM DAILY [facility] Last Admin: 08/30/19 09:42 Dose: 1 patch Oxycodone HCl (Roxycodone Tab*) 5 mg PO Q4H PRN PRN Reason: PAIN - SEVERE Last Admin: 08/28/19 22:07 Dose: 5 mg Pharmacy Consult (Vancomycin Per Pharmacy*) 1 note FOLLOW UP .VANC PER PHARMACY [facility]; Protocol Pharmacy Consult (Vancomycin Random Level*) 1 note FOLLOW UP 0600 [facility] Stop: 08/31/19 06:01 Pharmacy Profile Note (Nicotine Patch Removal Note*) 1 note PATCH OFF 2100 [facility] Sodium Bicarbonate (Sodium Bicarbonate (Antacid)*) 650 mg PO TID [facility] Last Admin: 08/30/19 12:49 Dose: 650 mg Vital Signs - 8 hr 08/30/19 08/30/19 07:27 11:15 Temperature 97.9 F 98.2 F Pulse Rate 80 80 Respiratory 13 16 Rate Blood Pressure 129/71 122/65 (mmHg) O2 Sat by Pulse 100 98 Oximetry Oxygen Devices in Use Now: None Exam: Patient sitting on a bed with no acute distress HEENT: small scab on left forehead Lungs: clear with no added sounds Heart: S1/S2 heard with soft systolic murmur on left upper sternal border Abdomen: soft, nondistended and nontender. Extremities: Erythematous papule s/p I&D on right anterior leg with bloody drainage. Two post I&D papules on left medial leg. All the above are red, tender and indurated. Erythematous area on right ford-anal area with scarce pinkish drainage. Neuro: Alert. oriented x 3. Result Diagrams: 08/30/19 05:14 08/30/19 05:14 Additional Lab and Data: Lab Results 08/28/19 08/28/19 Range/Units 14:33 14:33 WBC 9.9 (3.5-10.8) 10^3/uL RBC 2.73 L (4.18-5.48) 10^6 /uL Hgb 8.7 L (14.0-18.0) g/dL Hct 26 L (42-52) % MCV 95 H (80-94) fL MCH 32 H (27-31) pg MCHC 34 (31-36) g/dL RDW 15 (10-15) % Plt Count 324 (150-450) 10^3/uL MPV 8.0 (7.4-10.4) fL Neut % (Auto) 80.3 % Lymph % (Auto) 10.6 % [place] % (Auto) 5.6 % Eos % (Auto) 2.8 % Baso % (Auto) 0.7 % Absolute Neuts (auto) 8.0 H (1.5-7.7) 10^3/ul Absolute Lymphs (auto) 1.0 (1.0-4.8) 10^3/ul Absolute Monos (auto) 0.6 (0-0.8) 10^3/ul Absolute Eos (auto) 0.3 (0-0.6) 10^3/ul Absolute Basos (auto) 0.1 (0-0.2) 10^3/ul Absolute Nucleated RBC 0.0 10^3/ul Nucleated RBC % 0.0 ESR Pending Sodium 139 (135-145) mmol/L Potassium 5.1 H (3.5-5.0) mmol/L Chloride 111 (101-111) mmol/L Carbon Dioxide 15 L (22-32) mmol/L Anion Gap 13 H (2-11) mmol/L BUN 107 H (6-24) mg/dL Creatinine 8.18 H (0.67-1.17) mg/dL Est GFR ( Amer) 8.1 (>60) Est GFR (Non-Af Amer) 6.7 (>60) BUN/Creatinine Ratio 13.1 (8-20) Glucose 94 (70-100) mg/dL Calcium 8.8 (8.6-10.3) mg/dL Total Bilirubin 0.20 (0.2-1.0) mg/dL AST 6 L (13-39) U/L ALT 7 (7-52) U/L Alkaline Phosphatase 61 (34-104) U/L C-Reactive Protein 93.76 H (<8.01) mg/L Total Protein 6.2 L (6.4-8.9) g/dL Albumin 3.4 (3.2-5.2) g/dL Globulin 2.8 (2-4) g/dL Albumin/Globulin Ratio 1.2 (1-3) Assess/Plan/Problems-Billing Assessment: 64 M with PMH of ESRD plan for HD soon, Hypertension and anemia presented with multiple wound in bilateral lower extremities and right perianal area. Found to have cellulitis with abscess s/p I&D in ED, MRSA + for the wound but no systemic infection found. - Patient Problems (1) Abscess Current Visit: Yes Status: Acute Code(s): L02.91 - CUTANEOUS ABSCESS, UNSPECIFIED SNOMED Code(s): 287996556 Comment: -Mulitple abscess on both leg and right buttock near perianal area, MRSA+ in wound cs -Etiology: Immunocompromised state form ESRD, HIV, RF neg -s/p I&D on 08/28 -currently on iv vancomycin(started on 08/28), will continue for one more day and convert to oral doxycycline for total 2 week -ID follow up outpatient -Education on dressing change to patient and his girlfriend will be performed today (2) ESRD (end stage renal disease) Current Visit: Yes Status: Acute Code(s): N18.6 - END STAGE RENAL DISEASE SNOMED Code(s): 57461809 Comment: -diagnosed in january 2019 -According to patient it is 2/2 to prostate issues likely BPH-follow siwt Dr. Flores -Follows with Dr. Dawson- and is planning for HD next month with left BB AVF created (good bruit) -acidosis improving with sodium bicarb - continue old dose of sodium bicarb, consider increase to 1g tid if bicarb still low (3) High anion gap metabolic acidosis Current Visit: Yes Status: Acute Code(s): E87.2 - ACIDOSIS SNOMED Code(s) : 02835834 Comment: - Initially presented with high AG metabolic acidosis, likely due to NGA, now AG normalized - continue home dose sodium bicarb,will repeat bmp tomorrow (4) Hypertension Current Visit: Yes Status: Acute Code(s): I10 - ESSENTIAL (PRIMARY) HYPERTENSION SNOMED Code(s): 87559906 Comment: -Bp well controlled -continue amlodipine (5) Anemia Current Visit: No Status: Acute Code(s): D64.9 - ANEMIA, UNSPECIFIED SNOMED Code(s): 554903803 Comment: -Macrocytic- folate noral, B12 slightly high; denies alcohol use -Nomral iron. low TIBC and high ferritin-liley form anemia of chronic disease; from CKD -has received Erythropoitein in past -Hb low but stable -continue to follow (6) DVT prophylaxis Current Visit: No Status: Acute Code(s): Z29.9 - ENCOUNTER FOR PROPHYLACTIC MEASURES, UNSPECIFIED SNOMED Code(s): 118674990 Comment: -Heparin Status and Disposition: Inpatient Medicine. Discharge back home if patient keeps well and knows how to change dressing. Attestation Documenting Resident: Tabby Rodriguez Supervising Physician: Familia Ernandez Attending/Supervising Physician Comment: Agree with plan as outlined in note today by Dr. Rodriguez unless indicated here. Low leg and perianal abscess s/p I&D +MRSA improving on Vanco, plan for PO transition tomorrow Acidosis improving. Attestation: This service has been performed in part by a resident under the direction of a teaching physician.I, Familia Ernandez, performed the service, or was physically present during the critical, or avila portions of the service, furnished by the resident. I participated in the management of the patient.
[2019-08-30] MEDS ORDERED: Nicotine Patch Removal NOTE PATCH OFF SCH (21:00)
[2019-08-31] MEDS ORDERED: Vancomycin Random Level* NOTE FOLLOW UP ONE (06:00)
[2019-08-31 06:43] LABS: Vancomycin Random 20.3 mcg/mL
[2019-08-31 06:47] LABS: BUN/Creatinine Ratio 14.9 (8-20); C Reactive Protein 42.47 mg/L (<8.01); Calcium 8.9 mg/dL (8.6-10.3); EGFR African American 10.5 (>60); EGFR Non-African American 8.7 (>60)
[2019-08-31 06:48] LABS: Potassium 5.2 mmol/L (3.5-5.0)
[2019-08-31] MEDS: Sodium Bicarbonate (ANTACID)* 650 MG TAB PO SCH (08:30)
[2019-08-31] MEDS: Furosemide TAB* 40 MG PO SCH (08:31)
[2019-08-31] MEDS: Cholecalciferol TAB* 400 UNIT PO SCH (08:31)
[2019-08-31] MEDS: amLODIPine TAB* 5 MG PO SCH (08:31)
[2019-08-31] MEDS: Calcium Acetate CAP* 667 MG PO SCH (08:31)
[2019-08-31] MEDS: Nicotine PATCH 14 MG/24 HR* PATCH TRANSDERM SCH (08:33)
[2019-08-31] MEDS: Heparin VIAL(*) 5000 UNITS/ML VIAL (FIVE THOUSAND) SUBCUT SCH (08:33)
[2019-08-31] MEDS ORDERED: Patiromer POWDER* 8.4 GM PAK PO ONE (10:29)
[2019-08-31 11:36] VITALS: BP 126/71
[2019-08-31 12:59] LABS: BUN/Creatinine Ratio 14.6 (8-20); Calcium 9.6 mg/dL (8.6-10.3); EGFR African American 10.4 (>60); EGFR Non-African American 8.6 (>60); Potassium 4.9 mmol/L (3.5-5.0)
[2019-09-01] MEDS ORDERED: Vancomycin Trough Check NOTE FOLLOW UP ONE (06:00)
[2019-09-01] MEDS ORDERED: Patiromer POWDER* 8.4 GM PAK PO ONE (10:29)
--- NOTE | 2019-09-01 18:18 | DS ---
Resident Discharge Summary Discharge Summary: Date of Admission: 08/28/19 Date of Discharge: 08/31/19 Admitting MD: Callie Segundo MD Attending MD: Familia Ernandez MD Primary Care Physician: Dejan Chaidez MD Home Medications Medication Instructions Recorded Confirmed Type Acetaminophen TAB* [Tylenol TAB*] 650 mg PO Q4H PRN tab 01/26/19 08/28/19 Rx Sodium Bicarbonate 1.5 tab PO BID 03/10/19 08/28/19 History Amlodipine Besylate [Amlodipine 2.5 mg PO BID 05/12/19 08/28/19 History 2.5 mg tab] Calcitriol CAP* [Rocaltrol CAP*] 2 cap PO SEE INSTRUCTIONS 05/12/19 08/28/19 History Calcium Acetate 2 cap PO TID 06/16/19 08/28/19 History Cholecalciferol TAB* [Vitamin D 400 unit PO DAILY 08/28/19 08/28/19 History TAB*] Furosemide TAB* [Lasix TAB*] 40 mg PO DAILY 08/28/19 08/28/19 History DOXYcycline CAP(*) [DOXYcycline 100 mg PO BID #20 cap 08/31/19 Rx 100MG CAP(*)] Disposition: Home Condition: Stable to Home Primary Diagnosis: 1. Subcutaneous Abscesses 2. End Stage Renal Failure Secondary Diagnosis: 1. Hypertension 2. Anemia Diagnostic Imaging: Pelvic CT: there is inflammatory changes of the subcutaneous fat of the right buttock extending to the ischioanal fossa consistent with cellulitis. There is no loculated fluid collection to suggest abscess. The differential does include a perianal fistula. Pertinent Laboratory Results: Blood tests on admission: CBC: TW 9.9, Hb 8.7, plt 324. BMP: Na 139, K 5.1, bicarb 15, creatinine 8.18 CRP 93.67 Skin and soft tissue MRSA/MSSA: MRSA positive, S. aureus positive. Hospital Course: Byron Gregory is a 64 years old male with history of ESRF planning for HD soon , hypertension, presented to [facility] due to multiple abscesses on his legs and perianal area. Please refer to H&P dated 08/28/19 for more information. He was found to have elevated CRP with multiple abscess, an incision and drainage of abscess was done in ED, and the drainage was tested positive for MRSA. He also had a CT pelvis to look into his perianal abscess, no communication was seen. He was treated with IV vancomycin during hospitalization with the help of infectious disease specialist. He is improving with iv abx and switched to doxycyline to complete 2 weeks of therapy on dicharge. In terms of his end stage renal disease, he was found to have mild hyperkalemia with metabolic acidosis likely due to renal disease a few episodes. This is probably precipitated by his infection. He was not volume overloaded, and no signs of uremic symptoms. We continued his sodium bicarb tablet during his stay , and monitored closely. He does have an AVF set up but not matured yet, he will follow up closely with his clutch inspector on that aspect after discharge. On the day of discharge, patient is cheerful and no complains. 12 point physical examination is unremarkable other than the indurated and erythematous changes around the abscesses. He will follow up with his PCP, infetious disease and neprhologist after discharge. Education on the dressing change was performed prior to discharge. Follow Up Instructions: Follow up - PCP within 1 week - ID Dr. Sarabia in 2 weeks - Neprhologist Dr. Dawson In case of an emergency or after clinic hours, please go to your nearest Emergency Department. You may also call the [facility] dosier operator at ( [phone]. Attestation Documenting Resident: Tabby Rodriguez Supervising Physician: Familia Ernandez Attending/Supervising Physician Comment: Agree with discharge as outline here. Patient presented with several new abscesses on both lower legs as well as perianally. It remains unclear why these developed but they did culture positive for MRSA and theye were presumed infectious which was supported by their improvement with antibiotics. Some doubt remains as to whether these were in fact infectious in etiology. Stay notable for compensated metabolic acidosis which improved with treatment of abscesses as well as INCREASED dose of oral bicarbonate. Attestation: This service has been performed in part by a resident under the direction of a teaching physician.I, Familia Ernandez, performed the service, or was physically present during the critical, or avila portions of the service, furnished by the resident. I participated in the management of the patient.
== END 2019-08-31 13:25 | disposition home or self-care (01) | DRG 383 ==
LOC: ED 12:42 → MED 18:13
PROVIDERS: ADMIT Internal Medicine; ATTEND Internal Medicine
PROC: 0H9LXZZ Drainage of Left Lower Leg Skin, External Approach (ICD-10-PCS; principal; 2019-08-28)
PROC: 0H9KXZZ Drainage of Right Lower Leg Skin, External Approach (ICD-10-PCS; 2019-08-28)
DX: L02.416 Cutaneous abscess of left lower limb (principal); N18.6 End stage renal disease; N17.9 Acute kidney failure, unspecified; I12.0 Hypertensive chronic kidney disease with stage 5 chronic kidney disease or end stage renal disease; D84.9 Immunodeficiency, unspecified; L03.317 Cellulitis of buttock; E87.2 Acidosis; L02.31 Cutaneous abscess of buttock; L02.415 Cutaneous abscess of right lower limb; B95.62 Methicillin resistant Staphylococcus aureus infection as the cause of diseases classified elsewhere; E87.5 Hyperkalemia; D50.9 Iron deficiency anemia, unspecified; R33.9 Retention of urine, unspecified; D63.8 Anemia in other chronic diseases classified elsewhere; F17.210 Nicotine dependence, cigarettes, uncomplicated; Z86.2 Personal history of diseases of the blood and blood-forming organs and certain disorders involving the immune mechanism; Z79.899 Other long term (current) drug therapy; Z80.49 Family history of malignant neoplasm of other genital organs; Z80.6 Family history of leukemia
CPT/HCPCS: 36415; 36600; 72192; 80048; 80053; 80202; 82607; 82728; 82746; 82803; 83540; 83550; 83605; 85025; 85652; 86038; 86140; 86431; 87040; 87070; 87077; 87186; 87205; 87389; 87640; 87641; 96365; 99283; A9270-GY; J0692; J1644; J3010; J3370

== ENCOUNTER 2019-09-20 11:03 | Emergency (ER) | payer OTHER ==
--- NOTE | 2019-09-20 11:28 | ED ---
Complex/Multi-Sys Presentation - HPI Summary HPI Summary: Patient is a 64 y/o M presenting to [facility] with a chief complaint of b/l infraorbital swelling over the past few days. He states concern for an upcoming procedure for dialysis catheter placement for previous NGA and renal failure last year. He also notes a chronic Cadet catheter initially placed January 2019. He reports that when he was first diagnosed with renal issues and had been discharged from the hospital, he developed conjunctivitis that had resolved. Over the last few days, he has observed swelling below the eyes with waking up, so he suspects conjunctivitis flare up although he is not experiencing any erythema in the eyes. He endorses slight headaches over the last two weeks, which is atypical for him. He denies any fevers, cough, SOB, visual changes, dental pain, abd pain, changes in urination, or rash. He is anxious about his procedure and has subsequent chest discomfort. He is not in any pain currently. Past medical history includes anemia, ventricular tachycardia, BPH, MRSA. Heavy smoker, no EtOH, no substance use. Medications reviewed. Allergies noted. 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 Negative: SOB, Cough, Chest Pain, Abdominal Pain Related History: Other - NGA, chronic renal failure/plan for dialysis catheter placement 09/22/2019 - Allergies/Home Medications Allergies/Adverse Reactions: Allergies Allergy/AdvReac Type Severity Reaction Status Date / Time No Known Allergies Allergy Verified 08/28/19 12:46 Home Medications: Home Medications Sodium Bicarbonate 650 tab PO BID 03/10/19 [History Confirmed 09/20/19] Amlodipine Besylate [Amlodipine 2.5 mg tab] 2.5 mg PO BID 05/12/19 [History Confirmed 09/20/19] Calcitriol CAP* [Rocaltrol CAP*] 2 cap PO .2X/WEEK 05/12/19 [History Confirmed 09/20/19] Calcium Acetate 2 cap PO TID 06/16/19 [History Confirmed 09/20/19] Cholecalciferol TAB* [Vitamin D TAB*] 2,000 unit PO DAILY 08/28/19 [History Confirmed 09/20/19] Sodium Polystyrene Sulfon/Sorb [Kionex] 15 gm PO .2X/WEEK 09/20/19 [History Confirmed 09/20/19] PMH/Surg Hx/FS Hx/Imm Hx Endocrine/Hematology History: Reports: Hx Anemia - SINCE 2017, TREATED WITH INFUSIONS AT [facility] Denies: Hx Diabetes Cardiovascular History: Reports: Other Cardiovascular Problems/Disorders - HISTORY OF V TACH PER EMR Denies: Hx Hypercholesterolemia, Hx Hypertension Respiratory History: Denies: Other Respiratory Problems/Disorders GI History: Denies: Other GI Disorders History: Reports: Hx Acute Renal Failure, Hx Benign Prostatic Hyperplasia, Hx Chronic Renal Failure, Other Problems/Disorders - Cadte catheter in place Denies: Hx Kidney Infection, Hx Kidney Stones, Hx Renal Disease Musculoskeletal History: Denies: Other Musculoskeletal History Sensory History: Reports: Hx Cataracts - BEGINNING, Hx Contacts or Glasses Denies: Hx Hearing Aid Opthamlomology History: Reports: Hx Cataracts - BEGINNING, Hx Contacts or Glasses Neurological History: Denies: Other Neuro Impairments/Disorders - Cancer History Cancer Type, 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 Hx Chemotherapy: No - Surgical History Surgical History: Yes Surgery Procedure, Year, and Place: left shoulder dislocation with pin placement , right ear cholesteatoma removal Hx Anesthesia Reactions: No Infectious Disease History: Yes Infectious Disease History: Reports: Hx of Known/Suspected MRSA - Left leg wound 08/2019 [facility] Denies: Traveled Outside the [place] in Last 30 Days - Family History Known Family History: Positive: Hypertension Negative: Diabetes - Social History Alcohol Use: None Hx Substance Use: No Substance Use Type: Reports: None Hx Tobacco Use: Yes Smoking Status (MU): Heavy Every Day Tobacco Smoker Type: Cigarettes Amount Used/How Often: 1.5 PPD Have You Smoked in the Last Year: Yes Review of Systems Negative: Fever Positive: Other - infraorbital swelling b/l; Negative: visual changes. Negative : Erythema Negative: Dental Pain Negative: Chest Pain Negative: Shortness Of Breath, Cough Negative: Abdominal Pain Positive: no symptoms reported Negative: Rash Positive: Headache - slight Positive: Anxious - causing chest discomfort All Other Systems Reviewed And Are Negative: Yes Physical Exam - Summary Physical Exam Summary: Constitutional: Well-developed, Well-nourished, Alert. (-) Distressed Skin: Warm, Dry HENT: Normocephalic; Atraumatic Eyes: Slight infraorbital edema b/l, No conjunctival injection Neck: Musculoskeletal ROM normal neck. (-) JVD, (-) Stridor, (-) Tracheal deviation Cardio: Rhythm regular, rate tachycardic, Heart sounds normal; Intact distal pulses; Radial pulses are 2+ and symmetric. (-) Murmur Pulmonary/Chest wall: Effort normal. (-) Respiratory distress, (-) Wheezes, (-) Rales Abd: Soft, (-) tenderness, (-) Distension, (-) Guarding, (-) Rebound Musculoskeletal: (+) Mild BLE edema Lymph: (-) Cervical adenopathy Neuro: Alert, Oriented x3 Psych: Mood and affect Normal : Indwelling Cadet catheter noted Triage Information Reviewed: Yes Vital Signs On Initial Exam: Initial Vitals Temp Pulse Resp BP Pulse Ox 99.1 F 100 16 156/100 100 09/20/19 11:05 09/20/19 11:05 09/20/19 11:05 09/20/19 11:05 09/20/19 11:05 Vital Signs Reviewed: Yes Procedures - Sedation Patient Received Moderate/Deep Sedation with Procedure: No Diagnostics - Vital Signs Vital Signs Temp Pulse Resp BP Pulse Ox 09/20/19 11:05 99.1 F 100 16 156/100 100 - Laboratory Result Diagrams: 09/20/19 12:20 09/20/19 12:20 Lab Statement: Any lab studies that have been ordered have been reviewed, and results considered in the medical decision making process. - EKG 1225 Cardiac Rate: NL - 77 BPM EKG Rhythm: Sinus Rhythm Summary of EKG Findings: An EKG at 1225 reveals normal sinus rhythm at rate of [address]PM[address] No ischemic changes. Dr. Farfan has reviewed and interpreted this EKG. Re-Evaluation - Re-Evaluation First Eval Re-Evaluation Time: 13:10 Comment: Results discussed with patient. Agreeable with discharge plan. Complex Multi-Symp Course/Dx Course Of Treatment: Patient is a 64 y/o M who has history of NGA/renal failure with plan for dialysis catheter placement on 09/22/2019 with concerns for b/l infraorbital swelling over the few days with atypical slight headaches in the last two weeks. Patient suspects conjunctivitis but has no erythema of eyes. No fevers, cough, SOB, visual changes, dental pain, abd pain, changes in urination , or rash. Currently anxious with subsequent chest discomfort. History of BPH, ventricular tachycardia. Physical exam reveals slight infraorbital edema b/l, no conjunctival injection, tachycardia, mild BLE edema, noted indwelling Cadet catheter. Blood work consistent with chronic anemia with RBCs 2.89, hemoglobin 9.5, hematocrit 28, absolute lymphs 0.5; chloride 113, carbon dioxide 19, BUN 86 , creatinine 5.45, AST 11, BNP 112, total protein 5.8. An EKG at 1225 reveals normal sinus rhythm at rate of 77 BPM, no ischemic changes. All results discussed with patient. Patient is safe for discharge. Patient is advised to follow up with PCP in 2-3 days. Return precautions given. Patient agreeable with plan. - Diagnoses Provider Diagnoses: CKD (chronic kidney disease), Chronic anemia, Periorbital edema of both eyes Discharge ED - Sign-Out/Discharge Documenting (check all that apply): Patient Departure - Patient will be discharged home. - Discharge Plan Condition: Stable Disposition: HOME Patient Education Materials: Chronic Kidney Disease (ED), Anemia (ED), Edema ( ED) Referrals: Dejan Chaidez MD [Primary Care Provider] - 3 Days Additional Instructions: Follow up with your primary care provider in 2-3 days. Return to the emergency department for any new or worsening symptoms. - Billing Disposition and Condition Condition: STABLE Disposition: Home - Attestation Statements Document Initiated by Liz: Yes Documenting Scribe: Yeimi Núñez Provider For Whom Liz is Documenting (Include Credential): Humza Farfan DO Scribe Attestation: Yeimi Mcginnis, scribed for Humza Farfan DO on 09/20/19 at 1717. Scribe Documentation Reviewed: Yes Provider Attestation: The documentation as recorded by the Yeimi rock accurately reflects the service I personally performed and the decisions made by me, Humza Farfan DO Status of Scrifrah Document: Viewed
[2019-09-20 12:28] LABS: ABS Eosinophils 0.3 10^3/ul (0-0.6); ABS Lymphocytes 0.5 10^3/ul (1.0-4.8); ABS Monocytes 0.4 10^3/ul (0-0.8); ABS Neutrophils 2.8 10^3/ul (1.5-7.7); Eosinophil % 7.1 %; Hematocrit 28 % (42-52); Hemoglobin 9.5 g/dL (14.0-18.0); Lymphocyte % 11.4 %; Mean Corpuscular HGB Conc 34 g/dL (31-36); Mean Corpuscular Hemoglobin 33 pg (27-31); Mean Corpuscular Volume 96 fL (80-94); Mean Platelet Volume 8.5 fL (7.4-10.4); Platelet Count 180 10^3/uL (150-450); Red Blood Count 2.89 10^6 /uL (4.18-5.48); Red Cell Distribution Width 16 % (10-15)
[2019-09-20 12:46] LABS: Albumin 3.6 g/dL (3.2-5.2); Albumin/Globulin Ratio 1.6 (1-3); BUN/Creatinine Ratio 15.8 (8-20); Calcium 8.8 mg/dL (8.6-10.3); EGFR African American 12.9 (>60); EGFR Non-African American 10.7 (>60); Globulin 2.2 g/dL (2-4); Total Bilirubin 0.3 mg/dL (0.2-1.0); Total Protein 5.8 g/dL (6.4-8.9)
[2019-09-20 12:48] LABS: Potassium 5.1 mmol/L (3.5-5.0)
--- OUTSIDE RECORDS SUMMARY | 2019-09-20 12:59 | XMS REPORT | Continuity of Care Document ---
:1955 External Reference #:[id number] Author Name Familia Ernandez M.D. (transmitted by agent of provider Debbie Parker) Address [address] [place] [address] Care Team Providers Name Role Phone Dejan Chaidez III, MD - Internal Care Team Information Associate Professor Of Musicology [phone] Medicine Dejan Chaidez III, MD - Internal Care Team Information Associate Professor Of Musicology [phone] Medicine Aurelio Sarabia MD - Infectious Care Team Information Associate Professor Of Musicology Disease Problems Active Problems Provider Date Ex-smoker Shelly [...] Smoker 1 Pack Daily Smoking Status Reviewed: 09/14/19 Current Cigarette Smoker 1 Pack Daily ETOH Use Has consumed alcohol in the past Tobacco Use Start: Unknown Patient is a current smoker, smokes every day Recreational Drug Use Denies Drug Use Exercise Type/Frequency Does not exercise Allergies, Adverse Reactions, Alerts Description No Known Drug Allergies Medications Active Medications SIG Qnty Indications Ordering Provider Date Kionex 15 gm by mouth 473ml Brielle Dawson MD 08/20/2019 15GM/60ML twice weekly Suspension Calcium Acetate (Phos take 2 caps with [...] Calcitriol 2 caps by mouth 30caps N25.81 Brielle Dawson MD 05/07/2019 0.25mcg twice a week Capsules History Medications Kionex 15 gm by mouth 473ml Brielle Dawson, 08/20/2019 - 15GM/60ML twice weekly 08/20/2019 Suspension Veltassa 1 packet by 30units E87.5 Brielle Dawson, 08/16/2019 - 8.4gm Packet mouth twice a 08/20/2019 week Vitamin D 1 by mouth once 30tabs E55.9 Brielle Dawson, 05/07/2019 - 2000Unit a day 06/08/2019 Tablets Renvela 1 by mouth with 90tabs E83.39 Brielle Dawson, 05/07/2019 - 800mg Tablets meals three 06/08/2019 times a day Amlodipine Besylate 1 by mouth 30tabs I10 Brielle Dawson, 05/07/2019 - daily 06/08/2019 2.5mg Tablets Sodium Bicarbonate 3 by mouth 180tabs E87.2 Brielle Dawson 05/07/2019 - twice a day 06/08/2019 325mg Tablets Calcitriol 1 caps by mouth 30caps N25.81 Brielle Dawson, 05/07/2019 - 0.25mcg twice a week 05/07/2019 Capsules Immunizations CPT Code Status Date Vaccine Reaction Lot # [id number] Given 05/11/2019 Influenza Virus Vaccine, No immediate reaction [id number] Quadrivalent ([id number]), Derived From Cell 04208 Given 08/09/2016 Zoster (Zostavax) [id number] Given 08/09/2016 Zoster (Zostavax) [id number] 66207 Given 08/09/2016 Influ Virus Vaccine, [id number] Quadrivalent, Split Virus, [place] [address] Given 08/09/2016 Pneumococcal Conjugate [id number] Vaccine 13 Valent For Intramuscular Use 80293 Given 04/07/2014 Influenza Virus Vaccine, [id number] Quadrivalent, Split, Preservative Free Vital Signs Date Vital Result Comment 09/14/2019 10:31am Height 64 inches 5'4" Heart Rate 97 /min BP Systolic Sitting 145 mmHg L arm BP Diastolic Sitting 90 mmHg L arm O2 % BldC Oximetry 94 % 09/02/2019 3:06pm Height 64 inches 5'4" Weight 118.38 lb Heart Rate 89 /min BP Systolic Sitting 125 mmHg BP Diastolic Sitting 69 mmHg BMI (Body Mass Index) 20.3 kg/m2 Results Test Acquired Date Facility Test Result H/L Range Note Laboratory test 09/08/2019 [facility] Phosphorus 5.7 mg/dL High 2.5-5.0 1, 2 [address] [place] [address] [phone] Iron & Iron 09/08/2019 [facility] Iron 63 g/dL Normal 50- [address] [place] [address] [phone] Unsaturated Iron Binding < 198 g/dL Total Iron Binding Capacity 213 g/dL Low 250-450 Transferrin 152 mg/dL Low 203-362 % Iron Saturation 30 % Normal 15-55 Laboratory test 09/08/2019 [facility] Ferritin 532.9 High 24- 336 [address] ng/[place] [address] [phone] Hemoglobin/Hemat 09/08/2019 [facility] Hemoglobin 9.0 g/dL Low 14.0-18.[address] [place] [address] [phone] Hematocrit 27 % Low 42-52 Pthi 09/08/2019 [facility] Calcium (PTH Intact) 8.3 mg/dL Low 8.6-10.[address] [place], [place] [id number] [phone] PTH Intact 210.2 pg/mL High 12-88 Laboratory test 08/28/2019 [facility] MRSA/S Aureus SEE RESULT [address] [place] [address] [phone] Wound 08/28/2019 [facility] Wound/Misc SEE RESULT 5 Culture/Sensi [address] [place] [address] Stain [phone] Laboratory test 08/28/2019 [facility] Ferritin 600.4 ng/mL High 24-[address] [place], [place] [address] [phone] Folic Acid (Folate) 18.26 ng/mL >3.99 Vitamin B12 1258 pg/mL High 180-914 6 Iron & Iron Binding 08/28/2019 [facility] Iron 57 g/dL Normal 50-[address] [place] [address] [phone] Unsaturated Iron Binding < 139 g/dL Total Iron Binding Capacity 154 g/dL Low 250-450 Transferrin 110 mg/dL Low 203-362 % Iron Saturation 37 % Normal 15-55 Laboratory test 08/28/2019 [facility] Erythrocyte Sed 120 mm/Hr High 0-[address] [place] [address] [phone] CBC Auto Diff 08/28/2019 [facility] White Blood 9.9 Normal 3.5 -10.[address] Count 10^3/[place] [address] [phone] Red Blood Count 2.73 10^6/uL Low 4.18-5.48 Hemoglobin 8.7 g/dL Low 14.0-18.0 Hematocrit 26 % Low 42-52 Mean Corpuscular Volume 95 fL High 80-94 Mean Corpuscular Hemoglobin 32 pg High 27-31 Mean Corpuscular HGB Conc 34 g/dL Normal 31-36 Red Cell Distribution Width 15 % Normal 10-15 Platelet Count 324 10^3/uL Normal 150-450 Mean Platelet Volume 8.0 fL Normal 7.4-10.4 Abs Neutrophils 8.0 10^3/uL High 1.5-7.7 Abs Lymphocytes 1.0 10^3/uL Normal 1.0-4.8 Abs Monocytes 0.6 10^3/uL Normal 0-0.8 Abs Eosinophils 0.3 10^3/uL Normal 0-0.6 Abs Basophils 0.1 10^3/uL Normal 0-0.2 Abs Nucleated RBC 0.0 10^3/uL Granulocyte % 80.3 % Lymphocyte % 10.6 % Monocyte % 5.6 % Eosinophil % 2.8 % Basophil % 0.7 % Nucleated Red Blood Cells % 0.0 Laboratory test 08/28/2019 [facility] C Reactive 93.76 mg/L High <8.[address] [place] [address] [phone] Comp Metabolic 08/28/2019 [facility] Sodium 139 mmol/L Normal 135-[address] [place] [address] [phone] Chloride 111 mmol/L Normal 101-111 Co2 Carbon Dioxide 15 mmol/L Low 22-32 Glucose 94 mg/dL Normal 70-100 Blood Urea Nitrogen 107 mg/dL High 6-24 Creatinine 8.18 mg/dL High 0.67-1.17 BUN/Creatinine Ratio 13.1 Normal 8-20 Calcium 8.8 mg/dL Normal 8.6-10.3 Total Protein 6.2 g/dL Low 6.4-8.9 Albumin 3.4 g/dL Normal 3.2-5.2 Globulin 2.8 g/dL Normal 2-4 Albumin/Globulin Ratio 1.2 Normal 1-3 Total Bilirubin 0.20 mg/dL Normal 0.2-1.0 Alkaline Phosphatase 61 U/L Normal 34-104 Alt 7 U/L Normal 7-52 Ast 6 U/L Low 13-39 Egfr Non- 6.7 >60 Egfr 8.1 >60 7 Potassium 5.1 mmol/L High 3.5-5.0 Anion Gap 13 mmol/L High 2-11 Hemoglobin/Hematocrit 08/11/2019 [facility] Hemoglobin 10.6 Low 14.0-18.[address] g/[place] [address] [phone] Hematocrit 31 % Low 42-52 Laboratory test 07/14/2019 [facility] Transferrin 188 mg/dL Low 203-362 [address] [place] [address] [phone] Ferritin 119.1 ng/mL Normal 24-336 8 Iron & Iron 07/14/2019 [facility] Unsaturated Iron < 248 g/dL Binding [address] [place] [address] [phone] Total Iron Binding Capacity 263 g/dL Normal 250-450 % Iron Saturation 18 % Normal 15-55 Laboratory test 07/14/2019 [facility] Phosphorus 5.0 mg/dL Normal 2.5-5.0 9 finding [address] [place] [address] [phone] Iron 48 g/dL Low 50-212 Basic Metabolic 07/14/2019 [facility] Sodium 140 mmol/L Normal 135-145 Panel [address] [place] [address] [phone] Chloride 111 mmol/L Normal 101-111 Co2 Carbon Dioxide 20 mmol/L Low 22-32 Glucose 87 mg/dL Normal 70-100 Blood Urea Nitrogen 80 mg/dL High 6-24 Creatinine 6.18 mg/dL High 0.67-1.17 BUN/Creatinine Ratio 12.9 Normal 8-20 Calcium 9.0 mg/dL Normal 8.6-10.3 Egfr Non- 9.2 >60 Egfr 11.2 >60 10 Potassium 5.6 mmol/L High 3.5-5.0 Anion Gap 9 mmol/L Normal 2-11 Pthi 07/14/2019 [facility] Calcium (PTH 8.8 mg/dL Normal 8.6- 10.[address] DRIVE Intact) [place] [address] [phone] PTH Intact 232.0 pg/mL High 12-88 Hemoglobin/Hematocrit 07/14/2019 [facility] Hemoglobin 9.3 Low 14.0-18.[address] g/[place] [address] [phone] Hematocrit 28 % Low 42-52 Electrolytes 06/18/2019 [facility] Sodium 139 mmol/L Normal 135-145 [address] [place] [address] [phone] Chloride 110 mmol/L Normal 101-111 Co2 Carbon Dioxide 20 mmol/L Low 22-32 Potassium 5.1 mmol/L High 3.5-5.0 Anion Gap 9 mmol/L Normal 2-11 Laboratory 06/18/2019 [facility] Point of Care 91 mg/dL Normal 70-100 11 test finding [address] [place] [address] [phone] Hemoglobin/Hem 06/09/2019 [facility] Hemoglobin 9.9 g/dL Low 14.0-18.[address] [place] [address] [phone] Hematocrit 29 % Low 42-52 Order 05/11/2019 [facility] EKG <pending> Renal Function 05/07/2019 [facility] Albumin 4.3 g/dL Normal 3.2-5.[address] [place] [address] [phone] Calcium 8.7 mg/dL Normal 8.6-10.3 Co2 Carbon Dioxide 18 mmol/L Low 22-32 Chloride 110 mmol/L Normal 101-111 Glucose 85 mg/dL Normal 70-100 Phosphorus 6.9 mg/dL High 2.5-5.0 Potassium 5.1 mmol/L High 3.5-5.0 Sodium 140 mmol/L Normal 135-145 Blood Urea Nitrogen BUN 114 mg/dL High 6-24 Creatinine 05/07/2019 [facility] Creatinine 7.20 mg/dL High 0.67-1.[address] [place] [address] [phone] Egfr Non- 7.7 >60 Egfr 9.4 >60 12 Laboratory test 05/07/2019 [facility] Vitamin D 29.7 Normal 20 -50 [address] Total 25(Oh) ng/[place] [address] [phone] Pthi 05/07/2019 [facility] Calcium (PTH 8.7 mg/dL Normal 8.6- 10.[address] Intact) [place] [address] [phone] PTH Intact 483.6 pg/mL High 12-88 Hemoglobin/Hematocrit 05/07/2019 [facility] Hemoglobin 10.6 Low 14.0-18.[address] g/[place] [address] [phone] Hematocrit 31 % Low 42-52 Iron & Iron Binding 05/07/2019 [facility] Iron 102 g/dL Normal 50-[address] [place] [address] [phone] Unsaturated Iron Binding < 227 g/dL Total Iron Binding Capacity 242 g/dL Low 250-450 Transferrin 173 mg/dL Low 203-362 % Iron Saturation 42 % Normal 15-55 Laboratory test 05/07/2019 [facility] Ferritin 170.0 Normal 24 -[address] ng/[place] [address] [phone] Hemoglobin/Raul 04/12/2019 [facility] Hemoglobin 8.4 g/dL Low 14.0-18.[address] [place] [address] [phone] Hematocrit 25 % Low 42-52 1 iron levels are good. hb good as well. no changes 2 1 month. 3 1 month. 4 SEE RESULT BELOW Name: BYRON GREGORY : [address]: Familia Ernandez MD Acct: [id number] Unit: [id number] AGE: 64 Location: [place] [id number] Re08/28/19 SEX: M Status: ADM IN SPEC: [id number] ALYSE: 08/28/19-[address] [facility] [address]: Marisela THOMAS REQ: [id number] RECD: 08/28/19 STATUS: COMP OT DR: Prasanna Chaidez III, MD _ SOURCE: LEG,LEFT SPDESC: ORDERED: MRSA/SA SSTI, Culture Stain COMMENTS: Verbal to [id number] by [id number] at 1910 on 08/28/19. Results read back accurately. Procedure Result Reported Site MRSA/S. aureus SSTI PCR Final 08/28/19- 1909 ML Organism 1 MRSA POSITIVE Organism 2 S.AUREUS POSITIVE As with all diagnostic procedures, the laboratory results obtained should be used in conjunction with other clinical information available to the physician, including confirmation by another method, as applicable. Wound/Misc Gram Stain Final 08/29/19- 650 ML 4+ Neutrophils 1+ Epithelial Cells 4+ Gram Positive Cocci Wound/Misc Culture Final 08/30/19- 936 ML Organism 1 MRSA Quantity 3+ CONTINUED ON NEXT PAGE DEPARTMENT OF PATHOLOGY, [address] [place] [address] Torsten Holman M.D. Director [facility] # [id number] Specimen: [id number] Collected: 08/28/19 Received: 08/28/19 (Continued) Procedure Result Reported Site Wound/Misc Culture Final (continued) 08/30/19- 09 1. MRSA M.I.C. RX --------- ------ Penicillin >=0.5 R Clindamycin <=0.25 S Erythromycin >=8 R Gentamicin <=0.5 S Linezolid 2 S Oxacillin >=4 R * Quinupristin/Dalfopristin 0.5 S Rifampin <=0.5 S Tetracycline <=1 S Doxycycline - Deduced S * Minocycline - Deduced S Trimethoprim/Sulfamethoxazole <=10 S Vancomycin 1 S Imipenem-Deduced R * Ampicillin/Sulbactam-Deduced R Cefazolin-Deduced R * These antibiotics are not available in the [facility] Formulary Contact the Microbiology Department for any additional antibiotic reporting. * ML - Main Lab . END OF REPORT DEPARTMENT OF PATHOLOGY, [address] [place] [address] Torsten Holman M.D. Director [facility] # [id number] 5 SEE RESULT BELOW Name: BYRON GREGORY : [address]: Prasanna Grimes MD Acct: [id number] Unit: [id number] AGE: 64 Location: ED Re08/28/19 SEX: M Status: REG ER SPEC: [id number] ALYSE: 08/28/19-[address] [facility] [address]: Marisela THOMAS REQ: [id number] RECD: 08/28/19 STATUS: RES [facility] DR: Prasanna Chaidez III, MD _ SOURCE: LEG,LEFT SPDESC: ORDERED: MRSA/SA SSTI, Culture Stain Procedure Result Reported Site MRSA/S. aureus SSTI PCR PENDING Wound/Misc Gram Stain Preliminary 08/28/19- 1803 ML 4+ Neutrophils 4+ Gram Positive Cocci Wound/Misc Culture PENDING * ML - Main Lab . END OF REPORT DEPARTMENT OF PATHOLOGY, [address] [place] [address] Torsten Holman M.D. Director [facility] # [id number] 6 Normal Range 180 to 914 Indeterminate Range 145 to 180 Deficient Range <145 7 Because ethnic data is not always [...] 5 Kidney failure <15 (or dialysis) 8 TOMORROW 9 TOMORROW 10 Because ethnic data is not always readily [...] 15-29 5 Kidney failure <15 (or dialysis) 11 Brand Marketing Specialist: [id number] 12 Because ethnic data is not always readily [...] 15-29 5 Kidney failure <15 (or dialysis) 13 Total 25-Hydroxyvitamin D2 and D3 (25-OH-VitD) <10 ng/mL (severe deficiency) 10-19 ng/mL (mild to moderate deficiency) 20-50 ng/mL (optimum levels) 51-80 ng/mL (increased risk of hypercalciuria) >80 ng/mL (toxicity possible) Procedures Date Code Description Status 05/11/2019 22393 EKG Tracing & Interpretation Completed Medical Devices Description No Information Available Encounters Type Date Location Provider Dx Diagnosis Office Visit 08/31/2019 [facility] Familia Ernandez, L02.31 Cutaneous abscess 2:14p makayla Fonseca M.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 abscess of Hospitalists buttock L02.415 Cutaneous abscess of right lower limb L02.416 Cutaneous abscess of left lower limb N18.6 End stage renal disease E87.2 Acidosis I10 Essential (primary) hypertension D64.9 Anemia, unspecified Office Visit 08/29/2019 2:14p [facility] Familia L02.91 Cutaneous makayla Fonseca M.D. abscess, Hospitalists unspecified N17.9 Acute kidney failure, unspecified E87.2 Acidosis N18.6 End stage renal disease I10 Essential (primary) hypertension D64.9 Anemia, unspecified Office Visit 08/28/2019 2:11p [facility] L02.31 Cutaneous Assoc,pc Anupama, [employer] abscess of Hospitalists buttock L02.415 Cutaneous abscess of right lower limb L02.416 Cutaneous abscess of left lower limb D50.9 Iron deficiency anemia, unspecified E87.5 Hyperkalemia E87.2 Acidosis N18.9 Chronic kidney disease, unspecified I10 Essential (primary) hypertension Office Visit 08/16/2019 1:30p [facility] Nephrology Brielle Dawson MD 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 N18.5 Chronic kidney disease, stage 5 N25.81 Secondary hyperparathyroidism of renal origin E87.5 Hyperkalemia D63.1 Anemia in chronic kidney disease E61.1 Iron deficiency E83.39 Other disorders of phosphorus metabolism Office Visit 06/08/2019 2:30p [facility] Nephrology Brielle Dawson MD 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 N18.5 Chronic kidney disease, stage 5 N25.81 Secondary hyperparathyroidism of renal origin E83.39 Other disorders of phosphorus metabolism I12.9 Hypertensive chronic kidney disease w stg 1-4/unsp chr kdny E87.2 Acidosis Office Visit 05/11/2019 9:40a [facility] Internal Marshal Jimena, Z01.818 Encounter for other Medicine - [employer] preprocedural Ccmob examination N18.6 End stage renal disease I10 Essential (primary) hypertension D63.1 Anemia in chronic kidney disease E87.5 Hyperkalemia F17.210 Nicotine dependence, cigarettes, uncomplicated Z23 Encounter for immunization Office Visit 05/07/2019 11:00a [facility] Nephrology Brielle Dawson MD 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 N18.6 End stage renal disease D63.1 Anemia in chronic kidney disease E83.39 Other disorders of phosphorus metabolism N25.81 Secondary hyperparathyroidism of renal origin E87.2 Acidosis E87.5 Hyperkalemia I10 Essential (primary) hypertension Assessments Date Code Description Provider 09/14/2019 N18.5 Chronic kidney disease, stage 5 Brielle Dwason MD 09/14/2019 I12.0 Hypertensive chronic kidney disease with Brielle Dawson MD stage 5 chronic kidney disease or end stage renal disease 09/14/2019 E87.5 Hyperkalemia Brielle Dawson MD 09/14/2019 E83.39 Other disorders of phosphorus metabolism Brielle Dawson MD 09/02/2019 L02.31 Cutaneous abscess of buttock Dejan Chaidez M.D. 09/02/2019 L02.419 Cutaneous abscess of limb, unspecified Dejan Chaidez M.D. 09/02/2019 N18.5 Chronic kidney disease, stage 5 Dejan Chaidez M.D. 08/31/2019 L02.31 Cutaneous abscess of buttock Familia Ernandez M.D. 08/31/2019 L02.415 Cutaneous abscess of right lower limb Familia Ernandez M.D. 08/31/2019 L02.416 Cutaneous abscess of left lower limb Familia Ernandez M.D. 08/31/2019 N18.6 End stage renal disease Familia Ernandez M.D. 08/31/2019 I10 Essential (primary) hypertension Familia Ernandez M.D. 08/31/2019 D64.9 Anemia, unspecified Familia Ernandez M.D. 08/30/2019 L02.31 Cutaneous abscess of buttock Familia Ernandez M.D. 08/30/2019 K61.0 Anal abscess Aurelio Sarabia M.D. 08/30/2019 L02.415 Cutaneous abscess of right lower limb Familia Ernandez M.D. 08/30/2019 L02.415 Cutaneous abscess of right lower limb Aurelio Sarabia M.D. 08/30/2019 L02.416 Cutaneous abscess of left lower limb Familia Ernandez M.D. 08/30/2019 L02.416 Cutaneous abscess of left lower limb Aurelio Sarabia M.D. 08/30/2019 N18.6 End stage renal disease Familia Ernandez M.D. 08/30/2019 B95.62 Methicillin resistant Staphylococcus Aurelio Sarabia M.D. aureus infection as the cause of diseases classified elsewhere 08/30/2019 E87.2 Acidosis Familia Ernandez M.D. 08/30/2019 N18.5 Chronic kidney disease, stage 5 Aurelio Sarabia M.D. 08/30/2019 I10 Essential (primary) hypertension Familia Ernandez M.D. 08/30/2019 D64.9 Anemia, unspecified Familia Ernandez M.D. 08/29/2019 L02.91 Cutaneous abscess, unspecified Familia Ernandez M.D. 08/29/2019 N17.9 Acute kidney failure, unspecified Familia Ernandez M.D. 08/29/2019 E87.2 Acidosis Familia Ernandez M.D. 08/29/2019 N18.6 End stage renal disease Familia Ernandez M.D. 08/29/2019 I10 Essential (primary) hypertension Familia Ernandez M.D. 08/29/2019 D64.9 Anemia, unspecified Familia Ernandez M.D. 08/28/2019 L02.31 Cutaneous abscess of buttock Colette Shortle, [employer] 08/28/2019 L02.415 Cutaneous abscess of right lower limb Colette Shortle, [employer] 08/28/2019 L02.416 Cutaneous abscess of left lower limb Colette Shortle, [employer] 08/28/2019 D50.9 Iron deficiency anemia, unspecified Colette Shortle, [employer] 08/28/2019 E87.5 Hyperkalemia Colette Shortle, [employer] 08/28/2019 E87.2 Acidosis Colette Shortle, [employer] 08/28/2019 N18.9 Chronic kidney disease, unspecified Colette Shortle, [employer] 08/28/2019 I10 Essential (primary) hypertension Colette Shortle, [employer] 08/16/2019 I12.0 Hypertensive chronic kidney disease with Brielle Dawson MD stage 5 chronic kidney disease or end stage renal disease 08/16/2019 N18.5 Chronic kidney disease, stage 5 Brielle Dawson MD 08/16/2019 N25.81 Secondary hyperparathyroidism of renal rBielle Dawson MD origin 08/16/2019 E87.5 Hyperkalemia Brielle Dawson MD 08/16/2019 D63.1 Anemia in chronic kidney disease Brielle Dawson MD 08/16/2019 E61.1 Iron deficiency Brielle Dawson MD 08/16/2019 E83.39 Other disorders of phosphorus metabolism Brielle Dawson MD 06/08/2019 I12.0 Hypertensive chronic [...] 05/11/2019 Z01.818 Encounter for other preprocedural Marshal Hess NP examination 05/11/2019 N18.6 End stage renal disease Marshal Hess NP 05/11/2019 I10 Essential (primary) hypertension Marshal Hess NP 05/11/2019 D63.1 Anemia in chronic kidney disease Marshal Hess NP 05/11/2019 E87.5 Hyperkalemia Marshal Hess NP 05/11/2019 F17.210 Nicotine dependence, cigarettes, Marshal Hess NP uncomplicated 05/11/2019 Z23 Encounter for immunization Marshal Hess NP 05/07/2019 I12.0 Hypertensive chronic kidney disease with [...] I10 Essential (primary) hypertension Brielle Dawson MD Plan of Treatment Future Appointment(s):10/15/2019 11:00 am - Brielle Dawson MD at [facility] [id number] /27/2020 - Dejan Chaidez M.D.L02.31 Cutaneous abscess of buttockComments: [facility] [place] admission for multiple ? pressure sores/MRSA. On Doxycycline rx and all areas improved. Continue Rx and recheck with ID as advised.Referral:Aurelio Sarabia MD, Infectious RwwetcejK15.419 Cutaneous abscess of limb, unspecifiedComments:Bilat calf lesions; improved with Rx.N18.5 Chronic kidney disease, stage 5Comments:Following with nephrology. Pt not on dialysis yet and still making urine. Functional Status Description No Information Available Mental Status Description No Information Available Referrals Refer to Reason for Referral Status Appt Date Aurelio Sarabia MD Hospital recheck; cutaneous abscesses Created [address] [place] [address] [place] [address] [phone] Sathish Berger MD For AVF. CKD 5. Sent [address] [place] [address] [phone]
--- OUTSIDE RECORDS SUMMARY | 2019-09-20 13:00 | XMS REPORT | Continuity of Care Document ---
:1955 External Reference #:[id number] Author Name Familia Ernandez M.D. (transmitted by agent of provider Debbie Parker) Address [address] [place] [address] Care Team Providers Name Role Phone Dejan Chaidez III, MD - Internal Care Team Information Flight Information Expediter [phone] Medicine Dejan Chaidez III, MD - Internal Care Team Information Flight Information Expediter [phone] Medicine Aurelio Sarabia MD - Infectious Care Team Information Flight Information Expediter [phone] Disease Problems Active Problems Provider Date Ex-smoker [...] Code Status Date Vaccine Reaction Lot # [id number] Given 05/11/2019 Influenza Virus Vaccine, No immediate reaction [id number] Quadrivalent ([id number]), Derived From Cell 55253 Given 08/09/2016 Zoster (Zostavax) 59488 Given 08/09/2016 Zoster (Zostavax) [id number] 99177 Given 08/09/2016 Influ Virus Vaccine, [id number] Quadrivalent, Split Virus, [place] [address] Given 08/09/2016 Pneumococcal Conjugate [id number] Vaccine 13 Valent For Intramuscular Use 36240 Given 04/07/2014 Influenza Virus Vaccine, [id number] Quadrivalent, Split, Preservative Free Vital Signs Date [...] Result H/L Range Note Laboratory test 09/08/2019 [facility] Phosphorus 5.7 mg/dL High 2.5-5.0 1, 2 finding [address] [place] [address] [phone] Iron & Iron 09/08/2019 [facility] Iron 63 g/dL Normal 50- [address] [place] [address] [phone] Unsaturated Iron Binding < 198 g/dL Total Iron Binding Capacity 213 g/dL Low 250-450 Transferrin 152 mg/dL Low 203-362 % Iron Saturation 30 % Normal 15-55 Laboratory test 09/08/2019 [facility] Ferritin 532.9 High 24- 336 [address] ng/[place] [address] [phone] Hemoglobin/Hemat 09/08/2019 [facility] Hemoglobin 9.0 g/dL Low 14.0-18.[address] [place] [address] [phone] Hematocrit 27 % Low 42-52 Pthi 09/08/2019 [facility] Calcium (PTH Intact) 8.3 mg/dL Low 8.6-10.[address] [place], [place] [id number] [phone] PTH Intact 210.2 pg/mL High 12-88 Laboratory test 08/28/2019 [facility] MRSA/S Aureus SEE RESULT [address] [place] [address] [phone] Wound 08/28/2019 [facility] Wound/Misc SEE RESULT 5 Culture/Sensi [address] [place] [address] Stain [phone] Laboratory test 08/28/2019 [facility] Ferritin 600.4 ng/mL High 24-[address] [place], [place] [id number] [phone] Folic Acid (Folate) 18.26 ng/mL >3.99 Vitamin B12 1258 pg/mL High 180-914 6 Iron & Iron Binding 08/28/2019 [facility] Iron 57 g/dL Normal 50-[address] [place] [address] [phone] Unsaturated Iron Binding < 139 g/dL Total Iron Binding Capacity 154 g/dL Low 250-450 Transferrin 110 mg/dL Low 203-362 % Iron Saturation 37 % Normal 15-55 Laboratory test 08/28/2019 [facility] Erythrocyte Sed 120 mm/Hr High 0-[address] [place] [address] [phone] CBC Auto Diff 08/28/2019 [facility] White Blood 9.9 Normal 3.5 -10.[address] Count 10^3/[place] [address] [phone] Red Blood Count 2.73 10^6/uL Low 4.18-5.48 [...] Blood Cells % 0.0 Laboratory test 08/28/2019 [facility] C Reactive 93.76 mg/L High <8.[address] [place] [address] [phone] Comp Metabolic 08/28/2019 [facility] Sodium 139 mmol/L Normal 135-[address] [place] [address] [phone] Chloride 111 mmol/L Normal 101-111 Co2 Carbon [...] Gap 13 mmol/L High 2-11 Hemoglobin/Hematocrit 08/11/2019 [facility] Hemoglobin 10.6 Low 14.0-18.[address] g/[place] [address] [phone] Hematocrit 31 % Low 42-52 Laboratory test 07/14/2019 [facility] Transferrin 188 mg/dL Low 203-362 finding [address] [place] [address] [phone] Ferritin 119.1 ng/mL Normal 24-336 8 Iron & Iron 07/14/2019 [facility] Unsaturated Iron < 248 g/dL Binding [address] [place] [address] [phone] Total Iron Binding Capacity 263 g/dL Normal 250-450 % Iron Saturation 18 % Normal 15-55 Laboratory test 07/14/2019 [facility] Phosphorus 5.0 mg/dL Normal 2.5-5.0 9 finding [address] [place] [address] [phone] Iron 48 g/dL Low 50-212 Basic Metabolic 07/14/2019 [facility] Sodium 140 mmol/L Normal 135-145 Panel [address] [place] [address] [phone] Chloride 111 mmol/L Normal 101-111 Co2 Carbon Dioxide 20 mmol/L Low 22-32 Glucose 87 mg/dL Normal 70-100 Blood Urea Nitrogen 80 mg/dL High 6-24 Creatinine 6.18 mg/dL High 0.67-1.17 BUN/Creatinine Ratio 12.9 Normal 8-20 Calcium 9.0 mg/dL Normal 8.6-10.3 Egfr Non- 9.2 >60 Egfr 11.2 >60 10 Potassium 5.6 mmol/L High 3.5-5.0 Anion Gap 9 mmol/L Normal 2-11 Pthi 07/14/2019 [facility] Calcium (PTH 8.8 mg/dL Normal 8.6- 10.3 DRIVE Intact) [place] [address] [phone] PTH Intact 232.0 pg/mL High 12-88 Hemoglobin/Hematocrit 07/14/2019 [facility] Hemoglobin 9.3 Low 14.0-18.[address] g/[place] [address] [phone] Hematocrit 28 % Low 42-52 Electrolytes 06/18/2019 [facility] Sodium 139 mmol/L Normal 135-145 [address] [place] [address] [phone] Chloride 110 mmol/L Normal 101-111 Co2 Carbon Dioxide 20 mmol/L Low 22-32 Potassium 5.1 mmol/L High 3.5-5.0 Anion Gap 9 mmol/L Normal 2-11 Laboratory 06/18/2019 [facility] Point of Care 91 mg/dL Normal 70-100 11 test finding [address] [place] [address] [phone] Hemoglobin/Hem 06/09/2019 [facility] Hemoglobin 9.9 g/dL Low 14.0-18.[address] [place] [address] [phone] Hematocrit 29 % Low 42-52 Order 05/11/2019 [employer] In-House EKG <pending> Renal Function 05/07/2019 [facility] Albumin 4.3 g/dL Normal 3.2-5.[address] [place] [address] [phone] Calcium 8.7 mg/dL Normal 8.6-10.3 Co2 Carbon Dioxide 18 mmol/L Low 22-32 Chloride 110 mmol/L Normal 101-111 Glucose 85 mg/dL Normal 70-100 Phosphorus 6.9 mg/dL High 2.5-5.0 Potassium 5.1 mmol/L High 3.5-5.0 Sodium 140 mmol/L Normal 135-145 Blood Urea Nitrogen BUN 114 mg/dL High 6-24 Creatinine 05/07/2019 [facility] Creatinine 7.20 mg/dL High 0.67-1.[address] [place] [address] [phone] Egfr Non- 7.7 >60 Egfr 9.4 >60 12 Laboratory test 05/07/2019 [facility] Vitamin D 29.7 Normal 20 -50 [address] Total 25(Oh) ng/[place] [address] [phone] Pthi 05/07/2019 [facility] Calcium (PTH 8.7 mg/dL Normal 8.6- 10.[address] Intact) [place] [address] [phone] PTH Intact 483.6 pg/mL High 12-88 Hemoglobin/Hematocrit 05/07/2019 [facility] Hemoglobin 10.6 Low 14.0-18.[address] g/[place] [address] [phone] Hematocrit 31 % Low 42-52 Iron & Iron Binding 05/07/2019 [facility] Iron 102 g/dL Normal 50-[address] [place] [address] [phone] Unsaturated Iron Binding < 227 g/dL Total Iron Binding Capacity 242 g/dL Low 250-450 Transferrin 173 mg/dL Low 203-362 % Iron Saturation 42 % Normal 15-55 Laboratory test 05/07/2019 [facility] Ferritin 170.0 Normal 24 -[address] ng/[place] [address] [phone] Hemoglobin/Raul 04/12/2019 [facility] Hemoglobin 8.4 g/dL Low 14.0-18.[address] [place] [address] [phone] Hematocrit 25 % Low 42-52 1 iron levels are good. hb good as well. no changes 2 1 month. 3 1 month. 4 SEE RESULT BELOW Name: BYRON GREGORY : [address]: Familia Ernandez MD Acct: [id number] Unit: [id number] AGE: 64 Location: [place] [address]01 Re08/28/19 SEX: M Status: ADM IN SPEC: [id number] ALYSE: 08/28/19-1422 [facility] DR: Marisela THOMAS REQ: [id number] RECD: 08/28/19 STATUS: COMP OT DR: Prasanna Chaidez III, MD _ SOURCE: LEG,LEFT SPDESC: ORDERED: MRSA/SA SSTI, Culture Stain COMMENTS: Verbal to [id number] by [id number] at 1910 on 08/28/19. Results read back [...] CONTINUED ON NEXT PAGE DEPARTMENT OF PATHOLOGY, [address] [place] [address] Torsten Holman M.D. Director [facility] # [id number] Specimen: [id number] Collected: 08/28/19 Received: 08/28/19 (Continued) Procedure Result [...] These antibiotics are not available in the [facility] Formulary Contact the Microbiology Department for any additional antibiotic reporting. * ML - Main Lab . END OF REPORT DEPARTMENT OF PATHOLOGY, [address] [place] [address] Torsten Holman M.D. Director [facility] # [id number] 5 SEE RESULT BELOW Name: BYRON GREGORY : [address]: Prasanna Grimes MD Acct: [id number] Unit: [id number] AGE: 64 Location: ED Re08/28/19 SEX: M Status: REG ER SPEC: [id number] ALYSE: 08/28/19-1421 [facility] DR: Marisela THOMAS REQ: [id number] RECD: 08/28/19 STATUS: RES [facility] DR: Prasanna Chaidez III, MD _ SOURCE: LEG,LEFT SPDESC: ORDERED: MRSA/SA SSTI, Culture Stain Procedure Result Reported Site MRSA/S. aureus SSTI PCR PENDING Wound/Misc Gram Stain Preliminary 08/28/19- 1803 ML 4+ Neutrophils 4+ Gram Positive Cocci Wound/Misc Culture PENDING * ML - Main Lab . END OF REPORT DEPARTMENT OF PATHOLOGY, [address] [place] [id number] Torsten Holman M.D. Director [facility] # [id number] 6 Normal Range 180 to 914 Indeterminate [...] 5 Kidney failure <15 (or dialysis) 11 Behavioral Health Care Coordinator: [id number] 12 Because ethnic data is not always [...] possible) Procedures Date Code Description Status 05/11/2019 07310 EKG Tracing & Interpretation Completed Medical Devices Description No Information Available Encounters Type Date Location Provider Dx Diagnosis Office Visit 08/31/2019 [facility] Familia Ernandez, L02.31 Cutaneous abscess 2:14p makayla Fonseca M.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 abscess of Hospitalists buttock L02.415 Cutaneous abscess of right lower limb L02.416 Cutaneous abscess of left lower limb N18.6 End stage renal disease E87.2 Acidosis I10 Essential (primary) hypertension D64.9 Anemia, unspecified Office Visit 08/29/2019 2:14p [facility] Familia L02.91 Cutaneous makayla Fonseca M.D. abscess, Hospitalists unspecified N17.9 Acute kidney failure, unspecified E87.2 Acidosis N18.6 End stage renal disease I10 Essential (primary) hypertension D64.9 Anemia, unspecified Office Visit 08/28/2019 2:11p [facility] L02.31 Cutaneous Assoc,pc Anupama, LABOR CONTRACTOR abscess of Hospitalists buttock L02.415 Cutaneous abscess of right lower limb L02.416 Cutaneous abscess of left lower limb D50.9 Iron deficiency anemia, unspecified E87.5 Hyperkalemia E87.2 Acidosis N18.9 Chronic kidney disease, unspecified I10 Essential (primary) hypertension Office Visit 08/16/2019 1:30p [facility] Nephrology Brielle Dawson MD 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 N18.5 Chronic kidney disease, stage 5 N25.81 Secondary hyperparathyroidism of renal origin E87.5 Hyperkalemia D63.1 Anemia in chronic kidney disease E61.1 Iron deficiency E83.39 Other disorders of phosphorus metabolism Office Visit 06/08/2019 2:30p [facility] Nephrology Brielle Dawson MD 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 N18.5 Chronic kidney disease, stage 5 N25.81 Secondary hyperparathyroidism of renal origin E83.39 Other disorders of phosphorus metabolism I12.9 Hypertensive chronic kidney disease w stg 1-4/unsp chr kdny E87.2 Acidosis Office Visit 05/11/2019 9:40a [facility] Internal Marshal Jimena, Z01.818 Encounter for other Medicine - LABOR CONTRACTOR preprocedural Ccmob examination N18.6 End stage renal disease I10 Essential (primary) hypertension D63.1 Anemia in chronic kidney disease E87.5 Hyperkalemia F17.210 Nicotine dependence, cigarettes, uncomplicated Z23 Encounter for immunization Office Visit 05/07/2019 11:00a [facility] Nephrology Brielle Dawson MD I12.0 Hyp [...] kidney disease, stage 5 Brielle Dawson MD 09/14/2019 I12.0 Hypertensive chronic kidney disease [...] L02.31 Cutaneous abscess of buttock Colette Shortle, LABOR CONTRACTOR 08/28/2019 L02.415 Cutaneous abscess of right lower limb Colette Shortle, LABOR CONTRACTOR 08/28/2019 L02.416 Cutaneous abscess of left lower limb Colette Shortle, LABOR CONTRACTOR 08/28/2019 D50.9 Iron deficiency anemia, unspecified Colette Shortle, LABOR CONTRACTOR 08/28/2019 E87.5 Hyperkalemia Colette Shortle, LABOR CONTRACTOR 08/28/2019 E87.2 Acidosis Colette Shortle, LABOR CONTRACTOR 08/28/2019 N18.9 Chronic kidney disease, unspecified Colette Shortle, LABOR CONTRACTOR 08/28/2019 I10 Essential (primary) hypertension Colette Shortle, LABOR CONTRACTOR 08/16/2019 I12.0 Hypertensive chronic kidney disease with Brielle Dawson MD stage 5 chronic kidney disease or end stage renal disease 08/16/2019 N18.5 Chronic kidney disease, stage 5 Brielle Dawson MD 08/16/2019 N25.81 Secondary hyperparathyroidism of renal Brielle Dawson MD origin 08/16/2019 E87.5 Hyperkalemia Brielle [...] 11:00 am - Brielle Dawson MD at [facility] [id number] /27/2020 - Dejan Chaidez M.D.L02.31 Cutaneous abscess of buttockComments: [facility] admission for multiple ? pressure sores/MRSA. On Doxycycline rx and all areas improved. Continue Rx and recheck with ID as advised.Referral:Aurelio Sarabia MD, Infectious LejmyvyjO02.419 Cutaneous abscess of limb, unspecifiedComments:Bilat calf lesions; improved with Rx.N18.5 Chronic kidney disease, stage 5Comments:Following with nephrology. Pt not on dialysis yet and still making urine. Functional Status Description No Information Available Mental Status Description No Information Available Referrals Refer to Reason for Referral Status Appt Date Aurelio Sarabia MD Hospital recheck; cutaneous abscesses Created [address] [place] [address] [place] [address] [phone] Sathish Berger MD For AVF. CKD 5. Sent [address] [place] [address] [place] [address] [phone]
--- OUTSIDE RECORDS SUMMARY | 2019-09-20 13:00 | XMS REPORT | Continuity of Care Document ---
:1955 External Reference #:[id number] Author Name Familia Ernandez M.D. (transmitted by agent of provider Debbie Parker) Address [address] [place] [address] Care Team Providers Name Role Phone Dejan Chaidez III, MD - Internal Care Team Information Case Checker [phone] Medicine Dejan Chaidez III, MD - Internal Care Team Information Case Checker [phone] Medicine Aurelio Sarabia MD - Infectious Care Team Information Case Checker [phone] Disease Problems Active Problems Provider Date Ex-smoker [...] Code Status Date Vaccine Reaction Lot # [id number] Given 05/11/2019 Influenza Virus Vaccine, No immediate reaction [id number] Quadrivalent ([id number]), Derived From Cell 81936 Given 08/09/2016 Zoster (Zostavax) [id number] Given 08/09/2016 Zoster (Zostavax) [id number] 09084 Given 08/09/2016 Influ Virus Vaccine, [id number] Quadrivalent, Split Virus, [place] [address] Given 08/09/2016 Pneumococcal Conjugate [id number] Vaccine 13 Valent For Intramuscular Use 37881 Given 04/07/2014 Influenza Virus Vaccine, [id number] Quadrivalent, Split, Preservative Free Vital Signs Date [...] Result H/L Range Note Laboratory test 09/08/2019 [facility] Phosphorus 5.7 mg/dL High 2.5-5.0 1, 2 finding [address] [place] [address] [phone] Iron & Iron 09/08/2019 [facility] Iron 63 g/dL Normal 50- [address] [place] [address] [phone] Unsaturated Iron Binding < 198 g/dL Total Iron Binding Capacity 213 g/dL Low 250-450 Transferrin 152 mg/dL Low 203-362 % Iron Saturation 30 % Normal 15-55 Laboratory test 09/08/2019 [facility] Ferritin 532.9 High 24- [address] ng/[place] [address] [phone] Hemoglobin/Hemat 09/08/2019 [facility] Hemoglobin 9.0 g/dL Low 14.0-18.[address] [place] [address] [phone] Hematocrit 27 % Low 42-52 Pthi 09/08/2019 [facility] Calcium (PTH Intact) 8.3 mg/dL Low 8.6-10.[address] [place], [place] [id number] [phone] PTH Intact 210.2 pg/mL High 12-88 Laboratory test 08/28/2019 [facility] MRSA/S Aureus SEE RESULT [address] [place] [address] [phone] Wound 08/28/2019 [facility] Wound/Misc SEE RESULT 5 Culture/Sensi [address] [place] [place] [address] Stain [phone] Laboratory test 08/28/2019 [facility] Ferritin 600.4 ng/mL High 24-[address] [place], [place] [id number] [phone] Folic Acid (Folate) 18.26 ng/mL >3.99 Vitamin B12 1258 pg/mL High 180-914 6 Iron & Iron Binding 08/28/2019 [facility] Iron 57 g/dL Normal 50-[address] [place] [address] [phone] Unsaturated Iron Binding < 139 g/dL Total Iron Binding Capacity 154 g/dL Low 250-450 Transferrin 110 mg/dL Low 203-362 % Iron Saturation 37 % Normal 15-55 Laboratory test 08/28/2019 [facility] Erythrocyte Sed 120 mm/Hr High 0-[address] [place] [address] [phone] CBC Auto Diff 08/28/2019 [facility] White Blood 9.9 Normal 3.5 -10.[address] Count 10^3/[place] [address] [phone] Red Blood Count 2.73 10^6/uL Low 4.18-5.48 [...] Blood Cells % 0.0 Laboratory test 08/28/2019 [facility] C Reactive 93.76 mg/L High <8.[address] [place] [address] [phone] Comp Metabolic 08/28/2019 [facility] Sodium 139 mmol/L Normal 135-[address] [place] [address] [phone] Chloride 111 mmol/L Normal 101-111 Co2 Carbon [...] Gap 13 mmol/L High 2-11 Hemoglobin/Hematocrit 08/11/2019 [facility] Hemoglobin 10.6 Low 14.0-18.[address] g/[place] [address] [phone] Hematocrit 31 % Low 42-52 Laboratory test 07/14/2019 [facility] Transferrin 188 mg/dL Low 203-362 finding [address] [place] [address] [phone] Ferritin 119.1 ng/mL Normal 24-336 8 Iron & Iron 07/14/2019 [facility] Unsaturated Iron < 248 g/dL Binding [address] [place] [address] [phone] Total Iron Binding Capacity 263 g/dL Normal 250-450 % Iron Saturation 18 % Normal 15-55 Laboratory test 07/14/2019 [facility] Phosphorus 5.0 mg/dL Normal 2.5-5.0 9 finding [address] [place] [address] [phone] Iron 48 g/dL Low 50-212 Basic Metabolic 07/14/2019 [facility] Sodium 140 mmol/L Normal 135-145 Panel [address] [place] [address] [phone] Chloride 111 mmol/L Normal 101-111 Co2 Carbon Dioxide 20 mmol/L Low 22-32 Glucose 87 mg/dL Normal 70-100 Blood Urea Nitrogen 80 mg/dL High 6-24 Creatinine 6.18 mg/dL High 0.67-1.17 BUN/Creatinine Ratio 12.9 Normal 8-20 Calcium 9.0 mg/dL Normal 8.6-10.3 Egfr Non- 9.2 >60 Egfr 11.2 >60 10 Potassium 5.6 mmol/L High 3.5-5.0 Anion Gap 9 mmol/L Normal 2-11 Pthi 07/14/2019 [facility] Calcium (PTH 8.8 mg/dL Normal 8.6- 10.3 DRIVE Intact) [place] [address] [phone] PTH Intact 232.0 pg/mL High 12-88 Hemoglobin/Hematocrit 07/14/2019 [facility] Hemoglobin 9.3 Low 14.0-18.[address] g/[place] [address] [phone] Hematocrit 28 % Low 42-52 Electrolytes 06/18/2019 [facility] Sodium 139 mmol/L Normal 135-145 [address] [place] [address] [phone] Chloride 110 mmol/L Normal 101-111 Co2 Carbon Dioxide 20 mmol/L Low 22-32 Potassium 5.1 mmol/L High 3.5-5.0 Anion Gap 9 mmol/L Normal 2-11 Laboratory 06/18/2019 [facility] Point of Care 91 mg/dL Normal 70-100 11 test finding [address] [place] [address] [phone] Hemoglobin/Hem 06/09/2019 [facility] Hemoglobin 9.9 g/dL Low 14.0-18.[address] [place] [address] [phone] Hematocrit 29 % Low 42-52 Order 05/11/2019 [facility] EKG <pending> Renal Function 05/07/2019 [facility] Albumin 4.3 g/dL Normal 3.2-5.[address] [place] [address] [phone] Calcium 8.7 mg/dL Normal 8.6-10.3 Co2 Carbon Dioxide 18 mmol/L Low 22-32 Chloride 110 mmol/L Normal 101-111 Glucose 85 mg/dL Normal 70-100 Phosphorus 6.9 mg/dL High 2.5-5.0 Potassium 5.1 mmol/L High 3.5-5.0 Sodium 140 mmol/L Normal 135-145 Blood Urea Nitrogen BUN 114 mg/dL High 6-24 Creatinine 05/07/2019 [facility] Creatinine 7.20 mg/dL High 0.67-1.[address] [place] [address] [phone] Egfr Non- 7.7 >60 Egfr 9.4 >60 12 Laboratory test 05/07/2019 [facility] Vitamin D 29.7 Normal 20 -50 [address] Total 25(Oh) ng/[place] [address] [phone] Pthi 05/07/2019 [facility] Calcium (PTH 8.7 mg/dL Normal 8.6- 10.[address] Intact) [place] [address] [phone] PTH Intact 483.6 pg/mL High 12-88 Hemoglobin/Hematocrit 05/07/2019 [facility] Hemoglobin 10.6 Low 14.0-18.[address] g/[place] [address] [phone] Hematocrit 31 % Low 42-52 Iron & Iron Binding 05/07/2019 [facility] Iron 102 g/dL Normal 50-[address] [place] [address] [phone] Unsaturated Iron Binding < 227 g/dL Total Iron Binding Capacity 242 g/dL Low 250-450 Transferrin 173 mg/dL Low 203-362 % Iron Saturation 42 % Normal 15-55 Laboratory test 05/07/2019 [facility] Ferritin 170.0 Normal 24 -[address] ng/[place] [address] [phone] Hemoglobin/Raul 04/12/2019 [facility] Hemoglobin 8.4 g/dL Low 14.0-18.[address] [place] [address] [phone] Hematocrit 25 % Low 42-52 1 iron levels are good. hb good as well. no changes 2 1 month. 3 1 month. 4 SEE RESULT BELOW Name: BYRON GREGORY : [address]: Familia Ernandez MD Acct: [id number] Unit: [id number] AGE: 64 Location: [place] [address] Re08/28/19 SEX: M Status: ADM IN SPEC: [id number] ALYSE: 08/28/19-1422 [facility] DR: Marisela THOMAS REQ: [id number] RECD: 08/28/19 STATUS: COMP OT DR: Prasanna Chaidez III, MD _ SOURCE: LEG,LEFT SPDESC: ORDERED: MRSA/SA SSTI, Culture Stain COMMENTS: Verbal to [id number] by [id number] at 1910 on 08/28/19. Results read back [...] CONTINUED ON NEXT PAGE DEPARTMENT OF PATHOLOGY, [address] [place] [address] Torsten Holman M.D. Director [facility] # [id number] Specimen: [id number] Collected: 08/28/19 Received: 08/28/19 (Continued) Procedure Result [...] These antibiotics are not available in the [facility] Formulary Contact the Microbiology Department for any additional antibiotic reporting. * ML - Main Lab . END OF REPORT DEPARTMENT OF PATHOLOGY, [address] [place] [address] Torsten Holman M.D. Director [facility] # [id number] 5 SEE RESULT BELOW Name: BYRON GREGORY : [address]: Prasanna Grimes MD Acct: [id number] Unit: [id number] AGE: 64 Location: ED Re08/28/19 SEX: M Status: REG ER SPEC: [id number] ALYSE: 08/28/19-1421 [facility] DR: Marisela THOMAS REQ: [id number] RECD: 08/28/19 STATUS: RES [facility] DR: Prasanna Chaidez III, MD _ SOURCE: LEG,LEFT SPDESC: ORDERED: MRSA/SA SSTI, Culture Stain Procedure Result Reported Site MRSA/S. aureus SSTI PCR PENDING Wound/Misc Gram Stain Preliminary 08/28/19- 1803 ML 4+ Neutrophils 4+ Gram Positive Cocci Wound/Misc Culture PENDING * ML - Main Lab . END OF REPORT DEPARTMENT OF PATHOLOGY, [address] [place] [address] Torsten Holman M.D. Director [facility] # [id number] 6 Normal Range 180 to 914 Indeterminate [...] 5 Kidney failure <15 (or dialysis) 11 Community Health Planning Director: [id number] 12 Because ethnic data is not always [...] possible) Procedures Date Code Description Status 05/11/2019 30942 EKG Tracing & Interpretation Completed Medical Devices Description No Information Available Encounters Type Date Location Provider Dx Diagnosis Office Visit 08/31/2019 [facility] Familia Ernandez, L02.31 Cutaneous abscess 2:14p 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 abscess of Hospitalists buttock L02.415 Cutaneous abscess of right lower limb L02.416 Cutaneous abscess of left lower limb N18.6 End stage renal disease E87.2 Acidosis I10 Essential (primary) hypertension D64.9 Anemia, unspecified Office Visit 08/29/2019 2:14p [facility] Familia L02.91 Cutaneous makayla Fonseca M.D. abscess, Hospitalists unspecified N17.9 Acute kidney failure, unspecified E87.2 Acidosis N18.6 End stage renal disease I10 Essential (primary) hypertension D64.9 Anemia, unspecified Office Visit 08/28/2019 2:11p [facility] L02.31 Cutaneous Assoc,pc Anupama, [employer] abscess of Hospitalists buttock L02.415 Cutaneous abscess of right lower limb L02.416 Cutaneous abscess of left lower limb D50.9 Iron deficiency anemia, unspecified E87.5 Hyperkalemia E87.2 Acidosis N18.9 Chronic kidney disease, unspecified I10 Essential (primary) hypertension Office Visit 08/16/2019 1:30p [facility] Nephrology Brielle Dawson MD 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 N18.5 Chronic kidney disease, stage 5 N25.81 Secondary hyperparathyroidism of renal origin E87.5 Hyperkalemia D63.1 Anemia in chronic kidney disease E61.1 Iron deficiency E83.39 Other disorders of phosphorus metabolism Office Visit 06/08/2019 2:30p [facility] Nephrology Brielel Dawson MD 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 N18.5 Chronic kidney disease, stage 5 N25.81 Secondary hyperparathyroidism of renal origin E83.39 Other disorders of phosphorus metabolism I12.9 Hypertensive chronic kidney disease w stg 1-4/unsp chr kdny E87.2 Acidosis Office Visit 05/11/2019 9:40a [facility] Internal Marshal Jimena, Z01.818 Encounter for other Medicine - [employer] preprocedural Ccmob examination N18.6 End stage renal disease I10 Essential (primary) hypertension D63.1 Anemia in chronic kidney disease E87.5 Hyperkalemia F17.210 Nicotine dependence, cigarettes, uncomplicated Z23 Encounter for immunization Office Visit 05/07/2019 11:00a [facility] Nephrology Brielle Dawson MD I12.0 Hyp chr [...] L02.31 Cutaneous abscess of buttock Colette Shortle, [employer] 08/28/2019 L02.415 Cutaneous abscess of right lower limb Colette Shortle, [employer] 08/28/2019 L02.416 Cutaneous abscess of left lower limb Colette Shortle, [employer] 08/28/2019 D50.9 Iron deficiency anemia, unspecified Colette Shortle, [employer] 08/28/2019 E87.5 Hyperkalemia Colette Shortle, [employer] 08/28/2019 E87.2 Acidosis Colette Shortle, [employer] 08/28/2019 N18.9 Chronic kidney disease, unspecified Colette Shortle, [employer] 08/28/2019 I10 Essential (primary) hypertension Colette Shortle, [employer] 08/16/2019 I12.0 Hypertensive chronic kidney disease with [...] 11:00 am - Brielle Dawson MD at [facility] [id number] /27/2020 - Dejan Chaidez M.D.L02.31 Cutaneous abscess of buttockComments: [facility] admission for multiple ? pressure sores/MRSA. On Doxycycline rx and all areas improved. Continue Rx and recheck with ID as advised.Referral:Aurelio Sarabia MD, Infectious UmamhbgjQ80.419 Cutaneous abscess of limb, unspecifiedComments:Bilat calf lesions; improved with Rx.N18.5 Chronic kidney disease, stage 5Comments:Following with nephrology. Pt not on dialysis yet and still making urine. Functional Status Description No Information Available Mental Status Description No Information Available Referrals Refer to Reason for Referral Status Appt Date Aurelio Sarabia MD Hospital recheck; cutaneous abscesses Created [address] [place] [address] [place] [address] [phone] Sathish Berger MD For AVF. CKD 5. Sent [address] [place] [address] [place] [address] [phone]
--- OUTSIDE RECORDS SUMMARY | 2019-09-20 13:00 | XMS REPORT | Continuity of Care Document ---
:1955 External Reference #:[id number] Author Name Aurelio Sarabia M.D. (transmitted by agent of provider Debbie Parker) Address [address] [place] [id number] Care Team Providers Name Role Phone Dejan Chaidez III, MD - Internal Care Team Information Staffing Consultant [phone] Medicine Dejan Chaidez III, MD - Internal Care Team Information Staffing Consultant Medicine Aurelio Sarabia MD - Infectious Care Team Information Staffing Consultant Disease Problems Active Problems Provider Date Ex-smoker [...] Bicarbonate 3 by mouth 180tabs E87.2 Brielle Dawson, 05/07/2019 - twice a day 06/08/2019 325mg Tablets Calcitriol 1 caps by mouth 30caps N25.81 Brielle Dawson, 05/07/2019 - 0.25mcg twice a week 05/07/2019 Capsules Immunizations CPT Code Status Date Vaccine Reaction Lot # [id number] Given 05/11/2019 Influenza Virus Vaccine, No immediate reaction [id number] Quadrivalent ([id number]), Derived From Cell 95051 Given 08/09/2016 Zoster (Zostavax) [id number] Given 08/09/2016 Zoster (Zostavax) [id number] 47688 Given 08/09/2016 Influ Virus Vaccine, [id number] Quadrivalent, Split Virus, [place] [address] Given 08/09/2016 Pneumococcal Conjugate [id number] Vaccine 13 Valent For Intramuscular Use 30296 Given 04/07/2014 Influenza Virus Vaccine, [id number] Quadrivalent, Split, Preservative Free Vital Signs Date [...] Result H/L Range Note Laboratory test 09/08/2019 [facility] Phosphorus 5.7 mg/dL High 2.5-5.0 1, [address] [place] [address] [phone] Iron & Iron 09/08/2019 [facility] Iron 63 g/dL Normal 50- 212 Binding Capacity [address] [place] [address] [phone] Unsaturated Iron Binding < 198 g/dL Total Iron Binding Capacity 213 g/dL Low 250-450 Transferrin 152 mg/dL Low 203-362 % Iron Saturation 30 % Normal 15-55 Laboratory test 09/08/2019 [facility] Ferritin 532.9 High 24- 336 [address] ng/[place] [address] [phone] Hemoglobin/Hemat 09/08/2019 [facility] Hemoglobin 9.0 g/dL Low 14.0-18.[address] [place] [address] [phone] Hematocrit 27 % Low 42-52 Pthi 09/08/2019 [facility] Calcium (PTH Intact) 8.3 mg/dL Low 8.6-10.[address] [place], [place] [id number] [phone] PTH Intact 210.2 pg/mL High 12-88 Laboratory test 08/28/2019 [facility] MRSA/S Aureus SEE RESULT [address] [address] [phone] Wound 08/28/2019 [facility] Wound/Misc SEE RESULT 5 Culture/Sensi [address] [place] [address] Stain [phone] Laboratory test 08/28/2019 [facility] Ferritin 600.4 ng/mL High 24-[address] 6 [place] [address] [phone] Folic Acid (Folate) 18.26 ng/mL >3.99 Vitamin B12 1258 pg/mL High 180-914 6 Iron & Iron Binding 08/28/2019 [facility] Iron 57 g/dL Normal 50-[address] [place] [address] [phone] Unsaturated Iron Binding < 139 g/dL Total Iron Binding Capacity 154 g/dL Low 250-450 Transferrin 110 mg/dL Low 203-362 % Iron Saturation 37 % Normal 15-55 Laboratory test 08/28/2019 [facility] Erythrocyte Sed 120 mm/Hr High 0-[address] Rate [place], [place] [address] [phone] CBC Auto Diff 08/28/2019 [facility] White Blood 9.9 Normal 3.5 -10.[address] Count 10^3/[place] [address] [phone] Red Blood Count 2.73 10^6/uL Low 4.18-5.48 [...] Blood Cells % 0.0 Laboratory test 08/28/2019 [facility] C Reactive 93.76 mg/L High <8.[address] [place] [address] [phone] Comp Metabolic 08/28/2019 [facility] Sodium 139 mmol/L Normal 135-[address] [place], [place] [id number] [phone] Chloride 111 mmol/L Normal 101-111 Co2 Carbon [...] Gap 13 mmol/L High 2-11 Hemoglobin/Hematocrit 08/11/2019 [facility] Hemoglobin 10.6 Low 14.0-18.[address] g/dL [place], [place] [address] [phone] Hematocrit 31 % Low 42-52 Laboratory test 07/14/2019 [facility] Transferrin 188 mg/dL Low 203-362 finding [address] [place] [address] [phone] Ferritin 119.1 ng/mL Normal 24-336 8 Iron & Iron 07/14/2019 [facility] Unsaturated Iron < 248 g/dL Binding Capacity [address] [place] [address] [phone] Total Iron Binding Capacity 263 g/dL Normal 250-450 % Iron Saturation 18 % Normal 15-55 Laboratory test 07/14/2019 [facility] Phosphorus 5.0 mg/dL Normal 2.5-5.0 9 finding [address] [place] [address] [phone] Iron 48 g/dL Low 50-212 Basic Metabolic 07/14/2019 [facility] Sodium 140 mmol/L Normal 135-145 Panel [address] [place] [address] [phone] Chloride 111 mmol/L Normal 101-111 Co2 Carbon Dioxide 20 mmol/L Low 22-32 Glucose 87 mg/dL Normal 70-100 Blood Urea Nitrogen 80 mg/dL High 6-24 Creatinine 6.18 mg/dL High 0.67-1.17 BUN/Creatinine Ratio 12.9 Normal 8-20 Calcium 9.0 mg/dL Normal 8.6-10.3 Egfr Non- 9.2 >60 Egfr 11.2 >60 10 Potassium 5.6 mmol/L High 3.5-5.0 Anion Gap 9 mmol/L Normal 2-11 Pthi 07/14/2019 [facility] Calcium (PTH 8.8 mg/dL Normal 8.6- 10.3 [facility] Intact) [place] [address] [phone] PTH Intact 232.0 pg/mL High 12-88 Hemoglobin/Hematocrit 07/14/2019 [facility] Hemoglobin 9.3 Low 14.0-18.[address] g/[place] [address] [phone] Hematocrit 28 % Low 42-52 Electrolytes 06/18/2019 [facility] Sodium 139 mmol/L Normal 135-145 [address] [place] [address] [phone] Chloride 110 mmol/L Normal 101-111 Co2 Carbon Dioxide 20 mmol/L Low 22-32 Potassium 5.1 mmol/L High 3.5-5.0 Anion Gap 9 mmol/L Normal 2-11 Laboratory 06/18/2019 [facility] Point of Care 91 mg/dL Normal 70-100 11 test finding [address] [place] [address] [phone] Hemoglobin/Hem 06/09/2019 [facility] Hemoglobin 9.9 g/dL Low 14.0-18.[address] [place] [address] [phone] Hematocrit 29 % Low 42-52 Order 05/11/2019 [facility] In-House EKG <pending> Renal Function 05/07/2019 [facility] Albumin 4.3 g/dL Normal 3.2-5.[address] [place] [address] [phone] Calcium 8.7 mg/dL Normal 8.6-10.3 Co2 Carbon Dioxide 18 mmol/L Low 22-32 Chloride 110 mmol/L Normal 101-111 Glucose 85 mg/dL Normal 70-100 Phosphorus 6.9 mg/dL High 2.5-5.0 Potassium 5.1 mmol/L High 3.5-5.0 Sodium 140 mmol/L Normal 135-145 Blood Urea Nitrogen BUN 114 mg/dL High 6-24 Creatinine 05/07/2019 [facility] Creatinine 7.20 mg/dL High 0.67-1.[address] [place] [address] [phone] Egfr Non- 7.7 >60 Egfr 9.4 >60 12 Laboratory test 05/07/2019 [facility] Vitamin D 29.7 Normal 20 -50 [address] Total 25(Oh) ng/[place] [address] [phone] Pthi 05/07/2019 [facility] Calcium (PTH 8.7 mg/dL Normal 8.6- 10.[address] Intact) [place] [address] [phone] PTH Intact 483.6 pg/mL High 12-88 Hemoglobin/Hematocrit 05/07/2019 [facility] Hemoglobin 10.6 Low 14.0-18.[address] g/dL [place], [place] [address] [phone] Hematocrit 31 % Low 42-52 Iron & Iron Binding 05/07/2019 [facility] Iron 102 g/dL Normal 50-[address] [place] [address] [phone] Unsaturated Iron Binding < 227 g/dL Total Iron Binding Capacity 242 g/dL Low 250-450 Transferrin 173 mg/dL Low 203-362 % Iron Saturation 42 % Normal 15-55 Laboratory test 05/07/2019 [facility] Ferritin 170.0 Normal 24 -[address] ng/mL [place], [place] [address] [phone] Hemoglobin/Raul 04/12/2019 [facility] Hemoglobin 8.4 g/dL Low 14.0-18.[address] [place] [address] [phone] Hematocrit 25 % Low 42-52 1 iron levels are good. hb good as well. no changes 2 1 month. 3 1 month. 4 SEE RESULT BELOW Name: BYRON GREGORY : [address]: Familia Ernandez MD Acct: [id number] Unit: [id number] AGE: 64 Location: [place] [address]- Re08/28/19 SEX: M Status: ADM IN SPEC: [id number] ALYSE: 08/28/19-[address] [facility] [address]: Marisela THOMAS REQ: [id number] RECD: 08/28/19 STATUS: COMP OT DR: Prasanna Chaidez III, MD _ SOURCE: LEG,LEFT SPDESC: ORDERED: MRSA/SA SSTI, Culture Stain COMMENTS: Verbal to [id number] by [id number] at 1910 on 08/28/19. Results read back [...] CONTINUED ON NEXT PAGE DEPARTMENT OF PATHOLOGY, [address] [place] [address] Tortsen Holman M.D. Director [facility] # [id number] Specimen: [id number] Collected: 08/28/19 Received: 08/28/19 (Continued) Procedure Result [...] These antibiotics are not available in the [facility] Formulary Contact the Microbiology Department for any additional antibiotic reporting. * ML - Main Lab . END OF REPORT DEPARTMENT OF PATHOLOGY, [address] [place] [address] Torsten Holman M.D. Director [facility] # [id number] 5 SEE RESULT BELOW Name: JAMBYRON LEVY : [address]: Prasanna Grimes MD Acct: [id number] Unit: [id number] AGE: 64 Location: ED Re08/28/19 SEX: M Status: REG ER SPEC: [id number] ALYSE: 08/28/19-[address] [facility] [address]: Marisela THOMAS REQ: [id number] RECD: 08/28/19 STATUS: RES [facility] DR: Prasanna Chaidez III, MD _ SOURCE: LEG,LEFT SPDESC: ORDERED: MRSA/SA SSTI, Culture Stain Procedure Result Reported Site MRSA/S. aureus SSTI PCR PENDING Wound/Misc Gram Stain Preliminary 08/28/19- 1803 ML 4+ Neutrophils 4+ Gram Positive Cocci Wound/Misc Culture PENDING * ML - Main Lab . END OF REPORT DEPARTMENT OF PATHOLOGY, [address] [place] [address] Torsten Holman M.D. Director [facility] # [id number] 6 Normal Range 180 to 914 Indeterminate [...] 5 Kidney failure <15 (or dialysis) 11 Shipping/Receiving Manager: [id number] 12 Because ethnic data is not always [...] possible) Procedures Date Code Description Status 05/11/2019 09254 EKG Tracing & Interpretation Completed Medical Devices Description No Information Available Encounters Type Date Location Provider Dx Diagnosis [facility] 11:14a Infectious Diseases Syl Sarabia L02.415 Cutaneous abscess of right lower limb L02.416 Cutaneous abscess of left lower limb 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 N18.5 Chronic kidney disease, stage 5 Office Visit 08/16/2019 1:30p [facility] Nephrology Brielle Dawson MD 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 N18.5 Chronic kidney disease, stage 5 N25.81 Secondary hyperparathyroidism of renal origin E87.5 Hyperkalemia D63.1 Anemia in chronic kidney disease E61.1 Iron deficiency E83.39 Other disorders of phosphorus metabolism Office Visit 06/08/2019 2:30p [facility] Nephrology Brielle Dawson MD 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 N18.5 Chronic kidney disease, stage 5 N25.81 Secondary hyperparathyroidism of renal origin E83.39 Other disorders of phosphorus metabolism I12.9 Hypertensive chronic kidney disease w stg 1-4/unsp chr kdny E87.2 Acidosis Office Visit 05/11/2019 9:40a [facility] Internal Marshal Hess, Z01.818 Encounter for other Medicine - MESH MAN preprocedural Ccmob examination N18.6 End stage renal disease I10 Essential (primary) hypertension D63.1 Anemia in chronic kidney disease E87.5 Hyperkalemia F17.210 Nicotine dependence, cigarettes, uncomplicated Z23 Encounter for immunization Office Visit 05/07/2019 11:00a [facility] Nephrology Brielle Dawson MD I12.0 Hyp chr [...] kidney disease, stage 5 Dejan Chaidez M.D. 08/30/2019 K61.0 Anal abscess Aurelio Sarabia M.D. 08/30/2019 L02.415 Cutaneous abscess of right lower limb Aurelio Sarabia M.D. 08/30/2019 L02.416 Cutaneous abscess of left lower limb Aurelio Sarabia M.D. 08/30/2019 B95.62 Methicillin resistant Staphylococcus Aurelio Sarabia M.D. aureus infection as the cause of diseases classified elsewhere 08/30/2019 N18.5 Chronic kidney disease, stage 5 Aurelio Sarabia M.D. 08/16/2019 I12.0 Hypertensive chronic kidney disease with [...] 11:00 am - Brielle Dawson MD at [facility] Yczjmdtojn06 /27/2020 - Dejan Chaidez M.D.L02.31 Cutaneous abscess of buttockComments: [facility] admission for multiple ? pressure sores/MRSA. On Doxycycline rx and all areas improved. Continue Rx and recheck with ID as advised.Referral:Aurelio Sarabia MD, Infectious MzhvnnbkG99.419 Cutaneous abscess of limb, unspecifiedComments:Bilat calf lesions; improved with Rx.N18.5 Chronic kidney disease, stage 5Comments:Following with nephrology. Pt not on dialysis yet and still making urine. Functional Status Description No Information Available Mental Status Description No Information Available Referrals Refer to Dr Reason for Referral Status Appt Date Aurelio Sarabia MD Hospital recheck; cutaneous abscesses Created [address] [place] [address] [place] [address] [phone] Sathish Berger MD For AVF. CKD 5. Sent [address] [place], [place] [id number] [phone]
--- OUTSIDE RECORDS SUMMARY | 2019-09-20 13:00 | XMS REPORT | Continuity of Care Document ---
:1955 External Reference #:[id number] Author Name Dejan Chaidez M.D. (transmitted by agent of provider Kate Ortega) Address [address] [place] [address], [place] [address] Care Team Providers Name Role Phone Dejan Chaidez III, MD - Internal Care Team Information [facility] [phone] Medicine Dejan Chaidez III, MD - Internal Care Team Information [facility] Medicine Aurelio Sarabia MD - Infectious Care Team Information [facility] Disease Problems Active Problems Provider Date Ex-smoker [...] Smoker 1 Pack Daily Smoking Status Reviewed: 09/02/19 Current Cigarette Smoker 1 Pack Daily ETOH [...] MD 05/07/2019 0.25mcg twice a week Capsules Doxycycline Hyclate twice a day for Unknown 10 days 100mg Capsules History Medications Kionex 15 gm by [...] Besylate 1 by mouth 30tabs I10 Brielle Dawson 05/07/2019 - daily 06/08/2019 2.5mg Tablets Sodium Bicarbonate 3 by mouth 180tabs E87.2 Brielle Dawson, 05/07/2019 - twice a day 06/08/2019 325mg Tablets Calcitriol 1 caps by mouth 30caps N25.81 Brielle Dawson, 05/07/2019 - 0.25mcg twice a week 05/07/2019 Capsules Immunizations CPT Code Status Date Vaccine Reaction Lot # [id number] Given 05/11/2019 Influenza Virus Vaccine, No immediate reaction [id number] Quadrivalent ([id number]), Derived From Cell 06485 Given 08/09/2016 Zoster (Zostavax) 11549 Given 08/09/2016 Zoster (Zostavax) [id number] 80438 Given 08/09/2016 Influ Virus Vaccine, [id number] Quadrivalent, Split Virus, [place] [address] Given 08/09/2016 Pneumococcal Conjugate [id number] Vaccine 13 Valent For Intramuscular Use 28520 Given 04/07/2014 Influenza Virus Vaccine, [id number] Quadrivalent, Split, Preservative Free Vital Signs Date Vital Result Comment 09/02/2019 3:06pm Height 64 inches 5'4" Weight 118.38 lb Heart Rate 89 /min BP Systolic Sitting 125 mmHg BP Diastolic Sitting 69 mmHg BMI (Body Mass Index) 20.3 kg/m2 08/16/2019 1:24pm Height 64 inches 5'4" Heart Rate 97 /min BP Systolic Sitting 138 mmHg L arm BP Diastolic Sitting 68 mmHg L arm O2 % BldC Oximetry 100 % Results Test Acquired Date Facility Test Result H/L Range Note Comp Metabolic 08/28/2019 [facility] Sodium 139 mmol/L Normal 135-145 Panel [address] [place] [address] [phone] Chloride 111 mmol/L Normal 101-111 Co2 Carbon [...] Egfr Non- 6.7 >60 Egfr 8.1 >60 1 Potassium 5.1 mmol/L High 3.5-5.0 Anion Gap 13 mmol/L High 2-11 Laboratory test 08/28/2019 [facility] C Reactive 93.76 High < 8.[address] Protein mg/L [place] [id number] [phone] CBC Auto Diff 08/28/2019 [facility] White Blood 9.9 Normal 3.5 -10.[address] Count 10^3/[place] [address] [phone] Red Blood Count 2.73 10^6/uL Low 4.18-5.48 [...] Blood Cells % 0.0 Laboratory test 08/28/2019 [facility] Erythrocyte Sed 120 mm/Hr High 0-[address] [place] [address] [phone] Iron & Iron 08/28/2019 [facility] Iron 57 g/dL Normal 50- [address] Capacity [place], [place] [phone] Unsaturated Iron Binding < 139 g/dL Total Iron Binding Capacity 154 g/dL Low 250-450 Transferrin 110 mg/dL Low 203-362 % Iron Saturation 37 % Normal 15-55 Laboratory test 08/28/2019 [facility] Ferritin 600.4 ng/mL High 24-[address] [place] [address] [phone] Folic Acid (Folate) 18.26 ng/mL >3.99 Vitamin B12 1258 pg/mL High 180-914 2 Wound 08/28/2019 [facility] Wound/Misc SEE RESULT 3 Culture/Sensi [address] [place] [address] Stain [phone] Laboratory test 08/28/2019 [facility] MRSA/S Aureus SEE RESULT [address] [place] [address] [phone] Hemoglobin/Hematoc 08/11/2019 [facility] Hemoglobin 10.6 g/dL Low 14.[address]. [place] [address] 0 [phone] Hematocrit 31 % Low 42-52 Laboratory test 07/14/2019 [facility] Transferrin 188 mg/dL Low 203-[address] [place], [place] [id number] [phone] Ferritin 119.1 ng/mL Normal 24-336 5 Iron & Iron 07/14/2019 [facility] Unsaturated Iron < 248 g/dL Binding Capacity [address] [place] [address] [phone] Total Iron Binding Capacity 263 g/dL Normal 250-450 % Iron Saturation 18 % Normal 15-55 Laboratory test 07/14/2019 [facility] Phosphorus 5.0 mg/dL Normal 2.5-5.[address] [place], [place] [address] [phone] Iron 48 g/dL Low 50-212 Basic Metabolic 07/14/2019 [facility] Sodium 140 mmol/L Normal 135-[address] [place] [address] [phone] Chloride 111 mmol/L Normal 101-111 Co2 Carbon Dioxide 20 mmol/L Low 22-32 Glucose 87 mg/dL Normal 70-100 Blood Urea Nitrogen 80 mg/dL High 6-24 Creatinine 6.18 mg/dL High 0.67-1.17 BUN/Creatinine Ratio 12.9 Normal 8-20 Calcium 9.0 mg/dL Normal 8.6-10.3 Egfr Non- 9.2 >60 Egfr 11.2 >60 7 Potassium 5.6 mmol/L High 3.5-5.0 Anion Gap 9 mmol/L Normal 2-11 Pthi 07/14/2019 [facility] Calcium (PTH 8.8 mg/dL Normal 8.6- 10.[address] Intact) [place] [address] [phone] PTH Intact 232.0 pg/mL High 12-88 Hemoglobin/Hematocrit 07/14/2019 [facility] Hemoglobin 9.3 Low 14.0-18.[address] g/[place] [address] [phone] Hematocrit 28 % Low 42-52 Electrolytes 06/18/2019 [facility] Sodium 139 mmol/L Normal 135-[address] [place] [address] [phone] Chloride 110 mmol/L Normal 101-111 Co2 Carbon Dioxide 20 mmol/L Low 22-32 Potassium 5.1 mmol/L High 3.5-5.0 Anion Gap 9 mmol/L Normal 2-11 Laboratory 06/18/2019 [facility] Point of Care 91 mg/dL Normal 70-100 [address] [place] [address] [phone] Hemoglobin/Hem 06/09/2019 [facility] Hemoglobin 9.9 g/dL Low 14.0-18.[address] [place] [address] [phone] Hematocrit 29 % Low 42-52 Order 05/11/2019 [facility] In-House EKG <pending> Renal Function 05/07/2019 [facility] Albumin 4.3 g/dL Normal 3.2-5.[address] [place] [address] [phone] Calcium 8.7 mg/dL Normal 8.6-10.3 Co2 Carbon Dioxide 18 mmol/L Low 22-32 Chloride 110 mmol/L Normal 101-111 Glucose 85 mg/dL Normal 70-100 Phosphorus 6.9 mg/dL High 2.5-5.0 Potassium 5.1 mmol/L High 3.5-5.0 Sodium 140 mmol/L Normal 135-145 Blood Urea Nitrogen BUN 114 mg/dL High 6-24 Creatinine 05/07/2019 [facility] Creatinine 7.20 mg/dL High 0.67-1.[address] [place] [address] [phone] Egfr Non- 7.7 >60 Egfr 9.4 >60 9 Laboratory test 05/07/2019 [facility] Vitamin D 29.7 Normal 20 -50 [address] Total 25(Oh) ng/mL [place], [place] [address] [phone] Pthi 05/07/2019 [facility] Calcium (PTH 8.7 mg/dL Normal 8.6- 10.[address] Intact) [place], [place] [address] [phone] PTH Intact 483.6 pg/mL High 12-88 Hemoglobin/Hematocrit 05/07/2019 [facility] Hemoglobin 10.6 Low 14.0-18.[address] g/dL [place], [place] [address] [phone] Hematocrit 31 % Low 42-52 Iron & Iron Binding 05/07/2019 [facility] Iron 102 g/dL Normal 50-[address] [place], [place] [address] [phone] Unsaturated Iron Binding < 227 g/dL Total Iron Binding Capacity 242 g/dL Low 250-450 Transferrin 173 mg/dL Low 203-362 % Iron Saturation 42 % Normal 15-55 Laboratory test 05/07/2019 [facility] Ferritin 170.0 Normal 24 -[address] ng/mL [place], [place] [address] [phone] Hemoglobin/Raul 04/12/2019 [facility] Hemoglobin 8.4 g/dL Low 14.0-18.[address] [place] [address] [phone] Hematocrit 25 % Low 42-52 1 Because ethnic data is not always [...] 5 Kidney failure <15 (or dialysis) 2 Normal Range 180 to 914 Indeterminate Range 145 to 180 Deficient Range <145 3 SEE RESULT BELOW Name: BYRON GREGORY : [address]: Prasanna Grimes MD Acct: [id number] Unit: [id number] AGE: 64 Location: ED Re08/28/19 SEX: M Status: REG ER SPEC: [id number] ALYSE: 08/28/19-142 [facility] DR: Marisela THOMAS REQ: [id number] RECD: 08/28/19 STATUS: RES [facility] DR: Pras[facility]imes [facility] _ SOURCE: LEG,LEFT SPDESC: ORDERED: MRSA/SA SSTI, Culture Stain Procedure Result Reported Site MRSA/S. aureus SSTI PCR PENDING Wound/Misc Gram Stain Preliminary 08/28/19- 180 ML 4+ Neutrophils 4+ Gram Positive Cocci Wound/Misc Culture PENDING * ML - Main Lab . END OF REPORT DEPARTMENT OF PATHOLOGY, [address] [place] [address] Torsten Holman M.D. Director [facility] # [id number] 4 SEE RESULT BELOW Name: BYRON GREGORY : [address]: Familia Ernandez MD Acct: [id number] Unit: [id number] AGE: 64 Location: [facility] 407-01 Re08/28/19 SEX: M Status: ADM IN SPEC: [id number] ALYSE: 08/28/19-[address]: Marisela THOMAS REQ: [id number] RECD: 08/28/19 STATUS: COMP [facility]A DR: Prasanna Chaidez III, MD _ SOURCE: LEG,LEFT SPDESC: ORDERED: MRSA/SA SSTI, Culture Stain COMMENTS: Verbal to [id number] by [id number] at 1910 on 08/28/19. Results read back accurately. Procedure Result Reported Site MRSA/S. aureus SSTI PCR Final 08/28/19- 1909 ML Organism 1 MRSA POSITIVE Organism 2 S.AUREUS POSITIVE As with all diagnostic procedures, the laboratory results obtained should be used in conjunction with other clinical information available to the physician, including confirmation by another method, as applicable. Wound/Misc Gram Stain Final 08/29/19- 51 ML 4+ Neutrophils 1+ Epithelial Cells 4+ Gram Positive Cocci Wound/Misc Culture Final 08/30/19- 37 ML Organism 1 MRSA Quantity 3+ CONTINUED ON NEXT PAGE DEPARTMENT OF PATHOLOGY, [address] [place] [address] Torsten Holman M.D. Director [facility] # [id number] Specimen: [id number] Collected: 08/28/19 Received: 08/28/19 (Continued) Procedure Result Reported Site Wound/Misc Culture Final (continued) 08/30/19936 1. MRSA M.I.C. RX --------- ------ Penicillin [...] These antibiotics are not available in the [facility] Formulary Contact the Microbiology Department for any additional antibiotic reporting. * - Main Lab . END OF REPORT DEPARTMENT OF PATHOLOGY, [address] [place] [address] Torsten Holman M.D. Director [facility] # [id number] TOMORROW 6 TOMORROW 7 Because ethnic data is not always [...] 5 Kidney failure <15 (or dialysis) 8 Utility Mechanic Supervisor: [id number] 9 Because ethnic data is not always readily [...] 15-29 5 Kidney failure <15 (or dialysis) 10 Total 25-Hydroxyvitamin D2 and D3 (25-OH-VitD) <10 ng/mL (severe deficiency) 10-19 ng/mL (mild to moderate deficiency) 20-50 ng/mL (optimum levels) 51-80 ng/mL (increased risk of hypercalciuria) >80 ng/mL (toxicity possible) Procedures Date Code Description Status 05/11/2019 01163 EKG Tracing & Interpretation Completed Medical Devices Description No Information Available Encounters Type Date Location Provider Dx Diagnosis Office Visit 08/16/2019 [facility] Neph[facility] Brielle Dawson MD 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 N18.5 Chronic kidney disease, stage 5 N25.81 Secondary hyperparathyroidism of renal origin E87.5 Hyperkalemia D63.1 Anemia in chronic kidney disease E61.1 Iron deficiency E83.39 Other disorders of phosphorus metabolism Office Visit 06/08/2019 2:30p [facility] Nephrology Brielle Dawson MD 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 N18.5 Chronic kidney disease, stage 5 N25.81 Secondary hyperparathyroidism of renal origin E83.39 Other disorders of phosphorus metabolism I12.9 Hypertensive chronic kidney disease w stg 1-4/unsp chr kdny E87.2 Acidosis Office Visit 05/11/2019 9:40a [facility] Internal Marshal Jimena, Z01.818 Encounter for other Medicine - [facility] [employer] [facility] preprocedural Ccmob examination N18.6 End stage renal disease I10 Essential (primary) hypertension D63.1 Anemia in chronic kidney disease E87.5 Hyperkalemia F17.210 Nicotine dependence, cigarettes, uncomplicated Z23 Encounter for immunization Office Visit 05/07/2019 11:00a [facility] Nephrology Brielle Dawson MD 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 09/02/2019 L02.419 Cutaneous abscess of limb, unspecified Dejan Chaidez M.D. 09/02/2019 N18.5 Chronic kidney disease, stage 5 Dejan Chaidez M.D. 08/16/2019 I12.0 Hypertensive chronic kidney disease [...] Brielle Dawson MD Plan of Treatment Future Appointment(s):09/14/2019 11:00 am - Brielle Dawson MD at [facility] [id number] /27/2020 - Dejan Chaidez M.D.L02.31 Cutaneous abscess of buttockComments: [facility] admission for multiple ? pressure sores/MRSA. On Doxycycline rx and all areas improved. Continue Rx and recheck with ID as advised.Referral:Aurelio Sarabia MD, Infectious RnbnevhxU76.419 Cutaneous abscess of limb, unspecifiedComments:Bilat calf lesions; improved with Rx.N18.5 Chronic kidney disease, stage 5Comments:Following with nephrology. Pt not on dialysis yet and still making urine. Functional Status Description No Information Available Mental Status Description No Information Available Referrals Refer to Dr Reason for Referral Status Appt Date Aurelio Sarabia MD Hospital recheck; cutaneous abscesses Created [address] [place] [address] [place] [address] [phone] Sathish Berger MD For AVF. CKD 5. Sent [address] [place] [address] [place] [address] [phone]
--- OUTSIDE RECORDS SUMMARY | 2019-09-20 13:00 | XMS REPORT | Continuity of Care Document ---
:1955 External Reference #:[id number] Author Name Colette Altman NP (transmitted by agent of provider Debbie Parker) Address [address] [place] [address] Care Team Providers Name Role Phone Dejan Chaidez III, MD - Internal Care Team Information Air Marshal [phone] Medicine Dejan Chaidez III, MD - Internal Care Team Information Air Marshal [phone] Medicine Aurelio Sarabia MD - Infectious Care Team Information Air Marshal Disease Problems Active Problems Provider Date Ex-smoker [...] 1 by mouth with 90tabs E83.39 Brielle Dawson 05/07/2019 - 800mg Tablets meals three 06/08/2019 [...] Code Status Date Vaccine Reaction Lot # [id number] Given 05/11/2019 Influenza Virus Vaccine, No immediate reaction [id number] Quadrivalent ([id number]), Derived From Cell 36144 Given 08/09/2016 Zoster (Zostavax) 68565 Given 08/09/2016 Zoster (Zostavax) [id number] 72823 Given 08/09/2016 Influ Virus Vaccine, [id number] Quadrivalent, Split Virus, [place] [address] Given 08/09/2016 Pneumococcal Conjugate [id number] Vaccine 13 Valent For Intramuscular Use 03924 Given 04/07/2014 Influenza Virus Vaccine, [id number] Quadrivalent, Split, Preservative Free Vital Signs Date [...] Result H/L Range Note Laboratory test 09/08/2019 [facility] Phosphorus 5.7 mg/dL High 2.5-5.0 1, 2 finding [address] [place] [address] [phone] Iron & Iron 09/08/2019 [facility] Iron 63 g/dL Normal 50- [address] [place] [address] [phone] Unsaturated Iron Binding < 198 g/dL Total Iron Binding Capacity 213 g/dL Low 250-450 Transferrin 152 mg/dL Low 203-362 % Iron Saturation 30 % Normal 15-55 Laboratory test 09/08/2019 [facility] Ferritin 532.9 High 24- [address] ng/[place] [address] [phone] Hemoglobin/Hemat 09/08/2019 [facility] Hemoglobin 9.0 g/dL Low 14.0-18.[address] [place], [place] [address] [phone] Hematocrit 27 % Low 42-52 Pthi 09/08/2019 [facility] Calcium (PTH Intact) 8.3 mg/dL Low 8.6-10.[address] [place], [place] [address] [phone] PTH Intact 210.2 pg/mL High 12-88 Laboratory test 08/28/2019 [facility] MRSA/S Aureus SEE RESULT [address] Ssti PCR BELOW [place], [place] [address] [phone] Wound 08/28/2019 [facility] Wound/Misc SEE RESULT 5 Culture/Sensi [address] [place] [place] [address] Stain [phone] Laboratory test 08/28/2019 [facility] Ferritin 600.4 ng/mL High 24-[address] [place], [place] [address] [phone] Folic Acid (Folate) 18.26 ng/mL >3.99 Vitamin B12 1258 pg/mL High 180-914 6 Iron & Iron Binding 08/28/2019 [facility] Iron 57 g/dL Normal 50-[address] [place], [place] [address] [phone] Unsaturated Iron Binding < 139 g/dL Total Iron Binding Capacity 154 g/dL Low 250-450 Transferrin 110 mg/dL Low 203-362 % Iron Saturation 37 % Normal 15-55 Laboratory test 08/28/2019 [facility] Erythrocyte Sed 120 mm/Hr High 0-[address] [place], [place] [address] [phone] CBC Auto Diff 08/28/2019 [facility] White Blood 9.9 Normal 3.5 -10.[address] Count 10^3/uL [place], [place] [address] [phone] Red Blood Count 2.73 10^6/uL Low 4.18-5.48 [...] Blood Cells % 0.0 Laboratory test 08/28/2019 [facility] C Reactive 93.76 mg/L High <8.[address] [place] [address] [phone] Comp Metabolic 08/28/2019 [facility] Sodium 139 mmol/L Normal 135-[address] [place] [address] [phone] Chloride 111 mmol/L Normal 101-111 Co2 Carbon [...] Gap 13 mmol/L High 2-11 Hemoglobin/Hematocrit 08/11/2019 [facility] Hemoglobin 10.6 Low 14.0-18.[address] g/[place] [address] [phone] Hematocrit 31 % Low 42-52 Laboratory test 07/14/2019 [facility] Transferrin 188 mg/dL Low 203-362 finding [address] [place] [address] [phone] Ferritin 119.1 ng/mL Normal 24-336 8 Iron & Iron 07/14/2019 [facility] Unsaturated Iron < 248 g/dL Binding Capacity [address] [place] [address] [phone] Total Iron Binding Capacity 263 g/dL Normal 250-450 % Iron Saturation 18 % Normal 15-55 Laboratory test 07/14/2019 [facility] Phosphorus 5.0 mg/dL Normal 2.5-5.0 9 finding [address] [place] [address] [phone] Iron 48 g/dL Low 50-212 Basic Metabolic 07/14/2019 [facility] Sodium 140 mmol/L Normal 135-145 Panel [address] [place] [address] [phone] Chloride 111 mmol/L Normal 101-111 Co2 Carbon Dioxide 20 mmol/L Low 22-32 Glucose 87 mg/dL Normal 70-100 Blood Urea Nitrogen 80 mg/dL High 6-24 Creatinine 6.18 mg/dL High 0.67-1.17 BUN/Creatinine Ratio 12.9 Normal 8-20 Calcium 9.0 mg/dL Normal 8.6-10.3 Egfr Non- 9.2 >60 Egfr 11.2 >60 10 Potassium 5.6 mmol/L High 3.5-5.0 Anion Gap 9 mmol/L Normal 2-11 Pthi 07/14/2019 [facility] Calcium (PTH 8.8 mg/dL Normal 8.6- 10.[address] DRIVE Intact) [place] [address] [phone] PTH Intact 232.0 pg/mL High 12-88 Hemoglobin/Hematocrit 07/14/2019 [facility] Hemoglobin 9.3 Low 14.0-18.[address] g/[place] [address] [phone] Hematocrit 28 % Low 42-52 Electrolytes 06/18/2019 [facility] Sodium 139 mmol/L Normal 135-145 [address] [place] [address] [phone] Chloride 110 mmol/L Normal 101-111 Co2 Carbon Dioxide 20 mmol/L Low 22-32 Potassium 5.1 mmol/L High 3.5-5.0 Anion Gap 9 mmol/L Normal 2-11 Laboratory 06/18/2019 [facility] Point of Care 91 mg/dL Normal 70-100 11 test finding [address] [place] [address] [phone] Hemoglobin/Hem 06/09/2019 [facility] Hemoglobin 9.9 g/dL Low 14.0-18.[address] [place] [address] [phone] Hematocrit 29 % Low 42-52 Order 05/11/2019 [facility] In-House EKG <pending> Renal Function 05/07/2019 [facility] Albumin 4.3 g/dL Normal 3.2-5.[address] [place] [address] [phone] Calcium 8.7 mg/dL Normal 8.6-10.3 Co2 Carbon Dioxide 18 mmol/L Low 22-32 Chloride 110 mmol/L Normal 101-111 Glucose 85 mg/dL Normal 70-100 Phosphorus 6.9 mg/dL High 2.5-5.0 Potassium 5.1 mmol/L High 3.5-5.0 Sodium 140 mmol/L Normal 135-145 Blood Urea Nitrogen BUN 114 mg/dL High 6-24 Creatinine 05/07/2019 [facility] Creatinine 7.20 mg/dL High 0.67-1.[address] [place] [address] [phone] Egfr Non- 7.7 >60 Egfr 9.4 >60 12 Laboratory test 05/07/2019 [facility] Vitamin D 29.7 Normal 20 -50 [address] Total 25(Oh) ng/[place] [address] [phone] Pthi 05/07/2019 [facility] Calcium (PTH 8.7 mg/dL Normal 8.6- 10.[address] Intact) [place] [address] [phone] PTH Intact 483.6 pg/mL High 12-88 Hemoglobin/Hematocrit 05/07/2019 [facility] Hemoglobin 10.6 Low 14.0-18.[address] g/[place] [address] [phone] Hematocrit 31 % Low 42-52 Iron & Iron Binding 05/07/2019 [facility] Iron 102 g/dL Normal 50-[address] [place] [address] [phone] Unsaturated Iron Binding < 227 g/dL Total Iron Binding Capacity 242 g/dL Low 250-450 Transferrin 173 mg/dL Low 203-362 % Iron Saturation 42 % Normal 15-55 Laboratory test 05/07/2019 [facility] Ferritin 170.0 Normal 24 -[address] ng/[place] [address] [phone] Hemoglobin/Raul 04/12/2019 [facility] Hemoglobin 8.4 g/dL Low 14.0-18.[address] [place] [address] [phone] Hematocrit 25 % Low 42-52 1 iron levels are good. hb good as well. no changes 2 1 month. 3 1 month. 4 SEE RESULT BELOW Name: SAMRABYRON : [address]: Familia Ernandze MD Acct: [id number] Unit: [id number] AGE: 64 Location: [place] [address]- Re08/28/19 SEX: M Status: ADM IN SPEC: [id number] ALYSE: 08/28/19-[address] [facility] [address]: Marisela THOMAS REQ: [id number] RECD: 08/28/19-1750 STATUS: COMP SHAW DR: Prasanna Chaidez III, MD _ SOURCE: LEG,LEFT SPDESC: ORDERED: MRSA/SA SSTI, Culture Stain COMMENTS: Verbal to [id number] by [id number] at 1910 on 08/28/19. Results read back [...] CONTINUED ON NEXT PAGE DEPARTMENT OF PATHOLOGY, [address] [place] [address] Torsten Holman M.D. Director [facility] # [id number] Specimen: [id number] Collected: 08/28/19 Received: 08/28/19 (Continued) Procedure Result Reported Site Wound/Misc Culture Final (continued) 08/30/19- 936 1. MRSA M.I.C. RX --------- ------ Penicillin [...] These antibiotics are not available in the [facility] Formulary Contact the Microbiology Department for any additional antibiotic reporting. * ML - Main Lab . END OF REPORT DEPARTMENT OF PATHOLOGY, [address] [place] [address] Torsten Holman M.D. Director [facility] # [id number] 5 SEE RESULT BELOW Name: BYRON CABRALES : [address]: Prasanna Grimes MD Acct: [id number] Unit: [id number] AGE: 64 Location: ED Re08/28/19 SEX: M Status: REG ER SPEC: [id number] ALYSE: 08/28/19-[address] [facility] [address]: Marisela THOMAS REQ: [id number] RECD: 08/28/19 STATUS: RES [facility] DR: Prasanna Chaidez III, MD _ SOURCE: LEG,LEFT SPDESC: ORDERED: MRSA/SA SSTI, Culture Stain Procedure Result Reported Site MRSA/S. aureus SSTI PCR PENDING Wound/Misc Gram Stain Preliminary 08/28/19- 1803 ML 4+ Neutrophils 4+ Gram Positive Cocci Wound/Misc Culture PENDING * ML - Main Lab . END OF REPORT DEPARTMENT OF PATHOLOGY, [address] [place] [address] Torsten Holman M.D. Director [facility] # [id number] 6 Normal Range 180 to 914 Indeterminate [...] 5 Kidney failure <15 (or dialysis) 11 Air Deodorizer Servicer: [id number] 12 Because ethnic data is not always [...] possible) Procedures Date Code Description Status 05/11/2019 91716 EKG Tracing & Interpretation Completed Medical Devices Description No Information Available Encounters Type Date Location Provider Dx Diagnosis Office Visit 08/31/2019 [facility] Familia Ernandez, L02.31 Cutaneous abscess 2:14p makayla Fonseca M.D. of [facility] Hospitalists L02.415 Cutaneous abscess of right lower limb L02.416 Cutaneous abscess of left lower limb N18.6 End stage renal disease I10 Essential (primary) hypertension D64.9 Anemia, unspecified Office Visit 08/30/2019 11:14a [facility] Zully Henry K61.0 Anal abscess Lissette Sarabia M.D. 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 abscess of Hospitalists buttock L02.415 Cutaneous abscess of right lower limb L02.416 Cutaneous abscess of left lower limb N18.6 End stage renal disease E87.2 Acidosis I10 Essential (primary) hypertension D64.9 Anemia, unspecified Office Visit 08/29/2019 2:14p [facility] Familia L02.91 Cutaneous makayla Fonseca M.D. abscess, Hospitalists unspecified N17.9 Acute kidney failure, unspecified E87.2 Acidosis N18.6 End stage renal disease I10 Essential (primary) hypertension D64.9 Anemia, unspecified Office Visit 08/28/2019 2:11p [facility] L02.31 Cutaneous Assoc,makayla Altman, BUTT TRIMMER abscess of Hospitalists buttock L02.415 Cutaneous abscess of right lower limb L02.416 Cutaneous abscess of left lower limb D50.9 Iron deficiency anemia, unspecified E87.5 Hyperkalemia E87.2 Acidosis N18.9 Chronic kidney disease, unspecified I10 Essential (primary) hypertension Office Visit 08/16/2019 1:30p [facility] Nephrology Brielle Dwason MD 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 N18.5 Chronic kidney disease, stage 5 N25.81 Secondary hyperparathyroidism of renal origin E87.5 Hyperkalemia D63.1 Anemia in chronic kidney disease E61.1 Iron deficiency E83.39 Other disorders of phosphorus metabolism Office Visit 06/08/2019 2:30p [facility] Nephrology Brielle Dawson MD 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 N18.5 Chronic kidney disease, stage 5 N25.81 Secondary hyperparathyroidism of renal origin E83.39 Other disorders of phosphorus metabolism I12.9 Hypertensive chronic kidney disease w stg 1-4/unsp chr kdny E87.2 Acidosis Office Visit 05/11/2019 9:40a [facility] Internal Marshal Jimena, Z01.818 Encounter for other Medicine - BUTT TRIMMER preprocedural Ccmob examination N18.6 End stage renal disease I10 Essential (primary) hypertension D63.1 Anemia in chronic kidney disease E87.5 Hyperkalemia F17.210 Nicotine dependence, cigarettes, uncomplicated Z23 Encounter for immunization Office Visit 05/07/2019 11:00a [facility] Nephrology Brielle Dawson MD I12.0 Hyp [...] L02.31 Cutaneous abscess of buttock Colette Shortle, BUTT TRIMMER 08/28/2019 L02.415 Cutaneous abscess of right lower limb Colette Shortle, BUTT TRIMMER 08/28/2019 L02.416 Cutaneous abscess of left lower limb Colette Shortle, BUTT TRIMMER 08/28/2019 D50.9 Iron deficiency anemia, unspecified Colette Shortle, BUTT TRIMMER 08/28/2019 E87.5 Hyperkalemia Colette Shortle, BUTT TRIMMER 08/28/2019 E87.2 Acidosis Colette Shortle, BUTT TRIMMER 08/28/2019 N18.9 Chronic kidney disease, unspecified Colette Shortle, BUTT TRIMMER 08/28/2019 I10 Essential (primary) hypertension Colette Shortle, BUTT TRIMMER 08/16/2019 I12.0 Hypertensive chronic kidney disease with [...] 11:00 am - Brielle Dawson MD at [facility] [id number] /27/2020 - Dejan Chaidez M.D.L02.31 Cutaneous abscess of buttockComments: [facility] admission for multiple ? pressure sores/MRSA. On Doxycycline rx and all areas improved. Continue Rx and recheck with ID as advised.Referral:Aurelio Sarabia MD, Infectious JktkvghvF63.419 Cutaneous abscess of limb, unspecifiedComments:Bilat calf lesions; improved with Rx.N18.5 Chronic kidney disease, stage 5Comments:Following with nephrology. Pt not on dialysis yet and still making urine. Functional Status Description No Information Available Mental Status Description No Information Available Referrals Refer to Reason for Referral Status Appt Date Aurelio Sarabia MD Hospital recheck; cutaneous abscesses Created [address] [place] [address] [place] [address] [phone] Sathish Berger MD For AVF. CKD 5. Sent [address] [place] [address] [place] [address] [phone]
[2019-09-20 13:46] VITALS: BP 161/98
== END 2019-09-20 13:45 | disposition home or self-care (01) ==
LOC: ED 11:03
DX: N18.9 Chronic kidney disease, unspecified (principal); D64.9 Anemia, unspecified; H05.223 Edema of bilateral orbit; R51 Headache; F41.9 Anxiety disorder, unspecified; F17.210 Nicotine dependence, cigarettes, uncomplicated; Z86.14 Personal history of Methicillin resistant Staphylococcus aureus infection; Z86.79 Personal history of other diseases of the circulatory system; Z85.828 Personal history of other malignant neoplasm of skin
CPT/HCPCS: 36415; 80053; 83880; 84484; 85025; 93005; 99282

== ENCOUNTER → 2019-09-22 11:23 | Day surgery (SDC) | payer OTHER ==
[~2019-09-22 11:23] MED LIST changes: -Acetaminophen TAB* 325 MG ONE; -Acetaminophen TAB* 325 MG PO ONE; -Buffered Lidocaine 1% SYRIN* 1 ML/SYRINGE INTRADERM ONE; -Bupivacaine 0.25% SDV* 30 ML ONE; +Clindamycin 600 MG/NS BAG(*) 600 MG/50 ML BAG IV ONE; -Famotidine IV* 10 MG/ML 2 ML (20 mg) ONE; -Heparin VIAL(*) 5000 UNITS/ML VIAL (FIVE THOUSAND) ONE; +Heparin(*) 1000 UNIT/ML 10 ML VIAL CATH LAB IV ONE; -Lactated Ringers 1000 ML Bag* 1,000 ML IV SCH; -Lidocaine 2% PF * 5 ML VIAL ONE; -Midazolam* 1 MG/ML 2 ML VIAL (2 MG) ONE; +Midazolam* 1 MG/ML 5 ML VIAL (5 MG) ONE; -NS 0.45% 1000 ML BAG* 1,000 ML IV SCH; -Naloxone* 0.4 MG/ML 1 ML VIAL IV PRN; -Ondansetron INJ* 2 MG/ML VIAL IV PRN; -Phenylephrine 40 MCG/ML SYRINGE ONE; -Propofol* 10 MG/ML 20 ML BTL ONE; -ceFAZolin 2 GM in NS PREMIX(*) 2 GM/100 ML BAG IVPB ONE; -diPHENhydraMINE IV* 50 MG/ML 1 ml VIAL (BENADRYL) IV PRN; +diPHENhydraMINE PO* 25 MG PO ONE; +methylPREDNISolone 125 MG* 2 ML VIAL IV ONE; +methylPREDNISolone SOD 40 MG* 1 ML VIAL IV ONE; -oxyCODONE TAB* 5 MG TAB PO PRN
--- NOTE | 2019-09-22 15:10 | OP ---
Operative Report - Blank - Operative Report Date of Operation: 09/22/19 Note: Procedure Note Tunneled HD Catheter placement Note: Performed by Dr. Lamont Morales, [facility] Nephrology 09/22/2019 Right Internal Jugular Tunneled Hemodialysis Catheter Placement Note: Procedure indication: ESRD, needs Hemodialysis chcf Access. Consent was obtained, in chart. Patient understands risks, benefits, alternatives and wants to proceed. Rt IJV patency was checked by US. Following strict hand hygiene and standard sterile precautions, a full sterile attire for myself and all personnel involved in the procedure, including a gown , cap, face mask with an eye shield, and double sterile gloves. The procedure started with 2 ID time out after marking the new proposed venotomy site. Patient was put in Trendelenburg position. Vascular US was used during the procedure. Right Neck and Chest were prepped with 2% Chlorhexidine, and the surgical field was surrounded by sterile surgical towels. A sterile full body drape was placed to cover the patient from head to toe. Rt IJ was chosen. Under real time US guidance the Rt IJV was accessed by a 21-G needle, then a 0.018 micro wire was threaded through the 21-G needle into the vein and the 21- G needle was pulled out, leaving the micro wire in, confirmed in the IJ-SVC by Fluoro, then a 4-Fr sheath and inner stylet were passed over the micro wire into the vein. Both, the micro wire and the inner stylet were removed and the 4- Fr sheath was kept in place. Then, a 0.035 Amplatz wire was passed through the 4 -Fr sheath into the central circulation, confirmed by Fluoro in the Rt Atrium. Skin near the venotomy was nicked using # 11 Blade and extended to 0.5 cm long, then was dilated using a curved Karen. Bleeding was controlled by pressure over the dilated venotomy site. A 19 cm TDC was chosen. The proposed tunnel & exit site were numbed thoroughly with 10 cc of 1% Lidocaine w/o Epi. The exit site was created using # 11 Blade and extended to 0.5 cm long. Exit was dissected bluntly using a curved Karen. A blunt tunneler was bent and used to pull the TDC from the exit site to the venotomy site and was placed just behind the 4-Fr sheath Sequential dilatation of the venotomy using 12 then 14 Fr the 16 Fr dilator and peel away sheath after the 5-Fr sheath was removed. Dilator and wire were removed and the 19 cm TDC was fed through the peel away sheath that was peel away carefully. Tip of TDC Catheter seen under Fluoro at the Cavo-atrial junction to Rt Atrium Both ports checked for flow and draw and both worked very well then flushed again with saline and locked with 1:1000 in each port. Caps were applied over both ports. The catheter was secured and tethered in place using 2-0 Proline sutures at the exit site. The venotomy site was repaired using 3-0 Vicryl. Complications: None Estimated Bleeding: < 5cc Will start HD soon. Fluoro Time: 0.7 min IV Contrast: Zero Radiation Exposure: 11 mGy Pre Op Meds: Clindamycin 600 mg IVPB pre Op. Fentanyl: 25 Mcg Versed: 0.25 mg
[2019-09-22 16:24] LABS: Hematocrit 28 % (42-52); Hemoglobin 9.5 g/dL (14.0-18.0)
[2019-09-22 16:34] LABS: Albumin 3.3 g/dL (3.2-5.2); Albumin/Globulin Ratio 1.5 (1-3); BUN/Creatinine Ratio 12.9 (8-20); Calcium 8.3 mg/dL (8.6-10.3); EGFR Non-African American 9.9 (>60); Globulin 2.2 g/dL (2-4); Total Bilirubin 0.3 mg/dL (0.2-1.0); Total Protein 5.5 g/dL (6.4-8.9)
[2019-09-22 16:40] LABS: Potassium 5.5 mmol/L (3.5-5.0)
[2019-09-22 17:08] VITALS: BP 119/95
[2019-09-22 17:29] LABS: Hepatitis B Surface Antigen Nonreactive (Nonreactive)
[2019-09-22 17:46] LABS: Hepatitis B Surface Ab Not Immune (Immune)
[2019-09-27 14:27] LABS: TB2 Ag minus Nil Result 0.03 IU/mL
[2019-09-28 07:17] LABS: QuantiferonTb Gold Plus Result Negative (Negative)
== END | disposition home or self-care (01) ==
LOC: CHICATH 11:23
PROVIDERS: ATTEND Internal Medicine Nephrology
DX: I12.0 Hypertensive chronic kidney disease with stage 5 chronic kidney disease or end stage renal disease (principal); N18.5 Chronic kidney disease, stage 5; F17.210 Nicotine dependence, cigarettes, uncomplicated; E87.5 Hyperkalemia; D64.9 Anemia, unspecified; E83.39 Other disorders of phosphorus metabolism
CPT/HCPCS: 36415; 36558; 76937; 80053; 85014; 85018; 86481; 86704; 86706; 87340; 99156; 99157; A9270-GY; C1750; C1769; J1644; J2250; J2920; J2930; J3010

== ENCOUNTER 2019-11-02 05:51 | Day surgery (SDC) | payer OTHER ==
[~2019-11-02 05:51] MED LIST changes: +Buffered Lidocaine 1% SYRIN 1 ml INTRADERM ONE; -Clindamycin 600 MG/NS BAG(*) 600 MG/50 ML BAG IV ONE; -Famotidine IV* 10 MG/ML 2 ML (20 mg) IV ONE; -Heparin 2 UNITS/ML IVPREMIX* 1,000 ML IV ONE; -Heparin(*) 1000 UNIT/ML 10 ML VIAL CATH LAB IV ONE; +Levalbuterol 0.63MG/3ML NEB UNIT OF USE INH ONE; +Levalbuterol 0.63MG/3ML NEB UNIT OF USE INH PRN; -Lidocaine 1% INJ* 10 MG/ML 30 ML SDV ONE; -Midazolam* 1 MG/ML 5 ML VIAL (5 MG) ONE; -diPHENhydraMINE PO* 25 MG PO ONE; -fentaNYL* 50 MCG/ML 2 ML VIAL (100 MCG VIAL) ONE; -methylPREDNISolone 125 MG* 2 ML VIAL IV ONE; -methylPREDNISolone SOD 40 MG* 1 ML VIAL IV ONE
[2019-11-02] MEDS ORDERED: Famotidine IV 10 MG/ML 2 ml VIAL (20 mg) ONE (05:52)
[2019-11-02] MEDS ORDERED: ceFAZolin 2 GM PREMIX in ORs 2 GM/50 ML BAG ONE (05:52)
[2019-11-02] MEDS ORDERED: Lactated Ringers 1000 ml BAG 1,000 ML IV SCH (06:00)
[2019-11-02] MEDS ORDERED: Famotidine IV 10 MG/ML 2 ml VIAL (20 mg) IV ONE (06:00)
[2019-11-02] MEDS ORDERED: Lidocaine 1% VIAL 10 MG/ML VIAL ONE (07:14)
[2019-11-02] MEDS ORDERED: Heparin 5000 UNITS/ML VIAL(*) 1 ml vial ONE (07:14)
[2019-11-02] MEDS ORDERED: Bupivacaine 0.25% SDV 30 ML ONE (07:15)
[2019-11-02] MEDS ORDERED: Heparin 2 UNITS/ML 1000 mls 1,000 ML IV ONE (07:15)
[2019-11-02] MEDS ORDERED: ROPIVACAINE 5 MG/ML 30 ML BTL (0.5%) ONE (07:33)
[2019-11-02] MEDS ORDERED: Midazolam 2 mg/2 ml VIAL 1 mg/ml 2 ml VIAL (2 mg) ONE ×2 (07:35→08:09)
[2019-11-02] MEDS ORDERED: fentaNYL 100 mcg/2 ml 50 MCG/ML VIAL ONE ×2 (07:35→09:44)
[2019-11-02] MEDS ORDERED: Lidocaine 2% PF 5 ML VIAL ONE (07:39)
[2019-11-02] MEDS ORDERED: Propofol 10 MG/ML 20 ML BTL ONE (08:14)
[2019-11-02] MEDS ORDERED: Dexmedetomidine 200 mcg/2 ml 2 ml VIAL (200 mcg) ONE (08:14)
[2019-11-02] MEDS ORDERED: Dexamethasone IV 4 MG/ML VIAL 1 ml VIAL ONE (08:14)
[2019-11-02] MEDS ORDERED: Levalbuterol 0.63MG/3ML NEB UNIT OF USE INH PRN (09:28)
[2019-11-02] MEDS ORDERED: Naloxone 0.4 mg VIAL 0.4 mg/ml 1 ml VIAL IV PRN (09:28)
[2019-11-02] MEDS ORDERED: diPHENhydraMINE IV 50 MG/ML 1 ml VIAL (BENADRYL) IV PRN (09:28)
[2019-11-02] MEDS ORDERED: DiMENhydriNATE IV 50 mg/ml 1 ml VIAL IV PUSH PRN (09:28)
[2019-11-02] MEDS ORDERED: Ondansetron 4 mg VIAL 2 MG/ML 2 ml VIAL IV PRN (09:28)
[2019-11-02] MEDS ORDERED: fentaNYL 100 mcg/2 ml 50 MCG/ML VIAL IV PRN (09:28)
[2019-11-02] MEDS ORDERED: HYDROcodone/ACETAMIN 5/325 mg TAB PO PRN (09:28)
[2019-11-02 11:59] VITALS: BP 145/72
== END 2019-11-02 11:55 | disposition home or self-care (01) ==
LOC: OR 05:51
PROVIDERS: ATTEND Surgery

== ENCOUNTER 2020-03-29 08:54 | Observation (INO) ==
[2020-03-29 09:50] LABS: ABS Basophils 0.1 10^3/ul (0-0.2); ABS Eosinophils 0.3 10^3/ul (0-0.6); ABS Lymphocytes 1.4 10^3/ul (1.0-4.8); ABS Monocytes 0.5 10^3/ul (0-0.8); ABS Neutrophils 4.6 10^3/ul (1.5-7.7); Hematocrit 39 % (42-52); Hemoglobin 13.3 g/dL (14.0-18.0); Mean Corpuscular HGB Conc 34 g/dL (31-36); Mean Corpuscular Hemoglobin 34 pg (27-31); Mean Corpuscular Volume 98 fL (80-94); Nucleated Red Blood Cells % 0.1; Platelet Count 214 10^3/uL (150-450); Red Blood Count 3.94 10^6 /uL (4.18-5.48); Red Cell Distribution Width 15 % (10-15); White Blood Count 6.9 10^3/uL (3.5-10.8)
[2020-03-29 10:08] LABS: Albumin 4.3 g/dL (3.2-5.2); Albumin/Globulin Ratio 1.7 (1-3); Calcium 9.2 mg/dL (8.6-10.3); EGFR African American 14.7 (>60); EGFR Non-African American 12.1 (>60); Globulin 2.5 g/dL (2-4); Magnesium 2.4 mg/dL (1.9-2.7); Total Bilirubin 0.4 mg/dL (0.2-1.0); Total Protein 6.8 g/dL (6.4-8.9)
[2020-03-29 10:44] LABS: Potassium 4.6 mmol/L (3.5-5.0)
[2020-03-29] MEDS ORDERED: Ondansetron 4 mg VIAL 2 MG/ML 2 ml VIAL IV PRN (11:50)
[2020-03-29] MEDS ORDERED: Lidocaine 4% GEL 10 GM TUBE TOPICAL PRN (14:57)
[2020-03-29] MEDS: Heparin 1,000 UNIT/ML 10 ml (10,000 UNITS) CATHLAB/DIALYSIS DIALYSIS ONE ×4 (15:53→18:58)
[2020-03-29 16:06] LABS: Hepatitis B Surface Antigen Nonreactive (Nonreactive)
[2020-03-29 16:23] LABS: Hepatitis B Surface Ab Not Immune (Immune)
[2020-03-29] MEDS: Heparin 5000 UNITS/ML 1 mL VIAL SUBCUT SCH (21:00)
[2020-03-30 05:02] LABS: Urine Appearance Turbid; Urine Bilirubin Negative (Negative); Urine Blood 1+ (Negative); Urine Color Yellow; Urine Glucose Negative (Negative); Urine Ketones Negative (Negative); Urine Nitrite Negative (Negative); Urine Protein 2+(100 mg/dL) (Negative); Urine Specific Gravity 1.006 (1.010-1.030); Urine Urobilinogen Negative (Negative)
[2020-03-30 05:08] LABS: Urine Bacteria 1+ (Absent); Urine Red Blood Cell 3+(>10/hpf) (Absent); Urine White Blood Cell 3+(>20/hpf) (Absent)
[2020-03-30 07:22] LABS: BUN/Creatinine Ratio 7.8 (8-20); Calcium 8.9 mg/dL (8.6-10.3); EGFR African American 21.7 (>60); HDL Cholesterol 55.5 mg/dL; Magnesium 2.1 mg/dL (1.9-2.7); Potassium 4.7 mmol/L (3.5-5.0)
[2020-03-30 07:45] LABS: ABS Eosinophils 0.2 10^3/ul (0-0.6); ABS Lymphocytes 1.2 10^3/ul (1.0-4.8); ABS Monocytes 0.5 10^3/ul (0-0.8); ABS Neutrophils 6.2 10^3/ul (1.5-7.7); Eosinophil % 2.7 %; Hematocrit 36 % (42-52); Lymphocyte % 14.9 %; Mean Corpuscular HGB Conc 34 g/dL (31-36); Mean Corpuscular Hemoglobin 33 pg (27-31); Mean Corpuscular Volume 98 fL (80-94); Mean Platelet Volume 8.1 fL (7.4-10.4); Nucleated Red Blood Cells % 0.1; Platelet Count 192 10^3/uL (150-450); Red Blood Count 3.63 10^6 /uL (4.18-5.48); Red Cell Distribution Width 15 % (10-15); White Blood Count 8.2 10^3/uL (3.5-10.8)
[2020-03-30] MEDS: Heparin 5000 UNITS/ML 1 mL VIAL SUBCUT SCH (11:26)
[2020-03-30 14:29] VITALS: BP 104/59
[2020-03-31] MEDS ORDERED: Influenza VAC *QUAD* 2020-21* 0.5 ML SYRINGE IM ONE (09:00)
== END 2020-03-30 14:40 | disposition home or self-care (01) ==
LOC: MEDTELE 08:54 → ED 08:54 → MEDTELE 13:51
PROVIDERS: ADMIT Student in an Organized Health Care Education/Training Program; ATTEND Internal Medicine